=== PATIENT | female | born 1940 | race Caucasian/White ===

== ENCOUNTER → 2017-12-05 11:30 | Outpatient (CLI) | payer MEDICARE, SELFPAY ==
--- NOTE | 2017-12-05 11:51 | RAD_ITS ---
STUDY: X-RAY - RIGHT SHOULDER REASON FOR EXAM: Female, 77 years old. Fall. TECHNIQUE: 4 view(s) of the shoulder. COMPARISON: None. FINDINGS: There is mild degenerative arthrosis of the glenohumeral articulation. Normal acromioclavicular joint. Normal acromion. Normal humeral head and visualized proximal humerus. The soft tissue structures are unremarkable. Normal visualized pulmonary apex. RAD/Shoulder min 2 Views IMPRESSION: Mild glenohumeral arthrosis. No fracture or dislocation. Electronically Signed: Karthik Newman DO at 23:57 EST , Service support ,
--- NOTE | 2017-12-05 11:51 | RAD_ITS ---
STUDY: X-RAY - LEFT SHOULDER REASON FOR EXAM: Female, 77 years old. Fall TECHNIQUE: 4 view(s) of the shoulder. COMPARISON: None. FINDINGS: There is moderate degenerative arthrosis of the glenohumeral articulation. Normal acromioclavicular joint. Normal acromion. There is an enthesopathic erosion of the humeral head. The soft tissue structures are unremarkable. Normal visualized pulmonary apex. RAD/Shoulder min 2 Views IMPRESSION: Glenohumeral arthrosis. Humeral head osteophyte and erosion. No fracture or dislocation. Electronically Signed: Karthik Newman DO at 23:56 EST , Service support ,
[2017-12-05 14:33] LABS: T4 Free Direct 0.87 ng/dL (0.76-1.46); Thyroid Stim Hormone (TSH) 2.91 uIU/mL (0.358-3.74)
== END ==
LOC: MFPLAB 11:31 → MTRAD 11:36
PROVIDERS: Family Provider Family Medicine; PCP Family Medicine; Visit Provider Family Medicine
DX: M25.512 Pain in left shoulder (principal); M25.511 Pain in right shoulder; R94.6 Abnormal results of thyroid function studies
CPT/HCPCS: 36415; 73030; 84439; 84443

== ENCOUNTER 2019-12-05 09:24 | Day surgery (SDC) | payer MEDICARE, MEDICAID, SELFPAY ==
--- NOTE | 2019-11-24 02:52 | HP_ITS ---
Intake Vital Signs 11/24/19 BP 124/77 H 11/24/19 Blood Pressure Location Lt brachial 11/24/19 Position Sitting 11/24/19 Respiration 22 H 11/24/19 Pulse 78 Intake Visit Reasons: CSCOPE/ BLOOD IN STOOL Chief Complaint: blood in stool Hotbed Transfer Operator Required: No Is patient in pain?: No Allergies ether [Ether] Allergy (Verified 11/24/19 09:20) Anaphylaxis Penicillins Allergy (Verified 11/24/19 09:20) Anaphylaxis Medications Calcium Carb/Vitamin D [Caltrate-600 With Vit D Tab] 600 mg PO DAILY 12/05/13 [History Confirmed 11/24/19] Benazepril HCl [Lotensin] 40 mg PO DAILY #30 tab 01/02/14 [Rx Confirmed 03/19/14] Fluticasone 110 Mcg [Flovent 110 Mcg] 2 puff INHALATION BID #1 inhaler 01/02/14 [Rx Confirmed 11/24/19] Iron Carbonyl [Feosol] 45 mg PO BID #60 cap 01/02/14 [Rx Confirmed 11/24/19] Acetaminophen/Codeine #3 [Tylenol #3 Tablet] 1 - 2 tab PO Q6H PRN PRN 03/19/14 [History Confirmed 11/24/19] ALPRAZolam [Xanax] 0.5 mg PO TID PRN PRN #20 tab 03/20/14 [Rx Confirmed 11/24/19] Docusate Sodium [Colace] 200 mg PO BID PRN PRN #40 cap 03/20/14 [Rx Confirmed 11/24/19] traMADol [Ultram] 50 - 100 mg PO Q6H PRN PRN #20 tab 03/20/14 [Rx Confirmed 11/24/19] amlodipine 5 mg tablet 10 mg PO DAILY tab 11/24/19 [History] levothyroxine 50 mcg tablet tab PO 11/24/19 [History Confirmed 11/24/19] lisinopril 40 mg tablet 40 mg PO DAILY tab 11/24/19 [History Confirmed 11/24/19] Is last menstrual period known: No Post menopausal: Yes Patient : No PFSH Medical History (Updated 11/24/19 @ 14:[address] Denys Olivas MD) Gastric ulcer (Acute) Bronchial asthma (Acute) Legally blind (Acute) Obesity (Chronic) Anemia (Chronic) Anxiety (Chronic) Hyperlipidemia (Chronic) Asthma (Chronic) Type 2 diabetes mellitus (Chronic) Hypertension (Chronic) DJD (degenerative joint disease) of knee (Chronic) Leukocytosis (Acute) Closed head injury (Acute) Osteoarthritis (Acute) Surgical History (Updated 11/24/19 @ 09:19 by Ashwini Elizalde) History of cholecystectomy (Acute) History of colonoscopy (Acute ~2013) History of esophagogastroduodenoscopy (EGD) (Acute ~2013) History of hysterectomy (Acute) History of partial mastectomy of left breast (Acute) Family History (Updated 11/24/19 @ 09:20 by Ashwini Elizalde) Father Heart disease CVA (cerebral vascular accident) Mother Cancer liver Breast cancer Social History (Updated 11/24/19 @ 14:[address] Denys Olivas MD) Smoking Status: Never smoker HPI HPI HPI: LEONID MCCOY, is a 79 F who presents to the office today for HPI HPI Surgical H&P: Yes HPI: LEONID MCCOY, is a 79 F who presents to the office today for Anemia blood in her stool. Patient reports that she occasionally has blood in her stool. She also has upper abdominal pain. She is not on a PPI. She had an EGD and colonoscopy in [address] Fair which were both normal. ROS General General: Yes fatigue; no weight change, appetite, colon cancer, breast cancer or weakness HEENT HEENT: Yes eye surgery; no difficulty swallowing, eye injury, swollen glands or hoarseness Endo Endocrine: Yes diabetes mellitus; no thyroid disease, thyroid cancer, Hair loss, heat intolerance or cold intolerance Cardio Cardiovascular: Yes high blood pressure; no murmur, pacemaker, heart disease, atrial fibrillation, heart attack, heart stent, palpitations, shortness of breat with exertion or chest pain Psych Psychiatric: Yes anxiety; no depression or hearing voices Resp Respiratory: Yes shortness of breath, No sleep apnea, No cough, No COPD, Yes asthma, No emphysema, No wheezing Gastro Gastrointestinal: Yes abdominal pain, No nausea or vomiting, No diarrhea, Yes constipation, Yes blood in stool, No acid reflux, No hemorrhoids, Yes ulcers, Yes gallbladder problem, No black,tarry stools Sin Hematologic: Yes blood thinners, No blood disorders, No bleeding, Yes anemia, No blood clots Neuro Neurologic: No weakness Exam Const General: cooperative Orientation: alert, oriented x3 Resp Effort & Inspection: normal respiratory effort Auscultation: clear to auscultation bilaterally Cardio Rate: regular rate Rhythm: regular rhythm Heart Sounds: no murmurs GI Inspection: non-distended Palpation: soft, tender in the epigastrum Assessment & Plan Problems 1. Iron deficiency anemia, unspecified iron deficiency anemia type D50.9 2. Blood in stool K92.1 Plan The patient has a history of blood in her stool. She also has abdominal pain and she has iron deficiency anemia. She had normal colonoscopy and EGD in 2013. I do recommend EGD and colonoscopy to check for signs of malignancy. I discussed this with her in detail. She is very concerned with the anesthesia. I explained endoscopy in detail to the patient. I explained the risks including but not limited to stroke or heart attack with anesthesia, perforation of the GI tract, bleeding, infection. I explained that any of these could necessitate further emergency surgery. The patient understands and all questions were answered sufficiently. The patient wishes to proceed with procedure. Denys Olivas MD Pager: [facility] [address] [place] [address], [address] [place] [address] Office: Orders Orders: Colonoscopy Today D64.9, K92.1 EGD Today D64.9, K92.1 Coding Level of Care Code Off vis,new,level 3 Diagnoses Iron deficiency anemia, unspecified iron deficiency anemia type D50.9 ??Anemia type: iron deficiency ??Iron deficiency anemia type: unspecified iron deficiency Blood in stool K92.1 11/24/19 0202 <Electronically signed by Denys tejada MD> Date _ Denys Olivas MD I have re-examined the patient. There are no clinical changes since date of exam.
[2019-11-24 09:21] VITALS: BMI 36.0
[2019-12-05] VITALS (7 sets, daily range): BP systolic 106–126; BP diastolic 43–58; PULSE 75–83; RESP 16; TEMP 36.5–37.6; O2SAT 95–99; BMI 37.8
[2019-12-05 11:31] LABS: Bedside Glucose 107 mg/dL (70-110)
--- NOTE | 2019-12-05 11:38 | OP.CCLET_ITS ---
12/05/2019 Lanre Smith MD [address] [phone] Re : Upper GI endoscopy procedure for Xochitl Cochran Dear Dr. Smith This procedure was performed on Thursday, December 05, 2019. My impressions and recommendations are as follows: Impressions : - Gastritis with hemorrhage. - Normal [Site]. - Normal esophagus. - No specimens collected. Recommendations : - Discharge patient to a skilled nursing. - Resume previous diet. - Use sucralfate tablets 1 gram PO QID for 1 month. - Use Prilosec (omeprazole) 40 mg PO daily. - Continue present medications. My findings are described in the full procedure note, which is enclosed. If I can be of further assistance, please feel free to contact me at Doctor phone number(s): , Work: . Sincerely, Denys Olivas MD 12/05/2019 11:37:49 AM This report has been signed electronically.
--- NOTE | 2019-12-05 11:38 | OP.EGD_ITS ---
Patient Name: Xochitl Cochran Procedure Date: 12/05/2019 10:42 AM Date of : 1940 Age: 79 Procedure: Upper GI endoscopy Indications: Iron deficiency anemia Providers: Denys Olivas MD Referring MD: Lanre Smith MD Medicines: Monitored Anesthesia Care Patient Profile: This is an 79 year old female. Refer to note in patient chart for documentation of history and physical. Complications: No immediate complications. Estimated blood loss: Minimal. Procedure: Pre-Anesthesia Assessment: - Prior to the procedure, a History and Physical was performed, and patient medications and allergies were reviewed. The patient's tolerance of previous anesthesia was also reviewed. The risks and benefits of the procedure and the sedation options and risks were discussed with the patient. All questions were answered, and informed consent was obtained. Prior Anticoagulants: The patient has taken no previous anticoagulant or antiplatelet agents. After reviewing the risks and benefits, the patient was deemed in satisfactory condition to undergo the procedure. After obtaining informed consent, the endoscope was passed under direct vision. Throughout the procedure, the patient's blood pressure, pulse, and oxygen saturations were monitored continuously. The gastroscope was introduced through the mouth, and advanced to the third part of duodenum. The upper GI endoscopy was accomplished without difficulty. The patient tolerated the procedure well. Scope In: 11:11:26 AM Scope Out: 11:14:48 AM Total Procedure Duration Time 0 hours 3 minutes 22 seconds Findings: Localized moderate inflammation with hemorrhage characterized by adherent blood was found in the entire examined stomach. The [Site] was normal. The esophagus was normal. Impression: - Gastritis with hemorrhage. - Normal [Site]. - Normal esophagus. - No specimens collected. Recommendation: - Discharge patient to a detention. - Resume previous diet. - Use sucralfate tablets 1 gram PO QID for 1 month. - Use Prilosec (omeprazole) 40 mg PO daily. - Continue present medications. Procedure Code(s): --- Professional --- 45162, Esophagogastroduodenoscopy, flexible, transoral; diagnostic, including collection of specimen(s) by brushing or washing, when performed (separate procedure) Diagnosis Code(s): --- Professional --- K29.71, Gastritis, unspecified, with bleeding D50.9, Iron deficiency anemia, unspecified CPT copyright 2017 [employer]. All rights reserved. The codes documented in this report are preliminary and upon test desk operator review may be revised to meet current compliance requirements. Denys Olivas MD 12/05/2019 11:37:49 AM This report has been signed electronically. Number of Addenda: 0 Note Initiated On: 12/05/2019 10:42 AM
--- NOTE | 2019-12-05 11:39 | OP.COLON_ITS ---
Patient Name: Xochitl Cochran Procedure Date: 12/05/2019 11:15 AM Date of : 1940 Age: 79 Procedure: Colonoscopy Indications: Iron deficiency anemia Providers: Denys Olivas MD Referring MD: Lanre Smith MD Medicines: Monitored Anesthesia Care Patient Profile: This is an 79 year old female. Refer to note in patient chart for documentation of history and physical. Refer to note in patient chart for documentation of history and physical. Last Colonoscopy: several years ago. Complications: No immediate complications. Estimated blood loss: Minimal. Procedure: Pre-Anesthesia Assessment: - Prior to the procedure, a History and Physical was performed, and patient medications and allergies were reviewed. The patient's tolerance of previous anesthesia was also reviewed. The risks and benefits of the procedure and the sedation options and risks were discussed with the patient. All questions were answered, and informed consent was obtained. Prior Anticoagulants: The patient has taken no previous anticoagulant or antiplatelet agents. After reviewing the risks and benefits, the patient was deemed in satisfactory condition to undergo the procedure. After I obtained informed consent, the scope was passed under direct vision. Throughout the procedure, the patient's blood pressure, pulse, and oxygen saturations were monitored continuously. The Colonoscope was introduced through the anus and advanced to the cecum, identified by appendiceal orifice and ileocecal valve. The colonoscopy was performed without difficulty. The patient tolerated the procedure well. The quality of the bowel preparation was good. Scope In: 11:18:24 AM Scope Withdrawal Time 0 hours 6 minutes 2 seconds Scope Out: 11:32:22 AM Total Procedure Duration Time 0 hours 13 minutes 58 seconds Findings: The entire examined colon appeared normal on direct and retroflexion views. Impression: - The entire examined colon is normal on direct and retroflexion views. - No specimens collected. Recommendation: - Discharge patient to a assisted. - Resume previous diet. - Continue present medications. - Repeat colonoscopy is not recommended due to current age (66 years or older) for screening purposes. Procedure Code(s): --- Professional --- 98579, Colonoscopy, flexible; diagnostic, including collection of specimen(s) by brushing or washing, when performed (separate procedure) Diagnosis Code(s): --- Professional --- D50.9, Iron deficiency anemia, unspecified CPT copyright 2017 [employer]. All rights reserved. The codes documented in this report are preliminary and upon collaborating supervising physician review may be revised to meet current compliance requirements. Denys Olivas MD 12/05/2019 11:39:31 AM This report has been signed electronically. Number of Addenda: 0 Note Initiated On: 12/05/2019 11:15 AM
--- NOTE | 2019-12-05 11:40 | OP.CCLET_ITS ---
12/05/2019 Lanre Smith MD [address] [phone] Re : Colonoscopy procedure for Xochitl Cochran Dear Dr. Smith This procedure was performed on Thursday, December 05, 2019. My impressions and recommendations are as follows: Impressions : - The entire examined colon is normal on direct and retroflexion views. - No specimens collected. Recommendations : - Discharge patient to a usp. - Resume previous diet. - Continue present medications. - Repeat colonoscopy is not recommended due to current age (66 years or older) for screening purposes. My findings are described in the full procedure note, which is enclosed. If I can be of further assistance, please feel free to contact me at Doctor phone number(s): , Work: . Sincerely, Denys Olivas MD 12/05/2019 11:39:31 AM This report has been signed electronically.
--- NOTE | 2019-12-05 11:40 | PN_ITS ---
Progress Note I performed an EGD and a colonoscopy on the patient. The colonoscopy was normal. EGD showed diffuse gastritis with punctate bleeding throughout the stomach. She also had an ulcer at the GE junction. I will start her on Carafate and PPI. Denys Olivas MD Pager: [facility] [address] [place] [address], [address] [phone] Office: STROKE Vital Signs/Narrative: Vital Signs Temp Pulse Resp BP Pulse Ox 12/05/19 10:24 99.0 F 81 16 120/56 L 95
--- NOTE | 2019-12-05 11:40 | PCM.PN.BLA ---
Progress Note I performed an EGD and a colonoscopy on the patient. The colonoscopy was normal. EGD showed diffuse gastritis with punctate bleeding throughout the stomach. She also had an ulcer at the GE junction. I will start her on Carafate and PPI. Denys Olivas MD Pager: [facility] [address] [place] [address], [address] [phone] Office: STR[place] Vital Signs/Narrative: Vital Signs Temp Pulse Resp BP Pulse Ox 12/05/19 10:24 99.0 F 81 16 120/56 L 95
[2019-12-05] MEDS: Lactated Ringers 1,000 ML 100 ML IV (11:52)
== END 2019-12-05 12:50 | disposition home or self-care (01) ==
LOC: EN 09:28 → AC 09:29
PROVIDERS: PCP Family Medicine; Referring Provider Family Medicine; Visit Provider Surgery
PROC: 0DJD8ZZ Inspection of Lower Intestinal Tract, Via Natural or Artificial Opening Endoscopic (ICD-10-PCS; CPT 45378; principal; 2019-12-05 10:25)
DX: K29.71 Gastritis, unspecified, with bleeding (principal); K25.0 Acute gastric ulcer with hemorrhage; D50.9 Iron deficiency anemia, unspecified; K92.1 Melena; K21.9 Gastro-esophageal reflux disease without esophagitis; E11.9 Type 2 diabetes mellitus without complications; I10 Essential (primary) hypertension; E78.5 Hyperlipidemia, unspecified; M17.10 Unilateral primary osteoarthritis, unspecified knee; J45.909 Unspecified asthma, uncomplicated; H54.8 Legal blindness, as defined in USA; F41.9 Anxiety disorder, unspecified; E66.9 Obesity, unspecified; Z68.37 Body mass index [BMI] 37.0-37.9, adult; Z88.0 Allergy status to penicillin; Z78.0 Asymptomatic menopausal state; Z79.899 Other long term (current) drug therapy
CPT/HCPCS: 43235; 45378; 82962; J7120; J2405

== ENCOUNTER → 2020-01-22 | Outpatient (CLI) | payer MEDICARE, MEDICAID, SELFPAY ==
[2019-12-05 10:24] VITALS: BMI 37.8
== END | disposition home or self-care (01) ==
PROVIDERS: PCP Family Medicine; Referring Provider Nurse Practitioner Adult Health; Visit Provider Nurse Practitioner Adult Health
DX: J98.8 Other specified respiratory disorders (principal)
CPT/HCPCS: 87635; U0004

== ENCOUNTER → 2020-02-16 | Outpatient (CLI) | payer MEDICARE, MEDICAID, SELFPAY ==
[2019-12-05 10:24] VITALS: BMI 37.8
== END | disposition home or self-care (01) ==
LOC: LABSPEC 13:34
PROVIDERS: PCP Family Medicine; Referring Provider Family Medicine; Visit Provider Family Medicine
DX: Z03.818 Encounter for observation for suspected exposure to other biological agents ruled out (principal); J98.8 Other specified respiratory disorders
CPT/HCPCS: 87635; U0004

== ENCOUNTER → 2021-04-22 | Outpatient (REF) | payer MEDICARE, MEDICAID, SELFPAY ==
[2019-12-05 10:24] VITALS: BMI 37.8
[2021-04-22 07:02] LABS: Absolute Lymphocyte Count 2.95 X10^3/uL (0.83-4.51); Absolute Neutrophil Count 3.1 X10^3/uL (2.0-7.7); Basophil# 0.06 X10^3/uL; Basophil% 0.9 % (0-1); Eosinophil# 0.18 X10^3/uL; Eosinophils% 2.6 % (0-5); Hematocrit 32.5 % (37-47); Hemoglobin 9.6 g/dL (12.0-15.0); Lymphocyte # 2.95 X10^3/ul (0.83-4.51); Lymphocyte % 42.1 % (19-41); Mean Corp Hgb Conc 29.5 g/dL (32-36); Mean Corpuscular Hgb 22.5 pg (27.0-32.0); Mean Corpuscular Volume 76.1 fL (81-99); Mean Platelet Vol. 10.6 fl (6.2-12.0); Monocyte# 0.68 X10^3/uL; Monocyte% 9.7 % (0-10); NRBC Flagged by Analyzer 0 % (0-5); Neutrophil # 3.11 X10^3/uL (2.7-7.7); Neutrophil % 44.4 % (47-70); Platelet Count 416 K/mm3 (150-450); RBC Distribution Width CV 18.3 % (11.6-14.6); RBC Distribution Width SD 49.8 fl (35.1-43.9); Red Blood Count 4.27 M/mm3 (4.2-5.4)
[2021-04-22 07:42] LABS: Thyroid Stim Hormone (TSH) 3.08 uIU/mL (0.358-3.74)
== END | disposition home or self-care (01) ==
LOC: OLS.SW400 05:00
PROVIDERS: PCP Family Medicine; Visit Provider Family Medicine
DX: M06.4 Inflammatory polyarthropathy (principal); E03.9 Hypothyroidism, unspecified
CPT/HCPCS: 36415; 84443; 85025

== ENCOUNTER → 2021-07-22 05:00 | Outpatient (REF) | payer MEDICARE, MEDICAID, SELFPAY ==
[2021-07-22 07:42] LABS: Absolute Neutrophil Count 2.3 X10^3/uL (2.0-7.7); Basophil# 0.06 X10^3/uL; Eosinophil# 0.23 X10^3/uL; Eosinophils% 3.8 % (0-5); Hematocrit 34.1 % (37-47); Hemoglobin 10.3 g/dL (12.0-15.0); Lymphocyte % 45.9 % (19-41); Mean Corp Hgb Conc 30.2 g/dL (32-36); Mean Corpuscular Hgb 24.5 pg (27.0-32.0); Mean Corpuscular Volume 81.2 fL (81-99); Mean Platelet Vol. 10.8 fl (6.2-12.0); Monocyte# 0.72 X10^3/uL; Monocyte% 11.8 % (0-10); NRBC Flagged by Analyzer 0 % (0-5); Neutrophil # 2.28 X10^3/uL (2.7-7.7); Neutrophil % 37.3 % (47-70); Platelet Count 351 K/mm3 (150-450); RBC Distribution Width CV 17.7 % (11.6-14.6); RBC Distribution Width SD 52.5 fl (35.1-43.9); White Blood Count 6.1 K/mm3 (4.4-11.0)
[2021-07-22 08:15] LABS: Thyroid Stim Hormone (TSH) 3.61 uIU/mL (0.358-3.74)
== END ==
LOC: OLS.SW400 05:00
PROVIDERS: PCP Family Medicine; Visit Provider Family Medicine
DX: E03.9 Hypothyroidism, unspecified (principal); M06.4 Inflammatory polyarthropathy
CPT/HCPCS: 36415; 84443; 85025

== ENCOUNTER → 2021-08-03 05:00 | Outpatient (REF) | payer MEDICARE, MEDICAID, SELFPAY ==
[2021-08-03 09:09] LABS: Hemoglobin A1c 6.7 % (3.8-5.6)
[2021-08-03 09:25] LABS: ALB/GLOB Ratio 0.7 RATIO (0.9-2.4); AST(SGOT) 15 U/L (15-37); Alanine Aminotransfer ALT/SGPT 23 U/L (13-56); Albumin, Serum 3.1 g/dL (3.2-5.0); Alkaline Phosphatase 183 U/L (45-117); Anion Gap 5 (5-15); BUN 22 mg/dL (7-18); BUN/Creat Ratio 44.5 RATIO (10-20); Calcium,Total 9.4 mg/dL (8.5-10.1); Chloride 106 mmol/L (98-107); Creatinine, Serum 0.49 mg/dL (0.55-1.02); EST Glomerular Filtration Rate 127 mL/min (>60); Est Glom Filt Rate - Afr Amer 154 mL/min (>60); Globulin 4.3 g/dL (2.2-4.2); Glucose 86 mg/dL (74-106); Potassium 4.1 mmol/L (3.5-5.1); Protein, Total 7.4 g/dL (6.4-8.2); Sodium Level 140 mmol/L (136-145)
== END ==
LOC: OLS.SW400 05:00
PROVIDERS: PCP Family Medicine; Visit Provider Family Medicine
DX: E11.9 Type 2 diabetes mellitus without complications (principal)
CPT/HCPCS: 36415; 80053; 83036

== ENCOUNTER → 2021-10-21 | Outpatient (REF) | payer MEDICARE, MEDICAID, SELFPAY ==
[2021-10-21 05:23] LABS: Absolute Lymphocyte Count 2.65 X10^3/uL (0.83-4.51); Absolute Neutrophil Count 3.4 X10^3/uL (2.0-7.7); Basophil# 0.06 X10^3/uL; Basophil% 0.8 % (0-1); Eosinophil# 0.21 X10^3/uL; Eosinophils% 2.9 % (0-5); Hematocrit 33.9 % (37-47); Hemoglobin 10.7 g/dL (12.0-15.0); Lymphocyte # 2.65 X10^3/ul (0.83-4.51); Lymphocyte % 37.1 % (19-41); Mean Corp Hgb Conc 31.6 g/dL (32-36); Mean Corpuscular Hgb 26.6 pg (27.0-32.0); Mean Corpuscular Volume 84.3 fL (81-99); Mean Platelet Vol. 11.3 fl (6.2-12.0); Monocyte# 0.78 X10^3/uL; Monocyte% 10.9 % (0-10); NRBC Flagged by Analyzer 0 % (0-5); Neutrophil # 3.43 X10^3/uL (2.7-7.7); Neutrophil % 48.2 % (47-70); Platelet Count 334 K/mm3 (150-450); RBC Distribution Width CV 15.9 % (11.6-14.6); RBC Distribution Width SD 49.3 fl (35.1-43.9); Red Blood Count 4.02 M/mm3 (4.2-5.4); White Blood Count 7.1 K/mm3 (4.4-11.0)
== END | disposition home or self-care (01) ==
LOC: OLS.SW500 04:00
PROVIDERS: PCP Family Medicine; Visit Provider Family Medicine
DX: E03.9 Hypothyroidism, unspecified (principal)
CPT/HCPCS: 36415; 84443; 85025

== ENCOUNTER 2021-10-31 04:00 | Outpatient (REF) | payer MEDICARE, MEDICAID, SELFPAY | END 2021-10-31 23:59 | disposition home or self-care (01) | LOC: OLS.SW500 04:00 | PROVIDERS: PCP Family Medicine; Referring Provider Family Medicine; Visit Provider Family Medicine | DX: E55.9 Vitamin D deficiency, unspecified (principal) | CPT/HCPCS: 36415; 82306 ==

== ENCOUNTER → 2022-01-03 | Outpatient (REF) | payer MEDICARE, MEDICAID, SELFPAY ==
[2022-01-03 10:48] LABS: Thyroid Stim Hormone (TSH) 3.06 uIU/mL (0.358-3.74)
== END | disposition home or self-care (01) ==
LOC: OLS.SW500 05:00
PROVIDERS: PCP Family Medicine; Visit Provider Family Medicine
DX: E03.9 Hypothyroidism, unspecified (principal)
CPT/HCPCS: 36415; 84443

== ENCOUNTER → 2022-01-20 | Outpatient (REF) | payer MEDICARE, SELFPAY ==
[2022-01-20 07:32] LABS: Absolute Neutrophil Count 3.7 X10^3/uL (2.0-7.7); Basophil# 0.04 X10^3/uL; Basophil% 0.5 % (0-1); Eosinophil# 0.23 X10^3/uL; Hematocrit 31.3 % (37-47); Hemoglobin 9.8 g/dL (12.0-15.0); Mean Corp Hgb Conc 31.3 g/dL (32-36); Mean Corpuscular Hgb 26.3 pg (27.0-32.0); Mean Corpuscular Volume 83.9 fL (81-99); Mean Platelet Vol. 11.3 fl (6.2-12.0); Monocyte# 0.78 X10^3/uL; Monocyte% 10.2 % (0-10); NRBC Flagged by Analyzer 0 % (0-5); Neutrophil # 3.66 X10^3/uL (2.7-7.7); Platelet Count 352 K/mm3 (150-450); RBC Distribution Width CV 14.7 % (11.6-14.6); RBC Distribution Width SD 45.1 fl (35.1-43.9); Red Blood Count 3.73 M/mm3 (4.2-5.4); White Blood Count 7.6 K/mm3 (4.4-11.0)
[2022-01-20 07:59] LABS: Thyroid Stim Hormone (TSH) 1.54 uIU/mL (0.358-3.74)
== END | disposition home or self-care (01) ==
LOC: OLS.SW500 05:00
PROVIDERS: PCP Family Medicine; Referring Provider Family Medicine; Visit Provider Family Medicine
DX: E03.9 Hypothyroidism, unspecified (principal)
CPT/HCPCS: 36415; 84443; 85025

== ENCOUNTER → 2022-02-01 | Outpatient (REF) | payer SELFPAY ==
[2022-02-01 08:25] LABS: ALB/GLOB Ratio 0.7 RATIO (0.9-2.4); AST(SGOT) 12 U/L (15-37); Alanine Aminotransfer ALT/SGPT 16 U/L (13-56); Albumin, Serum 2.7 g/dL (3.2-5.0); Alkaline Phosphatase 127 U/L (45-117); Anion Gap 5 (5-15); BUN 30 mg/dL (7-18); BUN/Creat Ratio 48.2 RATIO (10-20); Calcium,Total 8.5 mg/dL (8.5-10.1); Chloride 107 mmol/L (98-107); Creatinine, Serum 0.62 mg/dL (0.55-1.02); EST Glomerular Filtration Rate 97 mL/min (>60); Est Glom Filt Rate - Afr Amer 118 mL/min (>60); Globulin 3.7 g/dL (2.2-4.2); Glucose 95 mg/dL (74-106); Protein, Total 6.4 g/dL (6.4-8.2); Sodium Level 140 mmol/L (136-145)
[2022-02-01 08:30] LABS: Hemoglobin A1c 6.8 % (3.8-5.6)
== END | disposition home or self-care (01) ==
LOC: OLS.SW500 05:00
PROVIDERS: PCP Family Medicine; Referring Provider Family Medicine; Visit Provider Family Medicine
DX: E11.9 Type 2 diabetes mellitus without complications (principal)
CPT/HCPCS: 36415; 80053; 83036

== ENCOUNTER → 2022-04-21 05:00 | Outpatient (REF) | payer MEDICARE, MEDICAID, SELFPAY ==
[2022-04-21 08:17] LABS: Absolute Lymphocyte Count 2.79 X10^3/uL (0.83-4.51); Basophil# 0.05 X10^3/uL; Basophil% 0.6 % (0-1); Eosinophil# 0.33 X10^3/uL; Eosinophils% 4.2 % (0-5); Hematocrit 35.7 % (37-47); Lymphocyte # 2.79 X10^3/ul (0.83-4.51); Lymphocyte % 35.2 % (19-41); Mean Corp Hgb Conc 30.8 g/dL (32-36); Mean Corpuscular Hgb 26.8 pg (27.0-32.0); Mean Corpuscular Volume 86.9 fL (81-99); Mean Platelet Vol. 11.8 fl (6.2-12.0); Monocyte% 10.1 % (0-10); NRBC Flagged by Analyzer 0 % (0-5); Neutrophil # 3.95 X10^3/uL (2.7-7.7); Neutrophil % 49.8 % (47-70); Platelet Count 310 K/mm3 (150-450); RBC Distribution Width CV 15.9 % (11.6-14.6); RBC Distribution Width SD 50.6 fl (35.1-43.9); Red Blood Count 4.11 M/mm3 (4.2-5.4); White Blood Count 7.9 K/mm3 (4.4-11.0)
[2022-04-21 08:58] LABS: Thyroid Stim Hormone (TSH) 1.83 uIU/mL (0.358-3.74)
== END ==
LOC: OLS.SW500 05:00
PROVIDERS: PCP Family Medicine; Visit Provider Family Medicine
DX: E03.9 Hypothyroidism, unspecified (principal)
CPT/HCPCS: 36415; 84443; 85025

== ENCOUNTER → 2022-05-21 | Outpatient (REF) | payer MEDICARE, MEDICAID, SELFPAY ==
[2022-05-22 08:31] LABS: Bacteria 0 SEEN /hpf (None Seen); Mucous, Urine 0 SEEN /hpf (<or=2+); Red Blood Cells-Urine 0 SEEN /hpf (0-5)
[2022-05-22 08:45] LABS: Color, Urine Straw (Yellow); Glucose, Dipstick Normal (Normal); Ketone-Dipstick Negative (Negative); Leukocyte Esterase-Dipstick 500 /ul (Negative); Nitrite-Dipstick Negative (Negative); Occult Blood-Urine Negative /ul (Negative); Protein-Dipstick Negative (Negative); Urine Bilirubin Dipstick Negative (Negative); Urine Clarity Clear (Clear); Urine Urobilinogen Normal (Normal)
[2022-05-22 08:54] LABS: White Blood Cells 10-25 SEEN /hpf (0-5)
[2022-05-22 08:56] LABS: Squamous Epithelial Cells - UA 0-5 SEEN /hpf (5-10)
== END ==
LOC: OLS.SW500 08:31
PROVIDERS: PCP Family Medicine; Visit Provider Family Medicine
DX: N39.0 Urinary tract infection, site not specified (principal)
CPT/HCPCS: 81001; 87086

== ENCOUNTER → 2022-07-21 | Outpatient (REF) | payer MEDICARE, MEDICAID, SELFPAY ==
[2022-07-21 08:03] LABS: Absolute Lymphocyte Count 2.86 X10^3/uL (0.83-4.51); Absolute Neutrophil Count 3.7 X10^3/uL (2.0-7.7); Basophil# 0.05 X10^3/uL; Basophil% 0.6 % (0-1); Eosinophil# 0.26 X10^3/uL; Eosinophils% 3.4 % (0-5); Hemoglobin 10.7 g/dL (12.0-15.0); Lymphocyte # 2.86 X10^3/ul (0.83-4.51); Lymphocyte % 36.9 % (19-41); Mean Corp Hgb Conc 31.5 g/dL (32-36); Mean Corpuscular Hgb 27.3 pg (27.0-32.0); Mean Corpuscular Volume 86.7 fL (81-99); Mean Platelet Vol. 11.8 fl (6.2-12.0); Monocyte% 11.6 % (0-10); NRBC Flagged by Analyzer 0 % (0-5); Neutrophil # 3.66 X10^3/uL (2.7-7.7); Neutrophil % 47.1 % (47-70); Platelet Count 318 K/mm3 (150-450); RBC Distribution Width CV 15.3 % (11.6-14.6); RBC Distribution Width SD 48.8 fl (35.1-43.9); Red Blood Count 3.92 M/mm3 (4.2-5.4); White Blood Count 7.8 K/mm3 (4.4-11.0)
[2022-07-21 08:21] LABS: Thyroid Stim Hormone (TSH) 1.43 uIU/mL (0.358-3.74)
== END ==
LOC: OLS.SW500 05:00
PROVIDERS: PCP Family Medicine; Visit Provider Family Medicine
DX: E03.9 Hypothyroidism, unspecified (principal)
CPT/HCPCS: 36415; 84443; 85025

== ENCOUNTER → 2022-08-02 | Outpatient (REF) | payer MEDICARE, MEDICAID, SELFPAY ==
[2022-08-02 09:17] LABS: ALB/GLOB Ratio 0.8 RATIO (0.9-2.4); AST(SGOT) 10 U/L (15-37); Alanine Aminotransfer ALT/SGPT 13 U/L (13-56); Albumin, Serum 2.9 g/dL (3.2-5.0); Alkaline Phosphatase 168 U/L (45-117); Anion Gap 6 (5-15); BUN 18 mg/dL (7-18); BUN/Creat Ratio 34.7 RATIO (10-20); Calcium,Total 8.8 mg/dL (8.5-10.1); Chloride 108 mmol/L (98-107); Creatinine, Serum 0.52 mg/dL (0.55-1.02); EST Glomerular Filtration Rate 120 mL/min (>60); Est Glom Filt Rate - Afr Amer 145 mL/min (>60); Globulin 3.5 g/dL (2.2-4.2); Glucose 91 mg/dL (74-106); Potassium 3.9 mmol/L (3.5-5.1); Protein, Total 6.4 g/dL (6.4-8.2); Sodium Level 141 mmol/L (136-145)
[2022-08-02 10:09] LABS: Hemoglobin A1c 6.4 % (3.8-5.6)
== END ==
LOC: OLS.SW 05:00
PROVIDERS: PCP Family Medicine; Visit Provider Family Medicine
DX: E11.9 Type 2 diabetes mellitus without complications (principal)
CPT/HCPCS: 36415; 80053; 83036

== ENCOUNTER → 2022-10-20 | Outpatient (REF) | payer MEDICARE, MEDICAID, SELFPAY ==
[2022-10-20 09:01] LABS: Absolute Lymphocyte Count 2.38 X10^3/uL (0.83-4.51); Absolute Neutrophil Count 4.1 X10^3/uL (2.0-7.7); Basophil# 0.07 X10^3/uL; Basophil% 0.9 % (0-1); Eosinophil# 0.26 X10^3/uL; Eosinophils% 3.4 % (0-5); Hematocrit 38.7 % (37-47); Hemoglobin 11.7 g/dL (12.0-15.0); Lymphocyte # 2.38 X10^3/ul (0.83-4.51); Lymphocyte % 30.9 % (19-41); Mean Corp Hgb Conc 30.2 g/dL (32-36); Mean Corpuscular Hgb 26.6 pg (27.0-32.0); Mean Platelet Vol. 11.8 fl (6.2-12.0); Monocyte# 0.84 X10^3/uL; Monocyte% 10.9 % (0-10); NRBC Flagged by Analyzer 0 % (0-5); Neutrophil # 4.12 X10^3/uL (2.7-7.7); Neutrophil % 53.6 % (47-70); Platelet Count 314 K/mm3 (150-450); RBC Distribution Width CV 14.3 % (11.6-14.6); RBC Distribution Width SD 46.4 fl (35.1-43.9); White Blood Count 7.7 K/mm3 (4.4-11.0)
[2022-10-20 09:15] LABS: Thyroid Stim Hormone (TSH) 2.88 uIU/mL (0.358-3.74)
== END ==
LOC: OLS.SW 05:00
PROVIDERS: PCP Family Medicine; Visit Provider Family Medicine
DX: E03.9 Hypothyroidism, unspecified (principal)
CPT/HCPCS: 36415; 84443; 85025

== ENCOUNTER → 2022-10-30 | Outpatient (REF) | payer MEDICARE, MEDICAID, SELFPAY ==
[2022-10-30 10:59] LABS: Vitamin D,25 Hydroxy 29.9 ng/mL
== END ==
LOC: OLS.SW 05:00
PROVIDERS: PCP Family Medicine; Visit Provider Family Medicine
DX: E55.9 Vitamin D deficiency, unspecified (principal); E11.9 Type 2 diabetes mellitus without complications; I10 Essential (primary) hypertension
CPT/HCPCS: 36415; 82306

== ENCOUNTER → 2022-12-18 | Outpatient (REF) | payer MEDICARE, MEDICAID, SELFPAY ==
[2022-12-19 08:23] LABS: Mucous, Urine 0 SEEN /hpf (<or=2+)
[2022-12-19 08:51] LABS: Color, Urine Yellow (Yellow); Glucose, Dipstick Normal (Normal); Ketone-Dipstick Negative (Negative); Leukocyte Esterase-Dipstick 500 /ul (Negative); Nitrite-Dipstick Positive (Negative); Occult Blood-Urine 50 /ul (Negative); Protein-Dipstick 30 mg/dl (Negative); Specific Gravity, Urine 1.015 (1.002-1.030); Urine Bilirubin Dipstick Negative (Negative); Urine Clarity Sl. Cloudy (Clear); Urine Urobilinogen Normal (Normal); Urine pH 6.5 (5.0 - 8.0)
[2022-12-19 08:59] LABS: Bacteria 2+ /hpf (None Seen); Red Blood Cells-Urine 0-5 SEEN /hpf (0-5); Squamous Epithelial Cells - UA 0-5 SEEN /hpf (5-10); White Blood Cells 25-50 SEEN /hpf (0-5)
== END ==
LOC: OLS.SW 08:22
PROVIDERS: PCP Family Medicine; Visit Provider Family Medicine
DX: R30.0 Dysuria (principal)
CPT/HCPCS: 81001; 87077; 87086; 87088; 87186

== ENCOUNTER 2023-01-08 09:12 | Day surgery (SDC) | payer MEDICARE, MEDICAID, SELFPAY ==
--- NOTE | 2023-01-08 | ESO_PTH ---
PATIENT: LEONID MCCOY LOC: EN U#:[id number] AGE/SX: 82/F ROOM: RE01/08/[address]: Dr. Feng Ball DO : 1940 BED: DIS: 01/08/2023 SPEC #: [id number] RECD: 01/08/23 12:56 STATUS: MERCEDEZ REQ #: [id number] AJ: 01/08/23 00:[address]: Feng Ball DEPT: SURGICAL PATHOLOGY RECD BY: Dario Ledesma ENTERED: 01/08/23 12:56 SP TYPE: MARILYN KAY DR: Dr. Lanre Smith MD Tissues: Esophagus, NOS Procedures: Special Stain Group II Surgery Specimen Level IV Alcian Blue/PAS (control) HEADER OPERATION: EGD (MAC), biopsy, dilation PRE-OP DIAGNOSIS: Dysphagia TISSUE SUBMITTED: Distal esophagus biopsy MICROSCOPIC DIAGNOSIS Distal esophagus, biopsy: Chronic inflammation. Focal changes of reflux. No evidence of goblet cell metaplasia. See comment. AM:david 01/09/2023 COMMENT Alcian blue/PAS stain with matched control supports the above diagnosis. MICROSCOPIC DESCRIPTION Slides are reviewed. GROSS DESCRIPTION Received in fixative is one container labeled with the patient's name and designated distal esophagus biopsy. The specimen consists of two irregular fragments of light anderson soft tissue that in aggregate measure 0.8 x 0.3 x 0.1 cm. The specimen is totally submitted in one cassette. / SJ:david 01/08/2023 TC:3 CPT: 92411, 37564
--- NOTE | 2023-01-08 09:34 | PCM.HP.BLA ---
History and Physical Date of Admission: 01/08/23 82 F who presents to the office today for Initial consult. Gi Hx GERD. PMH DMII, asthma, inflammatory polyarthropathy, anxiety/depression, HTN, hypothyroidism. PSH cholecystectomy 1969 EGD and colonoscopy 12.05.[address] Olivas for anemia. EGD gastritis with hemorrhage. No specimens collected. Colonoscopy without visual abnormality, no specimens collected. Sucralfate and Prilosec [facility] establishment 11.06.22 with dysphagia with choking for several months with worsening in the last 4 months. Particular difficulty with food and occasionally with pills. ROS Const Constitutional: No anorexia, fatigue, fever(s), weight change or sleep problems Eyes Eyes: No change in vision ENT ENT: No abnormal hearing, difficulty swallowing, mouth lesions, tongue swelling or throat swelling Resp Respiratory: No cough or shortness of breath Cardio Cardiology: No chest pain at rest, chest pain with exertion, shortness of breath or dyspnea on exertion Gastro GI: No difficulty swallowing Genitourinary-Female: No difficulty urinating or burning urination Musc Musculoskeletal: No joint pain, joint swelling, muscle weakness or decreased muscle mass Skin Skin: No hair loss in leg, yellowing of the eye, itchy eyes, rash, skin ulcer or skin swelling Neuro Neurology: No abnormal hearing, abnormal movements, confusion, unsteady gait/balance or memory loss Psych Psychiatric: No anxiety, No confusion and No memory loss Endo Endocrine: No fatigue or weight change Aller/Imm Allergy/Immunologic: No itchy eyes, throat swelling or tongue swelling Sin/Lymp Hematologic/Lymphatic: No easy bleeding, easy bruising or enlarged lymph nodes Exam Const General: cooperative and comfortable Nutritional Appearance: average body habitus and well nourished [facility] Head: normal to inspection Ears: hearing grossly normal bilaterally Nose: external nose normal Face and sinus: normal facial exam Mouth: oral mucosae normal Throat: posterior oropharynx normal Eyes General: appearance normal, both eyes and all related structures Neck Neck: normal visual inspection Chest Chest palpation & inspection: normal inspection of the chest and normal palpation of entire chest wall Resp Effort & Inspection: normal respiratory effort Auscultation: Bilateral: Clear to Auscultation Cardio Palpation: normal PMI Rate: regular rate Rhythm: regular rhythm GI Inspection: normal to inspection Auscultation: normal bowel sounds Percussion: normal to percussion Palpation: no hepatosplenomegaly Skin General: no rashes or lesions noted Neuro General: patient alert Extrem General: normal to inspection Psych Affect: normal affect Quality Reporting Tobacco Screening ([facility] 138) Smoking Status: Never smoker Assessment and Plan Assessment and Plan (1) Dysphagia: ?Status:?Chronic ?Plan: The differential diagnosis for esophageal dysphagia does include sliding hiatal hernia, esophageal diverticulum, erosive esophagitis, esophageal ring, esophageal stricture, cricopharyngeal achalasia, dysmotility disorder of the esophagus.? She will undergo an upper endoscopy.? With possible dilation and biopsies.? She was explained alternatives, risk, benefits including outstanding bleeding, infection, sepsis, perforation, need for emergent surgery .? She of an ASA of 3. I have examined the patient and the H&P has been reviewed. There are no clinical changes since date of exam.
[2023-01-08 09:42] VITALS: BP 160/70; PULSE 82; RESP 18; TEMP 36.6; O2SAT 97; BMI 36.5
[2023-01-08] MEDS: Lactated Ringers 1,000 ML 15 ML IV (09:58)
[2023-01-08 10:35] LABS: Bedside Glucose 122 mg/dL (74-106)
[2023-01-08 10:40] VITALS: BP 103/36; BP 160/70; PULSE 76; RESP 16; TEMP 36.5; O2SAT 93
[2023-01-08 10:45] VITALS: BP 122/49; BP 160/70; PULSE 75; RESP 14; O2SAT 94
--- NOTE | 2023-01-08 10:47 | OP.EGD_ITS ---
Patient Name: Xochitl Cochran Procedure Date: 01/08/2023 10:15 AM Date of : 1940 Age: 82 Procedure: Upper GI endoscopy Indications: Dysphagia Providers: Feng Ball DO Medicines: Monitored Anesthesia Care Patient Profile: This is an 82 year old female. Refer to note in patient chart for documentation of history and physical. Patient has symptoms of dysphagia with both liquids and solids. Complications: No immediate complications. Procedure: Pre-Anesthesia Assessment: - Prior to the procedure, a History and Physical was performed, and patient medications and allergies were reviewed. The patient is competent. The risks and benefits of the procedure and the sedation options and risks were discussed with the patient. All questions were answered and informed consent was obtained. Patient identification and proposed procedure were verified by the physician in the pre-procedure area. Mental Status Examination: alert and oriented. Airway Examination: normal oropharyngeal airway and neck mobility. Respiratory Examination: clear to auscultation. CV Examination: normal. Prophylactic Antibiotics: The patient does not require prophylactic antibiotics. Prior Anticoagulants: The patient has taken no previous anticoagulant or antiplatelet agents. ASA Grade Assessment: III - A patient with severe systemic disease. After reviewing the risks and benefits, the patient was deemed in satisfactory condition to undergo the procedure. The anesthesia plan was to use monitored anesthesia care (MAC). Immediately prior to administration of medications, the patient was re-assessed for adequacy to receive sedatives. The heart rate, respiratory rate, oxygen saturations, blood pressure, adequacy of pulmonary ventilation, and response to care were monitored throughout the procedure. The physical status of the patient was re-assessed after the procedure. After obtaining informed consent, the endoscope was passed under direct vision. Throughout the procedure, the patient's blood pressure, pulse, and oxygen saturations were monitored continuously. The Endoscope was introduced through the mouth, and advanced to the second part of duodenum. The upper GI endoscopy was accomplished without difficulty. The patient tolerated the procedure well. Scope In: 10:24:16 AM Scope Out: 10:33:32 AM Total Procedure Duration Time 0 hours 9 minutes 16 seconds Findings: The Z-line was irregular and was found 35 cm from the incisors. Biopsies were taken with a cold forceps for histology. Verification of patient identification for the specimen was done. Estimated blood loss was minimal. The examined esophagus was significantly tortuous. Grade I caustic esophagitis was found in the lower third of the esophagus. LA Grade A (one or more mucosal breaks less than 5 mm, not extending between tops of 2 mucosal folds) esophagitis with no bleeding was found 35 to 36 cm from the incisors. Biopsies were taken with a cold forceps for histology. Verification of patient identification for the specimen was done. Estimated blood loss was minimal. A large hiatal hernia was present. No gross lesions were noted in the first portion of the duodenum. Impression: - Z-line irregular, 35 cm from the incisors. Biopsied. - Tortuous esophagus. - Grade I caustic esophagitis. - LA Grade A non-erosive esophagitis. Biopsied. - Large hiatal hernia. - No gross lesions in the first portion of the duodenum. Recommendation: - Discharge patient to home. - Resume previous diet. - Use Protonix (pantoprazole) 40 mg PO BID for 4 weeks. - Continue present medications. Procedure Code(s): --- Professional --- 62103, Esophagogastroduodenoscopy, flexible, transoral; with biopsy, single or multiple CPT copyright 2017 [employer]. All rights reserved. The codes documented in this report are preliminary and upon wet trimmer review may be revised to meet current compliance requirements. Feng Ball DO 01/08/2023 10:47:26 AM This report has been signed electronically. Number of Addenda: 0 Note Initiated On: 01/08/2023 10:15 AM
--- NOTE | 2023-01-08 10:48 | OP.CCLET_ITS ---
01/08/2023 Lanre Smith MD [address] [id number] Re : Upper GI endoscopy procedure for Xochitl Cochran Dear Dr. Smith This procedure was performed on Sunday, January 08, 2023. My impressions and recommendations are as follows: Impressions : - Z-line irregular, 35 cm from the incisors. Biopsied. - Tortuous esophagus. - Grade I caustic esophagitis. - LA Grade A non-erosive esophagitis. Biopsied. - Large hiatal hernia. - No gross lesions in the first portion of the duodenum. Recommendations : - Discharge patient to home. - Resume previous diet. - Use Protonix (pantoprazole) 40 mg PO BID for 4 weeks. - Continue present medications. My findings are described in the full procedure note, which is enclosed. If I can be of further assistance, please feel free to contact me at . Sincerely, Feng Ball, 01/08/2023 10:47:26 AM This report has been signed electronically.
[2023-01-08 10:50] VITALS: BP 144/56; BP 160/70; PULSE 76; RESP 14; O2SAT 94
[2023-01-08 10:55] VITALS: BP 134/66; BP 160/70; PULSE 78; RESP 16; TEMP 36.5; O2SAT 94
[2023-01-08 11:18] VITALS: BP 160/70
== END 2023-01-08 11:50 | disposition home or self-care (01) ==
LOC: EN 09:13 → AC 09:15
PROVIDERS: PCP Family Medicine; Referring Provider Family Medicine; Visit Provider Internal Medicine Gastroenterology
PROC: 0DJ08ZZ Inspection of Upper Intestinal Tract, Via Natural or Artificial Opening Endoscopic (ICD-10-PCS; CPT 43235; principal; 2023-01-08 10:25)
DX: K21.00 Gastro-esophageal reflux disease with esophagitis, without bleeding (principal); E11.9 Type 2 diabetes mellitus without complications; K44.9 Diaphragmatic hernia without obstruction or gangrene; I10 Essential (primary) hypertension; Z79.899 Other long term (current) drug therapy; E78.5 Hyperlipidemia, unspecified; Z87.19 Personal history of other diseases of the digestive system; J45.909 Unspecified asthma, uncomplicated; Z79.890 Hormone replacement therapy
CPT/HCPCS: 43239; 82962; 88305; 88313; J7120; C1769; J2405

== ENCOUNTER → 2023-01-19 | Outpatient (REF) | payer MEDICARE, MEDICAID, SELFPAY ==
[2023-01-19 08:00] LABS: Absolute Lymphocyte Count 2.53 X10^3/uL (0.83-4.51); Absolute Neutrophil Count 2.8 X10^3/uL (2.0-7.7); Basophil# 0.09 X10^3/uL; Basophil% 1.3 % (0-1); Hemoglobin 11.1 g/dL (12.0-15.0); Lymphocyte # 2.53 X10^3/ul (0.83-4.51); Lymphocyte % 37.8 % (19-41); Mean Corp Hgb Conc 30.8 g/dL (32-36); Mean Corpuscular Hgb 26.4 pg (27.0-32.0); Mean Corpuscular Volume 85.7 fL (81-99); Monocyte# 0.82 X10^3/uL; Monocyte% 12.3 % (0-10); NRBC Flagged by Analyzer 0 % (0-5); Neutrophil # 2.84 X10^3/uL (2.7-7.7); Neutrophil % 42.5 % (47-70); Platelet Count 297 K/mm3 (150-450); RBC Distribution Width CV 14.8 % (11.6-14.6); RBC Distribution Width SD 46.7 fl (35.1-43.9); White Blood Count 6.7 K/mm3 (4.4-11.0)
[2023-01-19 08:28] LABS: Thyroid Stim Hormone (TSH) 2.01 uIU/mL (0.358-3.74)
== END ==
LOC: OLS.SW 05:00
PROVIDERS: PCP Family Medicine; Visit Provider Family Medicine
DX: Z79.899 Other long term (current) drug therapy (principal)
CPT/HCPCS: 36415; 84443; 85025

== ENCOUNTER → 2023-03-01 | Outpatient (REF) | payer MEDICARE, MEDICAID, SELFPAY ==
[2023-03-01 10:27] LABS: Hemoglobin A1c 6.8 % (3.8-5.6)
== END ==
LOC: OLS.SW 05:00
PROVIDERS: PCP Family Medicine; Visit Provider Family Medicine
DX: E11.9 Type 2 diabetes mellitus without complications (principal); B37.31 Acute candidiasis of vulva and vagina
CPT/HCPCS: 36415; 83036; 87070; 87205

== ENCOUNTER → 2023-04-20 | Outpatient (REF) | payer MEDICARE, MEDICAID, SELFPAY ==
[2023-04-20 08:23] LABS: Absolute Neutrophil Count 3.7 X10^3/uL (2.0-7.7); Basophil# 0.09 X10^3/uL; Basophil% 1.2 % (0-1); Eosinophil# 0.25 X10^3/uL; Eosinophils% 3.3 % (0-5); Hematocrit 41.3 % (37-47); Hemoglobin 13.2 g/dL (12.0-15.0); Lymphocyte % 36.7 % (19-41); Mean Corpuscular Hgb 27.6 pg (27.0-32.0); Mean Corpuscular Volume 86.2 fL (81-99); Mean Platelet Vol. 11.3 fl (6.2-12.0); Monocyte# 0.74 X10^3/uL; Monocyte% 9.7 % (0-10); NRBC Flagged by Analyzer 0 % (0-5); Neutrophil # 3.73 X10^3/uL (2.7-7.7); Neutrophil % 48.8 % (47-70); Platelet Count 331 K/mm3 (150-450); RBC Distribution Width CV 15.2 % (11.6-14.6); RBC Distribution Width SD 48.3 fl (35.1-43.9); Red Blood Count 4.79 M/mm3 (4.2-5.4); White Blood Count 7.6 K/mm3 (4.4-11.0)
[2023-04-20 08:48] LABS: Thyroid Stim Hormone (TSH) 4.03 uIU/mL (0.358-3.74)
== END ==
LOC: OLS.SW 05:00
PROVIDERS: PCP Family Medicine; Visit Provider Family Medicine
DX: E11.9 Type 2 diabetes mellitus without complications (principal); E03.9 Hypothyroidism, unspecified
CPT/HCPCS: 36415; 84443; 85025

== ENCOUNTER → 2023-05-08 | Outpatient (REF) | payer MEDICARE, MEDICAID, SELFPAY ==
[2023-05-08 10:48] LABS: T3 Total - Triiodothyronine 1.05 ng/mL (0.6-1.81)
[2023-05-08 10:54] LABS: T4 Total, Thyroxin 11.1 ug/dL (4.8-13.9); Thyroid Stim Hormone (TSH) 2.73 uIU/mL (0.358-3.74)
== END ==
LOC: OLS.SW 05:00
PROVIDERS: PCP Family Medicine; Visit Provider Family Medicine
DX: E03.9 Hypothyroidism, unspecified (principal)
CPT/HCPCS: 36415; 84436; 84443; 84480

== ENCOUNTER → 2023-07-20 | Outpatient (REF) | payer MEDICARE, MEDICAID, SELFPAY ==
[2023-07-20 08:19] LABS: Absolute Neutrophil Count 3.2 X10^3/uL (2.0-7.7); Basophil# 0.08 X10^3/uL; Basophil% 1.2 % (0-1); Eosinophil# 0.33 X10^3/uL; Hematocrit 36.6 % (37-47); Hemoglobin 11.1 g/dL (12.0-15.0); Lymphocyte % 34.5 % (19-41); Mean Corp Hgb Conc 30.3 g/dL (32-36); Mean Corpuscular Hgb 27.3 pg (27.0-32.0); Mean Corpuscular Volume 90.1 fL (81-99); Mean Platelet Vol. 11.1 fl (6.2-12.0); Monocyte# 0.76 X10^3/uL; Monocyte% 11.4 % (0-10); NRBC Flagged by Analyzer 0 % (0-5); Neutrophil # 3.18 X10^3/uL (2.7-7.7); Neutrophil % 47.7 % (47-70); Platelet Count 294 K/mm3 (150-450); RBC Distribution Width CV 14.3 % (11.6-14.6); RBC Distribution Width SD 47.5 fl (35.1-43.9); Red Blood Count 4.06 M/mm3 (4.2-5.4); White Blood Count 6.7 K/mm3 (4.4-11.0)
[2023-07-20 08:49] LABS: Thyroid Stim Hormone (TSH) 1.32 uIU/mL (0.358-3.74)
== END ==
LOC: OLS.SW 05:00
PROVIDERS: PCP Family Medicine; Visit Provider Family Medicine
DX: I10 Essential (primary) hypertension (principal); E03.9 Hypothyroidism, unspecified
CPT/HCPCS: 36415; 84443; 85025

== ENCOUNTER → 2023-08-01 | Outpatient (REF) | payer MEDICARE, MEDICAID, SELFPAY ==
[2023-08-01 09:56] LABS: ALB/GLOB Ratio 0.8 RATIO (0.9-2.4); AST(SGOT) 17 U/L (15-37); Alanine Aminotransfer ALT/SGPT 18 U/L (13-56); Albumin, Serum 2.7 g/dL (3.2-5.0); Alkaline Phosphatase 129 U/L (45-117); Anion Gap 4 (5-15); BUN 16 mg/dL (7-18); BUN/Creat Ratio 32.1 RATIO (10-20); Calcium,Total 8.3 mg/dL (8.5-10.1); Chloride 106 mmol/L (98-107); EST Glomerular Filtration Rate 126 mL/min (>60); Est Glom Filt Rate - Afr Amer 152 mL/min (>60); Globulin 3.6 g/dL (2.2-4.2); Glucose 99 mg/dL (74-106); Potassium 3.6 mmol/L (3.5-5.1); Protein, Total 6.3 g/dL (6.4-8.2); Sodium Level 139 mmol/L (136-145)
[2023-08-01 10:45] LABS: Hemoglobin A1c 6.6 % (3.8-5.6)
== END ==
LOC: OLS.SW 05:00
PROVIDERS: PCP Family Medicine; Visit Provider Family Medicine
DX: E11.9 Type 2 diabetes mellitus without complications (principal)
CPT/HCPCS: 36415; 80053; 83036

== ENCOUNTER → 2023-09-06 | Outpatient (REF) | payer MEDICARE, MEDICAID, SELFPAY ==
[2023-09-07 08:46] LABS: Mucous, Urine 0 SEEN /hpf (<or=2+)
[2023-09-07 09:08] LABS: Color, Urine Yellow (Yellow); Glucose, Dipstick Normal (Normal); Ketone-Dipstick Negative (Negative); Leukocyte Esterase-Dipstick 500 /ul (Negative); Nitrite-Dipstick Positive (Negative); Occult Blood-Urine 25 /ul (Negative); Protein-Dipstick 30 mg/dl (Negative); Specific Gravity, Urine 1.015 (1.002-1.030); Urine Bilirubin Dipstick Negative (Negative); Urine Clarity Sl. Cloudy (Clear); Urine Urobilinogen Normal (Normal); Urine pH 6.5 (5.0 - 8.0)
[2023-09-07 09:15] LABS: Bacteria 2+ /hpf (None Seen); Calcium Oxalate Crystals Ur RARE /hpf (<or=2+); Red Blood Cells-Urine 0-5 SEEN /hpf (0-5); Squamous Epithelial Cells - UA 0-5 SEEN /hpf (5-10); White Blood Cells 25-50 SEEN /hpf (0-5)
== END ==
LOC: OLS.SW 08:45
PROVIDERS: PCP Family Medicine; Visit Provider Family Medicine
DX: R41.82 Altered mental status, unspecified (principal)
CPT/HCPCS: 81001; 87086; 87088; 87186

== ENCOUNTER → 2023-10-19 | Outpatient (REF) | payer MEDICARE, MEDICAID, SELFPAY ==
[2023-10-19 09:24] LABS: Absolute Lymphocyte Count 1.36 X10^3/uL (0.83-4.51); Absolute Neutrophil Count 7.6 X10^3/uL (2.0-7.7); Basophil# 0.08 X10^3/uL; Basophil% 0.8 % (0-1); Eosinophil# 0.13 X10^3/uL; Eosinophils% 1.3 % (0-5); Hematocrit 40.6 % (37-47); Hemoglobin 12.2 g/dL (12.0-15.0); Lymphocyte # 1.36 X10^3/ul (0.83-4.51); Mean Corpuscular Hgb 26.2 pg (27.0-32.0); Mean Corpuscular Volume 87.1 fL (81-99); Mean Platelet Vol. 10.7 fl (6.2-12.0); Monocyte# 0.54 X10^3/uL; Monocyte% 5.6 % (0-10); NRBC Flagged by Analyzer 0 % (0-5); Neutrophil # 7.58 X10^3/uL (2.7-7.7); Platelet Count 425 K/mm3 (150-450); RBC Distribution Width CV 14.6 % (11.6-14.6); RBC Distribution Width SD 47.1 fl (35.1-43.9); Red Blood Count 4.66 M/mm3 (4.2-5.4); White Blood Count 9.7 K/mm3 (4.4-11.0)
[2023-10-19 09:48] LABS: Thyroid Stim Hormone (TSH) 1.76 uIU/mL (0.358-3.74)
== END ==
LOC: OLS.SW 05:00
PROVIDERS: PCP Family Medicine; Visit Provider Family Medicine
DX: E03.9 Hypothyroidism, unspecified (principal)
CPT/HCPCS: 36415; 84443; 85025

== ENCOUNTER → 2023-10-29 | Outpatient (REF) | payer MEDICARE, MEDICAID, SELFPAY ==
[2023-10-29 08:28] LABS: Vitamin D,25 Hydroxy 42.3 ng/mL
== END ==
LOC: OLS.SW 04:00
PROVIDERS: PCP Family Medicine; Referring Provider Family Medicine; Visit Provider Family Medicine
DX: E55.9 Vitamin D deficiency, unspecified (principal)
CPT/HCPCS: 36415; 82306

== ENCOUNTER 2023-12-16 07:07 | Inpatient (IN) | payer MEDICARE, MEDICAID, SELFPAY ==
[2023-12-16] VITALS (30 sets, daily range): BP systolic 96–178; BP diastolic 52–160; PULSE 71–86; RESP 15–40; TEMP 36.4–37.4; O2SAT 87–98; BMI 38.5
[2023-12-16 07:41] LABS: Absolute Neutrophil Count 4.6 X10^3/uL (2.0-7.7); Basophil# 0.08 X10^3/uL; Basophil% 0.9 % (0-1); Eosinophil# 0.45 X10^3/uL; Eosinophils% 4.8 % (0-5); Hematocrit 38.6 % (37-47); Hemoglobin 11.9 g/dL (12.0-15.0); Lymphocyte % 32.2 % (19-41); Mean Corp Hgb Conc 30.8 g/dL (32-36); Mean Corpuscular Hgb 26.4 pg (27.0-32.0); Mean Corpuscular Volume 85.8 fL (81-99); Monocyte# 1.15 X10^3/uL; Monocyte% 12.4 % (0-10); NRBC Flagged by Analyzer 0 % (0-5); Neutrophil # 4.61 X10^3/uL (2.7-7.7); Neutrophil % 49.5 % (47-70); Platelet Count 257 K/mm3 (150-450); RBC Distribution Width CV 14.9 % (11.6-14.6); RBC Distribution Width SD 46.9 fl (35.1-43.9); White Blood Count 9.3 K/mm3 (4.4-11.0)
--- NOTE | 2023-12-16 07:46 | CT_ITS ---
STUDY: CT ORBITS WITH CONTRAST REASON FOR EXAM: Female, 83 years old. left eye pain, cellulitis RADIATION DOSAGE (If Supplied By Facility): CTDIvol = ( 29.38 ) mGy, DLP = ( 840.56 ) mGycm TECHNIQUE: The patient was scanned in a multi detector CT scanner. Transaxial imaging was performed following the intravenous administration of ml of 50mL Isovue-370 contrast material. Sagittal and coronal images were reconstructed. Individualized dose optimization techniques were used for this CT. COMPARISON: None. FINDINGS: The left parotid gland is moderately enlarged and contains several enlarged reactive lymph nodes within the parenchyma. There is also moderate inflammatory stranding with edema/swelling overlying the left parotid gland which extends superiorly up to the periorbital regions and down to the submandibular region as well. No abscess is seen within the parotid gland or in the surrounding soft tissues. No subcutaneous air is present. Normal globes. Normal intraconal spaces. Normal optic nerve sheath complex. Normal bilateral extraocular muscles. Normal lacrimal glands. Normal bilateral medial and inferior orbital gimenez. Normal bilateral maxillary bones. Normal bilateral frontozygomatic arches. Normal bilateral zygomatic temporal arches. Normal frontal sinus. Normal ethmoidal sinuses. Normal maxillary sinuses. Normal sphenoid sinuses. Multiple enhancing reactive lymph nodes are present on both sides of the neck at the level [address]/Orb Sella Post Fossa Ear W/CON IMPRESSION: 1. The left parotid gland is moderately enlarged and contains several enlarged reactive lymph nodes within the parenchyma. There is also moderate inflammatory stranding with edema/swelling overlying the left parotid gland which extends superiorly up to the periorbital regions and down to the submandibular region as well. No abscess is seen within the parotid gland or in the surrounding soft tissues. No subcutaneous air is present. Electronically Signed: Andre Pelaez MD at 9:14 EDT ,
[2023-12-16] MEDS: Acyclovir 800 MG in Dextrose 5%-Water (250mL Bag) 250 ML 266 MG IV ×3 (08:09→20:36)
[2023-12-16 08:12] LABS: Anion Gap 6 (5-15); BUN 16 mg/dL (7-18); Calcium,Total 8.8 mg/dL (8.5-10.1); Chloride 106 mmol/L (98-107); Creatinine, Serum 0.59 mg/dL (0.55-1.02); EST Glomerular Filtration Rate 103 mL/min (>60); Est Glom Filt Rate - Afr Amer 124 mL/min (>60); Estimated Creatinine Clearance 51.12 ml/min; Glucose 148 mg/dL (74-106); Potassium 3.4 mmol/L (3.5-5.1); Sodium Level 136 mmol/L (136-145)
[2023-12-16] MEDS: Clindamycin 600 MG/50 ML BAG 100 MG IV (09:12)
--- NOTE | 2023-12-16 09:55 | EX.ED.DYSGE1 ---
HPI History of Present Illness Chief Complaint: Allergic Reaction Detail of Chief Complaint: Left facial pain and swelling Narrative Narrative: Patient presents via EMS from group home with left facial redness and swelling. Patient apparently developed a rash within the last 4 days. There was some history of some hairspray being sprayed in her hair which has been done before the day before after showering. Patient unsure if that has anything to do with her symptoms today. She has had no fevers or chills or sweats. Patient has history of diabetes, hypertension, and high cholesterol. [facility] Medical History (Updated 12/16/23 @ 10:[address] Penny Ariza, ) Anemia Anxiety Asthma Bronchial asthma Closed head injury Depression Diabetes DJD (degenerative joint disease) of knee Gastric reflux Gastric ulcer Hyperlipidemia Hypertension Legally blind Leukocytosis Lives in group home Loss of hearing Non-smoker Obesity Osteoarthritis Post-menopausal Shortness of breath on exertion Uses wheelchair Home Medications amlodipine 5 mg tablet 5 mg PO DAILY 11/24/19 [History Last Taken 01/08/23] levothyroxine 50 mcg tablet 50 mcg PO DAILY 11/24/19 [History Last Taken 12/05/19 06:30] lisinopril 40 mg tablet 20 mg PO DAILY 11/24/19 [History Last Taken 01/08/23] acetaminophen 325 mg capsule 325 mg PO Q4H PRN Pain Or Fever 12/03/19 [History Last Taken Unknown] cholecalciferol (vitamin D3) 50 mcg (2,000 unit) capsule 2,000 unit PO DAILY 12/03/19 [History Last Taken 01/08/23] dextromethorphan-guaifenesin 10 mg-100 mg/5 mL oral syrup 10 ml PO PRN PRN Cough 12/03/19 [History Last Taken Unknown] docusate sodium 100 mg capsule 100 mg PO QHS 12/03/19 [History Last Taken Unknown] loperamide 2 mg capsule 2 mg PO Q4H PRN Diarrhea 12/03/19 [History Last Taken Unknown] tramadol 50 mg tablet 50 mg PO Q6H PRN PRN mild to moderate pain 12/03/19 [History Last Taken Unknown] albuterol sulfate 90 mcg/actuation aerosol inhaler (Proventil HFA) 2 puff inhalation Q3H PRN SOB 01/03/23 [History Last Taken Unknown] escitalopram oxalate 5 mg tablet (Lexapro) 5 mg PO DAILY 01/03/23 [History Last Taken 01/08/23] famotidine 20 mg tablet 20 mg PO DAILY 01/03/23 [History Last Taken 01/08/23] lorazepam 0.5 mg tablet 0.5 mg PO Q12H PRN Anxiety 01/03/23 [History Last Taken Unknown] mirtazapine 15 mg tablet 15 mg PO QHS 01/03/23 [History Last Taken Unknown] nystatin 100,000 unit/gram topical powder 1 applic topical BID UNDER BREASTS 01/03/23 [History Last Taken Unknown] simethicone 80 mg tablet 80 mg PO Q8H PRN BLOATING 01/03/23 [History Last Taken Unknown] bisacodyl 10 mg rectal suppository 10 mg PA DAILY PRN constipation 12/16/23 [History Last Taken Unknown] calcium carbonate 200 mg calcium (500 mg) chewable tablet (Antacid (calcium carbonate)) 400 mg PO Q4H PRN GERD 12/16/23 [History Last Taken Unknown] diphenhydramine HCl 25 mg capsule (Aler-Cap) 50 mg PO QHS PRN itching 12/16/23 [History Last Taken Unknown] glucagon HCl 1 mg solution for injection (Glucagon (HCl) Emergency Kit) 1 mg IM Q20M PRN hypoglycemia 12/16/23 [History Last Taken Unknown] magnesium hydroxide 400 mg/5 mL oral suspension (Milk of Magnesia) 30 ml PO DAILY PRN constipation 12/16/23 [History Last Taken Unknown] prednisone 20 mg tablet 40 mg PO DAILY 12/16/23 [History Last Taken Unknown] Allergy/AdvReac Type Severity Reaction Status Date / Time ether [Ether] Allergy Anaphylaxis Verified 12/16/23 07:12 Penicillins Allergy Anaphylaxis Verified 12/16/23 07:12 Family History (Updated 11/24/19 @ 09:20 by Ashwini Elizalde) Father Heart disease CVA (cerebral vascular accident) Mother Cancer liver Breast cancer Surgical History History of cholecystectomy History of colonoscopy (~2013) History of esophagogastroduodenoscopy (EGD) (~2013) History of hysterectomy History of partial mastectomy of left breast Hx of appendectomy Hx of dilation and curettage Hx of tonsillectomy Social History (Updated 11/24/19 @ 14:[address] Denys Olivas MD) Smoking Status: Never smoker ROS ROS ED Review of Systems ROS Unobtainable: other Constitutional Constitutional ED: Reports lethargy; Denies chills, fever(s), sweats or weight loss Eyes Eyes: Denies blurry vision, change in vision or diplopia ENT ENT ED: Reports other Details: Left facial redness and swelling. Bilateral eyelid swelling ; Denies rhinorrhea or sore throat Cardiovascular Cardiovascular: Denies chest pain, orthopnea or racing heartbeat Respiratory/Chest Respiratory/Chest: Denies cough, dyspnea, dyspnea on exertion, orthopnea or sputum Gastrointestinal Gastrointestinal: Denies abdominal pain, diarrhea, nausea or vomiting Genitourinary Genitourinary ED: Denies dysuria, hematuria or urinary frequency Musculoskeletal Musculoskeletal: Denies arthralgias, back pain, myalgias or neck pain Integumentary Denies abscess, Abrasions or rash Neurologic Neurologic: Denies headache(s) or weakness Psychiatric Psychiatric: Denies anxiety, depression or suicidal thoughts Endocrine Endocrinology: Denies polydipsia, polyphagia or polyuria Hematologic/Lymphatic Hematologic/Lymphatic: Denies easy bleeding, easy bruising or lymphadenopathy Allergic/Immunologic Allergic/Immunologic ED: Denies mouth swelling, tongue swelling or urticaria EXAM Physical Exam Const Vital Signs: 12/16/23 07:12 12/16/23 07:17 12/16/23 07:20 Temperature 97.8 F Temperature Source Oral Pulse Rate 80 86 81 Respiratory Rate 20 H 30 H Blood Pressure 160/132 H Blood Pressure Mean 141 Pulse Ox 94 87 94 Oxygen Delivery Method Room Air 12/16/23 07:30 12/16/23 07:40 12/16/23 07:50 Temperature Temperature Source Pulse Rate 78 78 76 Respiratory Rate 21 H 15 20 H Blood Pressure 168/70 H Blood Pressure Mean 102 Pulse Ox 93 94 92 Oxygen Delivery Method 12/16/23 08:00 12/16/23 08:02 12/16/23 08:09 Temperature Temperature Source Pulse Rate 81 84 80 Respiratory Rate 16 22 H 21 H Blood Pressure 178/160 H 162/58 H Blood Pressure Mean 168 88 Pulse Ox 94 91 93 Oxygen Delivery Method 12/16/23 08:10 12/16/23 08:15 12/16/23 08:30 Temperature Temperature Source Pulse Rate 77 79 Respiratory Rate 21 H 19 H Blood Pressure 107/88 H 96/68 Blood Pressure Mean 96 80 Pulse Ox 93 91 Oxygen Delivery Method 12/16/23 08:32 12/16/23 08:40 12/16/23 08:45 Temperature Temperature Source Pulse Rate 85 80 77 Respiratory Rate 40 H 29 H 23 H Blood Pressure 161/52 H Blood Pressure Mean 79 Pulse Ox 91 89 89 Oxygen Delivery Method 12/16/23 08:50 12/16/23 09:00 12/16/23 09:10 Temperature Temperature Source Pulse Rate 77 79 84 Respiratory Rate 24 H 21 H 22 H Blood Pressure 156/135 H Blood Pressure Mean 143 Pulse Ox 89 92 91 Oxygen Delivery Method 12/16/23 09:15 12/16/23 09:20 12/16/23 09:30 Temperature Temperature Source Pulse Rate 78 77 75 Respiratory Rate 19 H 20 H 18 Blood Pressure 148/54 H 155/53 H Blood Pressure Mean 78 80 Pulse Ox 90 90 90 Oxygen Delivery Method 12/16/23 09:40 12/16/23 09:45 12/16/23 09:50 Temperature Temperature Source Pulse Rate 72 72 71 Respiratory Rate 21 H 22 H 25 H Blood Pressure 152/55 H 153/55 H Blood Pressure Mean 87 80 Pulse Ox 91 89 89 Oxygen Delivery Method 12/16/23 10:00 12/16/23 10:10 Temperature Temperature Source Pulse Rate 72 78 Respiratory Rate 24 H Blood Pressure 152/55 H Blood Pressure Mean 81 Pulse Ox 89 89 Oxygen Delivery Method Positive well nourished and well developed General Appearance ED: well developed and NAD HEENT Reports TM's clear and moist mucous membranes HEENT Narrative: Redness and swelling to left side of face. Patient has a excoriated rash involving left upper forehead as well as left eyelids. Eyelids's are swollen shut on the left and she does have some edema to the right eyelid but no rash on the right side. Erythema extends onto the left scalp. normocephalic and atraumatic; Negative for trauma or tenderness Tympanic Membrane ED: Yes TM's clear Eyes PERRL and EOMs intact bilaterally General Eye ED: Negative for pale conjunctiva or scleral icterus Neck no lymphadenopathy, supple and no JVD General: Negative for tenderness Chest Wall inspection of chest normal and palpation of chest normal Chest: Negative for tenderness Resp normal respiratory effort and clear to auscultation bilaterally Effort and Inspection: Negative for respiratory distress or pain with movement Auscultation: Negative for rhonchi, wheezes or diminished lung sounds Cardio regular rate, regular rhythm, S1 normal heart sound, S2 normal heart sound and no murmurs Peripheral Pulses: pulses 2+ throughout GI normal to inspection, nondistended, normoactive bowel sounds, soft to palpation, non-tender, non-distended and no masses Back/Spine no CVA tenderness and no thoracic nor lumbar tenderness Extremity normal to inspection General Extremety ED: Negative for edema General Extremity: Negative for edema Neuro oriented x3, CN's II-XII intact bilaterally, no sensory deficits noted and gait normal Sensorium / Orientation: awake, alert, oriented to person, oriented to place and oriented to time Motor Exam: strength 5/5 throughout and strength abnormal Psych mental status grossly normal Skin no rashes or lesions noted and no wounds MDM MDM MDM Narrative Medical decision making narrative: Patient with redness and swelling to left side of face with new rash. Clinically I suspect this may be shingles. Unable to evaluate patient's left eye as it is swollen shut and am unable to stain the eye to evaluate for dendritic lesions. I did start patient empirically on acyclovir and Zosyn as I suspect there may be a cellulitic component. CBC with differential count 9.3 with hemoglobin 11.9 and platelet count of 257. Chemistries unremarkable. I did obtain a CT scan of the orbits which did not show any evidence of abscess. Noted to have left parotid gland enlargement with several reactive lymph nodes noted. There is also moderate inflammatory stranding with edema and swelling overlying the left parotid gland which extends superiorly to the periorbital regions and down to the submandibular region as well. No abscess seen. I will discuss case with ophthalmology. Also will discuss with hospitalist to evaluate for admission for antivirals and antibiotics. Lab Data Attestation: I reviewed the patient's lab results. Labs: Laboratory Results - last 24 hr 12/16/23 07:33 WBC 9.3 RBC 4.50 Hgb 11.9 L Hct 38.6 MCV 85.8 MCH 26.4 L MCHC 30.8 L RDW Std Deviation 46.9 H RDW Coeff of Arina 14.9 H Plt Count 257 MPV 11.0 Immature Gran % (Auto) 0.200 Neut % (Auto) 49.5 Lymph % (Auto) 32.2 Morehouse % (Auto) 12.4 H Eos % (Auto) 4.8 Baso % (Auto) 0.9 Absolute Neuts (auto) 4.6 Absolute Lymphs (auto) 3.00 Nucleated RBC % 0 Sodium 136 Potassium 3.4 L Chloride 106 Carbon Dioxide 24.0 Anion Gap 6 BUN 16 Creatinine 0.59 Estim Creat Clear Calc 51.12 Est GFR (MDRD) Af Amer 124 Est GFR (MDRD) Non-Af 103 BUN/Creatinine Ratio 27.0 H Glucose 148 H Calcium 8.8 Radiography Diagnostic Testing: Clinical Impression(s) from Imaging Studies CT Orbit Sella Inner 12/16/23 07:46 IMPRESSION: 1. The left parotid gland is moderately enlarged and contains several enlarged reactive lymph nodes within the parenchyma. There is also moderate inflammatory stranding with edema/swelling overlying the left parotid gland which extends superiorly up to the periorbital regions and down to the submandibular region as well. No abscess is seen within the parotid gland or in the surrounding soft tissues. No subcutaneous air is present. Electronically Signed: Andre Pelaez MD at 9:14 EDT , Discharge Plan Dx/Rx/DC Orders Clinical Impression: Acute parotitis, Cellulitis of face, Herpes zoster Disposition Disposition: [facility] Discharge Date/Time: 12/16/23 10:53
[2023-12-16] MEDS: 0.9% Normal Saline (1000mL) 1,000 ML 75 ML IV (11:51)
[2023-12-16 12:19] LABS: Bedside Glucose 138 mg/dL (74-106)
[2023-12-16] MEDS: 0.9% Normal Saline (250mL Bag) 250 ML 15 ML IV (14:58)
[2023-12-16] MEDS: Meropenem 1 GM in 0.9% Normal Saline (100mL MB+) 100 ML IV ×2 (14:58→20:37)
[2023-12-16] MEDS: Insulin Lispro 100 UNIT/ML INSULN.PEN SC (16:08)
[2023-12-16 17:22] LABS: Bedside Glucose 166 mg/dL (74-106)
--- NOTE | 2023-12-16 18:46 | PCM.HP.STD ---
[facility] - General General Date of Admission: 12/16/23 Date of Service: 12/16/23 Chief Complaint: Left-sided facial rash with swelling and redness HPI Narrative LEONID MCCOY, is a 83 F who presents to the emergency room at [facility] after being sent in from a local extended care facility at which she resides due to increased redness of the left side of her face along with swelling, according to documentation, patient has had evidence of scabbed over lesions for several days on her left forehead with swelling of her left eyelid. Workup in the emergency room today included labs which showed a normal white blood cell count, hemoglobin was slightly low 11.9, chemistry profile was remarkable for potassium of 3.4, blood glucose was 166. Patient's oxygen saturation was 98% on 2 L. Patient chronically uses oxygen at the intermediate. Examination of the patient's face showed redness and swelling over the left side of the patient's face along with lesions on her left forehead going into her hairline suggestive of shingles. Patient's left eye was swollen shut and a complete examination of the patient's left eye was not able to be performed. CT scan of the orbits with contrast was performed, the left parotid gland was moderately enlarged and contained several enlarged reactive lymph nodes within the parenchyma, there was also moderate inflammatory stranding with edema/swelling overlying the left parotid gland which extend superior up to the periorbital regions and down to the submandibular region as well, no abscess was seen within the parotid gland or in the surrounding soft tissues, no subcutaneous air was present. The emergency room physician talked with ophthalmology and they recommended IV acyclovir for the patient and stated they would see the patient in consultation if it was necessary. There was no ENT coverage, patient is legally blind due to macular degeneration. She appeared to be confused today but was not agitated. Patient was admitted to [place] [address] for acute shingles with periorbital involvement and parotitis. [facility] Medical History (Updated 12/16/23 @ 10:[address] Penny Ariza DO) Anemia Anxiety Asthma Bronchial asthma Closed head injury Depression Diabetes DJD (degenerative joint disease) of knee Gastric reflux Gastric ulcer Hyperlipidemia Hypertension Legally blind Leukocytosis Lives in intermediate Loss of hearing Non-smoker Obesity Osteoarthritis Post-menopausal Shortness of breath on exertion Uses wheelchair Home Medications amlodipine 5 mg tablet 5 mg PO DAILY 11/24/19 [History Last Taken 01/08/23] levothyroxine 50 mcg tablet 50 mcg PO DAILY 11/24/19 [History Last Taken 12/05/19 06:30] lisinopril 40 mg tablet 20 mg PO DAILY 11/24/19 [History Last Taken 01/08/23] acetaminophen 325 mg capsule 325 mg PO Q4H PRN Pain Or Fever 12/03/19 [History Last Taken Unknown] cholecalciferol (vitamin D3) 50 mcg (2,000 unit) capsule 2,000 unit PO DAILY 12/03/19 [History Last Taken 01/08/23] dextromethorphan-guaifenesin 10 mg-100 mg/5 mL oral syrup 10 ml PO PRN PRN Cough 12/03/19 [History Last Taken Unknown] docusate sodium 100 mg capsule 100 mg PO QHS 12/03/19 [History Last Taken Unknown] loperamide 2 mg capsule 2 mg PO Q4H PRN Diarrhea 12/03/19 [History Last Taken Unknown] tramadol 50 mg tablet 50 mg PO Q6H PRN PRN mild to moderate pain 12/03/19 [History Last Taken Unknown] albuterol sulfate 90 mcg/actuation aerosol inhaler (Proventil HFA) 2 puff inhalation Q3H PRN SOB 01/03/23 [History Last Taken Unknown] escitalopram oxalate 5 mg tablet (Lexapro) 5 mg PO DAILY 01/03/23 [History Last Taken 01/08/23] famotidine 20 mg tablet 20 mg PO DAILY 01/03/23 [History Last Taken 01/08/23] lorazepam 0.5 mg tablet 0.5 mg PO Q12H PRN Anxiety 01/03/23 [History Last Taken Unknown] mirtazapine 15 mg tablet 15 mg PO QHS 01/03/23 [History Last Taken Unknown] nystatin 100,000 unit/gram topical powder 1 applic topical BID UNDER BREASTS 01/03/23 [History Last Taken Unknown] simethicone 80 mg tablet 80 mg PO Q8H PRN BLOATING 01/03/23 [History Last Taken Unknown] bisacodyl 10 mg rectal suppository 10 mg MD DAILY PRN constipation 12/16/23 [History Last Taken Unknown] calcium carbonate 200 mg calcium (500 mg) chewable tablet (Antacid (calcium carbonate)) 400 mg PO Q4H PRN GERD 12/16/23 [History Last Taken Unknown] diphenhydramine HCl 25 mg capsule (Aler-Cap) 50 mg PO QHS PRN itching 12/16/23 [History Last Taken Unknown] glucagon HCl 1 mg solution for injection (Glucagon (HCl) Emergency Kit) 1 mg IM Q20M PRN hypoglycemia 12/16/23 [History Last Taken Unknown] magnesium hydroxide 400 mg/5 mL oral suspension (Milk of Magnesia) 30 ml PO DAILY PRN constipation 12/16/23 [History Last Taken Unknown] prednisone 20 mg tablet 40 mg PO DAILY 12/16/23 [History Last Taken Unknown] Allergy/AdvReac Type Severity Reaction Status Date / Time ether [Ether] Allergy Anaphylaxis Verified 12/16/23 07:12 Penicillins Allergy Anaphylaxis Verified 12/16/23 07:12 Family History (Updated 11/24/19 @ 09:20 by Ashwini Elizalde) Father Heart disease CVA (cerebral vascular accident) Mother Cancer liver Breast cancer Surgical History History of cholecystectomy History of colonoscopy (~2013) History of esophagogastroduodenoscopy (EGD) (~2013) History of hysterectomy History of partial mastectomy of left breast Hx of appendectomy Hx of dilation and curettage Hx of tonsillectomy Social History (Updated 11/24/19 @ 14:[address] Denys Olivas MD) Smoking Status: Never smoker ROS ROS Narrative Due to confusion, review of systems was not obtainable Review of Systems ROS Unobtainable: due to mental status Vital Signs Vital Signs Vital Signs: 12/16/23 07:12 12/16/23 07:17 12/16/23 07:20 Temperature 97.8 F Temperature Source Oral Pulse Rate 80 86 81 Respiratory Rate 20 H 30 H Respiratory Effort Respiratory Depth Respiratory Pattern Blood Pressure 160/132 H Blood Pressure Mean 141 Blood Pressure Source Blood Pressure Position Blood Pressure Location Pulse Ox 94 87 94 Oxygen Delivery Method Room Air Oxygen Flow Rate (L/min) 12/16/23 07:30 12/16/23 07:40 12/16/23 07:50 Temperature Temperature Source Pulse Rate 78 78 76 Respiratory Rate 21 H 15 20 H Respiratory Effort Respiratory Depth Respiratory Pattern Blood Pressure 168/70 H Blood Pressure Mean 102 Blood Pressure Source Blood Pressure Position Blood Pressure Location Pulse Ox 93 94 92 Oxygen Delivery Method Oxygen Flow Rate (L/min) 12/16/23 08:00 12/16/23 08:02 12/16/23 08:09 Temperature Temperature Source Pulse Rate 81 84 80 Respiratory Rate 16 22 H 21 H Respiratory Effort Respiratory Depth Respiratory Pattern Blood Pressure 178/160 H 162/58 H Blood Pressure Mean 168 88 Blood Pressure Source Blood Pressure Position Blood Pressure Location Pulse Ox 94 91 93 Oxygen Delivery Method Oxygen Flow Rate (L/min) 12/16/23 08:10 12/16/23 08:15 12/16/23 08:30 Temperature Temperature Source Pulse Rate 77 79 Respiratory Rate 21 H 19 H Respiratory Effort Respiratory Depth Respiratory Pattern Blood Pressure 107/88 H 96/68 Blood Pressure Mean 96 80 Blood Pressure Source Blood Pressure Position Blood Pressure Location Pulse Ox 93 91 Oxygen Delivery Method Oxygen Flow Rate (L/min) 12/16/23 08:32 12/16/23 08:40 12/16/23 08:45 Temperature Temperature Source Pulse Rate 85 80 77 Respiratory Rate 40 H 29 H 23 H Respiratory Effort Respiratory Depth Respiratory Pattern Blood Pressure 161/52 H Blood Pressure Mean 79 Blood Pressure Source Blood Pressure Position Blood Pressure Location Pulse Ox 91 89 89 Oxygen Delivery Method Oxygen Flow Rate (L/min) 12/16/23 08:50 12/16/23 09:00 12/16/23 09:10 Temperature Temperature Source Pulse Rate 77 79 84 Respiratory Rate 24 H 21 H 22 H Respiratory Effort Respiratory Depth Respiratory Pattern Blood Pressure 156/135 H Blood Pressure Mean 143 Blood Pressure Source Blood Pressure Position Blood Pressure Location Pulse Ox 89 92 91 Oxygen Delivery Method Oxygen Flow Rate (L/min) 12/16/23 09:15 12/16/23 09:20 12/16/23 09:30 Temperature Temperature Source Pulse Rate 78 77 75 Respiratory Rate 19 H 20 H 18 Respiratory Effort Respiratory Depth Respiratory Pattern Blood Pressure 148/54 H 155/53 H Blood Pressure Mean 78 80 Blood Pressure Source Blood Pressure Position Blood Pressure Location Pulse Ox 90 90 90 Oxygen Delivery Method Oxygen Flow Rate (L/min) 12/16/23 09:40 12/16/23 09:45 12/16/23 09:50 Temperature Temperature Source Pulse Rate 72 72 71 Respiratory Rate 21 H 22 H 25 H Respiratory Effort Respiratory Depth Respiratory Pattern Blood Pressure 152/55 H 153/55 H Blood Pressure Mean 87 80 Blood Pressure Source Blood Pressure Position Blood Pressure Location Pulse Ox 91 89 89 Oxygen Delivery Method Oxygen Flow Rate (L/min) 12/16/23 10:00 12/16/23 10:10 12/16/23 10:24 Temperature 97.6 F L Temperature Source Pulse Rate 72 78 71 Respiratory Rate 24 H 18 Respiratory Effort Respiratory Depth Respiratory Pattern Blood Pressure 152/55 H 162/78 H Blood Pressure Mean 81 106 Blood Pressure Source Blood Pressure Position Blood Pressure Location Pulse Ox 89 89 92 Oxygen Delivery Method Oxygen Flow Rate (L/min) 12/16/23 11:26 12/16/23 11:36 12/16/23 14:36 Temperature 98.9 F 98.4 F Temperature Source Temporal Oral Pulse Rate 75 71 Respiratory Rate 18 18 Respiratory Effort Non-Labored Respiratory Depth Shallow Respiratory Pattern Normal Blood Pressure 156/61 H 172/70 H Blood Pressure Mean 92 104 Blood Pressure Source Monitor Monitor Blood Pressure Position Supine Semi-Fowlers Blood Pressure Location Right Forearm Right Forearm Pulse Ox 98 98 Oxygen Delivery Method Nasal Cannula Nasal Cannula Nasal Cannula Oxygen Flow Rate (L/min) 2 2 2 12/16/23 14:37 Temperature Temperature Source Pulse Rate Respiratory Rate Respiratory Effort Non-Labored Respiratory Depth Shallow Respiratory Pattern Normal Blood Pressure Blood Pressure Mean Blood Pressure Source Blood Pressure Position Blood Pressure Location Pulse Ox Oxygen Delivery Method Nasal Cannula Oxygen Flow Rate (L/min) 2 Weight Weight: 86.4 kg Body Mass Index (BMI) 38.5 Physical Exam Const alert and no apparent distress Constitutional Narrative: Patient is hard of hearing, she exhibits confusion but no agitation, patient is blind General Appearance: cooperative and well developed Orientation / Consciousness: awake HEENT normocephalic and moist oral mucous membranes HEENT Narrative: There is swelling noted over the patient's left facial area from the area of the parotid gland and submandibular gland up to the patient's left forehead with edema of the patient's left eyelid noted. Patient has scabbed over lesions present on the left forehead not crossing the midline. Patient also has some swelling at the time of my examination over the right periorbital area but there were no lesions noted in the area and there is no redness to the right side of the face other than the periorbital swollen area Neck supple, no JVD, thyroid normal and no carotid bruits General: trachea midline Resp normal respiratory effort, no retractions, no use of accessory muscles and clear to auscultation bilaterally Auscultation: Negative for rales, rhonchi or wheezes Cardio regular rate, regular rhythm, S1 normal heart sound, S2 normal heart sound, no murmurs, no rub and no gallops GI normal to inspection, nondistended, normoactive bowel sounds, soft to palpation, non-tender and non-distended Extremity no clubbing, cyanosis or edema Skin Skin Narrative: There are scabbed over areas over the left forehead not crossing the midline, these areas extend into the hairline on the left, there is generalized edema of the left side of the face noted and some edema in the right periorbital area with redness noted Neuro CN's II-XII intact bilaterally, moves all extremities, no focal motor deficits and no sensory deficits noted Sensorium / Orientation: awake and alert Speech: speech normal Psych Psych Narrative: Patient is confused but does follow commands, she is hard of hearing Results Lab / Micro Data 12/16/23 07:33 12/16/23 07:33 Labs: Laboratory Results - last 24 hr 12/16/23 07:33: WBC 9.3, RBC 4.50, Hgb 11.9 L, Hct 38.6, MCV 85.8, MCH 26.4 L, MCHC 30.8 L, RDW Std Deviation 46.9 H, RDW Coeff of Arina 14.9 H, Plt Count 257, MPV 11.0, Immature Gran % (Auto) 0.200, Neut % (Auto) 49.5, Lymph % (Auto) 32.2, White % (Auto) 12.4 H, Eos % (Auto) 4.8, Baso % (Auto) 0.9, Absolute Neuts (auto) 4.6, Absolute Lymphs (auto) 3.00, Nucleated RBC % 0, Sodium 136, Potassium 3.4 L, Chloride 106, Carbon Dioxide 24.0, Anion Gap 6, BUN 16, Creatinine 0.59, Estim Creat Clear Calc 51.12, Est GFR (MDRD) Af Amer 124, Est GFR (MDRD) Non-Af 103, BUN/Creatinine Ratio 27.0 H, Glucose 148 H, Calcium 8.8 12/16/23 11:53: POC Glucose 138 H 12/16/23 16:04: POC Glucose 166 H Imaging Radiology Impression CT Orbit Sella Inner 12/16/23 07:46 IMPRESSION: 1. The left parotid gland is moderately enlarged and contains several enlarged reactive lymph nodes within the parenchyma. There is also moderate inflammatory stranding with edema/swelling overlying the left parotid gland which extends superiorly up to the periorbital regions and down to the submandibular region as well. No abscess is seen within the parotid gland or in the surrounding soft tissues. No subcutaneous air is present. Electronically Signed: Andre Pelaez MD at 9:14 EDT , Assessment & Plan Assessment/Plan (1) Herpes zoster: PLAN: Plan 1. Acute herpes zoster infection of the left facial area including the left forehead with edema extending into the periorbital area on the left-patient will be admitted to [facility] 3, she was placed on IV acyclovir, I do not feel ophthalmology needs to see the patient at this time #2 left-sided parotitis-patient will be placed on meropenem IV, I talked to her brother about her penicillin allergy and her brother stated that as a child she had an adverse reaction to penicillin which cause problems with her breathing-he stated this has been many years ago when she was an adolescent. #3 type 2 diabetes-patient's blood sugars will be monitored, sliding scale insulin was ordered per fingerstick blood sugars #4 essential hypertension-patient will remain on her present medications for blood pressure #5 hypothyroidism-patient is on Synthroid #6 blindness secondary to macular degeneration-complicates care, medical course, recovery, and prognosis Total clinical time spent by myself addressing the patient's medical issues, reviewing all of her data, and collaborating with patient's care team: 75 minutes Patient is a DNR CC arrest without intubation per intermediate records. Charges/Coding Visit Charges Inpatient E&M: 41881 Init Hosp L3
[2023-12-16] MEDS: Heparin Injection (Vial) 5,000 UNIT/ML VIAL 5000 UNIT SC (20:39)
[2023-12-16] MEDS: Docusate Sodium 100 MG Capsule PO (20:40)
[2023-12-16] MEDS: Mirtazapine 15 MG Tablet PO (20:41)
[2023-12-16] MEDS: traMADol 50 MG Tablet PO (20:46)
[2023-12-16 21:01] LABS: Bedside Glucose 131 mg/dL (74-106)
[2023-12-17 02:52] VITALS: BP 156/107; PULSE 74; RESP 20; TEMP 36.8; O2SAT 95
[2023-12-17] MEDS: 0.9% Normal Saline (1000mL) 1,000 ML 75 ML IV ×2 (03:00→20:23)
[2023-12-17] MEDS: traMADol 50 MG Tablet PO ×2 (03:18→20:30)
[2023-12-17] MEDS: Levothyroxine 50 MCG Tablet PO (03:19)
[2023-12-17] MEDS: Menthol/Lanolin/Calamine/Znox 113 GM Tube 1 APPLIC TOPICAL ×3 (05:44→20:23)
[2023-12-17] MEDS: Acyclovir 800 MG in Dextrose 5%-Water (250mL Bag) 250 ML 266 MG IV ×3 (05:45→20:26)
[2023-12-17] MEDS: Nystatin Powder 15gm Bottle 1 APPLIC TOPICAL ×3 (05:45→20:24)
[2023-12-17] MEDS: Meropenem 1 GM in 0.9% Normal Saline (100mL MB+) 100 ML IV ×3 (05:45→20:26)
[2023-12-17 06:08] LABS: Bedside Glucose 122 mg/dL (74-106)
[2023-12-17 07:24] LABS: Absolute Lymphocyte Count 2.76 X10^3/uL (0.83-4.51); Absolute Neutrophil Count 3.6 X10^3/uL (2.0-7.7); Basophil# 0.08 X10^3/uL; Basophil% 1.1 % (0-1); Eosinophil# 0.02 X10^3/uL; Eosinophils% 0.3 % (0-5); Hematocrit 39.8 % (37-47); Hemoglobin 12.2 g/dL (12.0-15.0); Lymphocyte # 2.76 X10^3/ul (0.83-4.51); Lymphocyte % 37.6 % (19-41); Mean Corp Hgb Conc 30.7 g/dL (32-36); Mean Corpuscular Hgb 26.3 pg (27.0-32.0); Mean Platelet Vol. 11.1 fl (6.2-12.0); Monocyte# 0.89 X10^3/uL; Monocyte% 12.1 % (0-10); NRBC Flagged by Analyzer 0 % (0-5); Neutrophil # 3.58 X10^3/uL (2.7-7.7); Neutrophil % 48.8 % (47-70); POSITIVE MORPHOLOGY YES; Platelet Count 302 K/mm3 (150-450); RBC Distribution Width CV 14.8 % (11.6-14.6); RBC Distribution Width SD 46.9 fl (35.1-43.9); Red Blood Count 4.63 M/mm3 (4.2-5.4); White Blood Count 7.3 K/mm3 (4.4-11.0)
[2023-12-17 07:44] LABS: Anion Gap 5 (5-15); BUN 6 mg/dL (7-18); BUN/Creat Ratio 11.8 RATIO (10-20); Calcium,Total 8.6 mg/dL (8.5-10.1); Chloride 100 mmol/L (98-107); Creatinine, Serum 0.51 mg/dL (0.55-1.02); EST Glomerular Filtration Rate 122 mL/min (>60); Est Glom Filt Rate - Afr Amer 148 mL/min (>60); Estimated Creatinine Clearance 51.12 ml/min; Glucose 147 mg/dL (74-106); Sodium Level 137 mmol/L (136-145)
[2023-12-17 08:31] LABS: Differential Indicated SCAN CRITERIA MET
[2023-12-17 08:50] VITALS: BP 188/61; PULSE 74; RESP 20; TEMP 36.6; O2SAT 97
[2023-12-17] MEDS: Escitalopram Oxalate 10 MG Tablet 5 MG PO (09:40)
[2023-12-17 09:41] LABS: Differential Comment SCANNED
[2023-12-17 09:42] LABS: Reactive Lymphocyte 2+
[2023-12-17] MEDS: Heparin Injection (Vial) 5,000 UNIT/ML VIAL 5000 UNIT SC ×2 (09:48→20:27)
[2023-12-17] MEDS: Famotidine 20 MG Tablet PO (09:48)
[2023-12-17] MEDS: amLODIPine 5 MG Tablet PO (09:48)
--- NOTE | 2023-12-17 10:25 | CASEMGMT ---
Addendum entered by Mckenzie Winters 12/17/23 10:40: Patient is a bedhold. Precert will not be needed. Mckenzie Winters, Discharge Planning Asst. Original Note: Discharge Planning Updates sent via [employer] to [facility]. Asked if precert will be needed. Awaiting response. Mckenzie Winters DC Planning Asst.
--- NOTE | 2023-12-17 10:54 | CASEMGMT ---
Social Work [facility] phone call to pt's brother Anthony who confirms that he is the pt's HCPOA and will bring a copy of this and of pt's living will to the hospital today for pt's medical record. Pt is admitted from [facility] and Anthony states pt will return to [facility] when medically ready. Pt is at [facility] on a Medicaid bedhold and can return when medically ready. Plan: Return to [facility], when medically ready DOC Wells
[2023-12-17] MEDS: Lisinopril 20 MG Tablet PO (11:03)
[2023-12-17 12:12] LABS: Bedside Glucose 133 mg/dL (74-106)
[2023-12-17 17:00] VITALS: BP 162/68; PULSE 71; RESP 18; TEMP 37.2; O2SAT 95
[2023-12-17 17:21] LABS: Bedside Glucose 138 mg/dL (74-106)
--- NOTE | 2023-12-17 18:59 | PCM.PN.HOSP ---
Reason for Visit Reason for Visit: Diagnoses Zoster without complications (12/16/23) Subjective Subjective Patient was seen and examined today, the edema over the left side of her face is lessened, nursing stated they were able to get her left eyelid open and clean out debris. Patient still is confused. Objective Data Objective Data Vital Signs: Vital Signs Temp Pulse Resp BP Pulse Ox O2 Del Method O2 Flow Rate 99.0 F 71 18 162/68 H 95 Nasal Cannula 2 12/17/23 17:00 12/17/23 17:00 12/17/23 17:00 12/17/23 17:00 12/17/23 17:00 12/17/23 17:00 12/17/23 17:00 Oxygen Flow Rate (L/min) 2 Oxygen Delivery Method Nasal Cannula Weight: 86.4 kg Body Mass Index (BMI) 38.5 Intake & Output: Intake and Output for Last 24 Hours 12/15/23 12/16/23 12/17/23 23:59 23:59 23:59 Intake Total 968.25 / 968.25 2948.25 / 2948.25 Output Total 1950 / 1950 Balance 968.25 / 968.25 998.25 / 998.25 Lab / Micro Data 12/17/23 06:50 12/17/23 06:50 Labs: Laboratory Results - last 24 hr 12/16/23 20:33: POC Glucose 131 H 12/17/23 05:46: POC Glucose 122 H 12/17/23 06:50: WBC 7.3, RBC 4.63, Hgb 12.2, Hct 39.8, MCV 86.0, MCH 26.3 L, MCHC 30.7 L, RDW Std Deviation 46.9 H, RDW Coeff of Arina 14.8 H, Plt Count 302, MPV 11.1, Immature Gran % (Auto) 0.100, Neut % (Auto) 48.8, Lymph % (Auto) 37.6, [place] % (Auto) 12.1 H, Eos % (Auto) 0.3, Baso % (Auto) 1.1 H, Absolute Neuts (auto) 3.6, Absolute Lymphs (auto) 2.76, Nucleated RBC % 0, Differential Comment SCANNED, Reactive Lymphocytes 2+, Sodium 137, Potassium 3.0 L, Chloride 100, Carbon Dioxide 32.0, Anion Gap 5, BUN 6 L, Creatinine 0.51 L, Estim Creat Clear Calc 51.12, Est GFR (MDRD) Af Amer 148, Est GFR (MDRD) Non-Af 122, BUN/Creatinine Ratio 11.8, Glucose 147 H, Calcium 8.6 12/17/23 11:53: POC Glucose 133 H 12/17/23 16:51: POC Glucose 138 H Physical Exam Narrative alert and no apparent distress Constitutional Narrative: Patient is hard of hearing, she exhibits confusion but no agitation, patient is blind General Appearance: cooperative and well developed Orientation / Consciousness: awake HEENT normocephalic and moist oral mucous membranes HEENT Narrative: There is swelling noted over the patient's left facial area from the area of the parotid gland and submandibular gland up to the patient's left forehead with edema of the patient's left eyelid noted. Patient has scabbed over lesions present on the left forehead not crossing the midline. Patient also has some swelling at the time of my examination over the right periorbital area but there were no lesions noted in the area and there is no redness to the right side of the face other than the periorbital swollen area Neck supple, no JVD, thyroid normal and no carotid bruits General: trachea midline Resp normal respiratory effort, no retractions, no use of accessory muscles and clear to auscultation bilaterally Auscultation: Negative for rales, rhonchi or wheezes Cardio regular rate, regular rhythm, S1 normal heart sound, S2 normal heart sound, no murmurs, no rub and no gallops GI normal to inspection, nondistended, normoactive bowel sounds, soft to palpation, non-tender and non-distended Extremity no clubbing, cyanosis or edema Skin Skin Narrative: There are scabbed over areas over the left forehead not crossing the midline, these areas extend into the hairline on the left, there is generalized edema of the left side of the face noted and some edema in the right periorbital area with redness noted Neuro CN's II-XII intact bilaterally, moves all extremities, no focal motor deficits and no sensory deficits noted Sensorium / Orientation: awake and alert Speech: speech normal Psych Psych Narrative: Patient is confused but does follow commands, she is hard of hearing Assessment & Plan Assessment/Plan (1) Cellulitis of face: (2) Herpes zoster: PLAN: Plan 1. 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 Charges/Coding Visit Charges Inpatient E&M: 62451 Subs Hosp L2
[2023-12-17 20:15] VITALS: BP 170/66; PULSE 64; RESP 20; TEMP 37.1; O2SAT 94
[2023-12-17 20:20] VITALS: O2SAT 95
[2023-12-17] MEDS: Docusate Sodium 100 MG Capsule PO (20:30)
[2023-12-17] MEDS: Mirtazapine 15 MG Tablet PO (20:30)
[2023-12-17 21:09] LABS: Bedside Glucose 147 mg/dL (74-106)
[2023-12-17] MEDS: Potassium Chloride 10mEq/100mL 10 MEQ/100 ML IV.SOLN. 100 MEQ IV BOLUS ×2 (22:44→23:50)
[2023-12-18] MEDS: Potassium Chloride 10mEq/100mL 10 MEQ/100 ML IV.SOLN. 100 MEQ IV BOLUS ×2 (01:07→02:46)
[2023-12-18 03:41] VITALS: BP 176/65; PULSE 69; RESP 20; TEMP 36.4; O2SAT 95
[2023-12-18] MEDS: Menthol/Lanolin/Calamine/Znox 113 GM Tube 1 APPLIC TOPICAL ×3 (03:52→22:18)
[2023-12-18] MEDS: Levothyroxine 50 MCG Tablet PO (03:52)
[2023-12-18] MEDS: Nystatin Powder 15gm Bottle 1 APPLIC TOPICAL ×3 (03:52→22:18)
[2023-12-18] MEDS: amLODIPine 5 MG Tablet PO (03:52)
[2023-12-18 04:14] LABS: Bedside Glucose 144 mg/dL (74-106)
[2023-12-18] MEDS: Meropenem 1 GM in 0.9% Normal Saline (100mL MB+) 100 ML IV ×3 (05:48→22:19)
[2023-12-18] MEDS: Acyclovir 800 MG in Dextrose 5%-Water (250mL Bag) 250 ML 266 MG IV ×3 (05:48→22:19)
[2023-12-18 08:26] VITALS: O2SAT 94
[2023-12-18 08:33] LABS: Anion Gap 4 (5-15); BUN 16 mg/dL (7-18); BUN/Creat Ratio 9.4 RATIO (10-20); Calcium,Total 8.1 mg/dL (8.5-10.1); Chloride 102 mmol/L (98-107); EST Glomerular Filtration Rate 30 mL/min (>60); Est Glom Filt Rate - Afr Amer 37 mL/min (>60); Estimated Creatinine Clearance 24.06 ml/min; Glucose 159 mg/dL (74-106); Potassium 4.2 mmol/L (3.5-5.1); Sodium Level 128 mmol/L (136-145)
[2023-12-18 09:45] VITALS: BP 180/77; PULSE 65; RESP 18; TEMP 36.6; O2SAT 97
[2023-12-18] MEDS: Famotidine 20 MG Tablet PO (09:49)
[2023-12-18] MEDS: Heparin Injection (Vial) 5,000 UNIT/ML VIAL 5000 UNIT SC ×2 (09:49→22:18)
[2023-12-18] MEDS: Lisinopril 20 MG Tablet PO (09:49)
[2023-12-18] MEDS: Escitalopram Oxalate 10 MG Tablet 5 MG PO (09:49)
[2023-12-18 11:51] LABS: Bedside Glucose 100 mg/dL (74-106)
--- NOTE | 2023-12-18 14:39 | CASEMGMT ---
Updates sent via [employer] to [facility]. DOC Joyner
[2023-12-18] MEDS: 0.9% Normal Saline (1000mL) 1,000 ML 75 ML IV (14:46)
[2023-12-18 14:47] VITALS: BP 176/76; PULSE 65; RESP 18; TEMP 36.6; O2SAT 98
[2023-12-18] MEDS: Insulin Lispro 100 UNIT/ML INSULN.PEN SC (16:48)
[2023-12-18] MEDS: traMADol 50 MG Tablet PO (16:50)
[2023-12-18 17:12] LABS: Bedside Glucose 159 mg/dL (74-106)
--- NOTE | 2023-12-18 17:47 | PCM.PN.HOSP ---
Reason for Visit Reason for Visit: Diagnoses Zoster without complications (12/16/23) Cellulitis of face (12/16/23) Subjective Subjective Patient was seen and examined today, the swelling over her left facial area as improved, she is able to open her eyes slightly on the left. I talked with her brother who was in visiting the patient at the time my examination. Objective Data Objective Data Vital Signs: Vital Signs Temp Pulse Resp BP Pulse Ox O2 Del Method O2 Flow Rate 97.9 F 65 18 176/76 H 98 Nasal Cannula 2 12/18/23 14:47 12/18/23 14:47 12/18/23 14:47 12/18/23 14:47 12/18/23 14:47 12/18/23 14:47 12/18/23 14:47 Oxygen Flow Rate (L/min) 2 Oxygen Delivery Method Nasal Cannula Weight: 86.4 kg Body Mass Index (BMI) 38.5 Intake & Output: Intake and Output for Last 24 Hours 12/16/23 12/17/23 12/18/23 23:59 23:59 23:59 Intake Total 968.25 / 968.25 4284.25 / 4284.25 1653.25 / 1653.25 Output Total 2550 / 2550 325 / 325 Balance 968.25 / 968.25 1734.25 / 1734.25 1328.25 / 1328.25 Lab / Micro Data 12/17/23 06:50 12/18/23 07:35 Labs: Laboratory Results - last 24 hr 12/17/23 20:22: POC Glucose 147 H 12/18/23 03:51: POC Glucose 144 H 12/18/23 07:35: Sodium 128 L, Potassium 4.2, Chloride 102, Carbon Dioxide 22.0, Anion Gap 4 L, BUN 16, Creatinine 1.70 H, Estim Creat Clear Calc 24.06, Est GFR (MDRD) Af Amer 37 L, Est GFR (MDRD) Non-Af 30 L, BUN/Creatinine Ratio 9.4 L, Glucose 159 H, Calcium 8.1 L 12/18/23 11:32: POC Glucose 100 12/18/23 16:46: POC Glucose 159 H Physical Exam Narrative alert and no apparent distress Constitutional Narrative: Patient is hard of hearing, she does not appear to be confused today to this examiner, she is blind General Appearance: cooperative and well developed Orientation / Consciousness: awake HEENT normocephalic and moist oral mucous membranes HEENT Narrative: There is swelling noted over the patient's left facial area from the area of the parotid gland and submandibular gland up to the patient's left forehead with edema of the patient's left eyelid noted. Patient has scabbed over lesions present on the left forehead not crossing the midline. Patient also has some swelling at the time of my examination over the right periorbital area but there were no lesions noted in the area and there is no redness to the right side of the face other than the periorbital swollen area Neck supple, no JVD, thyroid normal and no carotid bruits General: trachea midline Resp normal respiratory effort, no retractions, no use of accessory muscles and clear to auscultation bilaterally Auscultation: Negative for rales, rhonchi or wheezes Cardio regular rate, regular rhythm, S1 normal heart sound, S2 normal heart sound, no murmurs, no rub and no gallops GI normal to inspection, nondistended, normoactive bowel sounds, soft to palpation, non-tender and non-distended Extremity no clubbing, cyanosis or edema Skin Skin Narrative: There are scabbed over areas over the left forehead not crossing the midline, these areas extend into the hairline on the left, there is generalized edema of the left side of the face noted and some edema in the right periorbital area with redness noted Neuro CN's II-XII intact bilaterally, moves all extremities, no focal motor deficits and no sensory deficits noted Sensorium / Orientation: awake and alert Speech: speech normal Psych Psych Narrative: Patient is alert, she is very hard of hearing, and she is blind Assessment & Plan Assessment/Plan (1) Cellulitis of face: (2) Herpes zoster: PLAN: Plan 1. Acute herpes zoster infection of the left facial area including the left forehead with edema extending into the periorbital area on the left-patient will continue on acyclovir, patient will be reevaluated for possible discharge back to her retirement facility tomorrow #2 left-sided parotitis-patient remains on meropenem #3 type 2 diabetes-patient's blood sugars will be monitored, sliding scale insulin was ordered per fingerstick blood sugars #4 essential hypertension-patient will remain on her present medications for blood pressure #5 hypothyroidism-patient is on Synthroid #6 blindness secondary to macular degeneration-complicates care, medical course, recovery, and prognosis Total clinical time spent by myself addressing the patient's medical issues, reviewing all of her data, and collaborating with patient's care team: 35 minutes Patient is a DNR CC arrest without intubation per senior care records. Charges/Coding Visit Charges Inpatient E&M: 25039 Subs Hosp L2
[2023-12-18 19:45] VITALS: BP 153/60; PULSE 75; RESP 20; TEMP 36.6; O2SAT 93
[2023-12-18] MEDS: Docusate Sodium 100 MG Capsule PO (22:18)
[2023-12-18] MEDS: Mirtazapine 15 MG Tablet PO (22:18)
[2023-12-18 22:57] LABS: Bedside Glucose 102 mg/dL (74-106)
[2023-12-19 03:09] VITALS: BP 172/72; PULSE 77; RESP 20; TEMP 36.6; O2SAT 95
[2023-12-19] MEDS: Acyclovir 800 MG in Dextrose 5%-Water (250mL Bag) 250 ML 266 MG IV (05:16)
[2023-12-19] MEDS: 0.9% Normal Saline (1000mL) 1,000 ML 75 ML IV ×2 (05:17→19:38)
[2023-12-19] MEDS: Nystatin Powder 15gm Bottle 1 APPLIC TOPICAL ×2 (05:18→22:01)
[2023-12-19] MEDS: Menthol/Lanolin/Calamine/Znox 113 GM Tube 1 APPLIC TOPICAL ×3 (05:18→22:02)
[2023-12-19] MEDS: Meropenem 1 GM in 0.9% Normal Saline (100mL MB+) 100 ML IV (06:48)
[2023-12-19] MEDS: Levothyroxine 50 MCG Tablet PO (06:49)
[2023-12-19 07:19] LABS: Bedside Glucose 139 mg/dL (74-106)
[2023-12-19 07:47] VITALS: O2SAT 97
[2023-12-19 09:23] VITALS: BP 159/78; PULSE 82; RESP 18; TEMP 36.6; O2SAT 97
[2023-12-19] MEDS: Bisacodyl 5 MG Tablet PO (09:26)
[2023-12-19] MEDS: Lisinopril 20 MG Tablet PO (09:26)
[2023-12-19] MEDS: traMADol 50 MG Tablet PO (09:26)
[2023-12-19] MEDS: Escitalopram Oxalate 10 MG Tablet 5 MG PO (09:26)
[2023-12-19] MEDS: amLODIPine 5 MG Tablet PO (09:26)
[2023-12-19] MEDS: Famotidine 20 MG Tablet PO (09:27)
[2023-12-19] MEDS: Heparin Injection (Vial) 5,000 UNIT/ML VIAL 5000 UNIT SC ×2 (09:27→21:55)
[2023-12-19] MEDS: Insulin Lispro 100 UNIT/ML INSULN.PEN SC (12:14)
[2023-12-19 12:47] LABS: Bedside Glucose 153 mg/dL (74-106)
[2023-12-19 15:31] VITALS: BP 145/90; PULSE 80; RESP 18; TEMP 36.4; O2SAT 94
[2023-12-19 16:50] LABS: Bedside Glucose 141 mg/dL (74-106)
--- NOTE | 2023-12-19 18:07 | PCM.PN.HOSP ---
Reason for Visit Reason for Visit: Diagnoses Zoster without complications (12/16/23) Cellulitis of face (12/16/23) Subjective Subjective Patient was seen and examined today, she is alert, patient is hard to communicate with due to deafness. Objective Data Objective Data Vital Signs: Vital Signs Temp Pulse Resp BP Pulse Ox O2 Del Method O2 Flow Rate 97.5 F L 80 18 145/90 H 94 Nasal Cannula 2 12/19/23 15:31 12/19/23 15:31 12/19/23 15:31 12/19/23 15:31 12/19/23 15:31 12/19/23 15:31 12/19/23 15:31 Oxygen Flow Rate (L/min) 2 Oxygen Delivery Method Nasal Cannula Weight: 86.4 kg Body Mass Index (BMI) 38.5 Intake & Output: Intake and Output for Last 24 Hours 12/17/23 12/18/23 12/19/23 23:59 23:59 23:59 Intake Total 4284.25 / 4284.25 2279.25 / 2279.25 1506.00 / 1506.00 Output Total 2550 / 2550 575 / 825 1000 / 1000 Balance 1734.25 / 1734.25 1704.25 / 1454.25 506.00 / 506.00 Lab / Micro Data 12/17/23 06:50 12/18/23 07:35 Labs: Laboratory Results - last 24 hr 12/18/23 22:27: POC Glucose 102 12/19/23 06:47: POC Glucose 139 H 12/19/23 12:12: POC Glucose 153 H 12/19/23 16:29: POC Glucose 141 H Physical Exam Narrative alert and no apparent distress Constitutional Narrative: Patient is hard of hearing,, she is blind General Appearance: cooperative and well developed Orientation / Consciousness: awake HEENT normocephalic and moist oral mucous membranes HEENT Narrative: There is swelling noted over the patient's left facial area from the area of the parotid gland and submandibular gland up to the patient's left forehead with edema of the patient's left eyelid noted. Patient has scabbed over lesions present on the left forehead not crossing the midline. Patient also has some swelling at the time of my examination over the right periorbital area but there were no lesions noted in the area and there is no redness to the right side of the face other than the periorbital swollen area Neck supple, no JVD, thyroid normal and no carotid bruits General: trachea midline Resp normal respiratory effort, no retractions, no use of accessory muscles and clear to auscultation bilaterally Auscultation: Negative for rales, rhonchi or wheezes Cardio regular rate, regular rhythm, S1 normal heart sound, S2 normal heart sound, no murmurs, no rub and no gallops GI normal to inspection, nondistended, normoactive bowel sounds, soft to palpation, non-tender and non-distended Extremity no clubbing, cyanosis or edema Skin Skin Narrative: There are scabbed over areas over the left forehead not crossing the midline, these areas extend into the hairline on the left, there is generalized edema of the left side of the face noted and some edema in the right periorbital area with redness noted Neuro CN's II-XII intact bilaterally, moves all extremities, no focal motor deficits and no sensory deficits noted Sensorium / Orientation: awake and alert Speech: speech normal Psych Psych Narrative: Patient is alert, she is very hard of hearing, and she is blind Assessment & Plan Assessment/Plan (1) Cellulitis of face: (2) Herpes zoster: PLAN: Plan 1. Acute herpes zoster infection of the left facial area including the left forehead with edema extending into the periorbital area on the left-patient will continue on acyclovir, patient will be reevaluated for possible discharge back to her [facility] facility tomorrow #2 left-sided parotitis-patient will remain on meropenem, she will be changed to oral antibiotics tomorrow if she is discharged to the nursing facility #3 type 2 diabetes-patient's blood sugars will be monitored, sliding scale insulin was ordered per fingerstick blood sugars #4 essential hypertension-patient will remain on her present medications for blood pressure #5 hypothyroidism-patient is on Synthroid #6 blindness secondary to macular degeneration-complicates care, medical course, recovery, and prognosis Total clinical time spent by myself addressing the patient's medical issues, reviewing all of her data, and collaborating with patient's care team: 35 minutes Patient is a DNR CC arrest without intubation per group home records. Charges/Coding Visit Charges Inpatient E&M: 90786 Subs Hosp L2
[2023-12-19 21:19] VITALS: BP 139/89; PULSE 84; RESP 20; TEMP 36.7; O2SAT 95
[2023-12-19] MEDS: Mirtazapine 15 MG Tablet PO (21:58)
[2023-12-19] MEDS: Docusate Sodium 100 MG Capsule PO (21:58)
[2023-12-19 23:19] VITALS: BP 159/84; PULSE 72; RESP 20; TEMP 36.6; O2SAT 94
[2023-12-19 23:26] LABS: Bedside Glucose 125 mg/dL (74-106)
[2023-12-19] MEDS: Acetaminophen 325 MG Tablet PO (23:33)
[2023-12-19] MEDS: LORazepam 0.5 MG Tablet PO (23:33)
[2023-12-20 02:53] VITALS: BP 146/74; PULSE 80; RESP 20; TEMP 36.8; O2SAT 96
[2023-12-20 02:55] VITALS: O2SAT 96
[2023-12-20] MEDS: Nystatin Powder 15gm Bottle 1 APPLIC TOPICAL (05:24)
[2023-12-20] MEDS: Levothyroxine 50 MCG Tablet PO (05:24)
[2023-12-20] MEDS: Acetaminophen 325 MG Tablet PO (05:24)
[2023-12-20] MEDS: Menthol/Lanolin/Calamine/Znox 113 GM Tube 1 APPLIC TOPICAL (05:25)
[2023-12-20 06:27] LABS: Bedside Glucose 123 mg/dL (74-106)
[2023-12-20] MEDS: Meropenem 500 MG in 0.9% Normal Saline (50mL MB+) 50 ML 100 MG IV (09:30)
[2023-12-20] MEDS: 0.9% Normal Saline (1000mL) 1,000 ML IV (09:38)
[2023-12-20] MEDS: Escitalopram Oxalate 10 MG Tablet 5 MG PO (09:40)
[2023-12-20] MEDS: Famotidine 20 MG Tablet PO (09:40)
[2023-12-20] MEDS: amLODIPine 5 MG Tablet PO (09:40)
[2023-12-20] MEDS: Lisinopril 20 MG Tablet PO (09:41)
[2023-12-20] MEDS: Heparin Injection (Vial) 5,000 UNIT/ML VIAL 5000 UNIT SC (09:41)
[2023-12-20 09:44] VITALS: BP 176/104; PULSE 76; RESP 18; TEMP 36.6; O2SAT 94
[2023-12-20] MEDS: Acyclovir 800 MG in Dextrose 5%-Water (250mL Bag) 250 ML 266 MG IV (11:29)
[2023-12-20 14:30] VITALS: BP 123/98; PULSE 78; RESP 20; TEMP 36.6; O2SAT 99
[2023-12-20 14:57] LABS: Bedside Glucose 109 mg/dL (74-106)
--- NOTE | 2023-12-20 15:36 | PCM.TXEXTCAR ---
Diet Diet Order/Speech Therapy: 12/16/23 11:28 Diet: Regular - General Food consistency:: Mechanical (Minced/Moist) Liquid Consistency:: Regular/Thin Type of Dietary Supplement:: Glucerna Shake Diet Comments: 240mL glucerna shake w/ breakfast meal Routine Orders/Code Status O2 Liters per Minute: 2 O2 Frequency: Continuous Keep PO Greater than or Equal to (%): 90 Routine Lab Work: - (bmp in 3 days) Code Status: DNRCC-A (no intubation) Wound(s) Left side of face: Wound Type: scabbed over shingles lesions Therapies Weight Bearing: Weight bearing as tolerated Physical Therapy: Eval and Treat Occupational Therapy: Eval and Treat Problem/Diagnosis (1) Cellulitis of face: Status: Acute Code(s): L03.211 - Cellulitis of face (2) Herpes zoster: Status: Acute Code(s): B02.9 - Zoster without complications Plan 1. Acute herpes zoster infection of the left facial area including the left forehead with edema extending into the periorbital area on the left-patient will continue on acyclovir, patient will be reevaluated for possible discharge back to her long term facility tomorrow #2 left-sided parotitis-patient will remain on meropenem, she will be changed to oral antibiotics tomorrow if she is discharged to the nursing facility #3 type 2 diabetes-patient's blood sugars will be monitored, sliding scale insulin was ordered per fingerstick blood sugars #4 essential hypertension-patient will remain on her present medications for blood pressure #5 hypothyroidism-patient is on Synthroid #6 blindness secondary to macular degeneration-complicates care, medical course, recovery, and prognosis Total clinical time spent by myself addressing the patient's medical issues, reviewing all of her data, and collaborating with patient's care team: 35 minutes Patient is a DNR CC arrest without intubation per skilled nursing records. Allergies/Procedures Done in Hospital Allergies ether [Ether] Allergy (Verified 12/16/23 07:12) Anaphylaxis Penicillins Allergy (Verified 12/16/23 07:12) Anaphylaxis Procedures: None Type of Care/Length of Stay Estimated LOS: More Than 30 Days Type of Care Needed: Intermediate Rehab Potential: Fair Prognosis: Fair Additional Orders/Day of Discharge H&P will serve as current which was dated: 12/16/23 Day of Discharge: 12/20/23 Dietary and Speech Recommendations Dietitian Recommendations/Changes: Continue regular diet with consistency/texture alterations as needed. Restrict carbohydrates as PO improves or if blood glucose rises. Will add 240mL glucerna shake w/ breakfast tray. Encourage improved PO at meals as tolerated. Discharge Plan Admission Admit Date/Time: 12/16/23 10:13 Primary Reason for Your Visit: herpes zoster, parotitis Attending Provider: Milton Fitzgerald Primary Care Provider: Lanre Smith Discharge Orders/Prescriptions Prescriptions: New insulin lispro [Humalog KwikPen Insulin] 100 unit/mL Insulin Pen See Protocol subcut ACHS Qty: 0 0RF Protocol: 3. Sliding Scale Insulin Med Dosing Condition: 150-189 mg/dl = 1 unit Condition: 190-229 mg/dl = 2 units Condition: 230-269 mg/dl = 3 units Condition: 270-309 mg/dl = 4 units Condition: 310-349 mg/dl = 5 units Condition: 350-399 mg/dl = 6 units Condition: 400-449 mg/dl = 7 units Condition: Greater than 449 call physician Protocol Text: - Use for Total Daily Dose of Insulin 37-55 units - Obsese, infected, or steroid patients MEDIUM DOSING ALGORITHIM nystatin [Nyamyc] 100,000 unit/gram Powder 1 applic topical TID Qty: 0 0RF Protocol: *Topical Application Instructions APPLICATION INSTRUCTIONS: groin and folds menthol-zinc oxide [Calmoseptine] 0.44-20.6 % Ointment 1 applic topical TID Qty: 0 0RF Protocol: *Topical Application Instructions APPLICATION INSTRUCTIONS: buttocks valacyclovir [Valtrex] 1 gram tablet 1,000 mg PO TID Qty: 9 0RF Rx Instructions: 1 tab 3 times a day for 3 days starting 12/21/2023 levofloxacin 250 mg tablet 250 mg PO DAILY Qty: 3 0RF Rx Instructions: 1 tablet daily x 3 days starting 12/21/2023 Continued amlodipine 5 mg tablet 5 mg PO DAILY levothyroxine 50 mcg tablet 50 mcg PO DAILY lisinopril 40 mg tablet 20 mg PO DAILY loperamide 2 MG capsule 2 mg PO Q4H PRN (Reason: Diarrhea) dextromethorphan-guaifenesin 5 ML syrup 10 ml PO PRN PRN (Reason: Cough) acetaminophen 325 MG capsule 325 mg PO Q4H PRN (Reason: Pain Or Fever) cholecalciferol (vitamin D3) 2,000 UNIT capsule 2,000 unit PO DAILY tramadol 50 MG tablet 50 mg PO Q6H PRN PRN (Reason: mild to moderate pain) docusate sodium 100 MG capsule 100 mg PO QHS famotidine 20 mg Tablet 20 mg PO DAILY lorazepam 0.5 mg Tablet 0.5 mg PO Q12H PRN (Reason: Anxiety) mirtazapine 15 mg Tablet 15 mg PO QHS nystatin 100,000 unit/gram Powder 1 applic TOPICAL BID albuterol sulfate [Proventil HFA] 90 mcg/actuation Hfa Aerosol Inhaler 2 puff INHALATION Q3H PRN (Reason: SOB) escitalopram oxalate [Lexapro] 5 mg Tablet 5 mg PO DAILY simethicone 80 mg Tablet 80 mg PO Q8H PRN (Reason: BLOATING) diphenhydramine HCl [Aler-Cap] 25 mg capsule 50 mg PO QHS PRN (Reason: itching) calcium carbonate [Antacid (calcium carbonate)] 200 mg calcium (500 mg) tablet,chewable 400 mg PO Q4H PRN (Reason: GERD) glucagon HCl [Glucagon (HCl) Emergency Kit] 1 mg recon soln 1 mg IM Q20M PRN (Reason: hypoglycemia) Rx Instructions: until target blood sugar attained magnesium hydroxide [Milk of Magnesia] 400 mg/5 mL suspension 30 ml PO DAILY PRN (Reason: constipation) bisacodyl 10 mg suppository 10 mg AL DAILY PRN (Reason: constipation) Discontinued prednisone 20 mg tablet 40 mg PO DAILY Rx Instructions: IN THE AFTERNOON FOR PAIN AND SWELLING X5D; START 12/14 Referrals / Follow Up: Lanre Smith MD [Primary Care Provider] - Disposition Disposition (needs filled in before D/C Order can be placed): NonSkilled NH/Intermed Care
--- NOTE | 2023-12-20 15:53 | PCM.DC.SUM ---
Providers Date of Admission: 12/16/23 Date of Discharge: 12/20/23 Primary Care Physician: Dr. Lanre Smith MD Reason For Visit: FACIAL CELLULITIS, PERIOBITAL SHINGLES Diagnosis Discharge Diagnosis (1) Cellulitis of face: Status: Acute Code(s): L03.211 - Cellulitis of face (2) Herpes zoster: Status: Acute Code(s): B02.9 - Zoster without complications Plan 1. Acute herpes zoster infection of the left facial area including the left forehead with edema extending into the periorbital area on the left-patient will continue on acyclovir, patient will be reevaluated for possible discharge back to her intermediate facility tomorrow #2 left-sided parotitis-patient will remain on meropenem, she will be changed to oral antibiotics tomorrow if she is discharged to the nursing facility #3 type 2 diabetes-patient's blood sugars will be monitored, sliding scale insulin was ordered per fingerstick blood sugars #4 essential hypertension-patient will remain on her present medications for blood pressure #5 hypothyroidism-patient is on Synthroid #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 Medications at Discharge Home Medications amlodipine 5 mg tablet 5 mg PO DAILY 11/24/19 levothyroxine 50 mcg tablet 50 mcg PO DAILY 11/24/19 lisinopril 40 mg tablet 20 mg PO DAILY 11/24/19 acetaminophen 325 mg capsule 325 mg PO Q4H PRN Pain Or Fever 12/03/19 cholecalciferol (vitamin D3) 50 mcg (2,000 unit) capsule 2,000 unit PO DAILY 12/03/19 dextromethorphan-guaifenesin 10 mg-100 mg/5 mL oral syrup 10 ml PO PRN PRN Cough 12/03/19 docusate sodium 100 mg capsule 100 mg PO QHS 12/03/19 loperamide 2 mg capsule 2 mg PO Q4H PRN Diarrhea 12/03/19 tramadol 50 mg tablet 50 mg PO Q6H PRN PRN mild to moderate pain 12/03/19 albuterol sulfate 90 mcg/actuation aerosol inhaler (Proventil HFA) 2 puff inhalation Q3H PRN SOB 01/03/23 escitalopram oxalate 5 mg tablet (Lexapro) 5 mg PO DAILY 01/03/23 famotidine 20 mg tablet 20 mg PO DAILY 01/03/23 lorazepam 0.5 mg tablet 0.5 mg PO Q12H PRN Anxiety 01/03/23 mirtazapine 15 mg tablet 15 mg PO QHS 01/03/23 nystatin 100,000 unit/gram topical powder 1 applic topical BID UNDER BREASTS 01/03/23 simethicone 80 mg tablet 80 mg PO Q8H PRN BLOATING 01/03/23 bisacodyl 10 mg rectal suppository 10 mg MA DAILY PRN constipation 12/16/23 calcium carbonate 200 mg calcium (500 mg) chewable tablet (Antacid (calcium carbonate)) 400 mg PO Q4H PRN GERD 12/16/23 diphenhydramine HCl 25 mg capsule (Aler-Cap) 50 mg PO QHS PRN itching 12/16/23 glucagon HCl 1 mg solution for injection (Glucagon (HCl) Emergency Kit) 1 mg IM Q20M PRN hypoglycemia 12/16/23 magnesium hydroxide 400 mg/5 mL oral suspension (Milk of Magnesia) 30 ml PO DAILY PRN constipation 12/16/23 insulin lispro 100 unit/mL subcutaneous pen (Humalog KwikPen (U-100) Insulin) See Protocol subcut ACHS #0 mL 12/20/23 levofloxacin 250 mg tablet 250 mg PO DAILY #3 tabs 12/20/23 menthol 0.44 %-zinc oxide 20.6 % topical ointment (Calmoseptine) 1 applic topical TID #0 grams 12/20/23 nystatin 100,000 unit/gram topical powder (Nyamyc) 1 applic topical TID #0 grams 12/20/23 valacyclovir 1 gram tablet (Valtrex) 1,000 mg PO TID #9 tabs 12/20/23 Hospital Course Operations None Procedures None Summary of Care Provided Minutes Spent on Discharge: 33 Hospital Course: This 83-year-old white female was seen in the emergency room at [facility] after being transported in from a local extended care facility at which she was receiving intermediate nursing care, patient had a rash over the left side of her forehead along with lesions suggestive of shingles, her left eyelid was swollen, examination of the eye could not be carried out because of this. Patient also had some minimal swelling over her left side of her face and submandibular area, in addition she had some edema in the periorbital area of the right eye. Patient was felt to have shingles, CT of the soft tissues of the head and neck was carried out which showed evidence of left parotitis. Patient was admitted to [place] [id number] and placed on IV antibiotics and IV acyclovir, appetite remain poor during her hospitalization, the shingles lesions crusted over during her hospital stay and swelling went down over the left side of her face and submandibular area. On 12/20/2023, patient was seen and examined:alert and no apparent distress Constitutional Narrative: Patient is hard of hearing,, she is blind General Appearance: cooperative and well developed Orientation / Consciousness: awake HEENT normocephalic and moist oral mucous membranes HEENT Narrative: There is swelling noted over the patient's left facial area from the area of the parotid gland and submandibular gland up to the patient's left forehead with edema of the patient's left eyelid noted. Patient has scabbed over lesions present on the left forehead not crossing the midline. Patient also has some swelling at the time of my examination over the right periorbital area but there were no lesions noted in the area and there is no redness to the right side of the face other than the periorbital swollen area Neck supple, no JVD, thyroid normal and no carotid bruits General: trachea midline Resp normal respiratory effort, no retractions, no use of accessory muscles and clear to auscultation bilaterally Auscultation: Negative for rales, rhonchi or wheezes Cardio regular rate, regular rhythm, S1 normal heart sound, S2 normal heart sound, no murmurs, no rub and no gallops GI normal to inspection, nondistended, normoactive bowel sounds, soft to palpation, non-tender and non-distended Extremity no clubbing, cyanosis or edema Skin Skin Narrative: There are scabbed over areas over the left forehead not crossing the midline, these areas extend into the hairline on the left, there is generalized edema of the left side of the face noted and some edema in the right periorbital area with redness noted Neuro CN's II-XII intact bilaterally, moves all extremities, no focal motor deficits and no sensory deficits noted Sensorium / Orientation: awake and alert Speech: speech normal Psych Psych Narrative: Patient is alert, she is very hard of hearing, and she is blind Patient was transferred back to her intermediate nursing facility in stable condition on 12/20/2023 Weight / BMI Weight Weight: 86.4 kg Body Mass Index (BMI) 38.5 ABG / Lab / Microbiology Data 12/17/23 06:50 12/20/23 16:24 Laboratory: Laboratory Results - last 24 hr 12/19/23 16:29: POC Glucose 141 H 12/19/23 21:21: POC Glucose 125 H 12/20/23 06:07: POC Glucose 123 H 12/20/23 11:28: POC Glucose 109 H Meaningful Use Info Meaningful Use Diagnoses (Choose all that apply): None applicable Discharge Plan Admission Admit Date/Time: 12/16/23 10:13 Primary Reason for Your Visit: herpes zoster, parotitis Attending Provider: Milton Fitzgerald Primary Care Provider: Lanre Smith Discharge Orders/Prescriptions Prescriptions: New insulin lispro [Humalog KwikPen Insulin] 100 unit/mL Insulin Pen See Protocol subcut ACHS Qty: 0 0RF Protocol: 3. Sliding Scale Insulin Med Dosing Condition: 150-189 mg/dl = 1 unit Condition: 190-229 mg/dl = 2 units Condition: 230-269 mg/dl = 3 units Condition: 270-309 mg/dl = 4 units Condition: 310-349 mg/dl = 5 units Condition: 350-399 mg/dl = 6 units Condition: 400-449 mg/dl = 7 units Condition: Greater than 449 call physician Protocol Text: - Use for Total Daily Dose of Insulin 37-55 units - Obsese, infected, or steroid patients MEDIUM DOSING ALGORITHIM nystatin [Nyamyc] 100,000 unit/gram Powder 1 applic topical TID Qty: 0 0RF Protocol: *Topical Application Instructions APPLICATION INSTRUCTIONS: groin and folds menthol-zinc oxide [Calmoseptine] 0.44-20.6 % Ointment 1 applic topical TID Qty: 0 0RF Protocol: *Topical Application Instructions APPLICATION INSTRUCTIONS: buttocks valacyclovir [Valtrex] 1 gram tablet 1,000 mg PO TID Qty: 9 0RF Rx Instructions: 1 tab 3 times a day for 3 days starting 12/21/2023 levofloxacin 250 mg tablet 250 mg PO DAILY Qty: 3 0RF Rx Instructions: 1 tablet daily x 3 days starting 12/21/2023 Continued amlodipine 5 mg tablet 5 mg PO DAILY levothyroxine 50 mcg tablet 50 mcg PO DAILY lisinopril 40 mg tablet 20 mg PO DAILY loperamide 2 MG capsule 2 mg PO Q4H PRN (Reason: Diarrhea) dextromethorphan-guaifenesin 5 ML syrup 10 ml PO PRN PRN (Reason: Cough) acetaminophen 325 MG capsule 325 mg PO Q4H PRN (Reason: Pain Or Fever) cholecalciferol (vitamin D3) 2,000 UNIT capsule 2,000 unit PO DAILY tramadol 50 MG tablet 50 mg PO Q6H PRN PRN (Reason: mild to moderate pain) docusate sodium 100 MG capsule 100 mg PO QHS famotidine 20 mg Tablet 20 mg PO DAILY lorazepam 0.5 mg Tablet 0.5 mg PO Q12H PRN (Reason: Anxiety) mirtazapine 15 mg Tablet 15 mg PO QHS nystatin 100,000 unit/gram Powder 1 applic TOPICAL BID albuterol sulfate [Proventil HFA] 90 mcg/actuation Hfa Aerosol Inhaler 2 puff INHALATION Q3H PRN (Reason: SOB) escitalopram oxalate [Lexapro] 5 mg Tablet 5 mg PO DAILY simethicone 80 mg Tablet 80 mg PO Q8H PRN (Reason: BLOATING) diphenhydramine HCl [Aler-Cap] 25 mg capsule 50 mg PO QHS PRN (Reason: itching) calcium carbonate [Antacid (calcium carbonate)] 200 mg calcium (500 mg) tablet,chewable 400 mg PO Q4H PRN (Reason: GERD) glucagon HCl [Glucagon (HCl) Emergency Kit] 1 mg recon soln 1 mg IM Q20M PRN (Reason: hypoglycemia) Rx Instructions: until target blood sugar attained magnesium hydroxide [Milk of Magnesia] 400 mg/5 mL suspension 30 ml PO DAILY PRN (Reason: constipation) bisacodyl 10 mg suppository 10 mg MA DAILY PRN (Reason: constipation) Discontinued prednisone 20 mg tablet 40 mg PO DAILY Rx Instructions: IN THE AFTERNOON FOR PAIN AND SWELLING X5D; START 12/14 Referrals / Follow Up: Lanre Smith MD [Primary Care Provider] - Disposition Disposition (needs filled in before D/C Order can be placed): NonSkilled NH/Intermed Care Charges/Coding Visit Charges Inpatient E&M: 35855 Disch Hosp >30min
--- NOTE | 2023-12-20 16:05 | CASEMGMT ---
Social Work SW set up a 6pm ambulance w/Physicians. SW let pt's brother and RN know time of pickup. era [employer] director financial planning sent the discharge orders to [facility] via [facility] and let them know of the 6pm pickup time. [facility] made aware signed med list will be sent in the packet. No further needs. NICHOLE Metcalf
[2023-12-20 16:43] LABS: Anion Gap 7 (5-15); BUN 33 mg/dL (7-18); Calcium,Total 8.7 mg/dL (8.5-10.1); Chloride 105 mmol/L (98-107); Creatinine, Serum 4.11 mg/dL (0.55-1.02); EST Glomerular Filtration Rate 11 mL/min (>60); Est Glom Filt Rate - Afr Amer 13 mL/min (>60); Estimated Creatinine Clearance 9.95 ml/min; Glucose 138 mg/dL (74-106); Potassium 3.7 mmol/L (3.5-5.1); Sodium Level 138 mmol/L (136-145)
[2023-12-20 17:58] LABS: Bedside Glucose 119 mg/dL (74-106)
== END 2023-12-20 17:42 | disposition intermediate care facility (04) | DRG 124 ==
LOC: ED 10:00 → MS3 11:08
PROVIDERS: Admitting Provider Internal Medicine; Emergency Provider Emergency Medicine; PCP Family Medicine; Visit Provider Internal Medicine
DX: B02.39 Other herpes zoster eye disease (principal); G93.41 Metabolic encephalopathy; N17.9 Acute kidney failure, unspecified; E87.1 Hypo-osmolality and hyponatremia; L03.211 Cellulitis of face; E11.9 Type 2 diabetes mellitus without complications; E03.9 Hypothyroidism, unspecified; E78.00 Pure hypercholesterolemia, unspecified; I10 Essential (primary) hypertension; H35.30 Unspecified macular degeneration; K11.20 Sialoadenitis, unspecified; Z79.51 Long term (current) use of inhaled steroids; Z79.899 Other long term (current) drug therapy; Z79.84 Long term (current) use of oral hypoglycemic drugs; Z66 Do not resuscitate
CPT/HCPCS: 36415; 70481; 80048; 82962; 85025; 99284; J2185; J7030; J7050; Q9967; A4216

== ENCOUNTER → 2024-04-21 | Outpatient (REF) | payer MEDICARE, MEDICAID, SELFPAY ==
[2024-04-22 09:17] LABS: Mucous, Urine 0 SEEN /hpf (<or=2+); Red Blood Cells-Urine 0 SEEN /hpf (0-5); Squamous Epithelial Cells - UA 0 SEEN /hpf (5-10)
[2024-04-22 09:37] LABS: Color, Urine Yellow (Yellow); Glucose, Dipstick Normal (Normal); Ketone-Dipstick Negative (Negative); Leukocyte Esterase-Dipstick 500 /ul (Negative); Nitrite-Dipstick Negative (Negative); Occult Blood-Urine 50 /ul (Negative); Protein-Dipstick 30 mg/dl (Negative); Specific Gravity, Urine 1.015 (1.002-1.030); Urine Bilirubin Dipstick Negative (Negative); Urine Clarity Cloudy (Clear); Urine Urobilinogen Normal (Normal); Urine pH 6.5 (5.0 - 8.0)
[2024-04-22 09:47] LABS: Bacteria 3+ /hpf (None Seen); White Blood Cells >100 SEEN /hpf (0-5)
== END ==
LOC: OLS.SW 16:13
PROVIDERS: PCP Family Medicine; Referring Provider Family Medicine; Visit Provider Family Medicine
DX: R41.82 Altered mental status, unspecified (principal)
CPT/HCPCS: 81001; 87077; 87086; 87088; 87186

== ENCOUNTER → 2024-05-12 | Outpatient (REF) | payer MEDICARE, MEDICAID, SELFPAY ==
[2024-05-12 09:07] LABS: Hematocrit 35.8 % (37-47); Hemoglobin 10.9 g/dL (12.0-15.0); Mean Corp Hgb Conc 30.4 g/dL (32-36); Mean Corpuscular Hgb 27.1 pg (27.0-32.0); Mean Corpuscular Volume 89.1 fL (81-99); Platelet Count 251 K/mm3 (150-450); RBC Distribution Width CV 13.2 % (11.6-14.6); RBC Distribution Width SD 43.2 fl (35.1-43.9); Red Blood Count 4.02 M/mm3 (4.2-5.4); White Blood Count 6.4 K/mm3 (4.4-11.0)
[2024-05-12 09:12] LABS: Scan Indicated on CBC? Y/N NO
[2024-05-12 09:28] LABS: Hemoglobin A1c 6.6 % (3.8-5.6)
[2024-05-12 11:31] LABS: ALB/GLOB Ratio 0.8 RATIO (0.9-2.4); AST(SGOT) 19 U/L (15-37); Alanine Aminotransfer ALT/SGPT 19 U/L (13-56); Albumin, Serum 2.8 g/dL (3.2-5.0); Alkaline Phosphatase 134 U/L (45-117); Anion Gap 6 (5-15); BUN 14 mg/dL (7-18); BUN/Creat Ratio 26.9 RATIO (10-20); Calcium,Total 8.8 mg/dL (8.5-10.1); Chloride 108 mmol/L (98-107); Cholesterol 185 mg/dL (200); Creatinine, Serum 0.52 mg/dL (0.55-1.02); EST Glomerular Filtration Rate 119 mL/min (>60); Est Glom Filt Rate - Afr Amer 144 mL/min (>60); Globulin 3.5 g/dL (2.2-4.2); Glucose 94 mg/dL (74-106); High Density Lipoprotein 39 mg/dL; Potassium 3.8 mmol/L (3.5-5.1); Protein, Total 6.3 g/dL (6.4-8.2); Sodium Level 141 mmol/L (136-145); Thyroid Stim Hormone (TSH) 1.95 uIU/mL (0.358-3.74); Triglycerides 117 mg/dL; Very Low Density Lipoprotein 23 mg/dL (5-40)
== END ==
LOC: OLS.SW 05:00
PROVIDERS: PCP Family Medicine; Visit Provider Family Medicine
DX: I10 Essential (primary) hypertension (principal); E11.9 Type 2 diabetes mellitus without complications; E78.5 Hyperlipidemia, unspecified; E03.9 Hypothyroidism, unspecified
CPT/HCPCS: 36415; 80053; 80061; 83036; 84443; 85027

== ENCOUNTER → 2024-05-17 | Outpatient (REF) | payer MEDICARE, MEDICAID, SELFPAY ==
[2024-05-19 08:07] LABS: Color, Urine Yellow (Yellow); Glucose, Dipstick Normal (Normal); Ketone-Dipstick Negative (Negative); Leukocyte Esterase-Dipstick 500 /ul (Negative); Nitrite-Dipstick Positive (Negative); Occult Blood-Urine 25 /ul (Negative); Protein-Dipstick 30 mg/dl (Negative); Specific Gravity, Urine 1.015 (1.002-1.030); Urine Bilirubin Dipstick Negative (Negative); Urine Clarity Sl. Cloudy (Clear); Urine Urobilinogen Normal (Normal)
[2024-05-19 08:17] LABS: White Blood Cells >100 SEEN /hpf (0-5)
[2024-05-19 08:18] LABS: Bacteria 2+ /hpf (None Seen); Calcium Oxalate Crystals Ur 2+ /hpf (<or=2+); Mucous, Urine RARE /hpf (<or=2+); Red Blood Cells-Urine 0-5 SEEN /hpf (0-5); Squamous Epithelial Cells - UA 0-5 SEEN /hpf (5-10)
== END ==
LOC: OLS.SW 22:00
PROVIDERS: PCP Family Medicine; Visit Provider Family Medicine
DX: E11.9 Type 2 diabetes mellitus without complications (principal); N39.0 Urinary tract infection, site not specified
CPT/HCPCS: 81001; 87086; 87088; 87186

== ENCOUNTER → 2024-08-11 | Outpatient (REF) | payer MEDICARE, MEDICAID, SELFPAY ==
[2024-08-11 08:17] LABS: Hematocrit 38.9 % (37-47); Mean Corp Hgb Conc 30.8 g/dL (32-36); Mean Corpuscular Hgb 26.9 pg (27.0-32.0); Mean Corpuscular Volume 87.2 fL (81-99); Mean Platelet Vol. 12.1 fl (6.2-12.0); Platelet Count 253 K/mm3 (150-450); RBC Distribution Width CV 15.8 % (11.6-14.6); RBC Distribution Width SD 50.2 fl (35.1-43.9); Red Blood Count 4.46 M/mm3 (4.2-5.4); White Blood Count 6.3 K/mm3 (4.4-11.0)
[2024-08-11 08:44] LABS: ALB/GLOB Ratio 0.9 RATIO (0.9-2.4); AST(SGOT) 15 U/L (15-37); Alanine Aminotransfer ALT/SGPT 19 U/L (13-56); Albumin, Serum 3.3 g/dL (3.2-5.0); Alkaline Phosphatase 158 U/L (45-117); Anion Gap 5 (5-15); BUN 23 mg/dL (7-18); BUN/Creat Ratio 40.1 RATIO (10-20); Chloride 108 mmol/L (98-107); Cholesterol 216 mg/dL (200); Creatinine, Serum 0.57 mg/dL (0.55-1.02); EST Glomerular Filtration Rate 106 mL/min (>60); Est Glom Filt Rate - Afr Amer 129 mL/min (>60); Globulin 3.8 g/dL (2.2-4.2); Glucose 102 mg/dL (74-106); High Density Lipoprotein 51 mg/dL; Protein, Total 7.1 g/dL (6.4-8.2); Sodium Level 139 mmol/L (136-145); Triglycerides 141 mg/dL; Very Low Density Lipoprotein 28 mg/dL (5-40)
[2024-08-11 11:40] LABS: Hemoglobin A1c 7.1 % (3.8-5.6)
== END ==
LOC: OLS.SW 05:00
PROVIDERS: PCP Family Medicine; Visit Provider Family Medicine
DX: E11.9 Type 2 diabetes mellitus without complications (principal); E78.5 Hyperlipidemia, unspecified; E03.9 Hypothyroidism, unspecified; I10 Essential (primary) hypertension
CPT/HCPCS: 36415; 80053; 80061; 83036; 84443; 85027

== ENCOUNTER → 2024-10-09 07:00 | Outpatient (REF) | payer MEDICARE, MEDICAID, SELFPAY ==
[2024-10-09 09:44] LABS: Absolute Lymphocyte Count 2.93 X10^3/uL (0.83-4.51); Absolute Neutrophil Count 3.5 X10^3/uL (2.0-7.7); Basophil# 0.05 X10^3/uL; Basophil% 0.7 % (0-1); Eosinophil# 0.29 X10^3/uL; Eosinophils% 3.9 % (0-5); Hematocrit 43.5 % (37-47); Hemoglobin 13.2 g/dL (12.0-15.0); Lymphocyte # 2.93 X10^3/ul (0.83-4.51); Lymphocyte % 39.3 % (19-41); Mean Corp Hgb Conc 30.3 g/dL (32-36); Mean Platelet Vol. 12.2 fl (6.2-12.0); Monocyte# 0.66 X10^3/uL; Monocyte% 8.9 % (0-10); NRBC Flagged by Analyzer 0 % (0-5); Neutrophil % 46.9 % (47-70); Platelet Count 251 K/mm3 (150-450); RBC Distribution Width SD 45.6 fl (35.1-43.9); Red Blood Count 4.89 M/mm3 (4.2-5.4); White Blood Count 7.5 K/mm3 (4.4-11.0)
[2024-10-09 09:59] LABS: Anion Gap 5 (5-15); BUN 24 mg/dL (7-18); BUN/Creat Ratio 41.4 RATIO (10-20); CRP 3.79 mg/L (0.0-3.0); Calcium,Total 9.7 mg/dL (8.5-10.1); Chloride 103 mmol/L (98-107); Creatinine, Serum 0.58 mg/dL (0.55-1.02); EST Glomerular Filtration Rate 105 mL/min (>60); Est Glom Filt Rate - Afr Amer 127 mL/min (>60); Glucose 89 mg/dL (74-106); Potassium 3.8 mmol/L (3.5-5.1); Sodium Level 137 mmol/L (136-145)
== END ==
LOC: OLS.SW 07:00
PROVIDERS: PCP Family Medicine; Visit Provider Internal Medicine
DX: D64.9 Anemia, unspecified (principal)
CPT/HCPCS: 36415; 80048; 85025; 86140

== ENCOUNTER → 2024-11-10 04:00 | Outpatient (REF) | payer MEDICARE, MEDICAID, SELFPAY ==
[2024-11-10 09:43] LABS: Hematocrit 40.9 % (37-47); Hemoglobin 12.6 g/dL (12.0-15.0); Mean Corp Hgb Conc 30.8 g/dL (32-36); Mean Corpuscular Hgb 27.6 pg (27.0-32.0); Mean Corpuscular Volume 89.7 fL (81-99); Mean Platelet Vol. 12.1 fl (6.2-12.0); Platelet Count 260 K/mm3 (150-450); RBC Distribution Width CV 13.9 % (11.6-14.6); RBC Distribution Width SD 45.7 fl (35.1-43.9); Red Blood Count 4.56 M/mm3 (4.2-5.4); White Blood Count 6.5 K/mm3 (4.4-11.0)
[2024-11-10 10:02] LABS: Hemoglobin A1c 6.9 % (3.8-5.6)
[2024-11-10 10:07] LABS: T3 Total - Triiodothyronine 0.91 ng/mL (0.6-1.81)
[2024-11-10 10:47] LABS: ALB/GLOB Ratio 0.9 RATIO (0.9-2.4); AST(SGOT) 14 U/L (15-37); Alanine Aminotransfer ALT/SGPT 30 U/L (13-56); Albumin, Serum 3.5 g/dL (3.2-5.0); Alkaline Phosphatase 161 U/L (45-117); Anion Gap 8 (5-15); BUN 22 mg/dL (7-18); BUN/Creat Ratio 42.6 RATIO (10-20); Calcium,Total 9.6 mg/dL (8.5-10.1); Chloride 105 mmol/L (98-107); Cholesterol 228 mg/dL (200); Creatinine, Serum 0.52 mg/dL (0.55-1.02); EST Glomerular Filtration Rate 120 mL/min (>60); Est Glom Filt Rate - Afr Amer 145 mL/min (>60); Globulin 3.9 g/dL (2.2-4.2); Glucose 97 mg/dL (74-106); High Density Lipoprotein 53 mg/dL; Potassium 3.8 mmol/L (3.5-5.1); Protein, Total 7.4 g/dL (6.4-8.2); Sodium Level 140 mmol/L (136-145); T4 Total, Thyroxin 10.1 ug/dL (4.8-13.9); Triglycerides 182 mg/dL; Very Low Density Lipoprotein 36 mg/dL (5-40)
== END ==
LOC: OLS.SW 04:00
PROVIDERS: PCP Family Medicine; Referring Provider Internal Medicine; Visit Provider Internal Medicine
DX: E03.9 Hypothyroidism, unspecified (principal)
CPT/HCPCS: 36415; 80053; 80061; 83036; 84436; 84443; 84480; 85027

== ENCOUNTER → 2025-01-12 | Outpatient (REF) | payer MEDICARE, MEDICAID, SELFPAY ==
[2025-01-12 09:08] LABS: Hematocrit 40.6 % (37-47); Hemoglobin 12.8 g/dL (12.0-15.0); Mean Corp Hgb Conc 31.5 g/dL (32-36); Mean Corpuscular Hgb 27.9 pg (27.0-32.0); Mean Corpuscular Volume 88.5 fL (81-99); Platelet Count 254 K/mm3 (150-450); RBC Distribution Width CV 14.9 % (11.6-14.6); RBC Distribution Width SD 47.9 fl (35.1-43.9); Red Blood Count 4.59 M/mm3 (4.2-5.4); White Blood Count 6.2 K/mm3 (4.4-11.0)
[2025-01-12 09:21] LABS: Hemoglobin A1c 7.2 % (<=5.6)
[2025-01-12 09:37] LABS: ALB/GLOB Ratio 1.2 RATIO (0.9-2.4); AST(SGOT) 19 U/L (<=31); Alanine Aminotransfer ALT/SGPT 8 U/L (<=34); Albumin, Serum 3.8 g/dL (3.4-4.8); Alkaline Phosphatase 141 U/L (35-104); Anion Gap 10 (5-15); BUN 26 mg/dL (4-19); BUN/Creat Ratio 44.7 RATIO (10-20); Calcium,Total 9.6 mg/dL (7.6-11.0); Carbon Dioxide 24.7 mmol/L (21.0-32.0); Chloride 105 mmol/L (98-108); Cholesterol 220 mg/dL (<=200); Creatinine, Serum 0.57 mg/dL (0.70-1.20); EST Glomerular Filtration Rate 89 (>60); Globulin 3.1 g/dL (2.2-4.2); Glucose 116 mg/dL (70-99); High Density Lipoprotein 54 mg/dL; Low Density Lipoprotein Calc. 137 mg/dL; Potassium 4.1 mmol/L (3.3-5.1); Protein, Total 6.9 g/dL (5.9-8.4); Sodium Level 140 mmol/L (133-145); Total Bilirubin 0.35 mg/dL (0.00-1.30); Triglycerides 146 mg/dL; Very Low Density Lipoprotein 29 mg/dL (5-40)
== END ==
LOC: OLS.SW 04:00
PROVIDERS: PCP Family Medicine; Referring Provider Family Medicine; Visit Provider Family Medicine
DX: E11.9 Type 2 diabetes mellitus without complications (principal); I10 Essential (primary) hypertension; E78.5 Hyperlipidemia, unspecified; E03.9 Hypothyroidism, unspecified
CPT/HCPCS: 36415; 80053; 80061; 83036; 84443; 85027

== ENCOUNTER → 2025-01-29 | Outpatient (REF) | payer MEDICARE, MEDICAID, SELFPAY ==
[2025-01-29 08:43] LABS: Hematocrit 35.3 % (37-47); Mean Corp Hgb Conc 31.2 g/dL (32-36); Mean Corpuscular Hgb 27.5 pg (27.0-32.0); Mean Corpuscular Volume 88.3 fL (81-99); Mean Platelet Vol. 11.4 fl (6.2-12.0); Platelet Count 282 K/mm3 (150-450); RBC Distribution Width CV 14.5 % (11.6-14.6); RBC Distribution Width SD 46.8 fl (35.1-43.9); White Blood Count 6.8 K/mm3 (4.4-11.0)
[2025-01-29 08:54] LABS: Hemoglobin A1c 7.2 % (<=5.6)
[2025-01-29 09:02] LABS: ALB/GLOB Ratio 1.2 RATIO (0.9-2.4); AST(SGOT) 17 U/L (<=31); Alanine Aminotransfer ALT/SGPT 19 U/L (<=34); Albumin, Serum 3.4 g/dL (3.4-4.8); Alkaline Phosphatase 121 U/L (35-104); Anion Gap 9 (5-15); BUN 23 mg/dL (4-19); BUN/Creat Ratio 42.8 RATIO (10-20); Calcium,Total 9.1 mg/dL (7.6-11.0); Carbon Dioxide 25.7 mmol/L (21.0-32.0); Chloride 107 mmol/L (98-108); Cholesterol 196 mg/dL (<=200); Creatinine, Serum 0.55 mg/dL (0.70-1.20); EST Glomerular Filtration Rate 90 (>60); Globulin 2.8 g/dL (2.2-4.2); Glucose 105 mg/dL (70-99); High Density Lipoprotein 40 mg/dL; Low Density Lipoprotein Calc. 126 mg/dL; Potassium 3.9 mmol/L (3.3-5.1); Protein, Total 6.2 g/dL (5.9-8.4); Sodium Level 141 mmol/L (133-145); Total Bilirubin 0.33 mg/dL (0.00-1.30); Triglycerides 147 mg/dL; Very Low Density Lipoprotein 29 mg/dL (5-40); cholesterol:hdl ratio screen 4.85
== END ==
LOC: OLS.SW 05:00
PROVIDERS: PCP Family Medicine; Visit Provider Family Medicine
DX: E03.9 Hypothyroidism, unspecified (principal); E11.9 Type 2 diabetes mellitus without complications; I10 Essential (primary) hypertension
CPT/HCPCS: 36415; 80053; 80061; 83036; 84443; 85027

== ENCOUNTER → 2025-05-05 | Outpatient (REF) | payer MEDICARE, MEDICAID, SELFPAY ==
[2025-05-05 08:59] LABS: Hematocrit 40.3 % (37-47); Hemoglobin 12.5 g/dL (12.0-15.0); Mean Corp Hgb Conc 31.0 g/dL (32-36); Mean Corpuscular Volume 87.8 fL (81-99); Mean Platelet Vol. 11.6 fl (6.2-12.0); Platelet Count 247 K/mm3 (150-450); RBC Distribution Width CV 14.6 % (11.6-14.6); RBC Distribution Width SD 46.5 fl (35.1-43.9); Red Blood Count 4.59 M/mm3 (4.2-5.4); White Blood Count 6.8 K/mm3 (4.4-11.0)
[2025-05-05 09:22] LABS: AST(SGOT) 17 U/L (<=31); Alanine Aminotransfer ALT/SGPT 11 U/L (<=34); Albumin, Serum 3.9 g/dL (3.4-4.8); Alkaline Phosphatase 161 U/L (35-104); Anion Gap 11 (5-15); BUN 20 mg/dL (4-19); BUN/Creat Ratio 40.0 RATIO (10-20); Calcium,Total 9.7 mg/dL (7.6-11.0); Carbon Dioxide 26.0 mmol/L (21.0-32.0); Chloride 104 mmol/L (98-108); Globulin 3.2 g/dL (2.2-4.2); Glucose 102 mg/dL (70-99); Potassium 3.7 mmol/L (3.3-5.1)
== END ==
LOC: OLS.SW 04:00
PROVIDERS: PCP Family Medicine; Referring Provider Family Medicine; Visit Provider Family Medicine
DX: E03.9 Hypothyroidism, unspecified (principal)
CPT/HCPCS: 36415; 80053; 83036; 84443; 85027

== ENCOUNTER → 2025-07-28 | Outpatient (REF) | payer MEDICARE, MEDICAID, SELFPAY ==
--- OUTSIDE RECORDS SUMMARY | 2025-07-28 04:21 | XMS RPT_ITS | CCD ---
Author Organization [facility] Care Team Providers Care [employer] Leadership Name Role Phone Dr. Lanre Smith Primary Care Provider Dr. Lanre Smith Referring Provider FriendDr. Toney Attending Provider Dr. Lanre Smith Primary Care Provider Dr. Lanre Smith Referring Provider [phone]([facility])[phone] FriendDr. Toney Attending Provider FriendDr. Toney Other Provider Dr. Lanre Smith Primary Care Provider Dr. Lanre Smith Referring Provider Dr. Feng Ball Attending Provider Dr. Lanre Smith Primary Care Provider Dr. Lanre mSith Referring Provider Friend, Dr. Toney Attending Provider Dr. Lanre Smith Primary Care Provider Dr. Penny Ariza Emergency Provider Dr. Milton Fitzgerald Admit Provider Dr. Milton Fitzgerald Attending Provider Dr. Milton Fitzgerald Other Provider Dr. Lanre Smith MD Primary Care Provider [phone] Dr. Smita Fernández MD Attending Provider Unavaila ble GuDr. Smtia hong MD Referring Provider Unavailcharles Cunningham MD, Dr. Barros Attending Provider Unavail Dr. Papo Rachel MD Referring Provider Unavail able Lanre Smith Primary Care Unavailable Lanre Stiles Attending Unavailable Luis, Lanre Primary Care Unavailable Smita Campo Attending Unavailable Luis, Lanre Primary Care Unavailable Smita Campo Attending Unavailable Smita Campo Referring Unavailable Luis, Lanre Primary Care Unavailable Papo Melgoza Attending Unavailable Papo Melgoza Referring Unavailable Luis, Lanre Primary Care Unavailable Papo Melgoza Attending Unavailable Luis, Lanre Primary Care Unavailable Papo Melgoza Attending Unavailable Papo Melgoza Referring Unavailable Allergies Allergy Classification Reported Allergen(s) Allergy Type Date of Onset Reaction(s) Facility (20 sources) Penicillins; Translations: [Penicillins] Allergy to substance 12-05-[address] [facility] (20 sources) ether Allergy to substance 12-05-[address] [facility] (1 source) ether Drug allergy (disorder) 12-16-[address] [facility] Repository Medications Current Medications Medication Drug Class(es) Dates Sig (Normalized) Sig (Original) acetaminophen 325 mg oral capsule (20 sources) Start: 12-03-2019 take 1 capsule by mouth every four hours as needed for pain Acetaminophen 325 MG capsule Active 325 mg PO Q4H as needed for Pain Or Fever December 03, 2019 1:00am [id number] 200 actuat albuterol 0.09 mg/actuat metered dose inhaler (20 sources) beta2-Adrenergic Agonist Start: 01-03-2023 Albuterol Sulfate (Proventil Hfa) 90 mcg/actuation Hfa Aerosol Inhaler Active 2 NMA INHALATION Q3H as needed for SOB January 03, 2023 12:00am Start: 01-03-2023 take 1 puff(s) by in halation every three hours Albuterol Sulfate (Proventil Hfa) 90 mcg/actuation Hfa Aerosol Inhaler Active 2 PUFF INHALATION Q3H January 03, 2023 12:00am Start: 12-03-2019 take 2.5 mg by inhal ation every four hours as needed Albuterol Sulfate Active 2.5 MG INHALATION EVERY 4 HOURS NEEDED December 03, 2019 1:00am Start: 12-05-2013 End: 12-10-2013 take 2.5 mg by inhalation every six hours as needed for wheezing Albuterol Sulfate 2.5 MG/3 ML Vial.Neb. Discontinued 2.5 mg INHALATION EVERY 6 HOURS NEEDED as needed for Wheezing December 05, 2013 1:00am December 10, 2013 12:21pm ALPRAZolam 0.5 mg oral tablet (20 sources) Benzodiazepine Start: 12-03-2019 take 0.25 mg by mouth twice daily Alprazolam Active 0.25 MG PO TWICE A DAY December 03, 2019 1:00am Start: 01-02-2014 End: 12-03-2019 take 1 tablet by mouth three times daily as needed for anxiety Alprazolam 0.5 MG tablet Discontinued 0.5 mg PO 3 TIMES DAILY NEEDED as needed for ANXIETY March 20, 2014 2:14pm December 03, 2019 11:51am Start: 12-05-2013 End: 01-02-2014 Alprazolam 0.5 MG tablet Discontinued 1 {tbl} PO TWICE A DAY as needed for Anxiety December 05, 2013 1:00am January 02, 2014 4:22pm amLODIPine 5 mg oral tablet (20 sources) Dihydropyridine Calcium Channel Gray Start: 11-24-2019 take 10 mg by mouth once daily Amlodipine Active 10 MG PO DAILY November 24, 2019 10:33am Start: 01-02-2014 End: 11-24-2019 take 1 tablet by mouth once daily Amlodipine 5 mg tablet Active 5 mg PO DAILY November 24, 2019 10:33am Start: 12-05-2013 End: 12-10-2013 take 1 tablet by mouth once daily Amlodipine 5 MG tablet Discontinued 5 mg PO DAILY December 05, 2013 1:00am December 10, 2013 12:21pm atorvastatin 10 mg oral tablet (11 sources) HMG-CoA Reductase Inhibitor Start: 12-03-2019 take 10 mg by mouth at bedtime Atorvastatin Active 10 MG PO AT BEDTIME December 03, 2019 1:00am bisacodyl 10 mg rectal suppository (3 sources) Stimulant Laxative Start: 12-16-2023 Bisacodyl 10 mg suppository Active 10 mg RC DAILY as needed for constipation December 16, 2023 12:00am calcium carbonate 500 mg chewable tablet (16 sources) Start: 12-16-2023 take 1 tablet by mouth every four hours as needed for gastroesophageal reflux disease Calcium Carbonate (Antacid (Calcium Carbonate)) 200 mg calcium (500 mg) tablet,chewable Active 400 mg PO Q4H as needed for GERD December 16, 2023 12:00am Start: 01-03-2023 End: 12-16-2023 Calcium Carbonate 500 mg vesta cium (1,250 mg) Tablet,Chewable Discontinued 500 - 1000 mg PO NEEDED as needed for GERD January 03, 2023 12:00am December 16, 2023 9:37am Start: 01-03-2023 End: 12-16-2023 Calcium Carbonate Discontinu ed 500 - 1000 MG PO NEEDED January 03, 2023 12:00am December 16, 2023 9:37am calcium carbonate 1500 mg / cholecalciferol 800 unt oral tablet (11 sources) Vitamin D Start: 12-05-2013 take 600 mg by mouth once daily Calcium Carbonate-Vitamin D3 Active 600 MG PO DAILY December 05, 2013 1:00am cholecalciferol 0.05 mg oral capsule (20 sources) Vitamin D Start: 12-03-2019 take 1 capsule by mouth once daily Cholecalciferol (Vitamin D3) 2,000 UNIT capsule Active 2000 U PO DAILY December 03, 2019 1:00am Start: 12-03-2019 take 4000 [IU] by mo [facility] once daily Cholecalciferol (Vitamin D3) Active 4000 UNIT PO DAILY December 03, 2019 1:00am dextromethorphan hydrobromide 2 mg/ml / guaiFENesin 20 mg/ml oral solution (20 sources) Uncompetitive Z-xxdmaa-F-aspartate Receptor Antagonist, Sigma-1 Agonist Start: 12-03-2019 Dextromethorphan-Guaifenesin 5 ML syrup Active 10 mL PO NEEDED as needed for Cough December 03, 2019 1:00am Start: 12-03-2019 Dextromethorph an-Guaifenesin Active 10 ML PO NEEDED December 03, 2019 1:00am diphenhydrAMINE hydrochloride 25 mg oral capsule (3 sources) Histamine-1 Receptor Antagonist Start: 12-16-2023 take 2 capsules by mouth at bedtime as needed Diphenhydramine Hcl (Aler-Cap) 25 mg capsule Active 50 mg PO AT BEDTIME as needed for itching December 16, 2023 12:00am docusate sodium 100 mg oral capsule (20 sources) Start: 12-03-2019 take 1 capsule by mouth at bedtime Docusate Sodium 100 MG capsule Active 100 mg PO AT BEDTIME December 03, 2019 11:50am Start: 03-20-2014 End: 12-03-2019 take 2 capsules by mouth twice daily as needed for constipation Docusate Sodium 100 MG capsule Discontinued 200 mg PO TWICE DAILY NEEDED as needed for Constipation March 20, 2014 12:00am December 03, 2019 11:51am Start: 03-20-2014 End: 12-03-2019 take 200 mg by mouth twice daily as needed Docusate Sodium Discontinued 200 MG PO TWICE DAILY NEEDED March 20, 2014 12:00am December 03, 2019 11:51am escitalopram 5 mg oral tablet (13 sources) Serotonin Reuptake Inhibitor Start: 01-03-2023 take 1 tablet by mouth once daily Escitalopram Oxalate (Lexapro) 5 mg Tablet Active 5 mg PO DAILY January 03, 2023 12:00am famotidine 20 mg oral tablet (13 sources) Histamine-2 Receptor Antagonist Start: 01-03-2023 take 1 tablet by mouth once daily Famotidine 20 mg Tablet Active 20 mg PO DAILY January 03, 2023 12:00am ferrous sulfate 325 mg oral tablet (11 sources) Start: 12-03-2019 take 325 mg by mouth three times daily at mealtime Ferrous Sulfate Active 325 MG PO 3 TIMES DAILY WITH MEALS December 03, 2019 1:00am 120 actuat fluticasone propionate 0.11 mg/actuat metered dose inhaler (11 sources) Corticosteroid Start: 01-02-2014 take 1 puff(s) by inhalation twice daily Fluticasone Propionate Active 2 PUFF inhalation TWICE A DAY January 02, 2014 12:00am Glucagon Hcl (Glucagon (Hcl) Emergency Kit) 1 mg recon soln (3 sources) Start: 12-16-2023 Glucagon Hcl (Glucagon (Hcl) Emergency Kit) 1 mg recon soln Active 1 mg IM Q20M as needed for hypoglycemia December 16, 2023 12:00am until target blood sugar attained Start: 12-16-2023 Glucagon Hcl ( Glucagon (Hcl) Emergency Kit) 1 mg recon soln Active 1 MG IM Q20M December 16, 2023 12:00am until target blood sugar attained 3 ml insulin lispro 100 unt/ml pen injector (2 sources) Insulin Analog Start: 12-20-2023 Insulin Lispro (Humalog Kwikpen Insulin) 100 unit/mL Insulin Pen Active 0 U SC BEFORE MEALS AND AT BEDTIME 0 December 20, 2023 12:00am Please contact the information source for Protocol details. Start: 12-20-2023 Insulin Lispro (Humalog Kwikpen Insulin) 100 unit/mL Insulin Pen Active 0 UNIT SC BEFORE MEALS AND AT BEDTIME 0 December 20, 2023 12:00am lactobacillus rhamnosus gg [id number] unt oral capsule (11 sources) Start: 12-03-2019 Lactobacillus Rhamnosus Gg Active 1 EACH PO TWICE A DAY December 03, 2019 1:00am levoFLOXacin 250 mg oral tablet (2 sources) Quinolone Antimicrobial Start: 12-20-2023 take 1 tablet by mouth once daily Levofloxacin 250 mg tablet Active 250 mg PO DAILY 3 December 20, 2023 12:00am 1 tablet daily x 3 days starting 12/21/2023 levothyroxine sodium 0.05 mg oral tablet (20 sources) l-Thyroxine Start: 11-24-2019 take 1 tablet by mouth once daily Levothyroxine 50 mcg tablet Active 50 ug PO DAILY November 24, 2019 1:00am lisinopril 40 mg oral tablet (20 sources) Angiotensin Converting Enzyme Inhibitor Start: 11-24-2019 Lisinopril 40 mg tablet Active 20 mg PO DAILY November 24, 2019 1:00am Start: 11-24-2019 take 20 mg by mouth once daily Lisinopril Active 20 MG PO DAILY November 24, 2019 1:00am Start: 11-24-2019 take 40 mg by mouth once daily Lisinopril Active 40 MG PO DAILY November 24, 2019 1:00am loperamide hydrochloride 2 mg oral capsule (20 sources) Opioid Agonist Start: 12-03-2019 take 1 capsule by mouth every four hours as needed for diarrhea Loperamide 2 MG capsule Active 2 mg PO Q4H as needed for Diarrhea December 03, 2019 1:00am Start: 12-03-2019 take 4 mg by mouth e very four hours Loperamide Active 4 MG PO Q4H December 03, 2019 12:00am LORazepam 0.5 mg oral tablet (13 sources) Benzodiazepine Start: 01-03-2023 take 1 tablet by mouth every twelve hours as needed for anxiety Lorazepam 0.5 mg Tablet Active 0.5 mg PO Q12H as needed for Anxiety January 03, 2023 12:00am Magnesium Hydroxide (3 sources) Start: 12-16-2023 take 1 mL by mouth once daily as needed for constipation Magnesium Hydroxide (Milk Of Magnesia) 400 mg/5 mL suspension Active 30 mL PO DAILY as needed for constipation December 16, 2023 12:00am Start: 12-16-2023 take 1 mL by mouth once daily Magnesium Hydroxide (Milk Of Magnesia) 400 mg/5 mL suspension Active 30 ML PO DAILY December 16, 2023 12:00am Menthol / Zinc Oxide (2 sources) Start: 12-20-2023 Menthol-Zinc O xide (Calmoseptine) 0.44-20.6 % Ointment Active 1 NMA TOPICAL THREE TIMES A DAY 0 December 20, 2023 12:00am Please contact the information source for Protocol details. Start: 12-20-2023 Menthol-Zinc O xide (Calmoseptine) 0.44-20.6 % Ointment Active 1 APPLIC TOPICAL THREE TIMES A DAY 0 December 20, 2023 12:00am mirtazapine 15 mg oral tablet (13 sources) Start: 01-03-2023 take 1 tablet by mouth at bedtime Mirtazapine 15 mg Tablet Active 15 mg PO AT BEDTIME January 03, 2023 12:00am nystatin 100 unt/mg topical powder (15 sources) Polyene Antifungal Start: 12-20-2023 Nystatin (Nyamyc) 100,000 unit/gram Powder Active 1 NMA TOPICAL THREE TIMES A DAY 0 December 20, 2023 12:00am Please contact the information source for Protocol details. Start: 12-20-2023 Nystatin (Nyam yc) 100,000 unit/gram Powder Active 1 APPLIC TOPICAL THREE TIMES A DAY 0 December 20, 2023 12:00am Start: 01-03-2023 Nystatin 100,0 00 unit/gram Powder Active 1 NMA TOPICAL TWICE A DAY January 03, 2023 12:00am Start: 01-03-2023 Nystatin Activ e 1 APPLIC TOPICAL TWICE A DAY January 03, 2023 12:00am simethicone 80 mg oral capsule (13 sources) Start: 01-03-2023 take 1 tablet by mouth every eight hours as needed Simethicone 80 mg Tablet Active 80 mg PO Q8H as needed for BLOATING January 03, 2023 12:00am traMADol hydrochloride 50 mg oral tablet (20 sources) Opioid Agonist Start: 03-20-2014 End: 12-03-2019 take 1 tablet by mouth every six hours as needed for pain Tramadol 50 MG tablet Active 50 mg PO EVERY 6 HOURS NEEDED as needed for mild to moderate pain December 03, 2019 11:50am valACYclovir 1000 mg oral tablet (2 sources) Herpesvirus Nucleoside Analog DNA Polymerase Inhibitor, Herpes Simplex Virus Nucleoside Analog DNA Polymerase Inhibitor, Herpes Zoster Virus Nucleoside Analog DNA Polymerase Inhibitor Start: 12-20-2023 take 1 tablet by mouth three times daily Valacyclovir (Valtrex) 1 gram tablet Active 1000 mg PO THREE TIMES A DAY December 20, 2023 12:00am 1 tab 3 times a day for 3 days starting 12/21/2023 Completed/Discontinued Medications Medication Drug Class(es) Dates Sig (Normalized) Sig (Original) furosemide 20 mg oral tablet (20 sources) Loop Diuretic Start: 01-02-2014 End: 11-24-2019 take 1 tablet by mouth once daily Furosemide 20 MG tablet Discontinued 20 mg PO DAILY 30 January 02, 2014 12:00am November 24, 2019 10:37am Start: 12-05-2013 End: 01-02-2014 take 1 tablet by mouth once daily Furosemide 40 MG tablet Discontinued 40 mg PO DAILY December 05, 2013 1:00am January 02, 2014 4:22pm ibuprofen 200 mg oral tablet (20 sources) Nonsteroidal Anti-inflammatory Drug Start: 12-05-2013 End: 12-10-2013 take 4 tablets by mouth every eight hours as needed for pain Ibuprofen 200 MG tablet Discontinued 800 mg PO EVERY 8 HOURS NEEDED as needed for Pain December 05, 2013 1:00am December 10, 2013 12:17pm Start: 12-05-2013 End: 12-10-2013 take 800 mg by mouth every eight hours as needed Ibuprofen Discontinued 800 MG PO EVERY 8 HOURS NEEDED December 05, 2013 1:00am December 10, 2013 12:17pm lidocaine 0.05 mg/mg medicated patch (20 sources) Antiarrhythmic, Amide Local Anesthetic Start: 01-02-2014 End: 11-24-2019 Lidocaine 1 PATCH patch Discontinued 1 NMA TOPICAL DAILY March 20, 2014 12:00am November 24, 2019 10:37am Start: 01-02-2014 End: 11-24-2019 apply 1 dose topically once daily Lidocaine Discontinued 1 PATCH TOPICAL DAILY March 20, 2014 12:00am November 24, 2019 10:37am magnesium lactate 84 mg extended release oral tablet (20 sources) Start: 03-20-2014 End: 11-24-2019 take 1 tablet by mouth once daily Magnesium L-Lactate 84 MG tablet extended release Discontinued 84 mg PO DAILY March 20, 2014 12:00am November 24, 2019 10:37am mometasone furoate 1 mg/ml topical cream (20 sources) Corticosteroid Start: 12-05-2013 End: 11-24-2019 apply 1 dose topically twice daily as needed Mometasone 45 GM cream Discontinued 15 g TP TWICE A DAY as needed for Rash/Topical Irritation December 05, 2013 1:00am November 24, 2019 10:36am Start: 12-05-2013 End: 11-24-2019 Mometasone Discontinued 15 G M TP TWICE A DAY December 05, 2013 1:00am November 24, 2019 10:36am Multivitamin Capsule (1 source) Start: 01-03-2023 End: 12-16-2023 Multivitamin Capsule Discontinued 1 NMA PO DAILY January 03, 2023 12:00am December 16, 2023 9:39am Multivitamin preparation (12 sources) Start: 01-03-2023 End: 12-16-2023 take 1 capsule by mouth once daily Multivitamin Discontinued 1 CAP PO DAILY January 03, 2023 12:00am December 16, 2023 9:39am Start: 01-03-2023 take 1 capsule by mo [facility] once daily Multivitamin Active 1 CAP PO DAILY January 02, 2023 11:00pm Start: 01-03-2023 take 1 capsule by mo [facility] once daily Multivitamin Active 1 CAP PO DAILY January 03, 2023 12:00am pantoprazole 40 mg delayed release oral tablet (20 sources) Proton Pump Inhibitor Start: 01-08-2023 End: 12-16-2023 take 1 tablet by mouth twice daily Pantoprazole 40 mg tablet,delayed release (DR/EC) Discontinued 40 mg PO TWICE A DAY 120 60 January 08, 2023 12:00am December 16, 2023 9:39am Start: 01-03-2014 End: 11-24-2019 take 1 tablet by mouth once daily Pantoprazole 40 MG tablet Discontinued 40 mg PO DAILY January 03, 2014 12:00am November 24, 2019 10:36am potassium chloride 20 meq extended release oral tablet (20 sources) Start: 01-02-2014 End: 11-24-2019 take 1 tablet by mouth once daily at mealtime Potassium Chloride 20 MEQ tablet Discontinued 20 meq PO DAILY WITH MEALS January 02, 2014 12:00am November 24, 2019 10:36am Start: 12-05-2013 End: 01-02-2014 Potassium Chloride (Klor-Con M10) 10 MEQ Tab.Er.Prt Discontinued 20 meq PO THREE TIMES A DAY December 05, 2013 1:00am January 02, 2014 4:21pm predniSONE 20 mg oral tablet (3 sources) Start: 12-16-2023 End: 12-20-2023 take 2 tablets by mouth once daily for pain Prednisone 20 mg tablet Discontinued 40 mg PO DAILY December 16, 2023 12:00am December 20, 2023 3:52pm IN THE AFTERNOON FOR PAIN AND SWELLING X5D; START 12/14 Start: 12-16-2023 End: 12-20-2023 take 40 mg by mouth once daily for pain Prednisone Discontinued 40 MG PO DAILY December 16, 2023 12:00am December 20, 2023 3:52pm IN THE AFTERNOON FOR PAIN AND SWELLING X5D; START 12/14 Problems Active Problems Problem Classification Problem Date Documented Da te Episodic/Chronic Anxiety disorders (20 sources) Anxiety; Translations: [Anxiety disorder, unspecified] 11-24-2019 Chronic Comment on above: ON MED Asthma (20 sources) Asthma; Translations: [Unspecified asthma, uncomplicated] 11-24-2019 Chronic Comment on above: PRN INHALER Blindness and vision defects (20 sources) Legal blindness; 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, 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[place]] 11-24-2019 Chronic Deficiency and other anemia (20 sources) Anemia; Translations: [Anemia, unspecified] 11-24-2019 Episodic Diabetes mellitus without complication (20 sources) Type 2 diabetes mellitus; Translations: [Type 2 diabetes mellitus without complications] Onset: 02-20-2025 11-24-2019 Chronic Diseases of mouth; excluding dental (5 sources) Parotitis; Translations: [Acute sialoadenitis] 12-16-2023 Episodic Diseases of white blood cells (20 sources) Leukocytosis; Translations: [Elevated white blood cell count, unspecified] 11-24-2019 Chronic Disorders of lipid metabolism (20 sources) Hyperlipidemia; Translations: [Hyperlipidemia, unspecified] Onset: 02-20-2025 11-24-2019 Chronic E Codes: Fall (20 sources) Fall; Translations: [Unspecified fall, initial encounter] 03-19-2014 Episodic Essential hypertension (20 sources) Hypertensive disorder; Translations: [Essential (primary) hypertension] Onset: 02-20-2025 11-24-2019 Chronic Comment on above: ON MED Fluid and electrolyte disorders (20 sources) Hypokalemia; Translations: [Hypokalemia] 12-06-2013 Episodic Gastroduodenal ulcer (except hemorrhage) (20 sources) Gastric ulcer; Translations: [Gastric ulcer, unspecified as acute or chronic, without hemorrhage or perforation] 11-24-2019 Chronic Osteoarthritis (20 sources) Osteoarthritis; Translations: [Unspecified osteoarthritis, unspecified site] 11-24-2019 Chronic Comment on above: exacerbated by the f all today Other gastrointestinal disorders (16 sources) Dysphagia; Translations: [Dysphagia, unspecified] 11-06-2022 Episodic Other gastrointestinal disorders (8 sources) Dysphagia, unspecified; Translations: [Dysphagia, unspecified] 11-06-2022 Episodic Other injuries and conditions due to external causes (20 sources) Closed injury of head; Translations: [Unspecified injury of head, initial encounter] 11-24-2019 Episodic Other nutritional; endocrine; and metabolic disorders (20 sources) Obesity; Translations: [Obesity, unspecified] 11-24-2019 Chronic Residual codes; unclassified (20 sources) Pain; Translations: [Pain, unspecified] 12-18-2013 Episodic Skin and subcutaneous tissue infections (5 sources) Cellulitis of face; Translations: [Cellulitis of face] 12-16-2023 Episodic Thyroid disorders (2 sources) Hypothyroidism, unspecified; Translations: [Hypothyroidism, unspecified] Onset: 02-27-2025 Chronic Viral infection (5 sources) Herpes zoster; Translations: [Zoster without complications] 12-16-2023 Episodic Past or Other Problems Problem Classification Problem Date Documented Da te Episodic/Chronic Malaise and fatigue (1 source) Other fatigue; Translations: [Other fatigue] Onset: 11-27-2024 Episodic Results Test Name Value Interpretation Reference Range Facility CBC-Complete Blood Cnt No Di ffon 08-05-2025 Erythrocyte distribution width (RBC) [Ratio] 14.6 % Normal 11.6-14.[address] [facility] Comment on above: Order Comment: 512.2 Performed By: #### L [id number], [id number], [id number], [id number] #### [facility] [address] [place], [address] Hematocrit (Bld) [Volume fraction] 40.3 % Normal 37-[address] [facility] Comment on above: Order Comment: 512.2 Performed By: #### L [id number], [id number], [id number], [id number] #### [facility] [address] [place], [address] Hemoglobin (Bld) [Mass/Vol] 12.5 g/dL Normal 12.0-15.[address] [facility] Comment on above: Order Comment: 512.2 Performed By: #### L [id number], [id number], [id number], [id number] #### [facility] [address] [place], [address] MCH (RBC) [Entitic mass] 27.2 pg Normal 27.0-32.[address] [facility] Comment on above: Order Comment: 512.2 Performed By: #### L [id number], [id number], [id number], [id number] #### [facility] [address] [place], [address] MCHC (RBC) [Mass/Vol] 31.0 g/dL Low 32-36 [facility] Comment on above: Order Comment: 512.2 Performed By: #### L [id number], [id number], [id number], [id number] #### [facility] [address] [place], [address] MCV (RBC) [Entitic vol] 87.8 fL Normal 81-99 [facility] Comment on above: Order Comment: 512.2 Performed By: #### L [id number], [id number], [id number], [id number] #### [facility] [address] [place], [address] Platelet mean volume (Bld) [Entitic vol] 11.6 fL Normal 6.2-12.[address] [facility] Comment on above: Order Comment: 512.2 Performed By: #### L [id number], [id number], [id number], [id number] #### [facility] [address] [place], [address] Platelets (Bld) [#/Vol] 247 10*3/uL Normal 150-[address] [facility] Comment on above: Order Comment: 512.2 Performed By: #### L [id number], [id number], [id number], [id number] #### [facility] [address] [place], [address] RBC (Bld) [#/Vol] 4.59 10*6/uL Normal 4.2-5.4 [facility] Comment on above: Order Comment: 512.2 Performed By: #### L [id number], [id number], [id number], [id number] #### [facility] [address] [place], [address] RDW SD 46.5 fl High 35.1-43.[address] [facility] Comment on above: Order Comment: 512.2 Performed By: #### L [id number], [id number], [id number], [id number] #### [facility] [address] [place], [address] WBC (Bld) [#/Vol] 6.8 10*3/uL Normal 4.4-11.0 [facility] Comment on above: Order Comment: 512.2 Performed By: #### L [id number], [id number], [id number], [id number] #### [facility] [address] [place], [address] Comprehensive Metabolic Prof ilon 05-05-2025 Albumin [Mass/Vol] 3.9 g/dL Normal 3.4-4.8 [facility] Comment on above: Order Comment: 512.2 Performed By: #### L [id number], [id number], [id number], [id number] #### [facility] [address] [place], [address] Albumin/Globulin [Mass ratio] 1.2 {ratio} Normal 0.9-2.[address] [facility] Comment on above: Order Comment: 512.2 Performed By: #### L [id number], [id number], [id number], [id number] #### [facility] [address] [place], [address] ALK PHOS 161 U/L High 35-[address] [facility] Comment on above: Order Comment: 512.2 Performed By: #### L [id number], [id number], [id number], [id number] #### [facility] [address] [place], [address] ALT [Catalytic activity/Vol] 11 U/L Normal <=[address] [facility] Comment on above: Order Comment: 512.2 Performed By: #### L 501.9520, L500.4050, L501.9985, L100.0500 #### [facility] [address] [place], [address] AST [Catalytic activity/Vol] 17 U/L Normal <=[address] [facility] Comment on above: Order Comment: 512.2 Performed By: #### L 501.9520, L500.4050, L501.9985, L100.0500 #### [facility] [address] [place], [address] Bilirubin [Mass/Vol] 0.30 mg/dL Normal 0.00-1.30 [facility] Comment on above: Order Comment: 512.2 Performed By: #### L 501.9520, L500.4050, L501.9985, L100.0500 #### [facility] [address] [place], [address] BUN/CRE 40.0 RATIO High 10-[address] [facility] Comment on above: Order Comment: 512.2 Performed By: #### L 501.9520, L500.4050, L501.9985, L100.0500 #### [facility] [address] [place], [address] Calcium [Mass/Vol] 9.7 mg/dL Normal 7.6-11.0 [facility] Comment on above: Order Comment: 512.2 Performed By: #### L 501.9520, L500.4050, L501.9985, L100.0500 #### [facility] [address] [place], [address] Chloride [Moles/Vol] 104 mmol/L Normal 98-108 [facility] Comment on above: Order Comment: 512.2 Performed By: #### L 501.9520, L500.4050, L501.9985, L100.0500 #### [facility] [address] [place], [address] CO2 [Moles/Vol] 26.0 mmol/L Normal 21.0-32.[address] [facility] Comment on above: Order Comment: 512.2 Performed By: #### L 501.9520, L500.4050, L501.9985, L100.0500 #### [facility] [address] [place], [address] Creatinine [Mass/Vol] 0.50 mg/dL Low 0.70-1.20 [facility] Comment on above: Order Comment: 512.2 Performed By: #### L 501.9520, L500.4050, L501.9985, L100.0500 #### [facility] [address] [place], [address] GAP 11 Normal 5-[address] [facility] Comment on above: Order Comment: 512.2 Performed By: #### L 501.9520, L500.4050, L501.9985, L100.0500 #### [facility] [address] [place], [address] GFR/1.73 sq M.predicted among non-blacks MDRD (S/P/Bld) [Vol rate/Area] 92 mL/min/{1.73_m2} Normal >60 [facility] Comment on above: Order Comment: 512.2 Result Comment: mL/m in/1.73m2 CKD-EPI Creatinine Equation (2020) Performed By: #### L 501.9520, L500.4050, L501.9985, L100.0500 #### [facility] [address] [place], [address] Globulin (S) [Mass/Vol] 3.2 g/dL Normal 2.2-4.2 [facility] Comment on above: Order Comment: 512.2 Performed By: #### L 501.9520, L500.4050, L501.9985, L100.0500 #### [facility] [address] [place], [address] Glucose [Mass/Vol] 102 mg/dL High 70-99 [facility] Comment on above: Order Comment: 512.2 Performed By: #### L 501.9520, L500.4050, L501.9985, L100.0500 #### [facility] [address] [place], [address] Potassium [Moles/Vol] 3.7 mmol/L Normal 3.3-5.1 [facility] Comment on above: Order Comment: 512.2 Performed By: #### L 501.9520, L500.4050, L501.9985, L100.0500 #### [facility] [address] [place], [address] Sodium [Moles/Vol] 140 mmol/L Normal 133-145 [facility] Comment on above: Order Comment: 512.2 Performed By: #### L 501.9520, L500.4050, L501.9985, L100.0500 #### [facility] [address] [place], [address] T PROT 7.1 g/dL Normal 5.9-8.[address] [facility] Comment on above: Order Comment: 512.2 Performed By: #### L 501.9520, L500.4050, L501.9985, L100.0500 #### [facility] [address] [place], [address] Urea nitrogen [Mass/Vol] 20 mg/dL High 4-[address] [facility] Comment on above: Order Comment: 512.2 Performed By: #### L 501.9520, L500.4050, L501.9985, L100.0500 #### [facility] [address] [place], [address] Hemoglobin A1con 05-05-2025 HbA1c (Bld) [Mass fraction] 7.7 % High <=5.[address] [facility] Comment on above: Order Comment: 512.2 Result Comment: Norm al < 5.7 % Prediabetic 5.7 - 6.4 % Diabetic >or= 6.5 % Please note range changes. Performed By: #### L 501.9520, L500.4050, L501.9985, L100.0500 #### [facility] [address] [place], [address] Thyroid Stim Hormone (TSH)on 05-05-2025 TSH 4.370 uIU/mL High 0.300-4.[address] [facility] Comment on above: Order Comment: 512.2 Performed By: #### L 501.9520, L500.4050, L501.9985, L100.0500 #### [facility] [address] [place], [place], [address] Anion gap in Serum or Plasma Ordered By: Papo Cunningham on 01-29-2025 Anion gap [Moles/Vol] 9 mmol/L 5-15 [facility] Automated blood erythrocyte countOrdered By: Papo Cunningham on 01-29-2025 RBC (Bld) [#/Vol] 4.00 10*6/uL Low 4.2-5.4 [facility] Comment on above: Order Comment: 512.2 Performed By: #### L 501.9520, L500.4050, L501.9985, L100.0500, L500.4100 #### [facility] [address] [place], [place], [address] Automated blood hematocrit ( percentage)Ordered By: Papo Cunningham on 01-29-2025 Hematocrit (Bld) [Volume fraction] 35.3 % Low 37-[address] [facility] Comment on above: Order Comment: 512.2 Performed By: #### L 501.9520, L500.4050, L501.9985, L100.0500, L500.4100 #### [facility] [address] [place], [address] BUN/creatinine ratioOrdered By: Papo Cunningham on 01-29-2025 Urea nitrogen/Creatinine [Mass ratio] 42.8 mg/mg High 10-[address] [facility] Bilirubin, totalOrdered By: Papo Cunningham on 01-29-2025 Bilirubin [Mass/Vol] 0.33 mg/dL Normal 0.00-1.30 [facility] Comment on above: Order Comment: 512.2 Performed By: #### L 501.9520, L500.4050, L501.9985, L100.0500, L500.4100 #### [facility] [address] [place], [address] CBC-Complete Blood Cnt No Di ffon 01-29-2025 RDW SD 46.8 fl High 35.1-43.[address] [facility] Comment on above: Order Comment: 512.2 Performed By: #### L 501.9520, L500.4050, L501.9985, L100.0500, L500.4100 #### [facility] [address] [place], [address] Calculated very low density lipoprotein (VLDL) cholesterol measurementOrdered By: Papo Cunningham on 01-29-2025 Calculated very low density lipoprotein (VLDL) cholesterol measurement 29 mg/dL 5-[address] [facility] Carbon dioxide, total [Moles /volume] in Central venous bloodOrdered By: Papo Cunningham on 01-29-2025 CO2 [Moles/Vol] 25.7 mmol/L Normal 21.0-32.[address] [facility] Comment on above: Order Comment: 512.2 Performed By: #### L 501.9520, L500.4050, L501.9985, L100.0500, L500.4100 #### [facility] [address] [place], [place], [address] Chloride assayOrdered By: Jose Cunningham on 01-29-2025 Chloride [Moles/Vol] 107 mmol/L Normal 98-108 [facility] Comment on above: Order Comment: 512.2 Performed By: #### L 501.9520, L500.4050, L501.9985, L100.0500, L500.4100 #### [facility] [address] [place], [address] Comprehensive Metabolic Prof ilon 01-29-2025 ALK PHOS 121 U/L High 35-[address] [facility] Comment on above: Order Comment: 512.2 Performed By: #### L 501.9520, L500.4050, L501.9985, L100.0500, L500.4100 #### [facility] [address] [place], [address] BUN/CRE 42.8 RATIO High 10-[address] [facility] Comment on above: Order Comment: 512.2 Performed By: #### L 501.9520, L500.4050, L501.9985, L100.0500, L500.4100 #### [facility] [address] [place], [address] GAP 9 Normal 5-[address] [facility] Comment on above: Order Comment: 512.2 Performed By: #### L 501.9520, L500.4050, L501.9985, L100.0500, L500.4100 #### [facility] [address] [place], [address] Potassium [Moles/Vol] 3.9 mmol/L Normal 3.3-5.1 [facility] Comment on above: Order Comment: 512.2 Performed By: #### L 501.9520, L500.4050, L501.9985, L100.0500, L500.4100 #### [facility] [address] [place], [address] T PROT 6.2 g/dL Normal 5.9-8.[address] [facility] Comment on above: Order Comment: 512.2 Performed By: #### L 501.9520, L500.4050, L501.9985, L100.0500, L500.4100 #### [facility] [address] [place], [address] Comprehensive Metabolic Prof ilOrdered By: Papo Cunningham on 01-29-2025 AST [Catalytic activity/Vol] 17 U/L Normal <=[address] [facility] Comment on above: Order Comment: 512.2 Performed By: #### L 501.9520, L500.4050, L501.9985, L100.0500, L500.4100 #### [facility] [address] [place], [place], [address] Erythrocyte distribution wid th ratioOrdered By: Papo Cunningham on 01-29-2025 Erythrocyte distribution width (RBC) [Ratio] 14.5 % Normal 11.6-14.[address] [facility] Comment on above: Order Comment: 512.2 Performed By: #### L 501.9520, L500.4050, L501.9985, L100.0500, L500.4100 #### [facility] [address] [place], [place], [address] Erythrocyte distribution wid th standard deviationOrdered By: Papo Cunningham on 01-29-2025 Erythrocyte distribution width (RBC) [Ratio] 46.8 fl High 35.1-43.[address] [facility] Glomerular filtration rate ( GFR) estimation/1.73 sq m using serum, plasma, or whole bOrdered By: Papo Cunningham on 01-29-2025 GFR/1.73 sq M.predicted among non-blacks MDRD (S/P/Bld) [Vol rate/Area] 90 mL/min/{1.73_m2} Normal >60 [facility] Comment on above: mL/min/1.73m2 CKD-EP I Creatinine Equation (2020) Order Comment: 512.2 Result Comment: mL/m in/1.73m2 CKD-EPI Creatinine Equation (2020) Performed By: #### L 501.9520, L500.4050, L501.9985, L100.0500, L500.4100 #### [facility] [address] [place], [place], [address] Hemoglobin A1c percentageOrd ered By: Papo Cunningham on 01-29-2025 HbA1c (Bld) [Mass fraction] 7.2 % High <=5.[address] [facility] Comment on above: Normal < 5.7 % Predi abetic 5.7 - 6.4 % Diabetic >or= 6.5 % Please note range changes. Order Comment: 512.2 Result Comment: Norm al < 5.7 % Prediabetic 5.7 - 6.4 % Diabetic >or= 6.5 % Please note range changes. Performed By: #### L 501.9520, L500.4050, L501.9985, L100.0500, L500.4100 #### [facility] [address] [place], [address] Hemoglobin measurementOrdere d By: Papo Cunningham on 01-29-2025 Hemoglobin (Bld) [Mass/Vol] 11.0 g/dL Low 12.0-15.[address] [facility] Comment on above: Order Comment: 512.2 Performed By: #### L 501.9520, L500.4050, L501.9985, L100.0500, L500.4100 #### [facility] [address] [place], [address] LDL calc ser/plasOrdered By: Papo Cunningham on 01-29-2025 Cholesterol in LDL [Mass/Vol] 126 mg/dL Normal [facility] Comment on above: Axshhqqoas=894-113 m g/dL & Higher Pwvd=480 mg/dL or greater Order Comment: 512.2 Result Comment: Bord scalen=931-741 mg/dL Higher Suvc=468 mg/dL or greater Performed By: #### L 501.9520, L500.4050, L501.9985, L100.0500, L500.4100 #### [facility] [address] [place], [address] Lipid Profileon 01-29-2025 CHOL:HDL 4.[address] [facility] Comment on above: Order Comment: 512.2 Performed By: #### L 501.9520, L500.4050, L501.9985, L100.0500, L500.4100 #### [facility] [address] [place], [address] Cholesterol in VLDL [Mass/Vol] 29 mg/dL Normal 5-[address] [facility] Comment on above: Order Comment: 512.2 Performed By: #### L 501.9520, L500.4050, L501.9985, L100.0500, L500.4100 #### [facility] [address] [place], [address] MCV (mean corpuscular volume ) determinationOrdered By: Papo Cunningham on 01-29-2025 MCV (RBC) [Entitic vol] 88.3 fL Normal 81-99 [facility] Comment on above: Order Comment: 512.2 Performed By: #### L 501.9520, L500.4050, L501.9985, L100.0500, L500.4100 #### [facility] [address] [place], [address] Mean corpuscular hemoglobin (MCH) determinationOrdered By: Papo Cunningham on 01-29-2025 MCH (RBC) [Entitic mass] 27.5 pg Normal 27.0-32.[address] [facility] Comment on above: Order Comment: 512.2 Performed By: #### L 501.9520, L500.4050, L501.9985, L100.0500, L500.4100 #### [facility] [address] [place], [place], [id number] Mean corpuscular hemoglobin concentration (MCHC) determinationOrdered By: Papo Cunningham on 01-29-2025 MCHC (RBC) [Mass/Vol] 31.2 g/dL Low 32-36 [facility] Comment on above: Order Comment: 512.2 Performed By: #### L 501.9520, L500.4050, L501.9985, L100.0500, L500.4100 #### [facility] [address] [place], [address] Mean platelet volume determi nationOrdered By: Papo Cunningham on 01-29-2025 Platelet mean volume (Bld) [Entitic vol] 11.4 fL Normal 6.2-12.[address] [facility] Comment on above: Order Comment: 512.2 Performed By: #### L 501.9520, L500.4050, L501.9985, L100.0500, L500.4100 #### [facility] [address] [place], [address] Platelet countOrdered By: Jose Cunningham on 01-29-2025 Platelets (Bld) [#/Vol] 282 10*3/uL Normal 150-[address] [facility] Comment on above: Order Comment: 512.2 Performed By: #### L 501.9520, L500.4050, L501.9985, L100.0500, L500.4100 #### [facility] [address] [place], [place], [address] Potassium measurement (mass/ volume)Ordered By: Papo Cunningham on 01-29-2025 Potassium (Unsp spec) [Mass/Vol] 3.9 mmol/L 3.3-5.[address] [facility] Screening total cholesterol/ high density lipoprotein (HDL) cholesterol ratioOrdered By: Papo Cunningham on 01-29-2025 Cholesterol.total/Cholest kobe in HDL [Mass ratio] 4.85 {ratio} [facility] Serum creatinine measurement (mass/volume)Ordered By: Papo Cunningham on 01-29-2025 Creatinine [Mass/Vol] 0.55 mg/dL Low 0.70-1.20 [facility] Comment on above: Order Comment: 512.2 Performed By: #### L 501.9520, L500.4050, L501.9985, L100.0500, L500.4100 #### [facility] [address] [place], [address] Serum globulin measurementOr dered By: Papo Cunningham on 01-29-2025 Globulin (S) [Mass/Vol] 2.8 g/dL Normal 2.2-4.2 [facility] Comment on above: Order Comment: 512.2 Performed By: #### L 501.9520, L500.4050, L501.9985, L100.0500, L500.4100 #### [facility] [address] [place], [address] Serum glucose measurement (m ass/volume)Ordered By: Papo Cunningham on 01-29-2025 Glucose [Mass/Vol] 105 mg/dL High 70-99 [facility] Comment on above: Order Comment: 512.2 Performed By: #### L 501.9520, L500.4050, L501.9985, L100.0500, L500.4100 #### [facility] [address] [facility] [place], [address] Serum or plasma alanine romero otransferase (ALT) measurementOrdered By: Papo Cunningham on 01-29-2025 ALT [Catalytic activity/Vol] 19 U/L Normal <=[address] [facility] Comment on above: Order Comment: 512.2 Performed By: #### L 501.9520, L500.4050, L501.9985, L100.0500, L500.4100 #### [facility] [address] [facility] [place], [address] Serum or plasma albumin kelli urement (mass/volume)Ordered By: Papo Cunningham on 01-29-2025 Albumin [Mass/Vol] 3.4 g/dL Normal 3.4-4.8 [facility] Comment on above: Order Comment: 512.2 Performed By: #### L 501.9520, L500.4050, L501.9985, L100.0500, L500.4100 #### [facility] [address] [facility] [place], [address] Serum or plasma albumin/glob ulin mass ratioOrdered By: Papo Cunningham on 01-29-2025 Albumin/Globulin [Mass ratio] 1.2 {ratio} Normal 0.9-2.[address] [facility] Comment on above: Order Comment: 512.2 Performed By: #### L 501.9520, L500.4050, L501.9985, L100.0500, L500.4100 #### [facility] [address] [facility] [place], [place], [address] Serum or plasma alkaline rosalind sphatase measurementOrdered By: Papo Cunningham on 01-29-2025 ALP [Catalytic activity/Vol] 121 U/L High 35-[address] [facility] Serum or plasma calcium kelli urement (mass/volume)Ordered By: Papo Cunningham on 01-29-2025 Calcium [Mass/Vol] 9.1 mg/dL Normal 7.6-11.0 [facility] Comment on above: Order Comment: 512.2 Performed By: #### L 501.9520, L500.4050, L501.9985, L100.0500, L500.4100 #### [facility] [address] [place], [place], [address] Serum or plasma cholesterol in HDL measurement (mass/volume)Ordered By: Papo Cunningham on 01-29-2025 Cholesterol in HDL [Mass/Vol] 40 mg/dL Normal [facility] Comment on above: National Cholesterol Education Program (NCEP) guidelines:<40 mg/dL: Low HDL-cholesterol (major risk factor for CHD)>= 60 mg/dL: High HDL-cholesterol (negative risk factor for CHD)HDL-cholesterol is affected by a number of factors, e.g. smoking, exercise, hormones, sex and age. Order Comment: 512.2 Result Comment: Love onal Cholesterol Education Program (NCEP) guidelines: <40 mg/dL: Low HDL-cholesterol (major risk factor for CHD) >= 60 mg/dL: High HDL-cholesterol (negative risk factor for CHD) HDL-cholesterol is affected by a number of factors, e.g. smoking, exercise, hormones, sex and age. Performed By: #### L 501.9520, L500.4050, L501.9985, L100.0500, L500.4100 #### [facility] [address] [place], [place], [address] Serum or plasma cholesterol measurement (mass/volume)Ordered By: Papo Cunningham on 01-29-2025 Cholesterol [Mass/Vol] 196 mg/dL Normal <=200 [facility] Comment on above: Cholesterol level, D esirable <200 mg/dLBorderline high cholesterol 200-239 mg/dLHigh cholesterol >=240 mg/dLRecommendations of the NCEP Adult Treatment Panel for the following risk-cutoff thresholds for the [place] population. Order Comment: 512.2 Result Comment: Chol esterol level, Desirable <200 mg/dL Borderline high cholesterol 200-239 mg/dL High cholesterol >=240 mg/dL Recommendations of the NCEP Adult Treatment Panel for the following risk-cutoff thresholds for the [place] population. Performed By: #### L 501.9520, L500.4050, L501.9985, L100.0500, L500.4100 #### [facility] [address] [place], [place], [id number] Serum or plasma urea nitroge n measurement (mass/volume)Ordered By: Papo Cunningham on 01-29-2025 Urea nitrogen [Mass/Vol] 23 mg/dL High 4-[address] [facility] Comment on above: Order Comment: 512.2 Performed By: #### L 501.9520, L500.4050, L501.9985, L100.0500, L500.4100 #### [facility] [address] [place], [place], [id number] Sodium levelOrdered By: César Cunningham on 01-29-2025 Sodium [Moles/Vol] 141 mmol/L Normal 133-145 [facility] Comment on above: Order Comment: 512.2 Performed By: #### L 501.9520, L500.4050, L501.9985, L100.0500, L500.4100 #### [facility] [address] [place], [place], [address] TSH DL <= 0.005 mIU/L QnOrde red By: Papo Cunningham on 01-29-2025 TSH Qn 1.040 uIU/mL 0.300-4.[address] [facility] Thyroid Stim Hormone (TSH)on 01-29-2025 TSH 1.040 uIU/mL Normal 0.300-4.[address] [facility] Comment on above: Order Comment: 512.2 Performed By: #### L 501.9520, L500.4050, L501.9985, L100.0500, L500.4100 #### [facility] [address] [place], [address] Total proteinOrdered By: Cj Cunningham on 01-29-2025 Protein [Mass/Vol] 6.2 g/dL 5.9-8.4 [facility] Triglycerides measurementOrd ered By: Papo Cunningham on 01-29-2025 Triglyceride [Mass/Vol] 147 mg/dL Normal [facility] Comment on above: The drugs N-Acetylcy steine and Metamizole may falsely depress this assay. Normal range: <150 mg/dLBorderline High: 150-199 mg/dLHigh: 200-499 mg/dLVery High: >500 mg/dL Order Comment: 512.2 Result Comment: The drugs N-Acetylcysteine and Metamizole may falsely depress this assay. Normal range: <150 mg/dL Borderline High: 150-199 mg/dL High: 200-499 mg/dL Very High: >500 mg/dL Performed By: #### L 501.9520, L500.4050, L501.9985, L100.0500, L500.4100 #### [facility] [address] [place], [address] White blood cell (WBC) count Ordered By: Papo Cunningham on 01-29-2025 WBC (Bld) [#/Vol] 6.8 10*3/uL Normal 4.4-11.0 [facility] Comment on above: Order Comment: 512.2 Performed By: #### L 501.9520, L500.4050, L501.9985, L100.0500, L500.4100 #### [facility] [address] [place], [address] Anion gap in Serum or Plasma Ordered By: Papo Cunningham on 01-12-2025 Anion gap [Moles/Vol] 10 mmol/L 5-15 [facility] BUN/creatinine ratioOrdered By: Papo Cunningham on 01-12-2025 Urea nitrogen/Creatinine [Mass ratio] 44.7 mg/mg High 10-[address] [facility] Bilirubin, totalOrdered By: Papo Cunningham on 01-12-2025 Bilirubin [Mass/Vol] 0.35 mg/dL 0.00-1.30 [facility] CBC-Complete Blood Cnt No Di ffon 01-12-2025 Erythrocyte distribution width (RBC) [Ratio] 14.9 % High 11.6-14.[address] [facility] Comment on above: Order Comment: 512.2 Performed By: #### L 501.9520, L500.4050, L501.9985, L100.0500, L500.4100 #### [facility] [address] [place], [address] Hematocrit (Bld) [Volume fraction] 40.6 % Normal 37-[address] [facility] Comment on above: Order Comment: 512.2 Performed By: #### L 501.9520, L500.4050, L501.9985, L100.0500, L500.4100 #### [facility] [address] [place], [address] Hemoglobin (Bld) [Mass/Vol] 12.8 g/dL Normal 12.0-15.[address] [facility] Comment on above: Order Comment: 512.2 Performed By: #### L 501.9520, L500.4050, L501.9985, L100.0500, L500.4100 #### [facility] [address] [place], [address] MCH (RBC) [Entitic mass] 27.9 pg Normal 27.0-32.[address] [facility] Comment on above: Order Comment: 512.2 Performed By: #### L 501.9520, L500.4050, L501.9985, L100.0500, L500.4100 #### [facility] [address] [place], [address] MCHC (RBC) [Mass/Vol] 31.5 g/dL Low 32-36 [facility] Comment on above: Order Comment: 512.2 Performed By: #### L 501.9520, L500.4050, L501.9985, L100.0500, L500.4100 #### [facility] [address] [place], [address] MCV (RBC) [Entitic vol] 88.5 fL Normal 81-99 [facility] Comment on above: Order Comment: 512.2 Performed By: #### L 501.9520, L500.4050, L501.9985, L100.0500, L500.4100 #### [facility] [address] [place], [address] Platelet mean volume (Bld) [Entitic vol] 12.0 fL Normal 6.2-12.[address] [facility] Comment on above: Order Comment: 512.2 Performed By: #### L 501.9520, L500.4050, L501.9985, L100.0500, L500.4100 #### [facility] [address] [place], [address] Platelets (Bld) [#/Vol] 254 10*3/uL Normal 150-[address] [facility] Comment on above: Order Comment: 512.2 Performed By: #### L 501.9520, L500.4050, L501.9985, L100.0500, L500.4100 #### [facility] [address] [place], [address] RBC (Bld) [#/Vol] 4.59 10*6/uL Normal 4.2-5.4 [facility] Comment on above: Order Comment: 512.2 Performed By: #### L 501.9520, L500.4050, L501.9985, L100.0500, L500.4100 #### [facility] [address] [place], [address] RDW SD 47.9 fl High 35.1-43.[address] [facility] Comment on above: Order Comment: 512.2 Performed By: #### L 501.9520, L500.4050, L501.9985, L100.0500, L500.4100 #### [facility] [address] [place], [address] WBC (Bld) [#/Vol] 6.2 10*3/uL Normal 4.4-11.0 [facility] Comment on above: Order Comment: 512.2 Performed By: #### L [id number], L500.4050, L501.9985, L100.0500, L500.4100 #### [facility] [address] [place], [address] Calculated very low density lipoprotein (VLDL) cholesterol measurementOrdered By: Papo Cunningham on 01-12-2025 Calculated very low density lipoprotein (VLDL) cholesterol measurement 29 mg/dL 5-[address] [facility] Carbon dioxide, total [Moles /volume] in Central venous bloodOrdered By: Papo Cunningham on 01-12-2025 CO2 [Moles/Vol] 24.7 mmol/L 21.0-32.[address] [facility] Chloride assayOrdered By: Jose Cunningham on 01-12-2025 Chloride [Moles/Vol] 105 mmol/L 98-108 [facility] Comprehensive Metabolic Prof ilon 01-12-2025 Albumin [Mass/Vol] 3.8 g/dL Normal 3.4-4.8 [facility] Comment on above: Order Comment: 512.2 Performed By: #### L 501.9520, L500.4050, L501.9985, L100.0500, L500.4100 #### [facility] [address] [place], [address] Albumin/Globulin [Mass ratio] 1.2 {ratio} Normal 0.9-2.[address] [facility] Comment on above: Order Comment: 512.2 Performed By: #### L [id number], L500.4050, L501.9985, L100.0500, L500.4100 #### [facility] [address] [place], [address] ALK PHOS 141 U/L High 35-[address] [facility] Comment on above: Order Comment: 512.2 Performed By: #### L 501.9520, L500.4050, L501.9985, L100.0500, L500.4100 #### [facility] [address] [place], [address] ALT [Catalytic activity/Vol] 8 U/L Normal <=[address] [facility] Comment on above: Order Comment: 512.2 Performed By: #### L 501.9520, L500.4050, L501.9985, L100.0500, L500.4100 #### [facility] [address] [place], [address] AST [Catalytic activity/Vol] 19 U/L Normal <=[address] [facility] Comment on above: Order Comment: 512.2 Performed By: #### L [id number], L500.4050, L501.9985, L100.0500, L500.4100 #### [facility] [address] [place], [address] Bilirubin [Mass/Vol] 0.35 mg/dL Normal 0.00-1.30 [facility] Comment on above: Order Comment: 512.2 Performed By: #### L [id number], L500.4050, L501.9985, L100.0500, L500.4100 #### [facility] [address] [place], [address] BUN/CRE 44.7 RATIO High 10-[address] [facility] Comment on above: Order Comment: 512.2 Performed By: #### L 501.9520, L500.4050, L501.9985, L100.0500, L500.4100 #### [facility] [address] [place], [address] Calcium [Mass/Vol] 9.6 mg/dL Normal 7.6-11.0 [facility] Comment on above: Order Comment: 512.2 Performed By: #### L [id number], L500.4050, L501.9985, L100.0500, L500.4100 #### [facility] [address] [place], [address] Chloride [Moles/Vol] 105 mmol/L Normal 98-108 [facility] Comment on above: Order Comment: 512.2 Performed By: #### L [id number], L500.4050, L501.9985, L100.0500, L500.4100 #### [facility] [address] [place], [address] CO2 [Moles/Vol] 24.7 mmol/L Normal 21.0-32.[address] [facility] Comment on above: Order Comment: 512.2 Performed By: #### L [id number], L500.4050, L501.9985, L100.0500, L500.4100 #### [facility] [address] [place], [address] Creatinine [Mass/Vol] 0.57 mg/dL Low 0.70-1.20 [facility] Comment on above: Order Comment: 512.2 Performed By: #### L [id number], L500.4050, L501.9985, L100.0500, L500.4100 #### [facility] [address] [place], [address] GAP 10 Normal 5-[address] [facility] Comment on above: Order Comment: 512.2 Performed By: #### L [id number], L500.4050, L501.9985, L100.0500, L500.4100 #### [facility] [address] [place], [address] GFR/1.73 sq M.predicted among non-blacks MDRD (S/P/Bld) [Vol rate/Area] 89 mL/min/{1.73_m2} Normal >60 [facility] Comment on above: Order Comment: 512.2 Result Comment: mL/m in/1.73m2 CKD-EPI Creatinine Equation (2020) Performed By: #### L 501.9520, L500.4050, L501.9985, L100.0500, L500.4100 #### [facility] [address] [place], [address] Globulin (S) [Mass/Vol] 3.1 g/dL Normal 2.2-4.2 [facility] Comment on above: Order Comment: 512.2 Performed By: #### L [id number], L500.4050, L501.9985, L100.0500, L500.4100 #### [facility] [address] [place], [address] Glucose [Mass/Vol] 116 mg/dL High 70-99 [facility] Comment on above: Order Comment: 512.2 Performed By: #### L [id number], L500.4050, L501.9985, L100.0500, L500.4100 #### [facility] [address] [place], [address] Potassium [Moles/Vol] 4.1 mmol/L Normal 3.3-5.1 [facility] Comment on above: Order Comment: 512.2 Performed By: #### L 501.9520, L500.4050, L501.9985, L100.0500, L500.4100 #### [facility] [address] [place], [address] Sodium [Moles/Vol] 140 mmol/L Normal 133-145 [facility] Comment on above: Order Comment: 512.2 Performed By: #### L [id number], L500.4050, L501.9985, L100.0500, L500.4100 #### [facility] [address] [place], [address] T PROT 6.9 g/dL Normal 5.9-8.[address] [facility] Comment on above: Order Comment: 512.2 Performed By: #### L [id number], L500.4050, L501.9985, L100.0500, L500.4100 #### [facility] [address] [place], [address] Urea nitrogen [Mass/Vol] 26 mg/dL High 4-[address] [facility] Comment on above: Order Comment: 512.2 Performed By: #### L [id number], L500.4050, L501.9985, L100.0500, L500.4100 #### [facility] [address] [place], [address] Erythrocyte distribution wid th ratioOrdered By: Papo Cunningham on 01-12-2025 Erythrocyte distribution width (RBC) [Ratio] 14.9 % High 11.6-14.[address] [facility] Erythrocyte distribution wid th standard deviationOrdered By: Papo Cunningham on 01-12-2025 Erythrocyte distribution width (RBC) [Ratio] 47.9 fl High 35.1-43.[address] [facility] Glomerular filtration rate ( GFR) estimation/1.73 sq m using serum, plasma, or whole bOrdered By: Papo Cunningham on 01-12-2025 GFR/1.73 sq M.predicted among non-blacks MDRD (S/P/Bld) [Vol rate/Area] 89 mL/min/{1.73_m2} >60 [facility] Comment on above: mL/min/1.73m2 CKD-EP I Creatinine Equation (2020) Hematocrit Auto (Bld) [Volum e fraction]Ordered By: Papo Cunningham on 01-12-2025 Hematocrit (Bld) [Volume fraction] 40.6 % 37-[address] [facility] Hemoglobin A1con 01-12-2025 HbA1c (Bld) [Mass fraction] 7.2 % High <=5.[address] [facility] Comment on above: Order Comment: 512.2 Result Comment: Norm al < 5.7 % Prediabetic 5.7 - 6.4 % Diabetic >or= 6.5 % Please note range changes. Performed By: #### L 501.9520, L500.4050, L501.9985, L100.0500, L500.4100 #### [facility] [address] [place], [place], [address] Hemoglobin A1c percentageOrd ered By: Papo Cunningham on 01-12-2025 HbA1c (Bld) [Mass fraction] 7.2 % High <5.[address] [facility] Comment on above: Normal < 5.7 % Predi abetic 5.7 - 6.4 % Diabetic >or= 6.5 % Please note range changes. Hemoglobin measurementOrdere d By: Papo Cunningham on 01-12-2025 Hemoglobin (Bld) [Mass/Vol] 12.8 g/dL 12.0-15.[address] [facility] LDL calc ser/plasOrdered By: Papo Cunningham on 01-12-2025 Cholesterol in LDL [Mass/Vol] 137 mg/dL [facility] Comment on above: Fxmvjuavye=849-044 m g/dL & Higher Jzab=735 mg/dL or greater Laboratory - Chemistry and C hemistry - challengeOrdered By: Papo Cunningham on 01-12-2025 AST [Catalytic activity/Vol] 19 U/L <[address] [facility] Lipid Profileon 01-12-2025 CHOL:HDL 4.[address] [facility] Comment on above: Order Comment: 512.2 Performed By: #### L [id number], L500.4050, L501.9985, L100.0500, L500.4100 #### [facility] [address] [place], [address] Cholesterol [Mass/Vol] 220 mg/dL High <=200 [facility] Comment on above: Order Comment: 512.2 Result Comment: Chol esterol level, Desirable <200 mg/dL Borderline high cholesterol 200-239 mg/dL High cholesterol >=240 mg/dL Recommendations of the NCEP Adult Treatment Panel for the following risk-cutoff thresholds for the [place] population. Performed By: #### L 501.9520, L500.4050, L501.9985, L100.0500, L500.4100 #### [facility] [address] [place], [address] Cholesterol in HDL [Mass/Vol] 54 mg/dL Normal [facility] Comment on above: Order Comment: 512.2 Result Comment: [place] Cholesterol Education Program (NCEP) guidelines: <40 mg/dL: Low HDL-cholesterol (major risk factor for CHD) >= 60 mg/dL: High HDL-cholesterol (negative risk factor for CHD) HDL-cholesterol is affected by a number of factors, e.g. smoking, exercise, hormones, sex and age. Performed By: #### L 501.9520, L500.4050, L501.9985, L100.0500, L500.4100 #### [facility] [address] [place], [address] Cholesterol in LDL [Mass/Vol] 137 mg/dL Normal [facility] Comment on above: Order Comment: 512.2 Result Comment: Bord mcwvnj=423-036 mg/dL Higher Wssx=687 mg/dL or greater Performed By: #### L 501.9520, L500.4050, L501.9985, L100.0500, L500.4100 #### [facility] [address] [place], [address] Cholesterol in VLDL [Mass/Vol] 29 mg/dL Normal 5-[address] [facility] Comment on above: Order Comment: 512.2 Performed By: #### L [id number], L500.4050, L501.9985, L100.0500, L500.4100 #### [facility] [address] [place], [address] Triglyceride [Mass/Vol] 146 mg/dL Normal [facility] Comment on above: Order Comment: 512.2 Result Comment: The drugs N-Acetylcysteine and Metamizole may falsely depress this assay. Normal range: <150 mg/dL Borderline High: 150-199 mg/dL High: 200-499 mg/dL Very High: >500 mg/dL Performed By: #### L 501.9520, L500.4050, L501.9985, L100.0500, L500.4100 #### [facility] [address] [place], [place], [id number] MCV (mean corpuscular volume ) determinationOrdered By: Papo Cunningham on 01-12-2025 MCV (RBC) [Entitic vol] 88.5 fL 81-99 [facility] Mean corpuscular hemoglobin (MCH) determinationOrdered By: Papo Cunningham on 01-12-2025 MCH (RBC) [Entitic mass] 27.9 pg 27.0-32.[address] [facility] Mean corpuscular hemoglobin concentration (MCHC) determinationOrdered By: Papo Cunningham on 01-12-2025 MCHC (RBC) [Mass/Vol] 31.5 g/dL Low 32-36 [facility] Mean platelet volume determi nationOrdered By: Papo Cunningham on 01-12-2025 Platelet mean volume (Bld) [Entitic vol] 12.0 fL 6.2-12.[address] [facility] Platelet countOrdered By: Jose Cunningham on 01-12-2025 Platelets (Bld) [#/Vol] 254 10*3/uL 150-[address] [facility] Potassium measurement (mass/ volume)Ordered By: Papo Cunningham on 01-12-2025 Potassium (Unsp spec) [Mass/Vol] 4.1 mmol/L 3.3-5.[address] [facility] RBC Auto (Bld) [#/Vol]Ordere d By: Papo Cunningham on 01-12-2025 RBC (Bld) [#/Vol] 4.59 10*6/uL 4.2-5.4 [facility] Screening total cholesterol/ high density lipoprotein (HDL) cholesterol ratioOrdered By: Papo Cunningham on 01-12-2025 Cholesterol.total/Cholest kobe in HDL [Mass ratio] 4.10 {ratio} [facility] Serum creatinine measurement (mass/volume)Ordered By: Papo Cunningham on 01-12-2025 Creatinine [Mass/Vol] 0.57 mg/dL Low 0.70-1.20 [facility] Serum globulin measurementOr dered By: Papo Cunningham on 01-12-2025 Globulin (S) [Mass/Vol] 3.1 g/dL 2.2-4.2 [facility] Serum glucose measurement (m ass/volume)Ordered By: Papo Cunningham on 01-12-2025 Glucose [Mass/Vol] 116 mg/dL High 70-99 [facility] Serum or plasma alanine romero otransferase (ALT) measurementOrdered By: Papo Cunningham on 01-12-2025 ALT [Catalytic activity/Vol] 8 U/L <[address] [facility] Serum or plasma albumin kelli urement (mass/volume)Ordered By: Papo Cunningham on 01-12-2025 Albumin [Mass/Vol] 3.8 g/dL 3.4-4.8 [facility] Serum or plasma albumin/glob ulin mass ratioOrdered By: Papo Cunningham on 01-12-2025 Albumin/Globulin [Mass ratio] 1.2 {ratio} 0.9-2.[address] [facility] Serum or plasma alkaline rosalind sphatase measurementOrdered By: Papo Cunningham on 01-12-2025 ALP [Catalytic activity/Vol] 141 U/L High 35-[address] [facility] Serum or plasma calcium kelli urement (mass/volume)Ordered By: Papo Cunningham on 01-12-2025 Calcium [Mass/Vol] 9.6 mg/dL 7.6-11.0 [facility] Serum or plasma cholesterol in HDL measurement (mass/volume)Ordered By: Papo Cunningham on 01-12-2025 Cholesterol in HDL [Mass/Vol] 54 mg/dL >[address] [facility] Comment on above: National Cholesterol Education Program (NCEP) guidelines:<40 mg/dL: Low HDL-cholesterol (major risk factor for CHD)>= 60 mg/dL: High HDL-cholesterol (negative risk factor for CHD)HDL-cholesterol is affected by a number of factors, e.g. smoking, exercise, hormones, sex and age. Serum or plasma cholesterol measurement (mass/volume)Ordered By: Papo Cunningham on 01-12-2025 Cholesterol [Mass/Vol] 220 mg/dL High <201 [facility] Comment on above: Cholesterol level, D esirable <200 mg/dLBorderline high cholesterol 200-239 mg/dLHigh cholesterol >=240 mg/dLRecommendations of the NCEP Adult Treatment Panel for the following risk-cutoff thresholds for the [place] population. Serum or plasma urea nitroge n measurement (mass/volume)Ordered By: Papo Cunningham on 01-12-2025 Urea nitrogen [Mass/Vol] 26 mg/dL High 4-[address] [facility] Sodium levelOrdered By: César Cunningham on 01-12-2025 Sodium [Moles/Vol] 140 mmol/L 133-145 [facility] TSH DL <= 0.005 mIU/L QnOrde red By: Papo Cunningham on 01-12-2025 TSH Qn 1.650 uIU/mL 0.300-4.[address] [facility] Thyroid Stim Hormone (TSH)on 01-12-2025 TSH 1.650 uIU/mL Normal 0.300-4.[address] [facility] Comment on above: Order Comment: 512.2 Performed By: #### L [id number], L500.4050, L501.9985, L100.0500, L500.4100 #### [facility] [place], [address] Total proteinOrdered By: Cj Cunningham on 01-12-2025 Protein [Mass/Vol] 6.9 g/dL 5.9-8.4 [facility] Triglycerides measurementOrd ered By: Papo Cunningham on 01-12-2025 Triglyceride [Mass/Vol] 146 mg/dL <199 [facility] Comment on above: The drugs N-Acetylcy steine and Metamizole may falsely depress this assay. Normal range: <150 mg/dLBorderline High: 150-199 mg/dLHigh: 200-499 mg/dLVery High: >500 mg/dL White blood cell (WBC) count Ordered By: Papo Cunningham on 01-12-2025 WBC (Bld) [#/Vol] 6.2 10*3/uL 4.4-11.0 [facility] Albumin to globulin ratioOrd ered By: Smita Fernández on 11-10-2024 Albumin/Globulin [Mass ratio] 0.9 {ratio} 0.9-2.[address] [facility] Bilirubin, totalOrdered By: Smita Fernández on 11-10-2024 Bilirubin [Mass/Vol] 0.30 mg/dL 0.20-1.00 [facility] Comment on above: For patients on eltr ombopag therapy, use of Dimension [place] TBIL is not recommended. Blood urea nitrogen (BUN)/cr eatinine ratioOrdered By: Smita Fernández on 11-10-2024 Urea nitrogen/Creatinine [Mass ratio] 42.6 mg/mg High 10-[address] [facility] CBC-Complete Blood Cnt No Di ffon 11-10-2024 Erythrocyte distribution width (RBC) [Ratio] 13.9 % Normal 11.6-14.[address] [facility] Comment on above: Order Comment: 512.2 Performed By: #### L 501.9520, L500.4050, L501.9985, L100.0500, L500.4100 #### [facility] [address] [place], [address] Hematocrit (Bld) [Volume fraction] 40.9 % Normal 37-[address] [facility] Comment on above: Order Comment: 512.2 Performed By: #### L 501.9520, L500.4050, L501.9985, L100.0500, L500.4100 #### [facility] [address] [place], [address] Hemoglobin (Bld) [Mass/Vol] 12.6 g/dL Normal 12.0-15.[address] [facility] Comment on above: Order Comment: 512.2 Performed By: #### L 501.9520, L500.4050, L501.9985, L100.0500, L500.4100 #### [facility] [address] [place], [address] MCH (RBC) [Entitic mass] 27.6 pg Normal 27.0-32.[address] [facility] Comment on above: Order Comment: 512.2 Performed By: #### L 501.9520, L500.4050, L501.9985, L100.0500, L500.4100 #### [facility] [address] [place], [address] MCHC (RBC) [Mass/Vol] 30.8 g/dL Low 32-36 [facility] Comment on above: Order Comment: 512.2 Performed By: #### L 501.9520, L500.4050, L501.9985, L100.0500, L500.4100 #### [facility] [address] [place], [address] MCV (RBC) [Entitic vol] 89.7 fL Normal 81-99 [facility] Comment on above: Order Comment: 512.2 Performed By: #### L 501.9520, L500.4050, L501.9985, L100.0500, L500.4100 #### [facility] [address] [place], [address] Platelet mean volume (Bld) [Entitic vol] 12.1 fL High 6.2-12.[address] [facility] Comment on above: Order Comment: 512.2 Performed By: #### L 501.9520, L500.4050, L501.9985, L100.0500, L500.4100 #### [facility] [address] [place], [address] Platelets (Bld) [#/Vol] 260 10*3/uL Normal 150-[address] [facility] Comment on above: Order Comment: 512.2 Performed By: #### L 501.9520, L500.4050, L501.9985, L100.0500, L500.4100 #### [facility] [address] [place], [address] RBC (Bld) [#/Vol] 4.56 10*6/uL Normal 4.2-5.4 [facility] Comment on above: Order Comment: 512.2 Performed By: #### L 501.9520, L500.4050, L501.9985, L100.0500, L500.4100 #### [facility] [address] [place], [address] RDW SD 45.7 fl High 35.1-43.[address] [facility] Comment on above: Order Comment: 512.2 Performed By: #### L 501.9520, L500.4050, L501.9985, L100.0500, L500.4100 #### [facility] [address] [place], [address] WBC (Bld) [#/Vol] 6.5 10*3/uL Normal 4.4-11.0 [facility] Comment on above: Order Comment: 512.2 Performed By: #### L 501.9520, L500.4050, L501.9985, L100.0500, L500.4100 #### [facility] [address] [place], [address] Carbon dioxide measurementOr dered By: Smita Fernández on 11-10-2024 CO2 [Moles/Vol] 27.0 mmol/L 21.0-32.[address] [facility] Chloride measurementOrdered By: Smita Fernández on 11-10-2024 Chloride [Moles/Vol] 105 mmol/L 98-107 [facility] Comprehensive Metabolic Prof ilon 11-10-2024 Albumin [Mass/Vol] 3.5 g/dL Normal 3.2-5.0 [facility] Comment on above: Order Comment: 512.2 Performed By: #### L 501.9520, L500.4050, L501.9985, L100.0500, L500.4100 #### [facility] [address] [place], [address] Albumin/Globulin [Mass ratio] 0.9 {ratio} Normal 0.9-2.[address] [facility] Comment on above: Order Comment: 512.2 Performed By: #### L 501.9520, L500.4050, L501.9985, L100.0500, L500.4100 #### [facility] [address] [place], [address] ALK P 161 U/L High 45-[address] [facility] Comment on above: Order Comment: 512.2 Performed By: #### L 501.9520, L500.4050, L501.9985, L100.0500, L500.4100 #### [facility] [address] [place], [address] ALT [Catalytic activity/Vol] 30 U/L Normal 13-[address] [facility] Comment on above: Order Comment: 512.2 Performed By: #### L 501.9520, L500.4050, L501.9985, L100.0500, L500.4100 #### [facility] [address] [place], [address] AST [Catalytic activity/Vol] 14 U/L Low 15-[address] [facility] Comment on above: Order Comment: 512.2 Performed By: #### L 501.9520, L500.4050, L501.9985, L100.0500, L500.4100 #### [facility] [address] [place], [address] Bilirubin [Mass/Vol] 0.30 mg/dL Normal 0.20-1.00 [facility] Comment on above: Order Comment: 512.2 Result Comment: For patients on eltrombopag therapy, use of Dimension [place] TBIL is not recommended. Performed By: #### L 501.9520, L500.4050, L501.9985, L100.0500, L500.4100 #### [facility] [address] [place], [address] BUN/CRE 42.6 RATIO High 10-[address] [facility] Comment on above: Order Comment: 512.2 Performed By: #### L 501.9520, L500.4050, L501.9985, L100.0500, L500.4100 #### [facility] [address] [place], [address] CA,Total 9.6 mg/dL Normal 8.5-10.[address] [facility] Comment on above: Order Comment: 512.2 Performed By: #### L 501.9520, L500.4050, L501.9985, L100.0500, L500.4100 #### [facility] [address] [place], [address] Chloride [Moles/Vol] 105 mmol/L Normal 98-107 [facility] Comment on above: Order Comment: 512.2 Performed By: #### L 501.9520, L500.4050, L501.9985, L100.0500, L500.4100 #### [facility] [address] [place], [address] CO2 [Moles/Vol] 27.0 mmol/L Normal 21.0-32.[address] [facility] Comment on above: Order Comment: 512.2 Performed By: #### L 501.9520, L500.4050, L501.9985, L100.0500, L500.4100 #### [facility] [address] [place], [address] Creatinine [Mass/Vol] 0.52 mg/dL Low 0.55-1.02 [facility] Comment on above: Order Comment: 512.2 Result Comment: The validity of the calculated GFR GFRAA in patients over 70 years has not been determined. Clinical correlation is essential. Performed By: #### L 501.9520, L500.4050, L501.9985, L100.0500, L500.4100 #### [facility] [address] [place], [address] EST GFR - AA 145 mL/min Normal >[address] [facility] Comment on above: Order Comment: 512.2 Result Comment: Afri can [place] GFR Calc Performed By: #### L 501.9520, L500.4050, L501.9985, L100.0500, L500.4100 #### [facility] [address] [place], [address] GAP 8 Normal 5-[address] [facility] Comment on above: Order Comment: 512.2 Performed By: #### L 501.9520, L500.4050, L501.9985, L100.0500, L500.4100 #### [facility] [address] [place], [address] GFR/1.73 sq M.predicted among non-blacks MDRD (S/P/Bld) [Vol rate/Area] 120 mL/min/{1.73_m2} Normal >[address] [facility] Comment on above: Order Comment: 512.2 Result Comment: Non- GFR Calc Performed By: #### L 501.9520, L500.4050, L501.9985, L100.0500, L500.4100 #### [facility] [address] [place], [address] Globulin (S) [Mass/Vol] 3.9 g/dL Normal 2.2-4.2 [facility] Comment on above: Order Comment: 512.2 Performed By: #### L 501.9520, L500.4050, L501.9985, L100.0500, L500.4100 #### [facility] [address] [place], [address] Glucose [Mass/Vol] 97 mg/dL Normal 74-106 [facility] Comment on above: Order Comment: 512.2 Performed By: #### L [id number], L500.4050, L501.9985, L100.0500, L500.4100 #### [facility] [address] [place], [address] Potassium [Moles/Vol] 3.8 mmol/L Normal 3.5-5.1 [facility] Comment on above: Order Comment: 512.2 Performed By: #### L [id number], L500.4050, L501.9985, L100.0500, L500.4100 #### [facility] [address] [place], [address] Sodium [Moles/Vol] 140 mmol/L Normal 136-145 [facility] Comment on above: Order Comment: 512.2 Performed By: #### L 501.9520, L500.4050, L501.9985, L100.0500, L500.4100 #### [facility] [address] [place], [address] T PROT 7.4 g/dL Normal 6.4-8.[address] [facility] Comment on above: Order Comment: 512.2 Performed By: #### L [id number], L500.4050, L501.9985, L100.0500, L500.4100 #### [facility] [address] [place], [address] Urea nitrogen [Mass/Vol] 22 mg/dL High 7-[address] [facility] Comment on above: Order Comment: 512.2 Performed By: #### L [id number], L500.4050, L501.9985, L100.0500, L500.4100 #### [facility] [address] [place], [address] Erythrocyte distribution wid th ratioOrdered By: Smita Fernández on 11-10-2024 Erythrocyte distribution width (RBC) [Ratio] 13.9 % 11.6-14.[address] [facility] Erythrocyte distribution wid th standard deviationOrdered By: Smita Fernández on 11-10-2024 Erythrocyte distribution width (RBC) [Ratio] 45.7 fl High 35.1-43.[address] [facility] Glomerular filtration rate ( GFR) estimationOrdered By: Smita Fernández on 11-10-2024 GFR/1.73 sq M.predicted among non-blacks MDRD (S/P/Bld) [Vol rate/Area] 120 mL/min/{1.73_m2} >[address] [facility] Comment on above: Non- GFR Calc Glucose measurementOrdered B y: Smita Fernández on 11-10-2024 Glucose [Mass/Vol] 97 mg/dL 74-106 [facility] Hematocrit Auto (Bld) [Volum e fraction]Ordered By: Smita Fernández on 11-10-2024 Hematocrit (Bld) [Volume fraction] 40.9 % 37-[address] [facility] Hemoglobin A1con 11-10-2024 HbA1c (Bld) [Mass fraction] 6.9 % High 3.8-5.[address] [facility] Comment on above: Order Comment: 512.2 Result Comment: Norm al < 5.7 % Prediabetic 5.7 - 6.4 % Diabetic >or= 6.5 % Please note range changes. Performed By: #### L 501.9524, L500.0160, L501.9969, L100.0500, L500.4100 #### [facility] [address] [place], [address] Hemoglobin A1c percentageOrd ered By: Smita Fernández on 11-10-2024 HbA1c (Bld) [Mass fraction] 6.9 % High 3.8-5.[address] [facility] Comment on above: Normal < 5.7 % Predi abetic 5.7 - 6.4 % Diabetic >or= 6.5 % Please note range changes. Hemoglobin measurementOrdere d By: Smita Fernández on 11-10-2024 Hemoglobin (Bld) [Mass/Vol] 12.6 g/dL 12.0-15.[address] [facility] High density lipoprotein (HD L) measurementOrdered By: Smita Fernández on 11-10-2024 Cholesterol in HDL [Mass/Vol] 53 mg/dL >[address] [facility] Comment on above: The drugs N-Acetylcy steine and Metamizole may falsely depress this assay. Reference Range HDL <40 mg/dL Low HDL Cholesterol HDL >or= 60 mg/dL High HDL Cholesterol Laboratory - Chemistry and C hemistry - challengeOrdered By: Smita Fernández on 11-10-2024 AST [Catalytic activity/Vol] 14 U/L Low 15-[address] [facility] Lipid Profileon 11-10-2024 Cholesterol [Mass/Vol] 228 mg/dL High 200 [facility] Comment on above: Order Comment: 512.2 Result Comment: <200 mg/dL Desirable 200-240 mg/dL Borderline >240 mg/dL High Risk Performed By: #### L 501.9520, L500.4050, L501.9985, L100.0500, L500.4100 #### [facility] [address] [place], [address] Cholesterol in HDL [Mass/Vol] 53 mg/dL Normal [facility] Comment on above: Order Comment: 512.2 Result Comment: The drugs N-Acetylcysteine and Metamizole may falsely depress this assay. Reference Range HDL <40 mg/dL Low HDL Cholesterol HDL >or= 60 mg/dL High HDL Cholesterol Performed By: #### L 501.9520, L500.4050, L501.9985, L100.0500, L500.4100 #### [facility] [address] [place], [address] Cholesterol in LDL [Mass/Vol] 139 mg/dL High 0-[address] [facility] Comment on above: Order Comment: 512.2 Performed By: #### L [id number], L500.4050, L501.9985, L100.0500, L500.4100 #### [facility] [address] [place], [address] Cholesterol in VLDL [Mass/Vol] 36 mg/dL Normal 5-[address] [facility] Comment on above: Order Comment: 512.2 Performed By: #### L [id number], L500.4050, L501.9985, L100.0500, L500.4100 #### [facility] [address] [place], [place], [id number] ([id number]) Triglyceride [Mass/Vol] 182 mg/dL Normal [facility] Comment on above: Order Comment: 512.2 Result Comment: The drugs N-Acetylcysteine and Metamizole may falsely depress this assay. Serum Triglycerides Reference Interval Normal <150 mg/dL Borderline high 150 - 199 mg/dL High 200 - 499 mg/dL Very High > or = 500 mg/dL Performed By: #### L 501.9520, L500.4050, L501.9985, L100.0500, L500.4100 #### [facility] [address] [place], [place], [id number] Low density lipoprotein (LDL ) cholesterol measurementOrdered By: Smita Fernández on 11-10-2024 Cholesterol in LDL [Mass/Vol] 139 mg/dL High 0-[address] [facility] MCV (mean corpuscular volume ) determinationOrdered By: Smita Fernández on 11-10-2024 MCV (RBC) [Entitic vol] 89.7 fL 81-99 [facility] Mean corpuscular hemoglobin (MCH) determinationOrdered By: Smita Fernández on 11-10-2024 MCH (RBC) [Entitic mass] 27.6 pg 27.0-32.[address] [facility] Mean corpuscular hemoglobin concentration (MCHC) determinationOrdered By: Smita Fernández on 11-10-2024 MCHC (RBC) [Mass/Vol] 30.8 g/dL Low 32-36 [facility] Mean platelet volume determi nationOrdered By: Smita Fernández on 11-10-2024 Platelet mean volume (Bld) [Entitic vol] 12.1 fL High 6.2-12.[address] [facility] Platelet countOrdered By: Eleazar Fernández on 11-10-2024 Platelets (Bld) [#/Vol] 260 10*3/uL 150-[address] [facility] Potassium measurementOrdered By: Smita Fernández on 11-10-2024 Potassium [Moles/Vol] 3.8 mmol/L 3.5-5.1 [facility] RBC Auto (Bld) [#/Vol]Ordere d By: Smita Fernández on 11-10-2024 RBC (Bld) [#/Vol] 4.56 10*6/uL 4.2-5.4 [facility] Serum anion gap measurementO rdered By: Smita Fernández on 11-10-2024 Anion gap [Moles/Vol] 8 mmol/L 5-15 [facility] Serum globulin measurementOr dered By: Smita Fernández on 11-10-2024 Globulin (S) [Mass/Vol] 3.9 g/dL 2.2-4.2 [facility] Serum or plasma alanine romero otransferase (ALT) measurementOrdered By: Smita Fernández on 11-10-2024 ALT [Catalytic activity/Vol] 30 U/L 13-[address] [facility] Serum or plasma albumin kelli urement (mass/volume)Ordered By: Smita Fernández on 11-10-2024 Albumin [Mass/Vol] 3.5 g/dL 3.2-5.0 [facility] Serum or plasma alkaline rosalind sphatase measurementOrdered By: Smita Fernández on 11-10-2024 ALP [Catalytic activity/Vol] 161 U/L High 45-[address] [facility] Serum or plasma calcium kleli urement (mass/volume)Ordered By: Smita Fernández on 11-10-2024 Calcium [Mass/Vol] 9.6 mg/dL 8.5-10.1 [facility] Serum or plasma cholesterol measurement (mass/volume)Ordered By: Smita Fernández on 11-10-2024 Cholesterol [Mass/Vol] 228 mg/dL High <200 [facility] Comment on above: <200 mg/dL Desirable 200-240 mg/dL Borderline >240 mg/dL High Risk Serum or plasma creatinine m easurement (mass/volume)Ordered By: Smita Fernández on 11-10-2024 Creatinine [Mass/Vol] 0.52 mg/dL Low 0.55-1.02 [facility] Comment on above: The validity of the calculated GFR & GFRAA in patients over 70 years has not been determined. Clinical correlation is essential. Serum or plasma thyroid stim ulating hormone (TSH) measurement (units/volume)Ordered By: Smita Fernández on 11-10-2024 TSH Qn 2.360 uIU/mL 0.358-3.[address] [facility] Serum or plasma thyroxine (T 4) measurement (mass/volume)Ordered By: Smita Fernández on 11-10-2024 T4 [Mass/Vol] 10.1 ug/dL 4.8-13.[address] [facility] Serum or plasma triiodothyro nine measurement by immunoassay (mass/volume)Ordered By: Smita Fernández on 11-10-2024 T3 IA [Mass/Vol] 0.91 ng/mL 0.6-1.[address] [facility] Serum or plasma urea nitroge n measurement (mass/volume)Ordered By: Smita Fernández on 11-10-2024 Urea nitrogen [Mass/Vol] 22 mg/dL High 7-[address] [facility] Sodium levelOrdered By: August Fernández on 11-10-2024 Sodium [Moles/Vol] 140 mmol/L 136-145 [facility] T3 Total - Triiodothyronineo n 11-10-2024 T3 Total 0.91 ng/mL Normal 0.6-1.[address] [facility] Comment on above: Order Comment: 512.2 Performed By: #### L 501.2262, L500.7260, L501.8009, L100.0500, L500.4100 #### [facility] [address] [place], [place], [id number] T4 Total, Thyroxinon 025 T4 [Mass/Vol] 10.1 ug/dL Normal 4.8-13.[address] [facility] Comment on above: Order Comment: 512.2 Performed By: #### L 501.9520, L500.4050, L501.9985, L100.0500, L500.4100 #### [facility] [address] [place], [address] Thyroid Stim Hormone (TSH)on 11-10-2024 TSH 2.360 uIU/mL Normal 0.358-3.[address] [facility] Comment on above: Order Comment: 512.2 Performed By: #### L 501.9520, L500.4050, L501.9985, L100.0500, L500.4100 #### [facility] [address] [place], [place], [id number] Total proteinOrdered By: Marshall Fernández on 11-10-2024 Protein [Mass/Vol] 7.4 g/dL 6.4-8.2 [facility] Triglycerides measurementOrd ered By: Smita Fernández on 11-10-2024 Triglyceride [Mass/Vol] 182 mg/dL <199 [facility] Comment on above: The drugs N-Acetylcy steine and Metamizole may falsely depress this assay.Serum Triglycerides Reference Interval Normal <150 mg/dL Borderline high 150 - 199 mg/dL High 200 - 499 mg/dL Very High > or = 500 mg/dL Very low density lipoprotein (VLDL) cholesterol measurementOrdered By: Smita Fernnádez on 11-10-2024 Very low density lipoprotein (VLDL) cholesterol measurement 36 mg/dL 5-[address] [facility] White blood cell (WBC) count Ordered By: Smita Fernández on 11-10-2024 WBC (Bld) [#/Vol] 6.5 10*3/uL 4.4-11.0 [facility] Basic Metabolic Profile (BMP )on 10-09-2024 BUN/CRE 41.4 RATIO High 10-[address] [facility] Comment on above: Performed By: #### L 501.9520, L500.4050, L501.9985, L100.0500, L500.4100 #### [facility] [address] [place], [address] CA,Total 9.7 mg/dL Normal 8.5-10.[address] [facility] Comment on above: Performed By: #### L 501.9520, L500.4050, L501.9985, L100.0500, L500.4100 #### [facility] [address] [place], [address] Chloride [Moles/Vol] 103 mmol/L Normal 98-107 [facility] Comment on above: Performed By: #### L 501.9520, L500.4050, L501.9985, L100.0500, L500.4100 #### [facility] [address] [place], [address] CO2 [Moles/Vol] 29.0 mmol/L Normal 21.0-32.[address] [facility] Comment on above: Performed By: #### L 501.9520, L500.4050, L501.9985, L100.0500, L500.4100 #### [facility] [address] [place], [address] Creatinine [Mass/Vol] 0.58 mg/dL Normal 0.55-1.02 [facility] Comment on above: Result Comment: The validity of the calculated GFR GFRAA in patients over 70 years has not been determined. Clinical correlation is essential. Performed By: #### L 501.9520, L500.4050, L501.9985, L100.0500, L500.4100 #### [facility] [address] [place], [address] EST GFR - AA 127 mL/min Normal >[address] [facility] Comment on above: Result Comment: Afri can [place] GFR Calc Performed By: #### L 501.9520, L500.4050, L501.9985, L100.0500, L500.4100 #### [facility] [address] [place], [address] GAP 5 Normal 5-[address] [facility] Comment on above: Performed By: #### L 501.9520, L500.4050, L501.9985, L100.0500, L500.4100 #### [facility] [address] [place], [address] GFR/1.73 sq M.predicted among non-blacks MDRD (S/P/Bld) [Vol rate/Area] 105 mL/min/{1.73_m2} Normal >[address] [facility] Comment on above: Result Comment: Non- GFR Calc Performed By: #### L 501.9520, L500.4050, L501.9985, L100.0500, L500.4100 #### [facility] [address] [place], [address] Glucose [Mass/Vol] 89 mg/dL Normal 74-106 [facility] Comment on above: Performed By: #### L 501.9520, L500.4050, L501.9985, L100.0500, L500.4100 #### [facility] [address] [place], [address] Potassium [Moles/Vol] 3.8 mmol/L Normal 3.5-5.1 [facility] Comment on above: Result Comment: Slig ht Hemolysis, Result may be falsely increased. Performed By: #### L 501.9520, L500.4050, L501.9985, L100.0500, L500.4100 #### [facility] [address] [place], [address] Sodium [Moles/Vol] 137 mmol/L Normal 136-145 [facility] Comment on above: Performed By: #### L 501.9520, L500.4050, L501.9985, L100.0500, L500.4100 #### [facility] [address] [place], [address] Urea nitrogen [Mass/Vol] 24 mg/dL High 7-[address] [facility] Comment on above: Performed By: #### L 501.9520, L500.4050, L501.9985, L100.0500, L500.4100 #### [facility] [address] [place], [address] CBC W/Diff, Automatedon -0 9-2024 Absolute Lymph 2.93 X10 3/uL Normal 0.83-4.[address] [facility] Comment on above: Performed By: #### L 501.9520, L500.4050, L501.9985, L100.0500, L500.4100 #### [facility] [address] [place], [address] Absolute Neut 3.5 X10 3/uL Normal 2.0-7.[address] [facility] Comment on above: Performed By: #### L 501.9520, L500.4050, L501.9985, L100.0500, L500.4100 #### [facility] [address] [place], [address] Basophils/100 WBC (Bld) 0.7 % Normal 0-1 [facility] Comment on above: Performed By: #### L 501.9520, L500.4050, L501.9985, L100.0500, L500.4100 #### [facility] [address] [place], [address] Eosinophils/100 WBC (Bld) 3.9 % Normal 0-[address] [facility] Comment on above: Performed By: #### L 501.9520, L500.4050, L501.9985, L100.0500, L500.4100 #### [facility] [address] [place], [address] Erythrocyte distribution width (RBC) [Ratio] 14.0 % Normal 11.6-14.[address] [facility] Comment on above: Performed By: #### L 501.9520, L500.4050, L501.9985, L100.0500, L500.4100 #### [facility] [address] [place], [address] Hematocrit (Bld) [Volume fraction] 43.5 % Normal 37-[address] [facility] Comment on above: Performed By: #### L 501.9520, L500.4050, L501.9985, L100.0500, L500.4100 #### [facility] [address] [place], [address] Hemoglobin (Bld) [Mass/Vol] 13.2 g/dL Normal 12.0-15.[address] [facility] Comment on above: Performed By: #### L 501.9520, L500.4050, L501.9985, L100.0500, L500.4100 #### [facility] [address] [place], [address] IG% 0.300 Normal 0.0-0.[address] [facility] Comment on above: Result Comment: IG% - Immature Granulocytes (promyelocytes, myelocytes and metamyelocytes) > 1% indicates that a LEFT SHIFT is Present. Performed By: #### L 501.9520, L500.4050, L501.9985, L100.0500, L500.4100 #### [facility] [address] [place], [address] Lymphocytes/100 WBC (Bld) 39.3 % Normal 19-[address] [facility] Comment on above: Performed By: #### L 501.9520, L500.4050, L501.9985, L100.0500, L500.4100 #### [facility] [address] [place], [address] MCH (RBC) [Entitic mass] 27.0 pg Normal 27.0-32.[address] [facility] Comment on above: Performed By: #### L 501.9520, L500.4050, L501.9985, L100.0500, L500.4100 #### [facility] [address] [place], [address] MCHC (RBC) [Mass/Vol] 30.3 g/dL Low 32-36 [facility] Comment on above: Performed By: #### L 501.9520, L500.4050, L501.9985, L100.0500, L500.4100 #### [facility] [address] [place], [address] MCV (RBC) [Entitic vol] 89.0 fL Normal 81-99 [facility] Comment on above: Performed By: #### L 501.9520, L500.4050, L501.9985, L100.0500, L500.4100 #### [facility] [address] [place], [address] Monocytes/100 WBC (Bld) 8.9 % Normal 0-10 [facility] Comment on above: Performed By: #### L 501.9520, L500.4050, L501.9985, L100.0500, L500.4100 #### [facility] [address] [place], [address] Neutrophils/100 WBC (Bld) 46.9 % Low 47-[address] [facility] Comment on above: Performed By: #### L 501.9520, L500.4050, L501.9985, L100.0500, L500.4100 #### [facility] [address] [place], [address] Nucleated RBC (Bld) [#/Vol] 0 10*3/uL Normal 0-[address] [facility] Comment on above: Performed By: #### L 501.9520, L500.4050, L501.9985, L100.0500, L500.4100 #### [facility] [address] [place], [address] Platelet mean volume (Bld) [Entitic vol] 12.2 fL High 6.2-12.[address] [facility] Comment on above: Performed By: #### L 501.9520, L500.4050, L501.9985, L100.0500, L500.4100 #### [facility] [address] [place], [address] Platelets (Bld) [#/Vol] 251 10*3/uL Normal 150-[address] [facility] Comment on above: Performed By: #### L 501.9520, L500.4050, L501.9985, L100.0500, L500.4100 #### [facility] [address] [place], [address] RBC (Bld) [#/Vol] 4.89 10*6/uL Normal 4.2-5.4 [facility] Comment on above: Performed By: #### L 501.9520, L500.4050, L501.9985, L100.0500, L500.4100 #### [facility] [address] [place], [address] RDW SD 45.6 fl High 35.1-43.[address] [facility] Comment on above: Performed By: #### L 501.9520, L500.4050, L501.9985, L100.0500, L500.4100 #### [facility] [address] [place], [address] WBC (Bld) [#/Vol] 7.5 10*3/uL Normal 4.4-11.0 [facility] Comment on above: Performed By: #### L 501.9520, L500.4050, L501.9985, L100.0500, L500.4100 #### [facility] [address] [place], [address] CRPon 10-09-2024 C-REACTIVE PROT 3.79 mg/L High 0.0-3.[address] [facility] Comment on above: Result Comment: C-Re active Protein (CRP) provides useful information for the diagnosis, therapy and monitoring of inflammatory processes and associated diseases. For the evaluation of Relative Risk for Cardiovascular Disease, a High Sensitivity CRP (HSCRP) should be ordered. Performed By: #### L 501.9520, L500.4050, L501.9985, L100.0500, L500.4100 #### [facility] [address] [place], [address] CBC-Complete Blood Cnt No Di ffon 08-11-2024 Erythrocyte distribution width (RBC) [Ratio] 15.8 % High 11.6-14.[address] [facility] Comment on above: Order Comment: 512.2 Performed By: #### L 500.4050, L501.9520, L501.9985, L100.0500, L500.4100 #### [facility] [address] [place], [address] Hematocrit (Bld) [Volume fraction] 38.9 % Normal 37-[address] [facility] Comment on above: Order Comment: 512.2 Performed By: #### L 500.4050, L501.9520, L501.9985, L100.0500, L500.4100 #### [facility] [address] [place], [address] Hemoglobin (Bld) [Mass/Vol] 12.0 g/dL Normal 12.0-15.[address] [facility] Comment on above: Order Comment: 512.2 Performed By: #### L 500.4050, L501.9520, L501.9985, L100.0500, L500.4100 #### [facility] [address] [place], [address] MCH (RBC) [Entitic mass] 26.9 pg Low 27.0-32.[address] [facility] Comment on above: Order Comment: 512.2 Performed By: #### L 500.4050, L501.9520, L501.9985, L100.0500, L500.4100 #### [facility] [address] [place], [address] MCHC (RBC) [Mass/Vol] 30.8 g/dL Low 32-36 [facility] Comment on above: Order Comment: 512.2 Performed By: #### L 500.4050, L501.9520, L501.9985, L100.0500, L500.4100 #### [facility] [address] [place], [address] MCV (RBC) [Entitic vol] 87.2 fL Normal 81-99 [facility] Comment on above: Order Comment: 512.2 Performed By: #### L 500.4050, L501.9520, L501.9985, L100.0500, L500.4100 #### [facility] [address] [place], [address] Platelet mean volume (Bld) [Entitic vol] 12.1 fL High 6.2-12.[address] [facility] Comment on above: Order Comment: 512.2 Performed By: #### L 500.4050, L501.9520, L501.9985, L100.0500, L500.4100 #### [facility] [address] [place], [address] Platelets (Bld) [#/Vol] 253 10*3/uL Normal 150-[address] [facility] Comment on above: Order Comment: 512.2 Performed By: #### L 500.4050, L501.9520, L501.9985, L100.0500, L500.4100 #### [facility] [address] [place], [address] RBC (Bld) [#/Vol] 4.46 10*6/uL Normal 4.2-5.4 [facility] Comment on above: Order Comment: 512.2 Performed By: #### L 500.4050, L501.9520, L501.9985, L100.0500, L500.4100 #### [facility] [address] [place], [address] RDW SD 50.2 fl High 35.1-43.[address] [facility] Comment on above: Order Comment: 512.2 Performed By: #### L 500.4050, L501.9520, L501.9985, L100.0500, L500.4100 #### [facility] [address] [place], [address] WBC (Bld) [#/Vol] 6.3 10*3/uL Normal 4.4-11.0 [facility] Comment on above: Order Comment: 512.2 Performed By: #### L 500.4050, L501.9520, L501.9985, L100.0500, L500.4100 #### [facility] [address] [place], [address] Comprehensive Metabolic Prof ilon 08-11-2024 Albumin [Mass/Vol] 3.3 g/dL Normal 3.2-5.0 [facility] Comment on above: Order Comment: 512.2 Performed By: #### L 501.9520, L500.4050, L501.9985, L100.0500, L500.4100 #### [facility] [address] [place], [address] Albumin/Globulin [Mass ratio] 0.9 {ratio} Normal 0.9-2.[address] [facility] Comment on above: Order Comment: 512.2 Performed By: #### L 501.9520, L500.4050, L501.9985, L100.0500, L500.4100 #### [facility] [address] [place], [address] ALK P 158 U/L High 45-[address] [facility] Comment on above: Order Comment: 512.2 Performed By: #### L 501.9520, L500.4050, L501.9985, L100.0500, L500.4100 #### [facility] [address] [place], [address] ALT [Catalytic activity/Vol] 19 U/L Normal 13-[address] [facility] Comment on above: Order Comment: 512.2 Performed By: #### L 501.9520, L500.4050, L501.9985, L100.0500, L500.4100 #### [facility] [address] [place], [address] AST [Catalytic activity/Vol] 15 U/L Normal 15-[address] [facility] Comment on above: Order Comment: 512.2 Performed By: #### L 501.9520, L500.4050, L501.9985, L100.0500, L500.4100 #### [facility] [address] [place], [address] Bilirubin [Mass/Vol] 0.40 mg/dL Normal 0.20-1.00 [facility] Comment on above: Order Comment: 512.2 Result Comment: For patients on eltrombopag therapy, use of Dimension [place] TBIL is not recommended. Performed By: #### L 501.9520, L500.4050, L501.9985, L100.0500, L500.4100 #### [facility] [address] [place], [address] BUN/CRE 40.1 RATIO High 10-[address] [facility] Comment on above: Order Comment: 512.2 Performed By: #### L 501.9520, L500.4050, L501.9985, L100.0500, L500.4100 #### [facility] [address] [place], [address] CA,Total 9.0 mg/dL Normal 8.5-10.[address] [facility] Comment on above: Order Comment: 512.2 Performed By: #### L [id number], L500.4050, L501.9985, L100.0500, L500.4100 #### [facility] [address] [place], [address] Chloride [Moles/Vol] 108 mmol/L High 98-107 [facility] Comment on above: Order Comment: 512.2 Performed By: #### L [id number], [id number], [id number], L100.0500, L500.4100 #### [facility] [address] [place], [address] CO2 [Moles/Vol] 27.0 mmol/L Normal 21.0-32.[address] [facility] Comment on above: Order Comment: 512.2 Performed By: #### L [id number], [id number], [id number], L100.0500, L500.4100 #### [facility] [address] [place], [address] Creatinine [Mass/Vol] 0.57 mg/dL Normal 0.55-1.02 [facility] Comment on above: Order Comment: 512.2 Result Comment: The validity of the calculated GFR GFRAA in patients over 70 years has not been determined. Clinical correlation is essential. Performed By: #### L [id number], [id number], L501.9985, L100.0500, L500.4100 #### [facility] [address] [place], [address] EST GFR - AA 129 mL/min Normal >[address] [facility] Comment on above: Order Comment: 512.2 Result Comment: Afri can [place] GFR Calc Performed By: #### L [id number], [id number], [id number], L100.0500, L500.4100 #### [facility] [address] [place], [address] GAP 5 Normal 5-[address] [facility] Comment on above: Order Comment: 512.2 Performed By: #### L [id number], [id number], [id number], L100.0500, L500.4100 #### [facility] [address] [place], [address] GFR/1.73 sq M.predicted among non-blacks MDRD (S/P/Bld) [Vol rate/Area] 106 mL/min/{1.73_m2} Normal >[address] [facility] Comment on above: Order Comment: 512.2 Result Comment: Non- GFR Calc Performed By: #### L [id number], [id number], L501.9985, L100.0500, L500.4100 #### [facility] [address] [place], [address] Globulin (S) [Mass/Vol] 3.8 g/dL Normal 2.2-4.2 [facility] Comment on above: Order Comment: 512.2 Performed By: #### L [id number], [id number], [id number], L100.0500, L500.4100 #### [facility] [address] [place], [address] Glucose [Mass/Vol] 102 mg/dL Normal 74-106 [facility] Comment on above: Order Comment: 512.2 Result Comment: Fast ing Glucose result from 100 to 125 mg/dL suggests IMPAIRED HOMEOSTASIS per A.D.A. criteria. Performed By: #### L [id number], [id number], L501.9985, L100.0500, L500.4100 #### [facility] [address] [place], [address] Potassium [Moles/Vol] 4.0 mmol/L Normal 3.5-5.1 [facility] Comment on above: Order Comment: 512.2 Performed By: #### L [id number], [id number], [id number], L100.0500, L500.4100 #### [facility] [address], [address] Sodium [Moles/Vol] 139 mmol/L Normal 136-145 [facility] Comment on above: Order Comment: 512.2 Performed By: #### L [id number], [id number], [id number], L100.0500, L500.4100 #### [facility] [address] [place], [address] T PROT 7.1 g/dL Normal 6.4-8.[address] [facility] Comment on above: Order Comment: 512.2 Performed By: #### L [id number], [id number], [id number], L100.0500, L500.4100 #### [facility] [address] [place], [address] Urea nitrogen [Mass/Vol] 23 mg/dL High 7-[address] [facility] Comment on above: Order Comment: 512.2 Performed By: #### L [id number], [id number], [id number], L100.0500, L500.4100 #### [facility] [address] [place], [address] Hemoglobin A1con 08-11-2024 HbA1c (Bld) [Mass fraction] 7.1 % High 3.8-5.[address] [facility] Comment on above: Order Comment: 512.2 Result Comment: Norm al < 5.7 % Prediabetic 5.7 - 6.4 % Diabetic >or= 6.5 % Please note range changes. Performed By: #### L [id number], [id number], L501.9985, L100.0500, L500.4100 #### [facility] [address] [place], [address] Lipid Profileon 08-11-2024 Cholesterol [Mass/Vol] 216 mg/dL High 200 [facility] Comment on above: Order Comment: 512.2 Result Comment: <200 mg/dL Desirable 200-240 mg/dL Borderline >240 mg/dL High Risk Performed By: #### L [id number], L500.4050, L501.9985, L100.0500, L500.4100 #### [facility] [address] [place], [address] Cholesterol in HDL [Mass/Vol] 51 mg/dL Normal [facility] Comment on above: Order Comment: 512.2 Result Comment: The drugs N-Acetylcysteine and Metamizole may falsely depress this assay. Reference Range HDL <40 mg/dL Low HDL Cholesterol HDL >or= 60 mg/dL High HDL Cholesterol Performed By: #### L [id number], [id number], L501.9985, L100.0500, L500.4100 #### [facility] [address] [place], [address] Cholesterol in LDL [Mass/Vol] 137 mg/dL High 0-[address] [facility] Comment on above: Order Comment: 512.2 Performed By: #### L [id number], [id number], [id number], L100.0500, L500.4100 #### [facility] [address] [place], [address] Cholesterol in VLDL [Mass/Vol] 28 mg/dL Normal 5-[address] [facility] Comment on above: Order Comment: 512.2 Performed By: #### L [id number], [id number], [id number], L100.0500, L500.4100 #### [facility] [address] [place], [address] Triglyceride [Mass/Vol] 141 mg/dL Normal [facility] Comment on above: Order Comment: 512.2 Result Comment: The drugs N-Acetylcysteine and Metamizole may falsely depress this assay. Serum Triglycerides Reference Interval Normal <150 mg/dL Borderline high 150 - 199 mg/dL High 200 - 499 mg/dL Very High > or = 500 mg/dL Performed By: #### L [id number], [id number], L501.9985, L100.0500, L500.4100 #### [facility] [address] [facility] [place], [place], [id number] Thyroid Stim Hormone (TSH)on 08-11-2024 TSH 4.700 uIU/mL High 0.358-3.[address] [facility] Comment on above: Order Comment: 512.2 Performed By: #### L [id number], [id number], L501.9985, L100.0500, L500.4100 #### [facility] [address] [facility] [place], [place], [id number] Basophil percentageOrdered B y: Milton Fitzgerald on 12-20-2023 Chloride [Moles/Vol] 105 mmol/L 98-107 [facility] Glucose [Mass/Vol] 138 mg/dL 74-106 [facility] Comment on above: Fasting Glucose resu lt greater than or equal to 126 mg/dL suggests DIABETES MELLITUS per A.D.A. criteria. Potassium [Moles/Vol] 3.7 mmol/L 3.5-5.1 [facility] Sodium [Moles/Vol] 138 mmol/L 136-145 [facility] - Chemistry and C hemistry - challengeOrdered By: Milton Fitzgerald on 12-20-2023 CO2 [Moles/Vol] 26.0 mmol/L 21.0-32.[address] [facility] Urea nitrogen/Creatinine [Mass ratio] 8.0 mg/mg 10- [facility] No Panel InformationOrdered By: Milton Fitzgerald on 12-20-2023 Estimated Creatinine Clearance Calc 9.95 ml/min [facility] Estimated GFR (MDRD) Amer 13 mL/min >[address] [facility] Comment on above: GFR Calc Estimated GFR (MDRD) Non-Af Amer 11 mL/min >[address] [facility] Comment on above: Non- GFR Calc Serum or plasma calcium kelli urement (mass/volume)Ordered By: Milton Fitzgerald on 12-20-2023 Calcium [Mass/Vol] 8.7 mg/dL 8.5-10.1 [facility] Serum or plasma creatinine m easurement (mass/volume)Ordered By: Milton Fitzgerald on 12-20-2023 Creatinine [Mass/Vol] 4.11 mg/dL 0.55-1.02 [facility] Comment on above: The validity of the calculated GFR & GFRAA in patients over 70 years has not been determined. Clinical correlation is essential. Serum or plasma urea nitroge n measurement (mass/volume)Ordered By: Milton Fitzgerald on 12-20-2023 Urea nitrogen [Mass/Vol] 33 mg/dL 7-[address] [facility] Thin prep Papanicolaou smear with manual screeningOrdered By: Milton Fitzgerald on 12-20-2023 Thin prep Papanicolaou smear with manual screening 7 5-[address] [facility] Thin prep Papanicolaou smear with manual screening 109 mg/dL 74-[address] [facility] Comment on above: MANAGEMENT OF PATIEN T CARE PER NURSING PROTOCOL Absolute lymphocyte countOrd ered By: Milton Fitzgerald on 12-17-2023 Lymphocytes Auto (Unsp spec) [#/Vol] 2.76 10*3/uL 0.83-4.[address] [facility] Automated lymphocyte count a s percentage of total leukocytesOrdered By: Milton Fitzgerald on 12-17-2023 Lymphocytes/100 WBC Auto (Unsp spec) 37.6 % 19-[address] [facility] Basophil percentageOrdered B y: Milton Fitzgerald on 12-17-2023 Basophils/100 WBC (Bld) 1.1 % 0-1 [facility] Eosinophils/100 WBC (Bld) 0.3 % 0-[address] [facility] Hemoglobin (Bld) [Mass/Vol] 12.2 g/dL 12.0-15.[address] [facility] Monocytes/100 WBC (Bld) 12.1 % 0-10 [facility] Neutrophils (Bld) [#/Vol] 3.6 10*3/uL 2.0-7.[address] [facility] Neutrophils/100 WBC (Bld) 48.8 % 47-[address] [facility] WBC (Bld) [#/Vol] 7.3 10*3/uL 4.4-11.0 [facility] Blood manual differential co mment interpretation (narrative result)Ordered By: Milton Fitzgerald on 12-17-2023 Manual differential comment Denny (Bld) [Interp] SCANNED [facility] Determination of erythrocyte mean corpuscular volume (MCV)Ordered By: Milton Fitzgerald on 12-17-2023 MCV (RBC) [Entitic vol] 86.0 fL 81-99 [facility] Erythrocyte distribution wid th ratioOrdered By: Milton Fitzgerald on 12-17-2023 Erythrocyte distribution width (RBC) [Ratio] 14.8 % 11.6-14.[address] [facility] Erythrocyte distribution wid th standard deviationOrdered By: Milton Fitzgerald on 12-17-2023 Erythrocyte distribution width (RBC) [Entitic vol] 46.9 fL 35.1-43.9 [facility] Hematocrit Auto (Bld) [Volum e fraction]Ordered By: Milton Fitzgerald on 12-17-2023 Hematocrit (Bld) [Volume fraction] 39.8 % 37-[address] [facility] Immature granulocytes/100 WB C Auto (Bld)Ordered By: Milton Fitzgerald on 12-17-2023 Immature granulocytes/100 WBC (Bld) 0.100 % 0.0-0.[address] [facility] Comment on above: IG% - Immature Granu locytes (promyelocytes, myelocytes and metamyelocytes) > 1% indicates that a LEFT SHIFT is Present. Laboratory - Hematology and Cell countsOrdered By: Milton Fitzgerald on 12-17-2023 MCH (RBC) [Entitic mass] 26.3 pg 27.0-32.[address] [facility] MCHC (RBC) [Mass/Vol] 30.7 g/dL 32-36 [facility] Nucleated RBC/100 WBC (Bld) [Ratio] 0 % 0-[address] [facility] Platelet mean volume (Bld) [Entitic vol] 11.1 fL 6.2-12.[address] [facility] Platelets (Bld) [#/Vol] 302 10*3/uL 150-[address] [facility] No Panel InformationOrdered By: Milton Fitzgerald on 12-17-2023 Reactive Lymphocytes 2+ [facility] RBC Auto (Bld) [#/Vol]Ordere d By: Milton Fitzgerald on 12-17-2023 RBC (Bld) [#/Vol] 4.63 10*6/uL 4.2-5.4 [facility] Absolute lymphocyte countOrd ered By: Penny Ariza on 12-16-2023 Lymphocytes Auto (Unsp spec) [#/Vol] 3.00 10*3/uL 0.83-4.[address] [facility] Automated lymphocyte count a s percentage of total leukocytesOrdered By: Penny Ariza on 12-16-2023 Lymphocytes/100 WBC Auto (Unsp spec) 32.2 % 19-[address] [facility] Basophil percentageOrdered B y: Penny Ariza on 12-16-2023 Basophils/100 WBC (Bld) 0.9 % 0-1 [facility] Chloride [Moles/Vol] 106 mmol/L 98-107 [facility] Eosinophils/100 WBC (Bld) 4.8 % 0-[address] [facility] Glucose [Mass/Vol] 148 mg/dL 74-106 [facility] Comment on above: Fasting Glucose resu lt greater than or equal to 126 mg/dL suggests DIABETES MELLITUS per A.D.A. criteria. Hemoglobin (Bld) [Mass/Vol] 11.9 g/dL 12.0-15.[address] [facility] Monocytes/100 WBC (Bld) 12.4 % 0-10 [facility] Neutrophils (Bld) [#/Vol] 4.6 10*3/uL 2.0-7.[address] [facility] Neutrophils/100 WBC (Bld) 49.5 % 47-[address] [facility] Potassium [Moles/Vol] 3.4 mmol/L 3.5-5.1 [facility] Sodium [Moles/Vol] 136 mmol/L 136-145 [facility] WBC (Bld) [#/Vol] 9.3 10*3/uL 4.4-11.0 [facility] Determination of erythrocyte mean corpuscular volume (MCV)Ordered By: Penny Ariza on 12-16-2023 MCV (RBC) [Entitic vol] 85.8 fL 81-99 [facility] Erythrocyte distribution wid th ratioOrdered By: Penny Ariza on 12-16-2023 Erythrocyte distribution width (RBC) [Ratio] 14.9 % 11.6-14.[address] [facility] Erythrocyte distribution wid th standard deviationOrdered By: Penny Ariza on 12-16-2023 Erythrocyte distribution width (RBC) [Entitic vol] 46.9 fL 35.1-43.9 [facility] Hematocrit Auto (Bld) [Volum e fraction]Ordered By: Penny Ariza on 12-16-2023 Hematocrit (Bld) [Volume fraction] 38.6 % 37-[address] [facility] Immature granulocytes/100 WB C Auto (Bld)Ordered By: [facility] 12-16-2023 Immature granulocytes/100 WBC (Bld) 0.200 % 0.0-0.[address] [facility] Comment on above: IG% - Immature Granu locytes (promyelocytes, myelocytes and metamyelocytes) > 1% indicates that a LEFT SHIFT is Present. Laboratory - Chemistry and C hemistry - challengeOrdered By: Penny Ariza on 12-16-2023 CO2 [Moles/Vol] 24.0 mmol/L 21.0-32.[address] [facility] Urea nitrogen/Creatinine [Mass ratio] 27.0 mg/mg 10-[address] [facility] - Hematology and Cell countsOrdered By: Penny Ariza on 12-16-2023 MCH (RBC) [Entitic mass] 26.4 pg 27.0-32.[address] [facility] MCHC (RBC) [Mass/Vol] 30.8 g/dL 32-36 [facility] Nucleated RBC/100 WBC (Bld) [Ratio] 0 % 0-[address] [facility] Platelet mean volume (Bld) [Entitic vol] 11.0 fL 6.2-12.[address] [facility] Platelets (Bld) [#/Vol] 257 10*3/uL 150-[address] [facility] No Panel InformationOrdered By: Penny Ariza on 12-16-2023 Estimated Creatinine Clearance Calc 51.12 ml/min [facility] Estimated GFR (MDRD) Amer 124 mL/min >[address] [facility] Comment on above: GFR Calc Estimated GFR (MDRD) Non-Af Amer 103 mL/min >[address] [facility] Comment on above: Non- GFR Calc RBC Auto (Bld) [#/Vol]Ordere d By: Penny Ariza on 12-16-2023 RBC (Bld) [#/Vol] 4.50 10*6/uL 4.2-5.4 [facility] Serum or plasma calcium kelli urement (mass/volume)Ordered By: Penny Ariza on 12-16-2023 Calcium [Mass/Vol] 8.8 mg/dL 8.5-10.1 [facility] Serum or plasma creatinine m easurement (mass/volume)Ordered By: Penny Ariza on 12-16-2023 Creatinine [Mass/Vol] 0.59 mg/dL 0.55-1.02 [facility] Comment on above: The validity of the calculated GFR & GFRAA in patients over 70 years has not been determined. Clinical correlation is essential. Serum or plasma urea nitroge n measurement (mass/volume)Ordered By: Penny Ariza on 12-16-2023 Urea nitrogen [Mass/Vol] 16 mg/dL 7-[address] [facility] Thin prep Papanicolaou smear with manual screeningOrdered By: Penny Ariza on 12-16-2023 Thin prep Papanicolaou smear with manual screening 6 5-[address] [facility] No Panel InformationOrdered By: Lanre Smith on 10-29-2023 Vitamin D 25-Hydroxy 42.3 ng/mL [facility] Comment on above: Vitamin D 25(OH) Sta tus Range Deficiency <20 ng/mL (50nmol/L) Insufficiency 20 - 30 ng/mL (50 - 75 nmol/L) Sufficiency 30 - 100 ng/mL (75 - 250 nmol/L) Toxicity >100 ng/mL (>250 nmol/L) Absolute lymphocyte countOrd ered By: Lanre Smith on 10-19-2023 Lymphocytes Auto (Unsp spec) [#/Vol] 1.36 10*3/uL 0.83-4.[address] [facility] Automated lymphocyte count a s percentage of total leukocytesOrdered By: Lanre Smith on 10-19-2023 Lymphocytes/100 WBC Auto (Unsp spec) 14.0 % 19-[address] [facility] Basophil percentageOrdered B y: Lanre Smith on 10-19-2023 Basophils/100 WBC (Bld) 0.8 % 0-1 [facility] Eosinophils/100 WBC (Bld) 1.3 % 0-[address] [facility] Hemoglobin (Bld) [Mass/Vol] 12.2 g/dL 12.0-15.[address] [facility] Monocytes/100 WBC (Bld) 5.6 % 0-10 [facility] Neutrophils (Bld) [#/Vol] 7.6 10*3/uL 2.0-7.[address] [facility] Neutrophils/100 WBC (Bld) 78.0 % 47-[address] [facility] WBC (Bld) [#/Vol] 9.7 10*3/uL 4.4-11.0 [facility] Determination of erythrocyte mean corpuscular volume (MCV)Ordered By: Lanre Smith on 10-19-2023 MCV (RBC) [Entitic vol] 87.1 fL 81-99 [facility] Erythrocyte distribution wid th ratioOrdered By: Lanre Smith on 10-19-2023 Erythrocyte distribution width (RBC) [Ratio] 14.6 % 11.6-14.[address] [facility] Erythrocyte distribution wid th standard deviationOrdered By: Lanre Smith on 10-19-2023 Erythrocyte distribution width (RBC) [Entitic vol] 47.1 fL 35.1-43.9 [facility] Hematocrit Auto (Bld) [Volum e fraction]Ordered By: Lanre Smith on 10-19-2023 Hematocrit (Bld) [Volume fraction] 40.6 % 37-[address] [facility] Immature granulocytes/100 WB C Auto (Bld)Ordered By: Lanre Smith on 10-19-2023 Immature granulocytes/100 WBC (Bld) 0.300 % 0.0-0.[address] [facility] Comment on above: IG% - Immature Granu locytes (promyelocytes, myelocytes and metamyelocytes) > 1% indicates that a LEFT SHIFT is Present. Laboratory - Hematology and Cell countsOrdered By: Lanre Smith on 10-19-2023 MCH (RBC) [Entitic mass] 26.2 pg 27.0-32.[address] [facility] MCHC (RBC) [Mass/Vol] 30.0 g/dL 32-36 [facility] Nucleated RBC/100 WBC (Bld) [Ratio] 0 % 0-[address] [facility] Platelets (Bld) [#/Vol] 425 10*3/uL 150-[address] [facility] Platelet mean volume [place] ker (Bld) [Entitic vol]Ordered By: Lanre Smith on 10-19-2023 Platelet mean volume (Bld) [Entitic vol] 10.7 fL 6.2-12.[address] [facility] RBC Auto (Bld) [#/Vol]Ordere d By: Lanre Smith on 10-19-2023 RBC (Bld) [#/Vol] 4.66 10*6/uL 4.2-5.4 [facility] Serum or plasma thyroid stim ulating hormone (TSH) measurement (units/volume)Ordered By: Lanre Smith on 10-19-2023 TSH Qn 1.76 uIU/mL 0.358-3.[address] [facility] Basophil percentageOrdered B y: Lanre Smith on 09-06-2023 Basophil percentage 25-50 SEEN /hpf 0-[address] [facility] Bilirubin Test strip Ql (U)O rdered By: Lanre Smith on 09-06-2023 Bilirubin Ql (U) Negative Negative [facility] Calcium oxalate crystals det ection in urine sediment by light microscopyOrdered By: Lanre Smith on 09-06-2023 Calcium oxalate crystals LM Ql (Urine sed) RARE /hpf [facility] Culture, urineOrdered By: Tavon Smith on 09-06-2023 Bacteria identified Cx Nom (U) Presumptive E. coli [facility] Bacteria identified Cx Nom (U) Presumptive E. coli [facility] Ketones Test strip Ql (U)Ord ered By: Lanre Smith on 09-06-2023 Ketones Ql (U) Negative Negative [facility] Mucus LM Ql (Urine sed)Order ed By: Lanre Smith on 09-06-2023 Mucus Ql (Urine sed) 0 SEEN /hpf [facility] Nitrite Test strip Ql (U)Ord ered By: Lanre Smith on 09-06-2023 Nitrite Ql (U) Positive Negative [facility] Protein Test strip Ql (U)Ord ered By: Lanre Smith on 09-06-2023 Protein Ql (U) 30 mg/dl Negative [facility] Squamous epithelial cells de tection in urine sediment by light microscopyOrdered By: Lanre Smith on 09-06-2023 Epithelial cells.squamous LM Ql (Urine sed) 0-5 SEEN /hpf 5-[address] [facility] Urine blood detectionOrdered By: Lanre Smith on 09-06-2023 RBC Ql (U) 25 /ul Negative [facility] RBC Ql (U) 0-5 SEEN /hpf 0-[address] [facility] Urine clarityOrdered By: Laverne Smith on 09-06-2023 Clarity (U) Sl. Cloudy Clear [facility] Urine color determinationOrd ered By: Lanre Smith on 09-06-2023 Color (U) Yellow Yellow [facility] Urine glucose detectionOrder ed By: Lanre Smith on 09-06-2023 Glucose Ql (U) Normal mg/dl Normal [facility] Urine leukocyte esterase det ection by dipstickOrdered By: Lanre Smith on 09-06-2023 Leukocyte esterase Test strip Ql (U) 500 /ul Negative [facility] Urine pHOrdered By: Lanre sauceda on 09-06-2023 pH (U) 6.5 [pH] 5.0 - 8.[address] [facility] Urine sediment bacteria coun t by microscopy (number/high power field)Ordered By: Lanre Smith on 09-06-2023 Bacteria LM.HPF (Urine sed) [#/Area] 2 /[HPF] None Seen [facility] Urine specific gravity measu rementOrdered By: Lanre Smith on 09-06-2023 Specific gravity (U) [Rel density] 1.015 1.002-1.[address] [facility] Urobilinogen Auto test strip Ql (U)Ordered By: Lanre Smith on 09-06-2023 Urobilinogen Ql (U) Normal mg/dl Normal [facility] Basophil percentageOrdered B y: Lanre Smith on 08-01-2023 Bilirubin [Mass/Vol] 0.20 mg/dL 0.20-1.00 [facility] Comment on above: For patients on eltr ombopag therapy, use of Dimension [place] TBIL is not recommended. Chloride [Moles/Vol] 106 mmol/L 98-107 [facility] Glucose [Mass/Vol] 99 mg/dL 74-106 [facility] Potassium [Moles/Vol] 3.6 mmol/L 3.5-5.1 [facility] Protein [Mass/Vol] 6.3 g/dL 6.4-8.2 [facility] Sodium [Moles/Vol] 139 mmol/L 136-145 [facility] Laboratory - Chemistry and C hemistry - challengeOrdered By: Lanre Smith on 08-01-2023 ALP [Catalytic activity/Vol] 129 U/L 45-[address] [facility] ALT [Catalytic activity/Vol] 18 U/L 13-[address] [facility] CO2 [Moles/Vol] 29.0 mmol/L 21.0-32.[address] [facility] Globulin (S) [Mass/Vol] 3.6 g/dL 2.2-4.2 [facility] Urea nitrogen/Creatinine [Mass ratio] 32.1 mg/mg 10-[address] [facility] No Panel InformationOrdered By: Lanre Smith on 08-01-2023 Estimated GFR (MDRD) Amer 152 mL/min >[address] [facility] Comment on above: GFR Calc Estimated GFR (MDRD) Non-Af Amer 126 mL/min >[address] [facility] Comment on above: Non- GFR Calc Serum or plasma albumin kelli urement (mass/volume)Ordered By: Lanre Smith on 08-01-2023 Albumin [Mass/Vol] 2.7 g/dL 3.2-5.0 [facility] Serum or plasma albumin/glob ulin mass ratioOrdered By: Lanre Smith on 08-01-2023 Albumin/Globulin [Mass ratio] 0.8 {ratio} 0.9-2.[address] [facility] Serum or plasma calcium kelli urement (mass/volume)Ordered By: Lanre Smith on 08-01-2023 Calcium [Mass/Vol] 8.3 mg/dL 8.5-10.1 [facility] Serum or plasma creatinine m easurement (mass/volume)Ordered By: Lanre Smith on 08-01-2023 Creatinine [Mass/Vol] 0.50 mg/dL 0.55-1.02 [facility] Comment on above: The validity of the calculated GFR & GFRAA in patients over 70 years has not been determined. Clinical correlation is essential. Serum or plasma urea nitroge n measurement (mass/volume)Ordered By: Lanre Smith on 08-01-2023 Urea nitrogen [Mass/Vol] 16 mg/dL 7-[address] [facility] Thin prep Papanicolaou smear with manual screeningOrdered By: Lanre Smith on 08-01-2023 Thin prep Papanicolaou smear with manual screening 17 U/L 15-[address] [facility] Thin prep Papanicolaou smear with manual screening 4 5-[address] [facility] Whole blood hemoglobin A1c/t otal hemoglobin ratio (mass fraction)Ordered By: Lanre Smith on 08-01-2023 HbA1c (Bld) [Mass fraction] 6.6 % 3.8-5.[address] [facility] Comment on above: Normal < 5.7 % Predi abetic 5.7 - 6.4 % Diabetic >or= 6.5 % Please note range changes. Absolute lymphocyte countOrd ered By: Lanre Smith on 07-20-2023 Lymphocytes Auto (Unsp spec) [#/Vol] 2.30 10*3/uL 0.83-4.[address] [facility] Basophil percentageOrdered B y: Lanre Smith on 07-20-2023 Basophils/100 WBC (Bld) 1.2 % 0-1 [facility] Eosinophils/100 WBC (Bld) 5.0 % 0-[address] [facility] Neutrophils (Bld) [#/Vol] 3.2 10*3/uL 2.0-7.[address] [facility] Neutrophils/100 WBC (Bld) 47.7 % 47-[address] [facility] WBC (Bld) [#/Vol] 6.7 10*3/uL 4.4-11.0 [facility] Blood erythrocytes count (nu mber/volume)Ordered By: Lanre Smith on 07-20-2023 RBC (Bld) [#/Vol] 4.06 10*6/uL 4.2-5.4 [facility] Blood hemoglobin measurement (mass/volume)Ordered By: Lanre Smith on 07-20-2023 Hemoglobin (Bld) [Mass/Vol] 11.1 g/dL 12.0-15.[address] [facility] Blood lymphocytes/100 leukoc ytesOrdered By: Lanre Smith on 07-20-2023 Lymphocytes/100 WBC (Bld) 34.5 % 19-[address] [facility] Blood monocytes/100 leukocyt esOrdered By: Lanre Smith on 07-20-2023 Monocytes/100 WBC (Bld) 11.4 % 0-10 [facility] Blood platelet mean volumeOr dered By: Lanre Smith on 07-20-2023 Platelet mean volume (Bld) [Entitic vol] 11.1 fL 6.2-12.[address] [facility] Determination of erythrocyte mean corpuscular volume (MCV)Ordered By: Lanre Smith on 07-20-2023 MCV (RBC) [Entitic vol] 90.1 fL 81-99 [facility] Hematocrit Auto (Bld) [Volum e fraction]Ordered By: Lanre Smith on 07-20-2023 Hematocrit (Bld) [Volume fraction] 36.6 % 37-[address] [facility] Laboratory - Hematology and Cell countsOrdered By: Lanre Smith on 07-20-2023 Erythrocyte distribution width (RBC) [Entitic vol] 47.5 fL 35.1-43.9 [facility] Erythrocyte distribution width (RBC) [Ratio] 14.3 % 11.6-14.[address] [facility] Immature granulocytes/100 WBC (Bld) 0.200 % 0.0-0.[address] [facility] Comment on above: IG% - Immature Granu locytes (promyelocytes, myelocytes and metamyelocytes) > 1% indicates that a LEFT SHIFT is Present. MCH (RBC) [Entitic mass] 27.3 pg 27.0-32.[address] [facility] Nucleated RBC/100 WBC (Bld) [Ratio] 0 % 0-[address] [facility] MCHC Auto (RBC) [Mass/Vol]Or dered By: Lanre Smith on 07-20-2023 MCHC (RBC) [Mass/Vol] 30.3 g/dL 32-36 [facility] No Panel InformationOrdered By: Lanre Smith on 07-20-2023 Thyroid Stimulating Hormone (TSH) 1.32 uIU/mL 0.358-3.[address] [facility] Platelets bldOrdered By: Laverne Smith on 07-20-2023 Platelets (Bld) [#/Vol] 294 10*3/uL 150-[address] [facility] Laboratory - Chemistry and C hemistry - challengeOrdered By: Lanre Smith on 05-08-2023 T4 [Mass/Vol] 11.1 ug/dL 4.8-13.[address] [facility] No Panel InformationOrdered By: Lanre Smith on 05-08-2023 Thyroid Stimulating Hormone (TSH) 2.73 uIU/mL 0.358-3.[address] [facility] Total Triiodothyronine 1.05 ng/mL 0.6-1.81 [facility] Absolute lymphocyte countOrd ered By: Lanre Smith on 04-20-2023 Lymphocytes Auto (Unsp spec) [#/Vol] 2.80 10*3/uL 0.83-4.[address] [facility] Basophil percentageOrdered B y: Lanre Smith on 04-20-2023 Basophils/100 WBC (Bld) 1.2 % 0-1 [facility] Eosinophils/100 WBC (Bld) 3.3 % 0-[address] [facility] Neutrophils (Bld) [#/Vol] 3.7 10*3/uL 2.0-7.[address] [facility] Neutrophils/100 WBC (Bld) 48.8 % 47-[address] [facility] WBC (Bld) [#/Vol] 7.6 10*3/uL 4.4-11.0 [facility] Blood erythrocytes count (nu mber/volume)Ordered By: Lanre Smith on 04-20-2023 RBC (Bld) [#/Vol] 4.79 10*6/uL 4.2-5.4 [facility] Blood hemoglobin measurement (mass/volume)Ordered By: Lanre Smith on 04-20-2023 Hemoglobin (Bld) [Mass/Vol] 13.2 g/dL 12.0-15.[address] [facility] Blood lymphocytes/100 leukoc ytesOrdered By: Lanre Smith on 04-20-2023 Lymphocytes/100 WBC (Bld) 36.7 % 19-[address] [facility] Blood monocytes/100 leukocyt esOrdered By: Lanre Smith on 04-20-2023 Monocytes/100 WBC (Bld) 9.7 % 0-10 [facility] Blood platelet mean volumeOr dered By: Lanre Smith on 04-20-2023 Platelet mean volume (Bld) [Entitic vol] 11.3 fL 6.2-12.[address] [facility] Determination of erythrocyte mean corpuscular volume (MCV)Ordered By: Lanre Smith on 04-20-2023 MCV (RBC) [Entitic vol] 86.2 fL 81-99 [facility] Hematocrit Auto (Bld) [Volum e fraction]Ordered By: Lanre Smith on 04-20-2023 Hematocrit (Bld) [Volume fraction] 41.3 % 37-[address] [facility] Laboratory - Hematology and Cell countsOrdered By: Lanre Smith on 04-20-2023 Erythrocyte distribution width (RBC) [Entitic vol] 48.3 fL 35.1-43.9 [facility] Erythrocyte distribution width (RBC) [Ratio] 15.2 % 11.6-14.[address] [facility] Immature granulocytes/100 WBC (Bld) 0.300 % 0.0-0.[address] [facility] Comment on above: IG% - Immature Granu locytes (promyelocytes, myelocytes and metamyelocytes) > 1% indicates that a LEFT SHIFT is Present. MCH (RBC) [Entitic mass] 27.6 pg 27.0-32.[address] [facility] Nucleated RBC/100 WBC (Bld) [Ratio] 0 % 0-[address] [facility] MCHC Auto (RBC) [Mass/Vol]Or dered By: Lanre Smith on 04-20-2023 MCHC (RBC) [Mass/Vol] 32.0 g/dL 32-36 [facility] No Panel InformationOrdered By: Lanre Smith on 04-20-2023 Thyroid Stimulating Hormone (TSH) 4.03 uIU/mL 0.358-3.[address] [facility] Platelets bldOrdered By: Laverne Smith on 04-20-2023 Platelets (Bld) [#/Vol] 331 10*3/uL 150-[address] [facility] Thin prep Papanicolaou smear with manual screeningOrdered By: Lanre Smith on 03-03-2023 Thin prep Papanicolaou smear with manual screening Normal genital marisol isolated [facility] Gram stain for investigation of transfusion reactionOrdered By: Lanre Smith on 03-01-2023 Microscopic observation Gram stain Nom (Unsp spec) [facility] Microscopic observation Gram stain Nom (Unsp spec) [facility] Thin prep Papanicolaou smear with manual screeningOrdered By: Lanre Smith on 03-01-2023 Thin prep Papanicolaou smear with manual screening Normal genital marisol isolated [facility] Whole blood hemoglobin A1c/t otal hemoglobin ratio (mass fraction)Ordered By: Lanre Smith on 03-01-2023 HbA1c (Bld) [Mass fraction] 6.8 % 3.8-5.[address] [facility] Comment on above: Normal < 5.7 % Predi abetic 5.7 - 6.4 % Diabetic >or= 6.5 % Please note range changes. Absolute lymphocyte countOrd ered By: Lanre Smith on 01-19-2023 Lymphocytes Auto (Unsp spec) [#/Vol] 2.53 10*3/uL 0.83-4.[address] [facility] Basophil percentageOrdered B y: Lanre Smith on 01-19-2023 Basophils/100 WBC (Bld) 1.3 % 0-1 [facility] Eosinophils/100 WBC (Bld) 6.0 % 0-[address] [facility] Neutrophils (Bld) [#/Vol] 2.8 10*3/uL 2.0-7.[address] [facility] Neutrophils/100 WBC (Bld) 42.5 % 47-[address] [facility] WBC (Bld) [#/Vol] 6.7 10*3/uL 4.4-11.0 [facility] Blood erythrocytes count (nu mber/volume)Ordered By: Lanre Smith on 01-19-2023 RBC (Bld) [#/Vol] 4.20 10*6/uL 4.2-5.4 [facility] Blood hemoglobin measurement (mass/volume)Ordered By: Lanre Smith on 01-19-2023 Hemoglobin (Bld) [Mass/Vol] 11.1 g/dL 12.0-15.[address] [facility] Blood lymphocytes/100 leukoc ytesOrdered By: Lanre Smith on 01-19-2023 Lymphocytes/100 WBC (Bld) 37.8 % 19-[address] [facility] Blood monocytes/100 leukocyt esOrdered By: Lanre Smith on 01-19-2023 Monocytes/100 WBC (Bld) 12.3 % 0-10 [facility] Blood platelet mean volumeOr dered By: Lanre Smith on 01-19-2023 Platelet mean volume (Bld) [Entitic vol] 11.0 fL 6.2-12.[address] [facility] Determination of erythrocyte mean corpuscular volume (MCV)Ordered By: Lanre Smith on 01-19-2023 MCV (RBC) [Entitic vol] 85.7 fL 81-99 [facility] Hematocrit Auto (Bld) [Volum e fraction]Ordered By: Lanre Smith on 01-19-2023 Hematocrit (Bld) [Volume fraction] 36.0 % 37-[address] [facility] Laboratory - Hematology and Cell countsOrdered By: Lanre Smith on 01-19-2023 Erythrocyte distribution width (RBC) [Entitic vol] 46.7 fL 35.1-43.9 [facility] Erythrocyte distribution width (RBC) [Ratio] 14.8 % 11.6-14.[address] [facility] Immature granulocytes/100 WBC (Bld) 0.100 % 0.0-0.[address] [facility] Comment on above: IG% - Immature Granu locytes (promyelocytes, myelocytes and metamyelocytes) > 1% indicates that a LEFT SHIFT is Present. MCH (RBC) [Entitic mass] 26.4 pg 27.0-32.[address] [facility] Nucleated RBC/100 WBC (Bld) [Ratio] 0 % 0-[address] [facility] MCHC Auto (RBC) [Mass/Vol]Or dered By: Lanre Smith on 01-19-2023 MCHC (RBC) [Mass/Vol] 30.8 g/dL 32-36 [facility] No Panel InformationOrdered By: Lanre Smith on 01-19-2023 Thyroid Stimulating Hormone (TSH) 2.01 uIU/mL 0.358-3.[address] [facility] Platelets bldOrdered By: Laverne Smith on 01-19-2023 Platelets (Bld) [#/Vol] 297 10*3/uL 150-[address] [facility] Glucose Glucometer (BldC) [M ass/Vol]Ordered By: Feng Ball on 01-08-2023 Glucose [Mass/Vol] 122 mg/dL 74-106 [facility] Comment on above: MANAGEMENT OF PATIEN T CARE PER NURSING PROTOCOL Culture, urineOrdered By: Tavon Smith on 12-21-2022 Bacteria identified Cx Nom (U) Escherichia coli [facility] Basophil percentageOrdered B y: Lanre Smith on 12-18-2022 Basophil percentage 25-50 SEEN /hpf 0-[address] [facility] Bilirubin Test strip Ql (U)O rdered By: Lanre Smith on 12-18-2022 Bilirubin Ql (U) Negative Negative [facility] Ketones Test strip Ql (U)Ord ered By: Lanre Smith on 12-18-2022 Ketones Ql (U) Negative Negative [facility] Mucus LM Ql (Urine sed)Order ed By: Lanre Smith on 12-18-2022 Mucus Ql (Urine sed) 0 SEEN /hpf [facility] Nitrite Test strip Ql (U)Ord ered By: Lanre Smith on 12-18-2022 Nitrite Ql (U) Positive Negative [facility] Protein Test strip Ql (U)Ord ered By: Lanre Smith on 12-18-2022 Protein Ql (U) 30 mg/dl Negative [facility] Squamous epithelial cells de tection in urine sediment by light microscopyOrdered By: Lanre Smith on 12-18-2022 Epithelial cells.squamous LM Ql (Urine sed) 0-5 SEEN /hpf 5-[address] [facility] Urine blood detectionOrdered By: Lanre Smith on 12-18-2022 RBC Ql (U) 50 /ul Negative [facility] RBC Ql (U) 0-5 SEEN /hpf 0-[address] [facility] Urine clarityOrdered By: Laverne Smith on 12-18-2022 Clarity (U) Sl. Cloudy Clear [facility] Urine color determinationOrd ered By: Lanre Smith on 12-18-2022 Color (U) Yellow Yellow [facility] Urine glucose detectionOrder ed By: Lanre Smith on 12-18-2022 Glucose Ql (U) Normal mg/dl Normal [facility] Urine leukocyte esterase det ection by dipstickOrdered By: Lanre Smith on 12-18-2022 Leukocyte esterase Test strip Ql (U) 500 /ul Negative [facility] Urine pHOrdered By: Lanre sauceda on 12-18-2022 pH (U) 6.5 [pH] 5.0 - 8.[address] [facility] Urine sediment bacteria coun t by microscopy (number/high power field)Ordered By: Lanre Smith on 12-18-2022 Bacteria LM.HPF (Urine sed) [#/Area] 2 /[HPF] None Seen [facility] Urine specific gravity measu rementOrdered By: Lanre Smith on 12-18-2022 Specific gravity (U) [Rel density] 1.015 1.002-1.[address] [facility] Urobilinogen Auto test strip Ql (U)Ordered By: Lanre Smith on 12-18-2022 Urobilinogen Ql (U) Normal mg/dl Normal [facility] No Panel InformationOrdered By: Lanre Smith on 10-30-2022 Vitamin D 25-Hydroxy 29.9 ng/mL [facility] Comment on above: Vitamin D 25(OH) Sta tus Range Deficiency <20 ng/mL (50nmol/L) Insufficiency 20 - 30 ng/mL (50 - 75 nmol/L) Sufficiency 30 - 100 ng/mL (75 - 250 nmol/L) Toxicity >100 ng/mL (>250 nmol/L) Absolute lymphocyte countOrd ered By: Lanre Smith on 10-20-2022 Lymphocytes Auto (Unsp spec) [#/Vol] 2.38 10*3/uL 0.83-4.[address] [facility] Basophil percentageOrdered B y: Lanre Smith on 10-20-2022 Basophils/100 WBC (Bld) 0.9 % 0-1 [facility] Eosinophils/100 WBC (Bld) 3.4 % 0-[address] [facility] Neutrophils (Bld) [#/Vol] 4.1 10*3/uL 2.0-7.[address] [facility] Neutrophils/100 WBC (Bld) 53.6 % 47-[address] [facility] WBC (Bld) [#/Vol] 7.7 10*3/uL 4.4-11.0 [facility] Blood erythrocytes count (nu mber/volume)Ordered By: Lanre Smith on 10-20-2022 RBC (Bld) [#/Vol] 4.40 10*6/uL 4.2-5.4 [facility] Blood hemoglobin measurement (mass/volume)Ordered By: Lanre Smith on 10-20-2022 Hemoglobin (Bld) [Mass/Vol] 11.7 g/dL 12.0-15.[address] [facility] Blood lymphocytes/100 leukoc ytesOrdered By: aLnre Smith on 10-20-2022 Lymphocytes/100 WBC (Bld) 30.9 % 19-[address] [facility] Blood monocytes/100 leukocyt esOrdered By: Lanre Smith on 10-20-2022 Monocytes/100 WBC (Bld) 10.9 % 0-10 [facility] Blood platelet mean volumeOr dered By: Lanre Smith on 10-20-2022 Platelet mean volume (Bld) [Entitic vol] 11.8 fL 6.2-12.[address] [facility] Determination of erythrocyte mean corpuscular volume (MCV)Ordered By: Lanre Smith on 10-20-2022 MCV (RBC) [Entitic vol] 88.0 fL 81-99 [facility] Hematocrit Auto (Bld) [Volum e fraction]Ordered By: Lanre Smith on 10-20-2022 Hematocrit (Bld) [Volume fraction] 38.7 % 37-[address] [facility] Laboratory - Hematology and Cell countsOrdered By: Lanre Smith on 10-20-2022 Erythrocyte distribution width (RBC) [Entitic vol] 46.4 fL 35.1-43.9 [facility] Erythrocyte distribution width (RBC) [Ratio] 14.3 % 11.6-14.[address] [facility] Immature granulocytes/100 WBC (Bld) 0.300 % 0.0-0.[address] [facility] Comment on above: IG% - Immature Granu locytes (promyelocytes, myelocytes and metamyelocytes) > 1% indicates that a LEFT SHIFT is Present. MCH (RBC) [Entitic mass] 26.6 pg 27.0-32.[address] [facility] Nucleated RBC/100 WBC (Bld) [Ratio] 0 % 0-[address] [facility] MCHC Auto (RBC) [Mass/Vol]Or dered By: Lanre Smith on 10-20-2022 MCHC (RBC) [Mass/Vol] 30.2 g/dL 32-36 [facility] No Panel InformationOrdered By: Lanre Smith on 10-20-2022 Thyroid Stimulating Hormone (TSH) 2.88 uIU/mL 0.358-3.[address] [facility] Platelets bldOrdered By: Laverne Smith on 10-20-2022 Platelets (Bld) [#/Vol] 314 10*3/uL 150-[address] [facility] Basophil percentageOrdered B y: Lanre Smith on 08-02-2022 Bilirubin [Mass/Vol] 0.40 mg/dL 0.20-1.00 [facility] Comment on above: For patients on eltr ombopag therapy, use of Dimension [place] TBIL is not recommended. Chloride [Moles/Vol] 108 mmol/L 98-107 [facility] Glucose [Mass/Vol] 91 mg/dL 74-106 [facility] Potassium [Moles/Vol] 3.9 mmol/L 3.5-5.1 [facility] Protein [Mass/Vol] 6.4 g/dL 6.4-8.2 [facility] Sodium [Moles/Vol] 141 mmol/L 136-145 [facility] Laboratory - Chemistry and C hemistry - challengeOrdered By: Lanre Smith on 08-02-2022 ALP [Catalytic activity/Vol] 168 U/L 45-[address] [facility] ALT [Catalytic activity/Vol] 13 U/L 13-[address] [facility] CO2 [Moles/Vol] 27.0 mmol/L 21.0-32.[address] [facility] Globulin (S) [Mass/Vol] 3.5 g/dL 2.2-4.2 [facility] Urea nitrogen/Creatinine [Mass ratio] 34.7 mg/mg 10-[address] [facility] No Panel InformationOrdered By: Lanre Smith on 08-02-2022 Estimated GFR (MDRD) Amer 145 mL/min >[address] [facility] Comment on above: GFR Calc Estimated GFR (MDRD) Non-Af Amer 120 mL/min >60 [facility] Comment on above: Non- GFR Calc Serum or plasma albumin kelli urement (mass/volume)Ordered By: Lanre Smith on 08-02-2022 Albumin [Mass/Vol] 2.9 g/dL 3.2-5.0 [facility] Serum or plasma albumin/glob ulin mass ratioOrdered By: Lanre Smith on 08-02-2022 Albumin/Globulin [Mass ratio] 0.8 {ratio} 0.9-2.[address] [facility] Serum or plasma calcium kelli urement (mass/volume)Ordered By: Lanre Smith on 08-02-2022 Calcium [Mass/Vol] 8.8 mg/dL 8.5-10.1 [facility] Serum or plasma creatinine m easurement (mass/volume)Ordered By: Lanre Smith on 08-02-2022 Creatinine [Mass/Vol] 0.52 mg/dL 0.55-1.02 [facility] Comment on above: The validity of the calculated GFR & GFRAA in patients over 70 years has not been determined. Clinical correlation is essential. Serum or plasma urea nitroge n measurement (mass/volume)Ordered By: Lanre Smith on 08-02-2022 Urea nitrogen [Mass/Vol] 18 mg/dL 7-[address] [facility] Thin prep Papanicolaou smear with manual screeningOrdered By: Lanre Smith on 08-02-2022 Thin prep Papanicolaou smear with manual screening 10 U/L 15-[address] [facility] Thin prep Papanicolaou smear with manual screening 6 5-[address] [facility] Whole blood hemoglobin A1c/t otal hemoglobin ratio (mass fraction)Ordered By: Lanre Smith on 08-02-2022 HbA1c (Bld) [Mass fraction] 6.4 % 3.8-5.[address] [facility] Comment on above: Normal < 5.7 % Predi abetic 5.7 - 6.4 % Diabetic >or= 6.5 % Please note range changes. Absolute lymphocyte countOrd ered By: Lanre Smith on 07-21-2022 Lymphocytes Auto (Unsp spec) [#/Vol] 2.86 10*3/uL 0.83-4.[address] [facility] Basophil percentageOrdered B y: Lanre Smith on 07-21-2022 Basophils/100 WBC (Bld) 0.6 % 0-1 [facility] Eosinophils/100 WBC (Bld) 3.4 % 0-[address] [facility] Neutrophils (Bld) [#/Vol] 3.7 10*3/uL 2.0-7.[address] [facility] Neutrophils/100 WBC (Bld) 47.1 % 47-[address] [facility] WBC (Bld) [#/Vol] 7.8 10*3/uL 4.4-11.0 [facility] Blood erythrocytes count (nu mber/volume)Ordered By: Lanre Smith on 07-21-2022 RBC (Bld) [#/Vol] 3.92 10*6/uL 4.2-5.4 [facility] Blood hemoglobin measurement (mass/volume)Ordered By: Lanre Smith on 07-21-2022 Hemoglobin (Bld) [Mass/Vol] 10.7 g/dL 12.0-15.[address] [facility] Blood lymphocytes/100 leukoc ytesOrdered By: Lanre Smith on 07-21-2022 Lymphocytes/100 WBC (Bld) 36.9 % 19-[address] [facility] Blood monocytes/100 leukocyt esOrdered By: Lanre Smith on 07-21-2022 Monocytes/100 WBC (Bld) 11.6 % 0-10 [facility] Blood platelet mean volumeOr dered By: Lanre Smith on 07-21-2022 Platelet mean volume (Bld) [Entitic vol] 11.8 fL 6.2-12.[address] [facility] Determination of erythrocyte mean corpuscular volume (MCV)Ordered By: Lanre Smith on 07-21-2022 MCV (RBC) [Entitic vol] 86.7 fL 81-99 [facility] Hematocrit Auto (Bld) [Volum e fraction]Ordered By: Lanre Smith on 07-21-2022 Hematocrit (Bld) [Volume fraction] 34.0 % 37-[address] [facility] Laboratory - Hematology and Cell countsOrdered By: Lanre Smith on 07-21-2022 Erythrocyte distribution width (RBC) [Entitic vol] 48.8 fL 35.1-43.9 [facility] Erythrocyte distribution width (RBC) [Ratio] 15.3 % 11.6-14.[address] [facility] Immature granulocytes/100 WBC (Bld) 0.400 % 0.0-0.[address] [facility] Comment on above: IG% - Immature Granu locytes (promyelocytes, myelocytes and metamyelocytes) > 1% indicates that a LEFT SHIFT is Present. MCH (RBC) [Entitic mass] 27.3 pg 27.0-32.[address] [facility] Nucleated RBC/100 WBC (Bld) [Ratio] 0 % 0-[address] [facility] MCHC Auto (RBC) [Mass/Vol]Or dered By: Lanre Smith on 07-21-2022 MCHC (RBC) [Mass/Vol] 31.5 g/dL 32-36 [facility] No Panel InformationOrdered By: Lanre Smith on 07-21-2022 Thyroid Stimulating Hormone (TSH) 1.43 uIU/mL 0.358-3.[address] [facility] Platelets bldOrdered By: Laverne Smith on 07-21-2022 Platelets (Bld) [#/Vol] 318 10*3/uL 150-[address] [facility] Basophil percentageon 2021 Basophil percentage 10-25 SEEN /hpf 0-[address] [facility] Work Phone: Bilirubin Test strip Ql (U)o n 05-21-2022 Bilirubin Ql (U) Negative Negative [facility] Work Phone: Ketones Test strip Ql (U)on 05-21-2022 Ketones Ql (U) Negative Negative [facility] Work Phone: Mucus LM Ql (Urine sed)on Mucus Ql (Urine sed) 0 SEEN /hpf [facility] Work Phone: Nitrite Test strip Ql (U)on 05-21-2022 Nitrite Ql (U) Negative Negative [facility] Work Phone: Protein Test strip Ql (U)on 05-21-2022 Protein Ql (U) Negative Negative [facility] Work Phone: Squamous epithelial cells de tection in urine sediment by light microscopyon 05-21-2022 Epithelial cells.squamous LM Ql (Urine sed) 0-5 SEEN /hpf 5-[address] [facility] Work Phone: Urine blood detectionon - RBC Ql (U) Negative Negative [facility] Work Phone: RBC Ql (U) 0 SEEN /hpf 0-[address] [facility] Work Phone: Urine clarityon 05-21-2022 Clarity (U) Clear Clear [facility] Work Phone: Urine color determinationon 05-21-2022 Color (U) Straw Yellow [facility] Work Phone: Urine glucose detectionon Glucose Ql (U) Normal mg/dl Normal [facility] Work Phone: Urine leukocyte esterase det ection by dipstickon 05-21-2022 Leukocyte esterase Test strip Ql (U) 500 /ul Negative [facility] Work Phone: Urine pHon 05-21-2022 pH (U) 7.0 [pH] 5.0 - 8.[address] [facility] Work Phone: Urine sediment bacteria coun t by microscopy (number/high power field)on 05-21-2022 Bacteria LM.HPF (Urine sed) [#/Area] 0 /[HPF] None Seen [facility] Work Phone: Urine specific gravity measu rementon 05-21-2022 Specific gravity (U) [Rel density] 1.010 1.002-1.[address] [facility] Work Phone: Urobilinogen Auto test strip Ql (U)on 05-21-2022 Urobilinogen Ql (U) Normal mg/dl Normal [facility] Work Phone: Absolute lymphocyte counton 04-21-2022 Lymphocytes Auto (Unsp spec) [#/Vol] 2.79 10*3/uL 0.83-4.[address] [facility] Work Phone: Basophil percentageon 2021 Basophils/100 WBC (Bld) 0.6 % 0-1 [facility] Work Phone: Eosinophils/100 WBC (Bld) 4.2 % 0-[address] [facility] Work Phone: Neutrophils (Bld) [#/Vol] 4.0 10*3/uL 2.0-7.[address] [facility] Work Phone: Neutrophils/100 WBC (Bld) 49.8 % 47-[address] [facility] Work Phone: WBC (Bld) [#/Vol] 7.9 10*3/uL 4.4-11.0 [facility] Work [facility]: Blood erythrocytes count (nu mber/volume)on 04-21-2022 RBC (Bld) [#/Vol] 4.11 10*6/uL 4.2-5.4 [facility]: Blood hemoglobin measurement (mass/volume)on 04-21-2022 Hemoglobin (Bld) [Mass/Vol] 11.0 g/dL 12.0-15.[address] [facility] Work Phone: Blood lymphocytes/100 leukoc yteson 04-21-2022 Lymphocytes/100 WBC (Bld) 35.2 % 19-[address] [facility] Work Phone: Blood monocytes/100 leukocyt eson 04-21-2022 Monocytes/100 WBC (Bld) 10.1 % 0-10 [facility] Work Phone: [phone] Blood platelet mean volumeon 04-21-2022 Platelet mean volume (Bld) [Entitic vol] 11.8 fL 6.2-12.[address] [facility] Work Phone: [phone] Determination of erythrocyte mean corpuscular volume (MCV)on 04-21-2022 MCV (RBC) [Entitic vol] 86.9 fL 81-99 [facility] Work Phone: Hematocrit Auto (Bld) [Volum e fraction]on 04-21-2022 Hematocrit (Bld) [Volume fraction] 35.7 % 37-[address] [facility] Work Phone: Laboratory - Hematology and Cell countson 04-21-2022 Erythrocyte distribution width (RBC) [Entitic vol] 50.6 fL 35.1-43.9 [facility] Work Phone: Erythrocyte distribution width (RBC) [Ratio] 15.9 % 11.6-14.[address] [facility] Work Phone: Immature granulocytes/100 WBC (Bld) 0.100 % 0.0-0.[address] [facility] Work Phone: Comment on above: IG% - Immature Granu locytes (promyelocytes, myelocytes and metamyelocytes) > 1% indicates that a LEFT SHIFT is Present. MCH (RBC) [Entitic mass] 26.8 pg 27.0-32.[address] [facility] Work Phone: Nucleated RBC/100 WBC (Bld) [Ratio] 0 % 0-[address] [facility] Work Phone: MCHC Auto (RBC) [Mass/Vol]on 04-21-2022 MCHC (RBC) [Mass/Vol] 30.8 g/dL 32-36 [facility] Work Phone: No Panel Informationon 04-21 Thyroid Stimulating Hormone (TSH) 1.83 uIU/mL 0.358-3.[address] [facility] Work Phone: Platelets bldon 04-21-2022 Platelets (Bld) [#/Vol] 310 10*3/uL 150-[address] [facility] Work Phone: Basophil percentageon 2021 Bilirubin [Mass/Vol] 0.30 mg/dL 0.20-1.00 [facility] Work Phone: Comment on above: For patients on eltr ombopag therapy, use of Dimension [place] TBIL is not recommended. Chloride [Moles/Vol] 107 mmol/L 98-107 [facility] Work Phone: Glucose [Mass/Vol] 95 mg/dL 74-106 [facility] Work Phone: Potassium [Moles/Vol] 4.0 mmol/L 3.5-5.1 [facility] Work Phone: Protein [Mass/Vol] 6.4 g/dL 6.4-8.2 [facility] [facility] Work Phone: Sodium [Moles/Vol] 140 mmol/L 136-145 [facility] - Chemistry and C hemistry - challengeon 02-01-2022 ALP [Catalytic activity/Vol] 127 U/L 45-[address] [facility] Work Phone: ALT [Catalytic activity/Vol] 16 U/L 13-[address] [facility] Work Phone: CO2 [Moles/Vol] 28.0 mmol/L 21.0-32.[address] [facility] Work Phone: Globulin (S) [Mass/Vol] 3.7 g/dL 2.2-4.2 [facility] Work Phone: Urea nitrogen/Creatinine [Mass ratio] 48.2 mg/mg 10-[address] [facility] Work Phone: No Panel Informationon 02-01 Estimated GFR (MDRD) Amer 118 mL/min >[address] [facility] Work Phone: Comment on above: GFR Calc Estimated GFR (MDRD) Non-Af Amer 97 mL/min >[address] [facility] Work Phone: Comment on above: Non- GFR Calc Serum or plasma albumin kelli urement (mass/volume)on 02-01-2022 Albumin [Mass/Vol] 2.7 g/dL 3.2-5.0 [facility] Work Phone: Serum or plasma albumin/glob ulin mass ratioon 02-01-2022 Albumin/Globulin [Mass ratio] 0.7 {ratio} 0.9-2.[address] [facility] Work Phone: Serum or plasma calcium kelli urement (mass/volume)on 02-01-2022 Calcium [Mass/Vol] 8.5 mg/dL 8.5-10.1 [facility] Work Phone: Serum or plasma creatinine m easurement (mass/volume)on 02-01-2022 Creatinine [Mass/Vol] 0.62 mg/dL 0.55-1.02 [facility] Work Phone: Comment on above: The validity of the calculated GFR & GFRAA in patients over 70 years has not been determined. Clinical correlation is essential. Serum or plasma urea nitroge n measurement (mass/volume)on 02-01-2022 Urea nitrogen [Mass/Vol] 30 mg/dL 7-[address] [facility] Work Phone: Thin prep Papanicolaou smear with manual screeningon 02-01-2022 Thin prep Papanicolaou smear with manual screening 12 U/L 15-[address] [facility] Work Phone: Thin prep Papanicolaou smear with manual screening 5 5-[address] [facility] Work Phone: Whole blood hemoglobin A1c/t otal hemoglobin ratio (mass fraction)on 02-01-2022 HbA1c (Bld) [Mass fraction] 6.8 % 3.8-5.[address] [facility] Work Phone: Comment on above: Normal < 5.7 % Predi abetic 5.7 - 6.4 % Diabetic >or= 6.5 % Please note range changes. Absolute lymphocyte counton 01-20-2022 Lymphocytes Auto (Unsp spec) [#/Vol] 2.90 10*3/uL 0.83-4.[address] [facility] Work Phone: Basophil percentageon 2021 Basophils/100 WBC (Bld) 0.5 % 0-1 [facility] Work Phone: Eosinophils/100 WBC (Bld) 3.0 % 0-[address] [facility] Work Phone: Neutrophils (Bld) [#/Vol] 3.7 10*3/uL 2.0-7.[address] [facility] Work Phone: Neutrophils/100 WBC (Bld) 48.0 % 47-[address] [facility] Work Phone: WBC (Bld) [#/Vol] 7.6 10*3/uL 4.4-11.0 [facility] Work Phone: Blood erythrocytes count (nu mber/volume)on 01-20-2022 RBC (Bld) [#/Vol] 3.73 10*6/uL 4.2-5.4 [facility] Work Phone: Blood hemoglobin measurement (mass/volume)on 01-20-2022 Hemoglobin (Bld) [Mass/Vol] 9.8 g/dL 12.0-15.[address] [facility] Work Phone: Blood lymphocytes/100 leukoc yteson 01-20-2022 Lymphocytes/100 WBC (Bld) 38.0 % 19-[address] [facility] Work Phone: Blood monocytes/100 leukocyt eson 01-20-2022 Monocytes/100 WBC (Bld) 10.2 % 0-10 [facility] Work Phone: Blood platelet mean volumeon 01-20-2022 Platelet mean volume (Bld) [Entitic vol] 11.3 fL 6.2-12.[address] [facility] Work Phone: Determination of erythrocyte mean corpuscular volume (MCV)on 01-20-2022 MCV (RBC) [Entitic vol] 83.9 fL 81-99 [facility] Work Phone: Hematocrit Auto (Bld) [Volum e fraction]on 01-20-2022 Hematocrit (Bld) [Volume fraction] 31.3 % 37-[address] [facility] Work Phone: Laboratory - Hematology and Cell countson 01-20-2022 Erythrocyte distribution width (RBC) [Entitic vol] 45.1 fL 35.1-43.9 [facility] Work Phone: Erythrocyte distribution width (RBC) [Ratio] 14.7 % 11.6-14.[address] [facility] Work Phone: Immature granulocytes/100 WBC (Bld) 0.300 % 0.0-0.[address] [facility] Work Phone: Comment on above: IG% - Immature Granu locytes (promyelocytes, myelocytes and metamyelocytes) > 1% indicates that a LEFT SHIFT is Present. MCH (RBC) [Entitic mass] 26.3 pg 27.0-32.[address] [facility] Work Phone: Nucleated RBC/100 WBC (Bld) [Ratio] 0 % 0-[address] [facility] Work Phone: MCHC Auto (RBC) [Mass/Vol]on 01-20-2022 MCHC (RBC) [Mass/Vol] 31.3 g/dL 32-36 [facility] Work Phone: No Panel Informationon 01-20 Thyroid Stimulating Hormone (TSH) 1.54 uIU/mL 0.358-3.[address] [facility] Work Phone: Platelets bldon 01-20-2022 Platelets (Bld) [#/Vol] 352 10*3/uL 150-[address] [facility] Work Phone: No Panel Informationon 01-03 Thyroid Stimulating Hormone (TSH) 3.06 uIU/mL 0.358-3.[address] [facility] Work Phone: No Panel Informationon 10-31 Vitamin D 25-Hydroxy 29.0 ng/mL [facility] Work Phone: Comment on above: Vitamin D 25(OH) Sta tus Range Deficiency <20 ng/mL (50nmol/L) Insufficiency 20 - 30 ng/mL (50 - 75 nmol/L) Sufficiency 30 - 100 ng/mL (75 - 250 nmol/L) Toxicity >100 ng/mL (>250 nmol/L) Absolute lymphocyte counton 10-21-2021 Lymphocytes Auto (Unsp spec) [#/Vol] 2.65 10*3/uL 0.83-4.[address] [facility] Work Phone: Basophil percentageon 2021 Basophils/100 WBC (Bld) 0.8 % 0-1 [facility] Work Phone: Eosinophils/100 WBC (Bld) 2.9 % 0-[address] [facility] Work Phone: Neutrophils (Bld) [#/Vol] 3.4 10*3/uL 2.0-7.[address] [facility] Work Phone: Neutrophils/100 WBC (Bld) 48.2 % 47-[address] [facility] Work Phone: WBC (Bld) [#/Vol] 7.1 10*3/uL 4.4-11.0 [facility] Work [facility]: Blood erythrocytes count (nu mber/volume)on 10-21-2021 RBC (Bld) [#/Vol] 4.02 10*6/uL 4.2-5.4 [facility]: Blood hemoglobin measurement (mass/volume)on 10-21-2021 Hemoglobin (Bld) [Mass/Vol] 10.7 g/dL 12.0-15.[address] [facility] Work Phone: Blood lymphocytes/100 leukoc yteson 10-21-2021 Lymphocytes/100 WBC (Bld) 37.1 % 19-[address] [facility] Work Phone: Blood monocytes/100 leukocyt eson 10-21-2021 Monocytes/100 WBC (Bld) 10.9 % 0-10 [facility] Work Phone: Blood platelet mean volumeon 10-21-2021 Platelet mean volume (Bld) [Entitic vol] 11.3 fL 6.2-12.[address] [facility] Work Phone: Determination of erythrocyte mean corpuscular volume (MCV)on 10-21-2021 MCV (RBC) [Entitic vol] 84.3 fL 81-99 [facility] Work Phone: Hematocrit Auto (Bld) [Volum e fraction]on 10-21-2021 Hematocrit (Bld) [Volume fraction] 33.9 % 37-[address] [facility] Work Phone: Laboratory - Hematology and Cell countson 10-21-2021 Erythrocyte distribution width (RBC) [Entitic vol] 49.3 fL 35.1-43.9 [facility] Work Phone: Erythrocyte distribution width (RBC) [Ratio] 15.9 % 11.6-14.[address] [facility] Work Phone: Immature granulocytes/100 WBC (Bld) 0.100 % 0.0-0.[address] [facility] Work Phone: Comment on above: IG% - Immature Granu locytes (promyelocytes, myelocytes and metamyelocytes) > 1% indicates that a LEFT SHIFT is Present. MCH (RBC) [Entitic mass] 26.6 pg 27.0-32.[address] [facility] Work Phone: Nucleated RBC/100 WBC (Bld) [Ratio] 0 % 0-[address] [facility] Work Phone: MCHC Auto (RBC) [Mass/Vol]on 10-21-2021 MCHC (RBC) [Mass/Vol] 31.6 g/dL 32-36 [facility] Work Phone: No Panel Informationon 10-21 Thyroid Stimulating Hormone (TSH) 6.10 uIU/mL 0.358-3.[address] [facility] Work Phone: Platelets bldon 10-21-2021 Platelets (Bld) [#/Vol] 334 10*3/uL 150-[address] [facility] Work Phone: Culture, urine Bacteria identified Cx Nom (U) Culture exhibits no growth. [facility] Work Phone: Vital Signs Date Time Vital Sign Value Performing Clinician Faci lity 12-20-2023 14:30-0400 Body temperature 97.8 [degF] Dr. Lanre Smith Work Phone: [facility] 12-20-2023 14:30-0400 Diastolic blood pressure 98 mm[Hg] Dr. Lanre Smith Work Phone: [facility] 12-20-2023 14:30-0400 Heart rate 78 /min Dr. Lanre Smith Work Phone: [facility] 12-20-2023 14:30-0400 Inhaled oxygen flow rate 2 L/min Dr. Lanre Smith Work Phone: [facility] 12-20-2023 14:30-0400 Respiratory rate 20 /min Dr. Lanre Smith Work Phone: [facility] 12-20-2023 14:30-0400 SaO2% (BldA) [Mass fraction] 99 % Dr. Lanre Smith Work Phone: [facility] 12-20-2023 14:30-0400 Systolic blood pressure 123 mm[Hg] Dr. Lanre Smith Work Phone: [facility] 12-18-2023 12:30-0400 Body height 149.[address] Lanre Smith Work Phone: [facility] 12-18-2023 12:30-0400 Body weight 86.[address] Lanre Smith Work Phone: [facility] 12-16-2023 11:17-0400 Body mass index (BMI) [Ratio] 38.5 kg/m2 Dr. Lanre Smith Work Phone: [facility] 12-16-2023 10:24-0400 Body temperature 97.6 [degF] [facility] 12-16-2023 10:24-0400 Diastolic blood pressure 78 mm[Hg] [facility] 12-16-2023 10:24-0400 Heart rate 71 /min [facility] 12-16-2023 10:24-0400 Respiratory rate 18 /min [facility] 12-16-2023 10:24-0400 SaO2% (BldA) [Mass fraction] 92 % [facility] 12-16-2023 10:24-0400 Systolic blood pressure 162 mm[Hg] [facility] 12-16-2023 07:12-0400 Body height 149.86 cm [facility] 12-16-2023 07:12-0400 Body mass index (BMI) [Ratio] 38.5 kg/m2 [facility] 12-16-2023 07:12-0400 Body weight 86.4 kg [facility] 01-08-2023 10:55-0400 Body temperature 97.7 [degF] Dr. Lanre Smith Work Phone: [facility] 01-08-2023 10:55-0400 Diastolic blood pressure 66 mm[Hg] Dr. Lanre Smith Work Phone: [facility] 01-08-2023 10:55-0400 Heart rate 78 /min Dr. Lanre Smith Work Phone: [facility] 01-08-2023 10:55-0400 Respiratory rate 16 /min Dr. Lanre Smith Work Phone: [facility] 01-08-2023 10:55-0400 SaO2% (BldA) [Mass fraction] 94 % Dr. Lanre Smith Work Phone: [facility] 01-08-2023 10:55-0400 Systolic blood pressure 134 mm[Hg] Dr. Lanre Smith Work Phone: [facility] 01-08-2023 09:42-0400 Body height 149.[address] Lanre Smith Work Phone: [facility] 01-08-2023 09:42-0400 Body mass index (BMI) [Ratio] 36.5 kg/m2 Dr. Lanre Smith Work Phone: [facility] 01-08-2023 09:42-0400 Body weight 81.[address] Lanre Smith Work Phone: [facility] Encounters Encounter Date Encounter Type Care Provider Facility Start: 05-05-2025 ambulatory Lanre Smith Facility:[facility] Start: 01-29-2025 End: 01-29-[address] Lanre Smith MD Work Phone: [facility] Work Phone: Start: 01-29-2025 End: 01-29-[address] Papo Cunningham MD -[facility] Start: 01-29-2025 End: 01-29-2025 ambulatory Lanre Smith Facility:[facility] Start: 01-12-2025 End: 01-12-[address] Papo Cunningham MD -[facility] Start: 01-12-2025 End: 01-12-[facility] Start: 11-10-2024 ambulatory Lanre Smith Facility:[facility] Start: 11-10-[address] Smita Fernández MD -[facility] Start: 10-09-2024 ambulatory Lanre Smith Facility:[facility] Start: 08-11-2024 End: 08-11-2024 ambulatory Lanre Smith Facility:[facility] Start: 12-20-2023 Non-patient / Non-visit Dr. Lanre Smith Work Phone: [facility] Work Phone: Start: 12-19-2023 Non-patient / Non-visit Dr. Lanre Smith Work Phone: [facility] Work Phone: Start: 12-18-2023 Non-patient / Non-visit Dr. Lanre Smith Work Phone: [facility] Work Phone: Start: 12-17-2023 Non-patient / Non-visit Dr. Lanre Smith Work Phone: [facility] Work Phone: Start: 12-16-2023 Non-patient / Non-visit Dr. Lanre Smith Work Phone: [facility] Work Phone: Start: 12-16-2023 End: 12-20-2023 Evaluation and management of inpatient [facility] Work Phone: Start: 10-29-2023 End: 10-29-2023 ambulatory [facility] Work Phone: Start: 10-29-2023 End: 10-29-2023 Departed Referred [facility] Start: 10-29-2023 Registered Referred [facility] Start: 10-19-2023 End: 10-19-2023 ambulatory [facility] Work Phone: Start: 10-19-2023 End: 10-19-2023 Departed Referred [facility] Start: 09-06-2023 End: 09-06-2023 ambulatory [facility] Work Phone: Start: 09-06-2023 End: 09-06-2023 Departed Referred [facility] Start: 08-01-2023 End: 08-01-2023 ambulatory [facility] Work Phone: Start: 08-01-2023 End: 08-01-2023 Departed Referred [facility] Start: 08-01-2023 Registered Referred [facility] Start: 07-20-2023 End: 07-20-2023 ambulatory [facility] Work Phone: Start: 07-20-2023 End: 07-20-2023 Departed Referred [facility] Start: 05-08-2023 End: 05-08-2023 ambulatory [facility] Work Phone: Start: 05-08-2023 End: 05-08-2023 Departed Referred [facility] Start: 05-08-[address] Lanre corey Work Phone: [facility] Start: 04-20-2023 End: 04-20-[address] Lanre Smith Work Phone: [facility] Work Phone: Start: 04-20-2023 End: 04-20-[address] Lanre Smith Work Phone: [facility] Start: 03-01-2023 End: 03-01-[address] Lanre Smith Work Phone: [facility] Work Phone: Start: 03-01-2023 End: 03-01-[address] Lanre Smith Work Phone: [facility] Start: 01-26-2023 End: 01-26-[address] Lanre Smith Work Phone: [facility] Start: 01-19-2023 End: 01-19-[address] Lanre Smith Work Phone: [facility] Work Phone: Start: 01-19-2023 End: 01-19-[address] Lanre Smith Work Phone: [facility] Start: 01-08-2023 Non-patient / Non-visit Dr. Lanre Smith Work Phone: [facility] Start: 01-08-2023 End: 01-08-2023 Admission to same day surgery center Dr. Lanre Smith Work Phone: [facility] Start: 01-08-2023 End: 01-08-[address] Lanre Smith Work Phone: [facility] Work Phone: Start: 12-18-2022 End: 12-18-[address] Lanre Smith Work Phone: [facility] Work Phone: Start: 12-18-2022 End: 12-18-[address] Lanre Smith Work Phone: [facility] Start: 11-06-2022 End: 11-06-[address] Lanre Smith Work Phone: [facility] Start: 10-30-2022 End: 10-30-[address] Lanre Smith Work Phone: [facility] Work Phone: Start: 10-30-2022 End: 10-30-[address] Lanre Smith Work Phone: [facility] Start: 10-30-[address] Lanre corey Work Phone: [facility] Start: 10-20-2022 End: 10-20-[address] Lanre Smith Work Phone: [facility] Work Phone: Start: 10-20-2022 End: 10-20-[address] Lanre Smith Work Phone: [facility] Start: 08-02-2022 End: 08-02-2022 ambulatory [facility] Work Phone: Start: 08-02-2022 End: 08-02-2022 Departed Referred [facility] Start: 08-02-2022 Registered Referred [facility] Start: 07-21-2022 End: 07-21-2022 ambulatory [facility] Work Phone: Start: 07-21-2022 End: 07-21-2022 Departed Referred [place] [id number] Start: 05-21-2022 End: 05-21-2022 ambulatory [facility] adrian Work Phone: Start: 05-21-2022 End: 05-21-2022 Departed Referred [place] [id number] Start: 04-21-2022 Registered Referred [place] [id number] Start: 02-01-2022 End: 02-01-2022 Departed Referred [place] [id number] Start: 02-01-2022 Registered Referred [place] [id number] Start: 01-20-2022 End: 01-20-2022 Departed Referred [place] [id number] Start: 01-20-2022 Registered Referred [place] [id number] Start: 01-03-2022 End: 01-03-2022 Departed Referred [place] [id number] Start: 01-03-2022 Registered Referred [place] [id number] Start: 10-31-2021 End: 10-31-2021 Departed Referred [place] [id number] Start: 10-21-2021 Registered Referred [place] [id number] Procedures Date Procedure Procedure Detail Performing Clinician Start: 11-10-2024 Measurement of renal function Dr. Lanre corey MD Work Phone: Comment on above: GFR Calc Start: 12-16-2023 CT of head with contrast Start: 09-06-2023 Urine culture Start: 03-01-2023 Cytopathology procedure, preparation of smear, genital source Dr. Lanre Smith Work Phone: Start: 03-01-2023 Investigation of transfusion reaction Dr. Lanre Smith Work Phone: Start: 01-08-[address] Lanre kim Work Phone: Cytopathology proced ure, preparation of smear, genital source Dr. Lanre Smith Work Phone: Urine culture Urine culture Dr. Lanre servin Work Phone: Plan of Treatment Date Care Activity Detail Author Start: 12-20-2023 Patient discharge [facility] Start: 12-18-2023 Referral to occupati onal therapist [facility] Start: 12-18-2023 Referral to service [facility] Start: 12-17-[address] [facility] Start: 12-17-2023 Contact precautions [facility] Start: 12-16-2023 Assessment of risk o f venous thromboembolism [facility] Start: 12-16-2023 Care regimes management [facility] Start: 12-16-2023 Insertion of cathete r into peripheral vein [facility] Start: 12-16-20[address] Notification [address] [facility] Start: 12-16-2023 Providing care accor ding to standard [facility] Start: 12-16-2023 Provision of activit y privileges [facility] Start: 12-16-2023 [facility] Start: 12-16-2023 Following clinical p athway protocol [facility] Start: 12-16-2023 Verification routine [facility] Start: 12-16-2023 Hospital admission, emergency, from emergency room, medical nature [facility] Start: 12-16-2023 Admission procedure [facility] Start: 01-08-2023 Egd transoral biopsy single/multiple EGD BIOPSY SINGLE/MULTIPLE [facility] Start: 01-08-2023 Patient discharge [facility] Patient referral [facility] Work Phone: Immunizations Immunization Date Immunization Notes Care Provider Anderson aguilar 07-01-2013 Influenza virus vaccine [facility] 06-01-2009 Pneumococcal Vaccine [facility] Work Phone: 06-01-2009 pneumococcal vaccine , unspecified formulation [facility] Payers Date Payer Category Payer Self-pay [id number] 2024 Unknown [id number] 2024 Unknown [id number] Unknown [id number] [id number] [id number] Unknown [id number] [id number] [id number] Unknown [id number] [id number] [id number] Unknown [id number] 2.16.8 [id number] Unknown [id number] 2.16.8 [id number] Unknown [id number] [id number] [id number] Social History Date Type Detail Facility Start: 12-03-2019 End: 12-16-2023 Tobacco smoking status NHIS Unknown if ever smoked [facility] Start: 03-19-2014 None [facility] Start: 03-19-2014 Alone [facility] Start: 12-03-2019 Non-smoker [facility] Start: 1940 Sex Assigned At Female [facility] Start: 12-16-2023 Tobacco smoking status NHIS Never smoked tobacco (finding) [facility] NEGATED: Highlighted row [facility] Goals Date Patient Goal Desired Activity /State Functional Status Date Assessment Result Facility 12-20-2023 Functional status Bedrest [facility] Work Phone: Mental Status Date Assessment Result Facility 12-20-2023 Cognitive function Drowsy [facility] Work Phone: 12-20-2023 Cognitive function Arousable To Voice/Nam e [facility] Work Phone: 12-20-2023 Cognitive function Cooperative [facility] Work Phone: 12-19-2023 Cognitive function Memory Descri ption Remote Intact [facility] Work Phone: 01-08-2023 Cognitive function Voice/Name [facility] Work Phone: Clinical Notes 01-08-2023 to 12-20-2023 Note Date & Type Note Facility 12-20-2023 Discharge summary Note Date/Time December 20, 2023 3:40pm [facility] Medical Records Department [address] [place] [address] Transfer to [facility] Care MR#: [id number] Acct: [id number] Name: LEONID MCCOY Rep #:[id number] : [id number] 83 From: Milton Fitzgerald DO PCP: Dr. Lanre Smith MD Status:ADM I N Certification of patient admission REQUIRED AT TIME OF ADMISSION. I CERTIFY THAT POST-HOSPITAL ECF SERVICES ARE REQUIRED TO BE GIVEN ON AN IN-PATIENT BASIS BECAUSE OF THE ABOVE NAMED PATIENT'S NEED FOR LONGTERM CARE ON A CONTINUING BASIS FOR THE CONDITION(S) FOR WHICH HE/SHE WAS RECEIVING IN-PATIENT HOSPITAL SERVICES PRIOR TO HIS/HER TRANSFER TO THE ECF. 12/20/23 1553<Electronically signed by Milton Fitzgerald DO> Diet Diet Order/Speech Therapy: 12/16/23 11:28 Diet: Regular - General Food consistency:: Mechanical (Minced/Moist) Liquid Consistency:: Regular/Thin Type of Dietary Supplement:: Glucerna Shake Diet Comments: 240mL glucerna shake w/ breakfast meal Routine Orders/Code Status O2 Liters per Minute: 2 O2 Frequency: Continuous Keep PO Greater than or Equal to (%): 90 Routine Lab Work: - (bmp in 3 days) Code Status: DNRCC-A (no intubation) Wound(s) Left side of face: Wound Type: scabbed over shingles lesions Therapies Weight Bearing: Weight bearing as tolerated Physical Therapy: Eval and Treat Occupational Therapy: Eval and Treat Problem/Diagnosis (1) Cellulitis of face: Status: Acute Code(s): L03.211 - Cellulitis of face (2) Herpes zoster: Status: Acute Code(s): B02.9 - Zoster without complications Plan 1. Acute herpes zoster infection of the left facial area including the left forehead with edema extending into the periorbital area on the left-patient willcontinue on acyclovir, patient will be reevaluated for possible discharge back to her [place] [facility] facility tomorrow #2 left-sided parotitis-patient will remain on meropenem, she will be changed tooral antibiotics tomorrow if she is discharged to the nursing facility #3 type 2 diabetes-patient's blood sugars will be monitored, sliding scale insulin was ordered per fingerstick blood sugars #4 essential hypertension-patient will remain on her present medications for blood pressure #5 hypothyroidism-patient is on Synthroid #6 blindness secondary to macular degeneration-complicates care, medical course,recovery, and prognosis Total clinical time spent by myself addressing the patient's medical issues, reviewing all of her data, and collaborating with patient's care team: 35 minutes Patient is a DNR CC arrest without intubation per assisted records. Allergies/Procedures Done in Hospital Allergies ether [Ether] Allergy (Verified 12/16/23 07:12) Anaphylaxis Penicillins Allergy (Verified 12/16/23 07:12) Anaphylaxis Procedures: None Type of Care/Length of Stay Estimated LOS: More Than 30 Days Type of Care Needed: Intermediate Rehab Potential: Fair Prognosis: Fair Additional Orders/Day of Discharge H&P will serve as current which was dated: 12/16/23 Day of Discharge: 12/20/23 Dietary and Speech Recommendations Dietitian Recommendations/Changes: Continue regular diet with consistency/texture alterations as needed. Restrict carbohydrates as PO improves or if blood glucose rises. Will add 240mL glucerna shake w/ breakfast tray. Encourage improved PO at meals as tolerated. Discharge Plan Admission Admit Date/Time: 12/16/23 10:13 Primary Reason for Your Visit: herpes zoster, parotitis Attending Provider: Milton Fitzgerald Primary Care Provider: Lanre Smith Discharge Orders/Prescriptions Prescriptions: New insulin lispro [Humalog KwikPen Insulin] 100 unit/mL Insulin Pen See Protocol subcut ACHS Qty: 0 0RF Protocol: 3. Sliding Scale Insulin Med Dosing Condition: 150-189 mg/dl = 1 unit Condition: 190-229 mg/dl = 2 units Condition: 230-269 mg/dl = 3 units Condition: 270-309 mg/dl = 4 units Condition: 310-349 mg/dl = 5 units Condition: 350-399 mg/dl = 6 units Condition: 400-449 mg/dl = 7 units Condition: Greater than 449 call physician Protocol Text: - Use for Total Daily Dose of Insulin 37-55 units - Obsese, infected, or steroid patients MEDIUM DOSING ALGORITHIM nystatin [Nyamyc] 100,000 unit/gram Powder 1 applic topical TID Qty: 0 0RF Protocol: *Topical Application Instructions APPLICATION INSTRUCTIONS: groin and folds menthol-zinc oxide [Calmoseptine] 0.44-20.6 % Ointment 1 applic topical TID Qty: 0 0RF Protocol: *Topical Application Instructions APPLICATION INSTRUCTIONS: buttocks valacyclovir [Valtrex] 1 gram tablet 1,000 mg PO TID Qty: 9 0RF Rx Instructions: 1 tab 3 times a day for 3 days starting 12/21/2023 levofloxacin 250 mg tablet 250 mg PO DAILY Qty: 3 0RF Rx Instructions: 1 tablet daily x 3 days starting 12/21/2023 Continued amlodipine 5 mg tablet 5 mg PO DAILY levothyroxine 50 mcg tablet 50 mcg PO DAILY lisinopril 40 mg tablet 20 mg PO DAILY loperamide 2 MG capsule 2 mg PO Q4H PRN (Reason: Diarrhea) dextromethorphan-guaifenesin 5 ML syrup 10 ml PO PRN PRN (Reason: Cough) acetaminophen 325 MG capsule 325 mg PO Q4H PRN (Reason: Pain Or Fever) cholecalciferol (vitamin D3) 2,000 UNIT capsule 2,000 unit PO DAILY tramadol 50 MG tablet 50 mg PO Q6H PRN PRN (Reason: mild to moderate pain) docusate sodium 100 MG capsule 100 mg PO QHS famotidine 20 mg Tablet 20 mg PO DAILY lorazepam 0.5 mg Tablet 0.5 mg PO Q12H PRN (Reason: Anxiety) mirtazapine 15 mg Tablet 15 mg PO QHS nystatin 100,000 unit/gram Powder 1 applic TOPICAL BID albuterol sulfate [Proventil HFA] 90 mcg/actuation Hfa Aerosol Inhaler 2 puff INHALATION Q3H PRN (Reason: SOB) escitalopram oxalate [Lexapro] 5 mg Tablet 5 mg PO DAILY simethicone 80 mg Tablet 80 mg PO Q8H PRN (Reason: BLOATING) diphenhydramine HCl [Aler-Cap] 25 mg capsule 50 mg PO QHS PRN (Reason: itching) calcium carbonate [Antacid (calcium carbonate)] 200 mg calcium (500 mg) tablet,chewable 400 mg PO Q4H PRN (Reason: GERD) glucagon HCl [Glucagon (HCl) Emergency Kit] 1 mg recon soln 1 mg IM Q20M PRN (Reason: hypoglycemia) Rx Instructions: until target blood sugar attained magnesium hydroxide [Milk of Magnesia] 400 mg/5 mL suspension 30 ml PO DAILY PRN (Reason: constipation) bisacodyl 10 mg suppository 10 mg IA DAILY PRN (Reason: constipation) Discontinued prednisone 20 mg tablet 40 mg PO DAILY Rx Instructions: IN THE AFTERNOON FOR PAIN AND SWELLING X5D; START 12/14 Referrals / Follow Up: Lanre Smith MD [Primary Care Provider] - Disposition Disposition (needs filled in before D/C Order can be placed): NonSkilled NH/Intermed Care 12/20/23 3905 <Electronically signed by Milton Fitzgerald DO> Cosigner Signature (if applicable): CC: Dr. Lanre Smith MD ~ [facility] Work Phone: 1(585) 570-855203-20-2024 Progress note Author [facility] December 19, 2023 6:12pm Note Date/Time December 19, 2023 6:1 0pm [facility] Medical Records Department [address] [place] [id number] Progress Note - Hospitalist 12/19/23 1807 MR#: [id number] Acct: [id number] Name: LEONID MCCOY Rep #:[id number] : 1940 83 From: Milton Fitzgerald DO PCP: Dr. Lanre Smith MD Status:ADM I N Location: [place] [address] Reason for Visit Reason for Visit: Diagnoses Zoster without complications (12/16/23) Cellulitis of face (12/16/23) Subjective Subjective Patient was seen and examined today, she is alert, patient is hard to communicate with due to deafness. Objective Data Objective Data Vital Signs: Vital Signs Temp Pulse Resp BP Pulse Ox O2 Del Method O2 Flow Rate 97.5 F L 80 18 145/90 H 94 Nasal Cannula 2 12/19/23 15:31 12/19/23 15:31 12/19/23 15:31 12/19/23 15:31 12/19/23 15:31 12/19/23 15:31 12/19/23 15:31 Oxygen Flow Rate (L/min) 2 Oxygen Delivery Method Nasal Cannula Weight: 86.4 kg Body Mass Index (BMI) 38.5 Intake & Output: Intake and Output for Last 24 Hours 12/17/23 12/18/23 12/19/23 23:59 23:59 23:59 Intake Total 4284.25 / 4284.25 2279.25 / 2279.25 1506.00 / 1506.00 Output Total 2550 / 2550 575 / 825 1000 / 1000 Balance 1734.25 / 1734.25 1704.25 / 1454.25 506.00 / 506.00 Lab / Micro Data 12/17/23 06:50 12/18/23 07:35 Labs: Laboratory Results - last 24 hr 12/18/23 22:27: POC Glucose 102 12/19/23 06:47: POC Glucose 139 H 12/19/23 12:12: POC Glucose 153 H 12/19/23 16:29: POC Glucose 141 H Physical Exam Narrative alert and no apparent distress Constitutional Narrative: Patient is hard of hearing,, she is blind General Appearance: cooperative and well developed Orientation / Consciousness: awake HEENT normocephalic and moist oral mucous membranes HEENT Narrative: There is swelling noted over the patient's left facial area from the area of theparotid gland and submandibular gland up to the patient's left forehead with edema of the patient's left eyelid noted. Patient has scabbed over lesions present on the left forehead not crossing the midline. Patient also has some swelling at the time of my examination over the right periorbital area but therewere no lesions noted in the area and there is no redness to the right side of the face other than the periorbital swollen area Neck supple, no JVD, thyroid normal and no carotid bruits General: trachea midline Resp normal respiratory effort, no retractions, no use of accessory muscles and clearto auscultation bilaterally Auscultation: Negative for rales, rhonchi or wheezes Cardio regular rate, regular rhythm, S1 normal heart sound, S2 normal heart sound, no murmurs, no rub and no gallops GI normal to inspection, nondistended, normoactive bowel sounds, soft to palpation,non-tender and non-distended Extremity no clubbing, cyanosis or edema Skin Skin Narrative: There are scabbed over areas over the left forehead not crossing the midline, these areas extend into the hairline on the left, there is generalized edema of the left side of the face noted and some edema in the right periorbital area with redness noted Neuro CN's II-XII intact bilaterally, moves all extremities, no focal motor deficits and no sensory deficits noted Sensorium / Orientation: awake and alert Speech: speech normal Psych Psych Narrative: Patient is alert, she is very hard of hearing, and she is blind Assessment & Plan Assessment/Plan (1) Cellulitis of face: (2) Herpes zoster: PLAN: Plan 1. Acute herpes zoster infection of the left facial area including the left forehead with edema extending into the periorbital area on the left-patient willcontinue on acyclovir, patient will be reevaluated for possible discharge back to her [place] [facility] facility tomorrow #2 left-sided parotitis-patient will remain on meropenem, she will be changed tooral antibiotics tomorrow if she is discharged to the nursing facility #3 type 2 diabetes-patient's blood sugars will be monitored, sliding scale insulin was ordered per fingerstick blood sugars #4 essential hypertension-patient will remain on her present medications for blood pressure #5 hypothyroidism-patient is on Synthroid #6 blindness secondary to macular degeneration-complicates care, medical course,recovery, and prognosis Total clinical time spent by myself addressing the patient's medical issues, reviewing all of her data, and collaborating with patient's care team: 35 minutes Patient is a DNR CC arrest without intubation per assisted records. Charges/Coding Visit Charges Inpatient E&M: 21362 Subs Hosp L2 12/19/23 1812 <Electronically signed by Milton Fitzgerald DO> Cosigner Signature (if applicable): CC: ~ Signed [facility] Work Phone: 1(213) 241-688703-19-2024 Progress note Author Milton Fitzgerald [facility] December 18, 2023 5:50pm Note Date/Time December 18, 2023 5:[address] [facility] Medical Records Department [address] [place] [address] Progress Note - Hospitalist 12/18/23 1742 MR#: [id number] Acct: [id number] Name: LEONID MCCOY Rep #:[id number] : 1940 83 From: Milton Fitzgerald DO PCP: Dr. Lanre Smith MD Status:ADM I N Location: [facility] [id number] Reason for Visit Reason for Visit: Diagnoses Zoster without complications (12/16/23) Cellulitis of face (12/16/23) Subjective Subjective Patient was seen and examined today, the swelling over her left facial area as improved, she is able to open her eyes slightly on the left. I talked with her brother who was in visiting the patient at the time my examination. Objective Data Objective Data Vital Signs: Vital Signs Temp Pulse Resp BP Pulse Ox O2 Del Method O2 Flow Rate 97.9 F 65 18 176/76 H 98 Nasal Cannula 2 12/18/23 14:47 12/18/23 14:47 12/18/23 14:47 12/18/23 14:47 12/18/23 14:47 12/18/23 14:47 12/18/23 14:47 Oxygen Flow Rate (L/min) 2 Oxygen Delivery Method Nasal Cannula Weight: 86.4 kg Body Mass Index (BMI) 38.5 Intake & Output: Intake and Output for Last 24 Hours 12/16/23 12/17/23 12/18/23 23:59 23:59 23:59 Intake Total 968.25 / 968.25 4284.25 / 4284.25 1653.25 / 1653.25 Output Total 2550 / 2550 325 / 325 Balance 968.25 / 968.25 1734.25 / 1734.25 1328.25 / 1328.25 Lab / Micro Data 12/17/23 06:50 12/18/23 07:35 Labs: Laboratory Results - last 24 hr 12/17/23 20:22: POC Glucose 147 H 12/18/23 03:51: POC Glucose 144 H 12/18/23 07:35: Sodium 128 L, Potassium 4.2, Chloride 102, Carbon Dioxide 22.0, Anion Gap 4 L, BUN 16, Creatinine 1.70 H, Estim Creat Clear Calc 24.06, Est GFR (MDRD) Af Amer 37 L, Est GFR (MDRD) Non-Af 30 L, BUN/Creatinine Ratio 9.4 L, Glucose 159 H, Calcium 8.1 L 12/18/23 11:32: POC Glucose 100 12/18/23 16:46: POC Glucose 159 H Physical Exam Narrative alert and no apparent distress Constitutional Narrative: Patient is hard of hearing, she does not appear to be confused today to this examiner, she is blind General Appearance: cooperative and well developed Orientation / Consciousness: awake HEENT normocephalic and moist oral mucous membranes HEENT Narrative: There is swelling noted over the patient's left facial area from the area of theparotid gland and submandibular gland up to the patient's left forehead with edema of the patient's left eyelid noted. Patient has scabbed over lesions present on the left forehead not crossing the midline. Patient also has some swelling at the time of my examination over the right periorbital area but therewere no lesions noted in the area and there is no redness to the right side of the face other than the periorbital swollen area Neck supple, no JVD, thyroid normal and no carotid bruits General: trachea midline Resp normal respiratory effort, no retractions, no use of accessory muscles and clearto auscultation bilaterally Auscultation: Negative for rales, rhonchi or wheezes Cardio regular rate, regular rhythm, S1 normal heart sound, S2 normal heart sound, no murmurs, no rub and no gallops GI normal to inspection, nondistended, normoactive bowel sounds, soft to palpation,non-tender and non-distended Extremity no clubbing, cyanosis or edema Skin Skin Narrative: There are scabbed over areas over the left forehead not crossing the midline, these areas extend into the hairline on the left, there is generalized edema of the left side of the face noted and some edema in the right periorbital area with redness noted Neuro CN's II-XII intact bilaterally, moves all extremities, no focal motor deficits and no sensory deficits noted Sensorium / Orientation: awake and alert Speech: speech normal Psych Psych Narrative: Patient is alert, she is very hard of hearing, and she is blind Assessment & Plan Assessment/Plan (1) Cellulitis of face: (2) Herpes zoster: PLAN: Plan 1. Acute herpes zoster infection of the left facial area including the left forehead with edema extending into the periorbital area on the left-patient willcontinue on acyclovir, patient will be reevaluated for possible discharge back to her [place] [facility] facility tomorrow #2 left-sided parotitis-patient remains on meropenem #3 type 2 diabetes-patient's blood sugars will be monitored, sliding scale insulin was ordered per fingerstick blood sugars #4 essential hypertension-patient will remain on her present medications for blood pressure #5 hypothyroidism-patient is on Synthroid #6 blindness secondary to macular degeneration-complicates care, medical course,recovery, and prognosis Total clinical time spent by myself addressing the patient's medical issues, reviewing all of her data, and collaborating with patient's care team: 35 minutes Patient is a DNR CC arrest without intubation per assisted records. Charges/Coding Visit Charges Inpatient E&M: 03463 Subs Hosp L2 12/18/23 1750 <Electronically signed by Milton Fitzgerald DO> Cosigner Signature (if applicable): CC: ~ Signed [facility] Work Phone: 1(252) 337-837303-18-2024 Progress note Author [facility] December 17, 2023 7:01pm Note Date/Time December 17, 2023 7:0 1pm [facility] Medical Records Department [address] [place] [address] Progress Note - Hospitalist 12/17/23 1859 MR#: [id number] Acct: [id number] Name: LEONID MCCOY Rep #:[id number] : 1940 83 From: Milton Fitzgerald DO PCP: Dr. Lanre Smith MD Status:ADM I N Location: [place] [address] Reason for Visit Reason for Visit: Diagnoses Zoster without complications (12/16/23) Subjective Subjective Patient was seen and examined today, the edema over the left side of her face islessened, nursing stated they were able to get her left eyelid open and clean out debris. Patient still is confused. Objective Data Objective Data Vital Signs: Vital Signs Temp Pulse Resp BP Pulse Ox O2 Del Method O2 Flow Rate 99.0 F 71 18 162/68 H 95 Nasal Cannula 2 12/17/23 17:00 12/17/23 17:00 12/17/23 17:00 12/17/23 17:00 12/17/23 17:00 12/17/23 17:00 12/17/23 17:00 Oxygen Flow Rate (L/min) 2 Oxygen Delivery Method Nasal Cannula Weight: 86.4 kg Body Mass Index (BMI) 38.5 Intake & Output: Intake and Output for Last 24 Hours 12/15/23 12/16/23 12/17/23 23:59 23:59 23:59 Intake Total 968.25 / 968.25 2948.25 / 2948.25 Output Total 1950 / 1950 Balance 968.25 / 968.25 998.25 / 998.25 Lab / Micro Data 12/17/23 06:50 12/17/23 06:50 Labs: Laboratory Results - last 24 hr 12/16/23 20:33: POC Glucose 131 H 12/17/23 05:46: POC Glucose 122 H 12/17/23 06:50: WBC 7.3, RBC 4.63, Hgb 12.2, Hct 39.8, MCV 86.0, MCH 26.3 L, MCHC 30.7 L, RDW Std Deviation 46.9 H, RDW Coeff of Arina 14.8 H, Plt Count 302, MPV 11.1, Immature Gran % (Auto) 0.100, Neut % (Auto) 48.8, Lymph % (Auto) 37.6,Charles % (Auto) 12.1 H, Eos % (Auto) 0.3, Baso % (Auto) 1.1 H, Absolute Neuts (auto) 3.6, Absolute Lymphs (auto) 2.76, Nucleated RBC % 0, Differential CommentSCANNED, Reactive Lymphocytes 2+, Sodium 137, Potassium 3.0 L, Chloride 100, Carbon Dioxide 32.0, Anion Gap 5, BUN 6 L, Creatinine 0.51 L, Estim Creat Clear Calc 51.12, Est GFR (MDRD) Af Amer 148, Est GFR (MDRD) Non-Af 122, BUN/Creatinine Ratio 11.8, Glucose 147 H, Calcium 8.6 12/17/23 11:53: POC Glucose 133 H 12/17/23 16:51: POC Glucose 138 H Physical Exam Narrative alert and no apparent distress Constitutional Narrative: Patient is hard of hearing, she exhibits confusion but no agitation, patient is blind General Appearance: cooperative and well developed Orientation / Consciousness: awake HEENT normocephalic and moist oral mucous membranes HEENT Narrative: There is swelling noted over the patient's left facial area from the area of theparotid gland and submandibular gland up to the patient's left forehead with edema of the patient's left eyelid noted. Patient has scabbed over lesions present on the left forehead not crossing the midline. Patient also has some swelling at the time of my examination over the right periorbital area but therewere no lesions noted in the area and there is no redness to the right side of the face other than the periorbital swollen area Neck supple, no JVD, thyroid normal and no carotid bruits General: trachea midline Resp normal respiratory effort, no retractions, no use of accessory muscles and clearto auscultation bilaterally Auscultation: Negative for rales, rhonchi or wheezes Cardio regular rate, regular rhythm, S1 normal heart sound, S2 normal heart sound, no murmurs, no rub and no gallops GI normal to inspection, nondistended, normoactive bowel sounds, soft to palpation,non-tender and non-distended Extremity no clubbing, cyanosis or edema Skin Skin Narrative: There are scabbed over areas over the left forehead not crossing the midline, these areas extend into the hairline on the left, there is generalized edema of the left side of the face noted and some edema in the right periorbital area with redness noted Neuro CN's II-XII intact bilaterally, moves all extremities, no focal motor deficits and no sensory deficits noted Sensorium / Orientation: awake and alert Speech: speech normal Psych Psych Narrative: Patient is confused but does follow commands, she is hard of hearing Assessment & Plan Assessment/Plan (1) Cellulitis of face: (2) Herpes zoster: PLAN: Plan 1. Acute herpes zoster infection of the left facial area including the left forehead with edema extending into the periorbital area on the left-patient willcontinue on acyclovir #2 left-sided parotitis-patient remains on meropenem #3 type 2 diabetes-patient's blood sugars will be monitored, sliding scale insulin was ordered per fingerstick blood sugars #4 essential hypertension-patient will remain on her present medications for blood pressure #5 hypothyroidism-patient is on Synthroid #6 blindness secondary to macular degeneration-complicates care, medical course,recovery, and prognosis Total clinical time spent by myself addressing the patient's medical issues, reviewing all of her data, and collaborating with patient's care team: 35 minutes Patient is a DNR CC arrest without intubation per assisted records. Charges/Coding Visit Charges Inpatient E&M: 57742 Subs Hosp L2 12/17/23 1901 <Electronically signed by Milton Fitzgerald DO> Cosigner Signature (if applicable): CC: ~ Signed [facility] Work Phone: 1(456) 633-232103-17-2024 History and physical note Author Milton Fitzgerald [facility] December 16, 2023 7:21pm Note Date/Time December 16, 2023 6:5 2pm [facility] Medical Records Department [address] [place] [address] H&P Exam - Hospitalist 12/16/23 1846 MR#: [id number] Acct: [id number] Name: LEONID MCCOY Rep #:[id number] : 1940 83 From: Milton Fitzgerald DO PCP: Dr. Lanre Smith MD Status:ADM I N Location: [place] [address] HPI - General General Date of Admission: 12/16/23 Date of Service: 12/16/23 Chief Complaint: Left-sided facial rash with swelling and redness HPI Narrative LEONID MCCOY, is a 83 F who presents to the emergency room at [facility] after being sent in from a local extended care facility at which she resides due to increased redness of the left side of her face along with swelling, according to documentation, patient has had evidence of scabbed over lesions for several days on her left forehead with swelling of her left eyelid. Workup in the emergency room today included labs which showed a normal white blood cell count, hemoglobin was slightly low 11.9, chemistry profile was remarkable for potassium of 3.4, blood glucose was 166. Patient's oxygen saturation was 98% on 2 L. Patient chronically uses oxygen at the assisted. Examination of the patient's face showed redness and swelling over the left sideof the patient's face along with lesions on her left forehead going into her hairline suggestive of shingles. Patient's left eye was swollen shut and a complete examination of the patient's left eye was not able to be performed. CTscan of the orbits with contrast was performed, the left parotid gland was moderately enlarged and contained several enlarged reactive lymph nodes within the parenchyma, there was also moderate inflammatory stranding with edema/swelling overlying the left parotid gland which extend superior up to the periorbital regions and down to the submandibular region as well, no abscess wasseen within the parotid gland or in the surrounding soft tissues, no subcutaneous air was present. The emergency room physician talked with ophthalmology and they recommended IV acyclovir for the patient and stated they would see the patient in consultation if it was necessary. There was no ENT coverage, patient is legally blind due tomacular degeneration. She appeared to be confused today but was not agitated. Patient was admitted to [place] [address] for acute shingles with periorbital involvement and parotitis. [facility] Medical History (Updated 12/16/23 @ 10:[address] Penny Ariza, ) Anemia Anxiety Asthma Bronchial asthma Closed head injury Depression Diabetes DJD (degenerative joint disease) of knee Gastric reflux Gastric ulcer Hyperlipidemia Hypertension Legally blind Leukocytosis Lives in assisted Loss of hearing Non-smoker Obesity Osteoarthritis Post-menopausal Shortness of breath on exertion Uses wheelchair Home Medications amlodipine 5 mg tablet 5 mg PO DAILY 11/24/19 [History Last Taken 01/08/23] levothyroxine 50 mcg tablet 50 mcg PO DAILY 11/24/19 [History Last Taken 12/05/19 06:30] lisinopril 40 mg tablet 20 mg PO DAILY 11/24/19 [History Last Taken 01/08/23] acetaminophen 325 mg capsule 325 mg PO Q4H PRN Pain Or Fever 12/03/19 [History Last Taken Unknown] cholecalciferol (vitamin D3) 50 mcg (2,000 unit) capsule 2,000 unit PO DAILY 12/03/19 [History Last Taken 01/08/23] dextromethorphan-guaifenesin 10 mg-100 mg/5 mL oral syrup 10 ml PO PRN PRN Cough12/03/19 [History Last Taken Unknown] docusate sodium 100 mg capsule 100 mg PO QHS 12/03/19 [History Last Taken Unknown] loperamide 2 mg capsule 2 mg PO Q4H PRN Diarrhea 12/03/19 [History Last Taken Unknown] tramadol 50 mg tablet 50 mg PO Q6H PRN PRN mild to moderate pain 12/03/19 [History Last Taken Unknown] albuterol sulfate 90 mcg/actuation aerosol inhaler (Proventil HFA) 2 puff inhalation Q3H PRN SOB 01/03/23 [History Last Taken Unknown] escitalopram oxalate 5 mg tablet (Lexapro) 5 mg PO DAILY 01/03/23 [History Last Taken 01/08/23] famotidine 20 mg tablet 20 mg PO DAILY 01/03/23 [History Last Taken 01/08/23] lorazepam 0.5 mg tablet 0.5 mg PO Q12H PRN Anxiety 01/03/23 [History Last Taken Unknown] mirtazapine 15 mg tablet 15 mg PO QHS 01/03/23 [History Last Taken Unknown] nystatin 100,000 unit/gram topical powder 1 applic topical BID UNDER BREASTS 01/03/23 [History Last Taken Unknown] simethicone 80 mg tablet 80 mg PO Q8H PRN BLOATING 01/03/23 [History Last Taken Unknown] bisacodyl 10 mg rectal suppository 10 mg IA DAILY PRN constipation 12/16/23 [History Last Taken Unknown] calcium carbonate 200 mg calcium (500 mg) chewable tablet (Antacid (calcium carbonate)) 400 mg PO Q4H PRN GERD 12/16/23 [History Last Taken Unknown] diphenhydramine HCl 25 mg capsule (Aler-Cap) 50 mg PO QHS PRN itching 12/16/23 [History Last Taken Unknown] glucagon HCl 1 mg solution for injection (Glucagon (HCl) Emergency Kit) 1 mg IM Q20M PRN hypoglycemia 12/16/23 [History Last Taken Unknown] magnesium hydroxide 400 mg/5 mL oral suspension (Milk of Magnesia) 30 ml PO DAILY PRN constipation 12/16/23 [History Last Taken Unknown] prednisone 20 mg tablet 40 mg PO DAILY 12/16/23 [History Last Taken Unknown] Allergy/AdvReac Type Severity Reaction Status Date / Time ether [Ether] Allergy Anaphylaxis Verified 12/16/23 07:12 Penicillins Allergy Anaphylaxis Verified 12/16/23 07:12 Family History (Updated 11/24/19 @ 09:20 by Ashwini Elizalde) Father Heart disease CVA (cerebral vascular accident) Mother Cancer liver Breast cancer Surgical History History of cholecystectomy History of colonoscopy (~2013) History of esophagogastroduodenoscopy (EGD) (~2013) History of hysterectomy History of partial mastectomy of left breast Hx of appendectomy Hx of dilation and curettage Hx of tonsillectomy Social History (Updated 11/24/19 @ 14:[address] Denys Olivas MD) Smoking Status: Never smoker ROS ROS Narrative Due to confusion, review of systems was not obtainable Review of Systems ROS Unobtainable: due to mental status Vital Signs Vital Signs Vital Signs: 12/16/23 07:12 12/16/23 07:17 12/16/23 07:20 Temperature 97.8 F Temperature Source Oral Pulse Rate 80 86 81 Respiratory Rate 20 H 30 H Respiratory Effort Respiratory Depth Respiratory Pattern Blood Pressure 160/132 H Blood Pressure Mean 141 Blood Pressure Source Blood Pressure Position Blood Pressure Location Pulse Ox 94 87 94 Oxygen Delivery Method Room Air Oxygen Flow Rate (L/min) 12/16/23 07:30 12/16/23 07:40 12/16/23 07:50 Temperature Temperature Source Pulse Rate 78 78 76 Respiratory Rate 21 H 15 20 H Respiratory Effort Respiratory Depth Respiratory Pattern Blood Pressure 168/70 H Blood Pressure Mean 102 Blood Pressure Source Blood Pressure Position Blood Pressure Location Pulse Ox 93 94 92 Oxygen Delivery Method Oxygen Flow Rate (L/min) 12/16/23 08:00 12/16/23 08:02 12/16/23 08:09 Temperature Temperature Source Pulse Rate 81 84 80 Respiratory Rate 16 22 H 21 H Respiratory Effort Respiratory Depth Respiratory Pattern Blood Pressure 178/160 H 162/58 H Blood Pressure Mean 168 88 Blood Pressure Source Blood Pressure Position Blood Pressure Location Pulse Ox 94 91 93 Oxygen Delivery Method Oxygen Flow Rate (L/min) 12/16/23 08:10 12/16/23 08:15 12/16/23 08:30 Temperature Temperature Source Pulse Rate 77 79 Respiratory Rate 21 H 19 H Respiratory Effort Respiratory Depth Respiratory Pattern Blood Pressure 107/88 H 96/68 Blood Pressure Mean 96 80 Blood Pressure Source Blood Pressure Position Blood Pressure Location Pulse Ox 93 91 Oxygen Delivery Method Oxygen Flow Rate (L/min) 12/16/23 08:32 12/16/23 08:40 12/16/23 08:45 Temperature Temperature Source Pulse Rate 85 80 77 Respiratory Rate 40 H 29 H 23 H Respiratory Effort Respiratory Depth Respiratory Pattern Blood Pressure 161/52 H Blood Pressure Mean 79 Blood Pressure Source Blood Pressure Position Blood Pressure Location Pulse Ox 91 89 89 Oxygen Delivery Method Oxygen Flow Rate (L/min) 12/16/23 08:50 12/16/23 09:00 12/16/23 09:10 Temperature Temperature Source Pulse Rate 77 79 84 Respiratory Rate 24 H 21 H 22 H Respiratory Effort Respiratory Depth Respiratory Pattern Blood Pressure 156/135 H Blood Pressure Mean 143 Blood Pressure Source Blood Pressure Position Blood Pressure Location Pulse Ox 89 92 91 Oxygen Delivery Method Oxygen Flow Rate (L/min) 12/16/23 09:15 12/16/23 09:20 12/16/23 09:30 Temperature Temperature Source Pulse Rate 78 77 75 Respiratory Rate 19 H 20 H 18 Respiratory Effort Respiratory Depth Respiratory Pattern Blood Pressure 148/54 H 155/53 H Blood Pressure Mean 78 80 Blood Pressure Source Blood Pressure Position Blood Pressure Location Pulse Ox 90 90 90 Oxygen Delivery Method Oxygen Flow Rate (L/min) 12/16/23 09:40 12/16/23 09:45 12/16/23 09:50 Temperature Temperature Source Pulse Rate 72 72 71 Respiratory Rate 21 H 22 H 25 H Respiratory Effort Respiratory Depth Respiratory Pattern Blood Pressure 152/55 H 153/55 H Blood Pressure Mean 87 80 Blood Pressure Source Blood Pressure Position Blood Pressure Location Pulse Ox 91 89 89 Oxygen Delivery Method Oxygen Flow Rate (L/min) 12/16/23 10:00 12/16/23 10:10 12/16/23 10:24 Temperature 97.6 F L Temperature Source Pulse Rate 72 78 71 Respiratory Rate 24 H 18 Respiratory Effort Respiratory Depth Respiratory Pattern Blood Pressure 152/55 H 162/78 H Blood Pressure Mean 81 106 Blood Pressure Source Blood Pressure Position Blood Pressure Location Pulse Ox 89 89 92 Oxygen Delivery Method Oxygen Flow Rate (L/min) 12/16/23 11:26 12/16/23 11:36 12/16/23 14:36 Temperature 98.9 F 98.4 F Temperature Source Temporal Oral Pulse Rate 75 71 Respiratory Rate 18 18 Respiratory Effort Non-Labored Respiratory Depth Shallow Respiratory Pattern Normal Blood Pressure 156/61 H 172/70 H Blood Pressure Mean 92 104 Blood Pressure Source Monitor Monitor Blood Pressure Position Supine Semi-Fowlers Blood Pressure Location Right Forearm Right Forearm Pulse Ox 98 98 Oxygen Delivery Method Nasal Cannula Nasal Cannula Nasal Cannula Oxygen Flow Rate (L/min) 2 2 2 12/16/23 14:37 Temperature Temperature Source Pulse Rate Respiratory Rate Respiratory Effort Non-Labored Respiratory Depth Shallow Respiratory Pattern Normal Blood Pressure Blood Pressure Mean Blood Pressure Source Blood Pressure Position Blood Pressure Location Pulse Ox Oxygen Delivery Method Nasal Cannula Oxygen Flow Rate (L/min) 2 Weight Weight: 86.4 kg Body Mass Index (BMI) 38.5 Physical Exam Const alert and no apparent distress Constitutional Narrative: Patient is hard of hearing, she exhibits confusion but no agitation, patient is blind General Appearance: cooperative and well developed Orientation / Consciousness: awake HEENT normocephalic and moist oral mucous membranes HEENT Narrative: There is swelling noted over the patient's left facial area from the area of the parotid gland and submandibular gland up to the patient's left forehead with edema of the patient's left eyelid noted. Patient has scabbed over lesions present on the left forehead not crossing the midline. Patient also has some swelling at the time of my examination over the right periorbital area but there were no lesions noted in the area and there is no redness to the right side of the face other than the periorbital swollen area Neck supple, no JVD, thyroid normal and no carotid bruits General: trachea midline Resp normal respiratory effort, no retractions, no use of accessory muscles and clear to auscultation bilaterally Auscultation: Negative for rales, rhonchi or wheezes Cardio regular rate, regular rhythm, S1 normal heart sound, S2 normal heart sound, no murmurs, no rub and no gallops GI normal to inspection, nondistended, normoactive bowel sounds, soft to palpation, non-tender and non-distended Extremity no clubbing, cyanosis or edema Skin Skin Narrative: There are scabbed over areas over the left forehead not crossing the midline, these areas extend into the hairline on the left, there is generalized edema of the left side of the face noted and some edema in the right periorbital area with redness noted Neuro CN's II-XII intact bilaterally, moves all extremities, no focal motor deficits and no sensory deficits noted Sensorium / Orientation: awake and alert Speech: speech normal Psych Psych Narrative: Patient is confused but does follow commands, she is hard of hearing Results Lab / Micro Data 12/16/23 07:33 12/16/23 07:33 Labs: Laboratory Results - last 24 hr 12/16/23 07:33: WBC 9.3, RBC 4.50, Hgb 11.9 L, Hct 38.6, MCV 85.8, MCH 26.4 L, MCHC 30.8 L, RDW Std Deviation 46.9 H, RDW Coeff of Arina 14.9 H, Plt Count 257, MPV 11.0, Immature Gran % (Auto) 0.200, Neut % (Auto) 49.5, Lymph % (Auto) 32.2, Charles % (Auto) 12.4 H, Eos % (Auto) 4.8, Baso % (Auto) 0.9, Absolute Neuts (auto) 4.6, Absolute Lymphs (auto) 3.00, Nucleated RBC % 0, Sodium 136, Potassium 3.4 L, Chloride 106, Carbon Dioxide 24.0, Anion Gap 6, BUN 16, Creatinine 0.59, Estim Creat Clear Calc 51.12, Est GFR (MDRD) Af Amer 124, Est GFR (MDRD) Non-Af 103, BUN/Creatinine Ratio 27.0 H, Glucose 148 H, Calcium 8.8 12/16/23 11:53: POC Glucose 138 H 12/16/23 16:04: POC Glucose 166 H Imaging Radiology Impression CT Orbit Sella Inner 12/16/23 07:46 IMPRESSION: 1. The left parotid gland is moderately enlarged and contains several enlarged reactive lymph nodes within the parenchyma. There is also moderate inflammatory stranding with edema/swelling overlying the left parotid gland which extends superiorly up to the periorbital regions and down to the submandibular region as well. No abscess is seen within the parotid gland or in the surrounding soft tissues. No subcutaneous air is present. Electronically Signed: Andre Pelaez MD at 9:14 EDT Reading Location ID and State: [facility] / [place] , Service support , Assessment & Plan Assessment/Plan (1) Herpes zoster: PLAN: Plan 1. Acute herpes zoster infection of the left facial area including the left forehead with edema extending into the periorbital area on the left-patient will be admitted to [facility] 3, she was placed on IV acyclovir, I do not feel ophthalmology needs to see the patient at this time #2 left-sided parotitis-patient will be placed on meropenem IV, I talked to her brother about her penicillin allergy and her brother stated that as a child she had an adverse reaction to penicillin which cause problems with her breathing-he stated this has been many years ago when she was an adolescent. 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 Charges/Coding Visit Charges Inpatient E&M: 96369 Init Hosp L3 12/16/231858 <Electronically signed by Milton Fitzgerald DO> Cosigner Signature (if applicable): CC: Dr. Milton Fitzgerald DO; Dr. Lanre Smith MD~ Signed ADDENDUM by Dr. Milton Fitzgerald DO on 12/16/23 at 1921 Addendum Additional diagnosis: #7 metabolic encephalopathy-complicates care, medical course, recovery, and prognosis, supportive care will be given 12/16/231920<Electronically signed by Milton Fitzgerald DO> Cosigner Signature (if applicable): cc: Dr. Milton Fitzgerald DO; Dr. Lanre Smith MD ~* Signed [facility] Work Phone: [phone]) 306-298203-17-2024 Discharge summary Author Penny [facility] December 16, 2023 3:10pm Note Date/Time December 16, 2023 10: 00am [facility] Medical Records Department [address] [place] [address] Emergency Department Summary 12/16/23 MR#: [id number] Acct: [id number] Name: LEONID MCCOY Rep #:[id number] : 1940 83 From: Penny Ariza DO PCP: Dr. Lanre Smith MD Status:ADM I N Location: [place] [address] HPI History of Present Illness Chief Complaint: Allergic Reaction Detail of Chief Complaint: Left facial pain and swelling Narrative Narrative: Patient presents via EMS from assisted with left facial redness and swelling. Patient apparently developed a rash within the last 4 days. There was some history of some hairspray being sprayed in her hair which has been donebefore the day before after showering. Patient unsure if that has anything to do with her symptoms today. She has had no fevers or chills or sweats. Patienthas history of diabetes, hypertension, and high cholesterol. [facility] Medical History (Updated 12/16/23 @ 10:[address] Penny Ariza, ) Anemia Anxiety Asthma Bronchial asthma Closed head injury Depression Diabetes DJD (degenerative joint disease) of knee Gastric reflux Gastric ulcer Hyperlipidemia Hypertension Legally blind Leukocytosis Lives in assisted Loss of hearing Non-smoker Obesity Osteoarthritis Post-menopausal Shortness of breath on exertion Uses wheelchair Home Medications amlodipine 5 mg tablet 5 mg PO DAILY 11/24/19 [History Last Taken 01/08/23] levothyroxine 50 mcg tablet 50 mcg PO DAILY 11/24/19 [History Last Taken 12/05/19 06:30] lisinopril 40 mg tablet 20 mg PO DAILY 11/24/19 [History Last Taken 01/08/23] acetaminophen 325 mg capsule 325 mg PO Q4H PRN Pain Or Fever 12/03/19 [History Last Taken Unknown] cholecalciferol (vitamin D3) 50 mcg (2,000 unit) capsule 2,000 unit PO DAILY 12/03/19 [History Last Taken 01/08/23] dextromethorphan-guaifenesin 10 mg-100 mg/5 mL oral syrup 10 ml PO PRN PRN Cough12/03/19 [History Last Taken Unknown] docusate sodium 100 mg capsule 100 mg PO QHS 12/03/19 [History Last Taken Unknown] loperamide 2 mg capsule 2 mg PO Q4H PRN Diarrhea 12/03/19 [History Last Taken Unknown] tramadol 50 mg tablet 50 mg PO Q6H PRN PRN mild to moderate pain 12/03/19 [History Last Taken Unknown] albuterol sulfate 90 mcg/actuation aerosol inhaler (Proventil HFA) 2 puff inhalation Q3H PRN SOB 01/03/23 [History Last Taken Unknown] escitalopram oxalate 5 mg tablet (Lexapro) 5 mg PO DAILY 01/03/23 [History Last Taken 01/08/23] famotidine 20 mg tablet 20 mg PO DAILY 01/03/23 [History Last Taken 01/08/23] lorazepam 0.5 mg tablet 0.5 mg PO Q12H PRN Anxiety 01/03/23 [History Last Taken Unknown] mirtazapine 15 mg tablet 15 mg PO QHS 01/03/23 [History Last Taken Unknown] nystatin 100,000 unit/gram topical powder 1 applic topical BID UNDER BREASTS 01/03/23 [History Last Taken Unknown] simethicone 80 mg tablet 80 mg PO Q8H PRN BLOATING 01/03/23 [History Last Taken Unknown] bisacodyl 10 mg rectal suppository 10 mg IA DAILY PRN constipation 12/16/23 [History Last Taken Unknown] calcium carbonate 200 mg calcium (500 mg) chewable tablet (Antacid (calcium carbonate)) 400 mg PO Q4H PRN GERD 12/16/23 [History Last Taken Unknown] diphenhydramine HCl 25 mg capsule (Aler-Cap) 50 mg PO QHS PRN itching 12/16/23 [History Last Taken Unknown] glucagon HCl 1 mg solution for injection (Glucagon (HCl) Emergency Kit) 1 mg IM Q20M PRN hypoglycemia 12/16/23 [History Last Taken Unknown] magnesium hydroxide 400 mg/5 mL oral suspension (Milk of Magnesia) 30 ml PO DAILY PRN constipation 12/16/23 [History Last Taken Unknown] prednisone 20 mg tablet 40 mg PO DAILY 12/16/23 [History Last Taken Unknown] Allergy/AdvReac Type Severity Reaction Status Date / Time ether [Ether] Allergy Anaphylaxis Verified 12/16/23 07:12 Penicillins Allergy Anaphylaxis Verified 12/16/23 07:12 Family History (Updated 11/24/19 @ 09:20 by Ashwini Elizalde) Father Heart disease CVA (cerebral vascular accident) Mother Cancer liver Breast cancer Surgical History History of cholecystectomy History of colonoscopy (~2013) History of esophagogastroduodenoscopy (EGD) (~2013) History of hysterectomy History of partial mastectomy of left breast Hx of appendectomy Hx of dilation and curettage Hx of tonsillectomy Social History (Updated 11/24/19 @ 14:[address] Denys Olivas MD) Smoking Status: Never smoker ROS ROS ED Review of Systems ROS Unobtainable: other Constitutional Constitutional ED: Reports lethargy; Denies chills, fever(s), sweats or weight loss Eyes Eyes: Denies blurry vision, change in vision or diplopia ENT ENT ED: Reports other Details: Left facial redness and swelling. Bilateral eyelid swelling ; Denies rhinorrhea or sore throat Cardiovascular Cardiovascular: Denies chest pain, orthopnea or racing heartbeat Respiratory/Chest Respiratory/Chest: Denies cough, dyspnea, dyspnea on exertion, orthopnea or sputum Gastrointestinal Gastrointestinal: Denies abdominal pain, diarrhea, nausea or vomiting Genitourinary Genitourinary ED: Denies dysuria, hematuria or urinary frequency Musculoskeletal Musculoskeletal: Denies arthralgias, back pain, myalgias or neck pain Integumentary Denies abscess, Abrasions or rash Neurologic Neurologic: Denies headache(s) or weakness Psychiatric Psychiatric: Denies anxiety, depression or suicidal thoughts Endocrine Endocrinology: Denies polydipsia, polyphagia or polyuria Hematologic/Lymphatic Hematologic/Lymphatic: Denies easy bleeding, easy bruising or lymphadenopathy Allergic/Immunologic Allergic/Immunologic ED: Denies mouth swelling, tongue swelling or urticaria EXAM Physical Exam Const Vital Signs: 12/16/23 07:12 12/16/23 07:17 12/16/23 07:20 Temperature 97.8 F Temperature Source Oral Pulse Rate 80 86 81 Respiratory Rate 20 H 30 H Blood Pressure 160/132 H Blood Pressure Mean 141 Pulse Ox 94 87 94 Oxygen Delivery Method Room Air 12/16/23 07:30 12/16/23 07:40 12/16/23 07:50 Temperature Temperature Source Pulse Rate 78 78 76 Respiratory Rate 21 H 15 20 H Blood Pressure 168/70 H Blood Pressure Mean 102 Pulse Ox 93 94 92 Oxygen Delivery Method 12/16/23 08:00 12/16/23 08:02 12/16/23 08:09 Temperature Temperature Source Pulse Rate 81 84 80 Respiratory Rate 16 22 H 21 H Blood Pressure 178/160 H 162/58 H Blood Pressure Mean 168 88 Pulse Ox 94 91 93 Oxygen Delivery Method 12/16/23 08:10 12/16/23 08:15 12/16/23 08:30 Temperature Temperature Source Pulse Rate 77 79 Respiratory Rate 21 H 19 H Blood Pressure 107/88 H 96/68 Blood Pressure Mean 96 80 Pulse Ox 93 91 Oxygen Delivery Method 12/16/23 08:32 12/16/23 08:40 12/16/23 08:45 Temperature Temperature Source Pulse Rate 85 80 77 Respiratory Rate 40 H 29 H 23 H Blood Pressure 161/52 H Blood Pressure Mean 79 Pulse Ox 91 89 89 Oxygen Delivery Method 12/16/23 08:50 12/16/23 09:00 12/16/23 09:10 Temperature Temperature Source Pulse Rate 77 79 84 Respiratory Rate 24 H 21 H 22 H Blood Pressure 156/135 H Blood Pressure Mean 143 Pulse Ox 89 92 91 Oxygen Delivery Method 12/16/23 09:15 12/16/23 09:20 12/16/23 09:30 Temperature Temperature Source Pulse Rate 78 77 75 Respiratory Rate 19 H 20 H 18 Blood Pressure 148/54 H 155/53 H Blood Pressure Mean 78 80 Pulse Ox 90 90 90 Oxygen Delivery Method 12/16/23 09:40 12/16/23 09:45 12/16/23 09:50 Temperature Temperature Source Pulse Rate 72 72 71 Respiratory Rate 21 H 22 H 25 H Blood Pressure 152/55 H 153/55 H Blood Pressure Mean 87 80 Pulse Ox 91 89 89 Oxygen Delivery Method 12/16/23 10:00 12/16/23 10:10 Temperature Temperature Source Pulse Rate 72 78 Respiratory Rate 24 H Blood Pressure 152/55 H Blood Pressure Mean 81 Pulse Ox 89 89 Oxygen Delivery Method Positive well nourished and well developed General Appearance ED: well developed and NAD HEENT Reports TM's clear and moist mucous membranes HEENT Narrative: Redness and swelling to left side of face. Patient has a excoriated rash involving left upper forehead as well as left eyelids. Eyelids's are swollen shut on the left and she does have some edema to the right eyelid but no rash on the right side. Erythema extends onto the left scalp. normocephalic and atraumatic; Negative for trauma or tenderness Tympanic Membrane ED: Yes TM's clear Eyes PERRL and EOMs intact bilaterally General Eye ED: Negative for pale conjunctiva or scleral icterus Neck no lymphadenopathy, supple and no JVD General: Negative for tenderness Chest Wall inspection of chest normal and palpation of chest normal Chest: Negative for tenderness Resp normal respiratory effort and clear to auscultation bilaterally Effort and Inspection: Negative for respiratory distress or pain with movement Auscultation: Negative for rhonchi, wheezes or diminished lung sounds Cardio regular rate, regular rhythm, S1 normal heart sound, S2 normal heart sound and no murmurs Peripheral Pulses: pulses 2+ throughout GI normal to inspection, nondistended, normoactive bowel sounds, soft to palpation, non-tender, non-distended and no masses Back/Spine no CVA tenderness and no thoracic nor lumbar tenderness Extremity normal to inspection General Extremety ED: Negative for edema General Extremity: Negative for edema Neuro oriented x3, CN's II-XII intact bilaterally, no sensory deficits noted and gait normal Sensorium / Orientation: awake, alert, oriented to person, oriented to place and oriented to time Motor Exam: strength 5/5 throughout and strength abnormal Psych mental status grossly normal Skin no rashes or lesions noted and no wounds MDM MDM MDM Narrative Medical decision making narrative: Patient with redness and swelling to left side of face with new rash. Clinically I suspect this may be shingles. Unable to evaluate patient's left eye as it is swollen shut and am unable to stain the eye to evaluate for dendritic lesions. I did start patient empirically on acyclovir and Zosyn as I suspect there may be a cellulitic component. CBC with differential count 9.3 with hemoglobin 11.9 and platelet count of 257. Chemistries unremarkable. I did obtain a CT scan of the orbits which did not show any evidence of abscess. Noted to have left parotid gland enlargement with several reactive lymph nodes noted. There is also moderate inflammatory stranding with edema and swelling overlying the left parotid gland which extends superiorly to the periorbital regions and down to the submandibular region as well. No abscess seen. I will discuss case with ophthalmology. Also will discuss with hospitalist to evaluate for admission for antivirals and antibiotics. Lab Data Attestation: I reviewed the patient's lab results. Labs: Laboratory Results - last 24 hr 12/16/23 07:33 WBC 9.3 RBC 4.50 Hgb 11.9 L Hct 38.6 MCV 85.8 MCH 26.4 L MCHC 30.8 L RDW Std Deviation 46.9 H RDW Coeff of Arina 14.9 H Plt Count 257 MPV 11.0 Immature Gran % (Auto) 0.200 Neut % (Auto) 49.5 Lymph % (Auto) 32.2 Charles % (Auto) 12.4 H Eos % (Auto) 4.8 Baso % (Auto) 0.9 Absolute Neuts (auto) 4.6 Absolute Lymphs (auto) 3.00 Nucleated RBC % 0 Sodium 136 Potassium 3.4 L Chloride 106 Carbon Dioxide 24.0 Anion Gap 6 BUN 16 Creatinine 0.59 Estim Creat Clear Calc 51.12 Est GFR (MDRD) Af Amer 124 Est GFR (MDRD) Non-Af 103 BUN/Creatinine Ratio 27.0 H Glucose 148 H Calcium 8.8 Radiography Diagnostic Testing: Clinical Impression(s) from Imaging Studies CT Orbit Sella Inner 12/16/23 07:46 IMPRESSION: 1. The left parotid gland is moderately enlarged and contains several enlarged reactive lymph nodes within the parenchyma. There is also moderate inflammatory stranding with edema/swelling overlying the left parotid gland which extends superiorly up to the periorbital regions and down to the submandibular region as well. No abscess is seen within the parotid gland or in the surrounding soft tissues. No subcutaneous air is present. Electronically Signed: Andre Pelaez MD at 9:14 EDT Reading Location ID and State: [address] [place] [address] , Service support , Discharge Plan Dx/Rx/DC Orders Clinical Impression: Acute parotitis, Cellulitis of face, Herpes zoster Disposition Disposition: Acute Care Hospital [facility] Discharge Date/Time: 12/16/23 10:53 What to do if you have Problems For any increased pain, shortness of breath, bleeding, nausea or vomiting, chest pain, or any unexpected problems, contact your Primary Care Provider. Call [facility] ([phone]) or report to the closest Emergency Room. Call 911 if necessary. 12/16/23 1510 <Electronically signed by Penny Ariza DO> Cosigner Signature (if applicable): CC: Dr. Lanre Smith MD ~ Signed [facility] Work Phone: 1(698) 896-331604-10-2023 History and physical note Author Feng Friend [facility] January 08, 2023 9:35am Note Date/Time January 08, 2023 9:3 5am [facility] Medical Records Department [address] [place] [address] History & Physical Exam 01/08/23 0934 MR#: [id number] Acct: [id number] Name: LEONID MCCOY Rep #:[id number] : 1940 82 From: [facility] Friend DO PCP: Dr. Lanre Smith MD Status:REG S DC Location: [place] [address] History and Physical Date of Admission: 01/08/23 82 F who presents to the office today for Initial consult. Gi Hx GERD. PMH DMII,asthma, inflammatory polyarthropathy, anxiety/depression, HTN, hypothyroidism. PSH cholecystectomy 1969 EGD and colonoscopy 12.05.[address] Olivas for anemia. EGD gastritis with hemorrhage. No specimens collected. Colonoscopy without visual abnormality, no specimens collected. Sucralfate and Prilosec [facility] establishment 11.06.22 with dysphagia with choking for several months with worsening in the last 4 months. Particular difficulty with food and occasionallywith pills. ROS Const Constitutional: No anorexia, fatigue, fever(s), weight change or sleep problems Eyes Eyes: No change in vision ENT ENT: No abnormal hearing, difficulty swallowing, mouth lesions, tongue swelling or throat swelling Resp Respiratory: No cough or shortness of breath Cardio Cardiology: No chest pain at rest, chest pain with exertion, shortness of breathor dyspnea on exertion Gastro GI: No difficulty swallowing Genitourinary-Female: No difficulty urinating or burning urination Musc Musculoskeletal: No joint pain, joint swelling, muscle weakness or decreased muscle mass Skin Skin: No hair loss in leg, yellowing of the eye, itchy eyes, rash, skin ulcer orskin swelling Neuro Neurology: No abnormal hearing, abnormal movements, confusion, unsteady gait/balance or memory loss Psych Psychiatric: No anxiety, No confusion and No memory loss Endo Endocrine: No fatigue or weight change Aller/Imm Allergy/Immunologic: No itchy eyes, throat swelling or tongue swelling Sin/Lymp Hematologic/Lymphatic: No easy bleeding, easy bruising or enlarged lymph nodes Exam Const General: cooperative and comfortable Nutritional Appearance: average body habitus and well nourished HENMT Head: normal to inspection Ears: hearing grossly normal bilaterally Nose: external nose normal Face and sinus: normal facial exam Mouth: oral mucosae normal Throat: posterior oropharynx normal Eyes General: appearance normal, both eyes and all related structures Neck Neck: normal visual inspection Chest Chest palpation & inspection: normal inspection of the chest and normal palpation of entire chest wall Resp Effort & Inspection: normal respiratory effort Auscultation: Bilateral: Clear to Auscultation Cardio Palpation: normal PMI Rate: regular rate Rhythm: regular rhythm GI Inspection: normal to inspection Auscultation: normal bowel sounds Percussion: normal to percussion Palpation: no hepatosplenomegaly Skin General: no rashes or lesions noted Neuro General: patient alert Extrem General: normal to inspection Psych Affect: normal affect Quality Reporting Tobacco Screening ([facility] 138) Smoking Status: Never smoker Assessment and Plan Assessment and Plan (1) Dysphagia: ?Status:?Chronic ?Plan: The differential diagnosis for esophageal dysphagia does include sliding hiatal hernia, esophageal diverticulum, erosive esophagitis, esophageal ring, esophageal stricture, cricopharyngeal achalasia, dysmotility disorder of the esophagus.? She will undergo an upper endoscopy.? With possible dilation and biopsies.? She was explained alternatives, risk, benefits including outstanding bleeding, infection, sepsis, perforation, need for emergent surgery .? She of an ASA of 3. I have examined the patient and the H&P has been reviewed. There are no clinicalchanges since date of exam. 01/08/23 0910 <Electronically signed by Feng Ball DO> Cosigner Signature (if applicable): CC: Dr. Lanre Smith MD; Feng Ball DO~ Signed [facility] Work Phone: [phone] 344-658304-10-2023 Procedure [facility]23 [facility] noteNo assessment information availableWMari[facility] Work Phone: Evaluation note* Diagnosis Onset Date Resolution Status Dysphagia chronic [facility] Work Phone: Evaluation note* Diagnosis Onset Date Resolution Status Dysphagia chronic Dysphagia chronic [facility] Work Phone: Evaluation note* Diagnosis Onset Date Resolution Status Acute parotitis acute Cellulitis of face acute Herpes zoster acute [facility] Work Phone: Reason for referral (narrative)No reason for referral information availableWMarietta Osteopathic Clinic Work Phone: Chief Complaint and Reason for Visit Chief Complaint LONGTERM LABWORK LONGTERM LAB WORK Chief Complaint LONGTERM LABWORK LONGTERM LAB WORK LONGTERM LABWORK LABWORK LABWORK Chief Complaint LONGTERM LAB WOR K LONGTERM LABWORK LABWORK LABWORK Chief Complaint LONGTERM LABWORK LABWORK LABWORK Chief Complaint LABWORK LONGTERM LABWORK Chief Complaint LABWORK LONGTERM LABWORK LONGTERM LABWORK Chief Complaint LABWORK LONGTERM LABWORK LONGTERM LABWORK LONGTERM LAB WORK Chief Complaint LONGTERM LABWORK LONGTERM LAB WORK LONGTERM LABWORK Consult Reason for Visit Dysphagia Chief Complaint LONGTERM LAB WOR K LONGTERM LABWORK LONGTERM LABWORK Consult Reason for Visit Dysphagia Chief Complaint LONGTERM LABWORK LONGTERM LABWORK Consult LONGTERM LABWORK Reason for Visit Dysphagia Chief Complaint LONGTERM LABWORK LONGTERM LABWORK Consult LONGTERM LABWORK LABWORK FU Reason for Visit Dysphagia Dysphagia Chief Complaint LONGTERM LABWORK LABWORK FU LONGTERM LABWORK Reason for Visit Dysphagia Chief Complaint FU LONGTERM LABWORK LONGTERM LABWORK LONGTERM LAB WORK Reason for Visit Dysphagia Chief Complaint LONGTERM LABWORK LONGTERM LABWORK LONGTERM LAB WORK Chief Complaint LONGTERM LABWORK LONGTERM LAB WORK LONGTERM LABWORK Chief Complaint LONGTERM LAB WOR K LONGTERM LABWORK LABWORK Chief Complaint LONGTERM LABWORK LABWORK LONGTERM LABWORK Chief Complaint LONGTERM LABWORK LABWORK LONGTERM LABWORK LONGTERM LABWORK Chief Complaint LONGTERM LABWORK LONGTERM LABWORK LONGTERM LAB WORK HERPES ZOSTER, PERIORBITAL CELLULITIS Reason for Visit Acute parotitis Cellulitis of face Herpes zoster Chief Complaint LONGTERM LABWORK LONGTERM LABWORK LONGTERM LAB WORK FACIAL CELLULITIS, PERIOBITAL SHINGLES FACIAL CELLULITIS, PERIOBITAL SHINGLES FACIAL CELLULITIS, PERIOBITAL SHINGLES FACIAL CELLULITIS, PERIOBITAL SHINGLES FACIAL CELLULITIS, PERIOBITAL SHINGLES FACIAL CELLULITIS, PERIOBITAL SHINGLES Reason for Visit Acute parotitis Cellulitis of face Herpes zoster Chief Complaint Admit Date LONGTERM LAB WORK November 10 4:00am LONGTERM LAB WORK January 12, 2025 4 :00am LONGTERM LAB WORK January 29, 2025 5:00 am Family History No Family History Records Found Relationship Condition Age at Onset Recorded Date/T mook father Cardiac disease Unknown Cerebrovascular accident (CVA) Unknown mother Malignant neoplasm Unknown Malignant neoplasm of breast Unknown Advance Directives No Advanced Directives Records Found Advance Directive Response Recorded Date/ Time Advance Directives No March 19 6:16pm Living Will No December 03, 2019 11:59am Power of Journeyman Pressman No December 02 0 11:59am Advance Directive Response Recorded Date/ Time Advance Directives No March 19 14 5:16pm Living Will No December 03, 2019 10:59am Power of Journeyman Pressman No December 02 0 10:59am Advance Directive Response Recorded Date/ Time Advance Directives No March 19 14 6:16pm Living Will No January 03, 2023 9:49am Power of Journeyman Pressman No January 03 3 9:49am Advance Directive Response Recorded Date/ Time Advance Directives No March 19 14 5:16pm Living Will No January 03, 2023 8:49am Power of Journeyman Pressman No January 03 8:49am Advance Directive Response Recorded Date/ Time Advance Directives No March 19 14 6:16pm Living Will No December 16, 2023 7:07am Power of Journeyman Pressman No December 15 24 7:07am Advance Directive Response Recorded Date/ Time Name of Medical Power of Journeyman Pressman daniela marrero December 16, 2023 11:17am Advance Directives No March 19 14 6:16pm Living Will Yes December 16, 2023 11:17am Power of Journeyman Pressman Yes December 15 24 11:17am Advance Directive Response Recorded Date/ Time Advance Directives No March 19 14 6:16pm Summary Purpose Additional Source Comments Goals (unrecognized section and content) Goals may be documented in a n alternate sectionGoals may be documented in an alternate sectionGoals may be documented in an alternate sectionGoals may be documented in an alternate sectionGoals may be documented in an alternate sectionGoals may be documented in an alternate sectionGoals may be documented in an alternate sectionGoals may be documented in an alternate sectionGoals may be documented in an alternate sectionGoals may be documented in an alternate sectionGoals may be documented in an alternate sectionGoals may be documented in an alternate sectionGoals may be documented in an alternate sectionGoals may be documented in an alternate sectionGoals may be documented in an alternate sectionGoals may be documented in an alternate sectionGoals may be documented in an alternate sectionGoals may be documented in an alternate sectionGoals may be documented in an alternate sectionGoals may be documented in an alternate section Care Teams (unrecognized sec tion and content) Team Status: Active Member Role Status Dates Dr. Arthur Raman MD Family Provider Active Dr. Lanre Smith MD Primary Care Provider Active Team Status: Inactive Member Role Status Dates Dr. Lanre Smith MD Primary Care Provider, Referring Provider Active Dr. Feng Ball DO Attending Provider Active Team Status: Inactive Member Role Status Dates Dr. Lanre Smith MD Primary Care Provider Active Lanre Smith Attending Provider Active Team Status: Active Member Role Status Dates Dr. Lanre Smith MD Primary Care Provider Active Lanre Smith Attending Provider Active Team Status: Inactive Member Role Status Dates Dr. Lanre Smith MD Primary Care Provider Active Lanre VARGAS Attending Provider Active Team Status: Active Member Role Status Dates Dr. Lanre Smith MD Primary Care Provider, Referring Provider Active Dr. Feng Ball DO Attending Provider, Other Prov ider Active Team Status: Active Member Role Status Dates Dr. Lanre Smith MD Primary Care Provider Active Lanre VARGAS Attending Provider Active Team Status: Inactive Member Role Status Dates Dr. Lanre Smith MD Primary Care Provider Active Lanre VARGAS Attending Provider, Referring Provide r Active Team Status: Active Member Role Status Dates Dr. Lanre Smith MD Primary Care Provider Active Dr. Penny Ariza DO Emergency Provider Active Dr. Milton Fitzgerald DO Admit Provider, Attending Pro vider Active Team Status: Active Member Role Status Dates Dr. Lanre Smith MD Primary Care Provider Active Dr. Penny Ariza DO Emergency Provider Active Dr. Milton Fitzgerald DO Admit Provider, Attending Provider, Other Provider Active Team Status: Inactive Member Role Status Dates Dr. Lanre Smith MD Primary Care Provider Active Dr. Penny Ariza DO Emergency Provider Active Dr. Milton Fitzgerald DO Admit Provider, Attending Pro vider Active Team Status: Active Member Role Status Dates Dr. Nghia Raman MD Family Provider Active Dr. Lanre Smith MD Primary Care Provider Active Team Status: Active Member Role Status Dates Dr. Lanre Smith MD Primary Care Provider Active Start: November 10, 2024 Dr. Smita VARGAS MD Attending Provider Active Start: November 10, 2024 Dr. Smita VARGAS MD Referring Provider Active Start: November 10, 2024 Team Status: Inactive Member Role Status Dates Dr. Lanre Smith MD Primary Care Provider Active Start: January 12, 2025 End: January 12, 2025 Dr. Papo VARGAS MD Attending Provider Active Start: January 12, 2025 End: January 12, 2025 Dr. Papo VARGAS MD Referring Provider Active Start: January 12, 2025 End: January 12, 2025 Team Status: Inactive Member Role Status Dates Dr. Lanre Smith MD Primary Care Provider Active Start: January 29, 2025 End: January 29, 2025 Dr. Papo VARGAS MD Attending Provider Active Start: January 29, 2025 End: January 29, 2025 INFORMATION SOURCE (unrecogn ized section and content) DATE CREATED AUTHOR 05/20/2025 [facility] FOR RECORDS PERTAINING TO PATIENTS WHO ARE OR HAVE BEEN ENROLLED IN A CHEMICAL DEPENDENCY/SUBSTANCEABUSE PROGRAM, SOME INFORMATION MAY BE OMITTED. This clinical summary was aggregated from multiple sources. Caution should be exercised in using it in the provision of clinical care. This summary normalizes information from multiple sources, and as a consequence, information in this document may materially change the coding, format and clinical context of patient data. In addition, data may be omitted in some cases. CLINICAL DECISIONS SHOULD BE BASED ON THE PRIMARY CLINICAL RECORDS. [employer] [facility]. provides no warranty or guarantee of the accuracy or completeness of information in this document.
[2025-07-28 08:36] LABS: Hematocrit 40.5 % (37-47); Hemoglobin 12.7 g/dL (12.0-15.0); Mean Corp Hgb Conc 31.4 g/dL (32-36); Mean Corpuscular Volume 88.2 fL (81-99); Mean Platelet Vol. 12.4 fl (6.2-12.0); Platelet Count 177 K/mm3 (150-450); RBC Distribution Width CV 13.7 % (11.6-14.6); RBC Distribution Width SD 44.3 fl (35.1-43.9); Red Blood Count 4.59 M/mm3 (4.2-5.4); White Blood Count 8.6 K/mm3 (4.4-11.0)
[2025-07-28 09:01] LABS: AST(SGOT) 17 U/L (<=31); Alanine Aminotransfer ALT/SGPT 10 U/L (<=34); Albumin, Serum 3.7 g/dL (3.4-4.8); Alkaline Phosphatase 152 U/L (35-104); Anion Gap 9 (5-15); BUN 19 mg/dL (4-19); BUN/Creat Ratio 41.6 RATIO (10-20); Calcium,Total 9.4 mg/dL (7.6-11.0); Carbon Dioxide 27.3 mmol/L (21.0-32.0); Chloride 105 mmol/L (98-108); Globulin 3.3 g/dL (2.2-4.2); Glucose 130 mg/dL (70-99); Potassium 3.9 mmol/L (3.3-5.1)
== END ==
LOC: OLS.SW 05:00
PROVIDERS: PCP Family Medicine; Visit Provider Family Medicine
DX: E03.9 Hypothyroidism, unspecified (principal)
CPT/HCPCS: 36415; 80053; 83036; 84443; 85027